=== PATIENT | female | born 1950 | race Caucasian/White ===

== ENCOUNTER → 2018-01-05 20:01 | Outpatient (REF) | payer MEDICARE, BC, SELFPAY | LOC: LBN 20:01 | PROVIDERS: PCP Nurse Practitioner Family; Visit Provider Nurse Practitioner Family | DX: R30.0 Dysuria (principal) | CPT/HCPCS: 87086 ==

== ENCOUNTER → 2018-02-24 13:45 | Outpatient (BNVA) | payer MEDICARE, BC, SELFPAY | PROVIDERS: PCP Nurse Practitioner Family; Visit Provider Orthopaedic Surgery | DX: M17.11 Unilateral primary osteoarthritis, right knee (principal); M17.12 Unilateral primary osteoarthritis, left knee; E11.9 Type 2 diabetes mellitus without complications; I10 Essential (primary) hypertension; Z79.84 Long term (current) use of oral hypoglycemic drugs | CPT/HCPCS: 20610; 99211; 99213; J1040 ==

== ENCOUNTER 2018-02-28 10:21 | Outpatient (CLI) | payer MEDICARE, BC, SELFPAY ==
[2018-02-28 11:27] LABS: Hemoglobin A1C 6.8 % (4.5-6.2)
== END 2018-02-28 10:41 ==
PROVIDERS: PCP Nurse Practitioner Family; Visit Provider Nurse Practitioner Family
DX: E11.9 Type 2 diabetes mellitus without complications (principal)
CPT/HCPCS: 36415; 83036

== ENCOUNTER → 2018-05-26 13:09 | Outpatient (BNVA) | payer MEDICARE, BC, SELFPAY | PROVIDERS: PCP Nurse Practitioner Family; Referring Provider Nurse Practitioner Family; Visit Provider Orthopaedic Surgery | DX: M17.0 Bilateral primary osteoarthritis of knee (principal); E11.9 Type 2 diabetes mellitus without complications; Z79.84 Long term (current) use of oral hypoglycemic drugs; I10 Essential (primary) hypertension | CPT/HCPCS: 20610; 99211; 99213; J1040 ==

== ENCOUNTER 2018-08-16 01:48 | Outpatient (CLI) | payer MEDICARE, BC, SELFPAY ==
[2018-08-16 10:44] LABS: Abs Immature Grans 0.06 k/cumm (0.0-0.09); Absolute Basophil Count 0.08 k/cumm (0.0-0.2); Absolute Lymphocyte Count 2.56 k/cumm (1.2-3.4); Absolute Monocyte Count 0.83 k/cumm (0.11-0.7); Absolute Neutrophil Count 6.27 k/cumm (1.2-6.7); Basophils % 0.8; Eosinophils % 6.7; HCT 38.5 % (36.0-46.0); HGB 12.4 g/dL (12.0-15.5); Immature Grans % 0.6; Lymphocytes % 24.4; Mean Corp. HGB Concentration 32.2 g/dL (32.0-36.0); Mean Corpuscular Hemoglobin 28.2 pg (27.0-33.0); Mean Corpuscular Volume 87.7 fL (80-95); Mean Platelet Volume 12.1 fL (8.0-11.0); Monocytes % 7.9; Neutrophils % 59.6; Platelet Count 298 x1000/uL (130-400); RBC 4.39 m/cumm (4.00-5.20); RBC Distribution Width 14.5 % (11.7-14.6)
[2018-08-16 11:10] LABS: ALT 18 U/L (12-78); AST 12 U/L (15-37); Albumin 3.5 g/dL (3.4-5.0); Alkaline Phosphatase 61 U/L (46-116); Anion Gap 10.9 mmol/L (3-11); BUN 24 mg/dL (7-18); Bilirubin, Total 0.5 mg/dL (0.2-1.0); CO2 25.1 mmol/L (21.0-32.0); CREATININE 1.48 mg/dL (0.55-1.02); Calcium 10.1 mg/dL (8.5-10.1); Chloride 107 mmol/L (98-107); Cholesterol 164 mg/dL (50-200); Estimated GFR 34.87 (mL/min/1.73m2); Glucose 94 mg/dL (70-100); HDL Cholesterol 49 mg/dL (40-60); LDL CHOLESTEROL 85 mg/dL (<100); Sodium 143 mmol/L (136-145); TSH 0.97 uIU/mL (0.358-3.74); Total Protein 6.3 g/dL (6.4-8.2); Triglyceride 155 mg/dL (30-150)
[2018-08-16 11:40] LABS: FREE T4 1.38 ng/dL (0.76-1.46)
[2018-08-16 12:50] LABS: Hemoglobin A1C 6.6 % (4.5-6.2)
== END 2018-08-16 02:08 ==
PROVIDERS: PCP Nurse Practitioner Family; Visit Provider Nurse Practitioner Family
DX: E11.9 Type 2 diabetes mellitus without complications (principal); E03.9 Hypothyroidism, unspecified; E78.5 Hyperlipidemia, unspecified
CPT/HCPCS: 36415; 80053; 80061; 83721; 83036; 84439; 84443; 85025

== ENCOUNTER 2018-08-17 00:27 | Outpatient (CLI) | payer MEDICARE, BC, SELFPAY ==
--- NOTE | 2018-08-17 15:00 | DI.MAMMO_ITS ---
SYMPTOM/DIAGNOSIS: SCREENING, Z12.31 MAMMOGRAMS: Mammograms were interpreted according to the usual protocol including computer analysis with CAD system, tomosynthesis and C view imaging. The breasts are of moderate density with fairly symmetrical distribution of fibroglandular tissue. No dominant mass or clumped microcalcification is identified in either breast. The current examination is compared with the previous examinations including 07/2016 and there has been no gross interval change in appearance in comparison with the previous studies. CONCLUSION: No specific evidence of malignancy at this time. Routine screening examinations are suggested at yearly intervals in this age group according to the ACS/ACR guidelines. Category 1. Breast density, Category B. MQSA ASSESSMENT OF FINDINGS: Negative. Category 1. Patient will receive a letter notifying them of these results. BI-RADS category B. There are scattered areas of fibroglandular density.
== END 2018-08-17 00:47 ==
PROVIDERS: PCP Nurse Practitioner Family; Visit Provider Nurse Practitioner Family
DX: Z12.31 Encounter for screening mammogram for malignant neoplasm of breast (principal)
CPT/HCPCS: 77063; 77067

== ENCOUNTER → 2018-09-01 12:43 | Outpatient (BNVA) | payer MEDICARE, BC, SELFPAY | PROVIDERS: PCP Nurse Practitioner Family; Referring Provider Nurse Practitioner Family; Visit Provider Orthopaedic Surgery | DX: M17.11 Unilateral primary osteoarthritis, right knee (principal); M17.12 Unilateral primary osteoarthritis, left knee; I12.9 Hypertensive chronic kidney disease with stage 1 through stage 4 chronic kidney disease, or unspecified chronic kidney disease; E11.22 Type 2 diabetes mellitus with diabetic chronic kidney disease; N18.9 Chronic kidney disease, unspecified | CPT/HCPCS: 20610; 99213; J1040 ==

== ENCOUNTER 2018-09-09 02:05 | Outpatient (CLI) | payer MEDICARE, BC, SELFPAY ==
[2018-09-09 12:09] LABS: Anion Gap 12.9 mmol/L (3-11); BUN 22 mg/dL (7-18); CO2 24.1 mmol/L (21.0-32.0); CREATININE 1.42 mg/dL (0.55-1.02); Calcium 9.9 mg/dL (8.5-10.1); Chloride 105 mmol/L (98-107); Estimated GFR 36.57 (mL/min/1.73m2); Glucose 209 mg/dL (70-100); Potassium 4.7 mmol/L (3.5-5.1); Sodium 142 mmol/L (136-145)
== END 2018-09-09 02:25 ==
PROVIDERS: PCP Nurse Practitioner Family; Visit Provider Nurse Practitioner Family
DX: N18.9 Chronic kidney disease, unspecified (principal)
CPT/HCPCS: 36415; 80048; 82043; 82570

== ENCOUNTER 2018-11-28 01:46 | Outpatient (CLI) | payer MEDICARE, BC, SELFPAY ==
[2018-11-28 10:02] LABS: Hemoglobin A1C 6.7 % (4.5-6.2)
[2018-11-28 10:22] LABS: Anion Gap 9.3 mmol/L (3-11); BUN 20 mg/dL (7-18); CO2 26.7 mmol/L (21.0-32.0); CREATININE 1.33 mg/dL (0.55-1.02); Calcium 9.6 mg/dL (8.5-10.1); Chloride 107 mmol/L (98-107); Estimated GFR 39.44 (mL/min/1.73m2); Glucose 130 mg/dL (70-100); Potassium 4.7 mmol/L (3.5-5.1); Sodium 143 mmol/L (136-145)
== END 2018-11-28 02:06 ==
PROVIDERS: PCP Nurse Practitioner Family; Visit Provider Nurse Practitioner Family
DX: E11.9 Type 2 diabetes mellitus without complications (principal); N18.9 Chronic kidney disease, unspecified
CPT/HCPCS: 36415; 80048; 83036

== ENCOUNTER → 2018-12-01 13:08 | Outpatient (BNVA) | payer MEDICARE, BC, SELFPAY | PROVIDERS: PCP Nurse Practitioner Family; Referring Provider Nurse Practitioner Family; Visit Provider Orthopaedic Surgery | DX: M17.11 Unilateral primary osteoarthritis, right knee (principal); M17.12 Unilateral primary osteoarthritis, left knee; I12.9 Hypertensive chronic kidney disease with stage 1 through stage 4 chronic kidney disease, or unspecified chronic kidney disease; E11.22 Type 2 diabetes mellitus with diabetic chronic kidney disease; N18.9 Chronic kidney disease, unspecified | CPT/HCPCS: 20610; 99211; 99213; J1040 ==

== ENCOUNTER 2019-02-28 02:09 | Outpatient (CLI) | payer MEDICARE, BC, SELFPAY ==
[2019-02-28 10:41] LABS: BUN 26 mg/dL (7-18); CREATININE 1.45 mg/dL (0.55-1.02); Calcium 10.2 mg/dL (8.5-10.1); Chloride 108 mmol/L (98-107); Glucose 126 mg/dL (70-100); Potassium 4.8 mmol/L (3.5-5.1); Sodium 144 mmol/L (136-145)
== END 2019-02-28 02:29 ==
PROVIDERS: PCP Nurse Practitioner Family; Visit Provider Nurse Practitioner Family
DX: E11.9 Type 2 diabetes mellitus without complications (principal); N18.9 Chronic kidney disease, unspecified
CPT/HCPCS: 36415; 80048; 83036

== ENCOUNTER 2019-03-06 13:12 | Outpatient (CLI) | payer MEDICARE, BC, SELFPAY ==
--- NOTE | 2019-03-06 13:05 | DI.RAD_ITS ---
EXAM: XR KNEE LT 2V AP,LAT INDICATION: f/u L knee OA. COMPARISON: XR KNEE RT 2V AP,LAT from 03/06/2019 XR STANDING ALIGNMENT from 03/06/2019 TECHNIQUE: 2D digital imaging was performed. FINDINGS: In the left knee, there is marked narrowing in the medial femoral tibial joint space. Periarticular spurring is seen involving all 3 joint compartments. The bones are intact. Vascular calcifications are present. In the right knee, there is marked narrowing seen in the medial femoral tibial joint space. Subchond ral sclerosis and cysts are also noted. There is periarticular spurring in all 3 joint compartments. Vascular calcifications are present. The right lower extremity measures 81 cm. The left lower extremity measures 80.8 cm. IMPRESSION: Severe osteoarthritis in the knees bilaterally.
== END 2019-03-06 13:32 ==
PROVIDERS: PCP Nurse Practitioner Family; Referring Provider Nurse Practitioner Family; Visit Provider Student in an Organized Health Care Education/Training Program
DX: M17.11 Unilateral primary osteoarthritis, right knee; M17.12 Unilateral primary osteoarthritis, left knee; E11.9 Type 2 diabetes mellitus without complications; Z79.4 Long term (current) use of insulin
CPT/HCPCS: 99214; 73560; 77073

== ENCOUNTER 2019-04-19 12:53 | Outpatient (CLI) | payer MEDICARE, BC, SELFPAY ==
[2019-04-19 14:21] LABS: HCT 38.2 % (36.0-46.0); HGB 12.3 g/dL (12.0-15.5); Mean Corp. HGB Concentration 32.2 g/dL (32.0-36.0); Mean Corpuscular Hemoglobin 28.1 pg (27.0-33.0); Mean Corpuscular Volume 87.2 fL (80-95); Mean Platelet Volume 11.4 fL (8.0-11.0); Platelet Count 345 x1000/uL (130-400); RBC 4.38 m/cumm (4.00-5.20); RBC Distribution Width 13.4 % (11.7-14.6); White Blood Cell Count 12.49 k/cumm (4.4-10.8)
[2019-04-19 14:51] LABS: Anion Gap 8.4 mmol/L (3-11); BUN 27 mg/dL (7-18); CO2 28.6 mmol/L (21.0-32.0); CREATININE 1.79 mg/dL (0.55-1.02); Calcium 9.8 mg/dL (8.5-10.1); Chloride 106 mmol/L (98-107); Glucose 103 mg/dL (74-106); Potassium 4.8 mmol/L (3.5-5.1); Sodium 143 mmol/L (136-145)
== END 2019-04-19 13:13 ==
PROVIDERS: PCP Nurse Practitioner Family; Visit Provider Student in an Organized Health Care Education/Training Program
DX: M25.561 Pain in right knee (principal); M17.11 Unilateral primary osteoarthritis, right knee; I10 Essential (primary) hypertension; E11.9 Type 2 diabetes mellitus without complications; K21.9 Gastro-esophageal reflux disease without esophagitis; J44.9 Chronic obstructive pulmonary disease, unspecified; Z01.818 Encounter for other preprocedural examination; Z01.812 Encounter for preprocedural laboratory examination
CPT/HCPCS: 36415; 80048; 85027

== ENCOUNTER 2019-04-25 08:16 | Inpatient (IN) | payer MEDICARE, BC, SELFPAY ==
[2019-04-19 13:03] VITALS: BP 131/74; PULSE 58; RESP 16; TEMP 37; O2SAT 97
[2019-04-25] VITALS (13 sets, daily range): BP systolic 106–149; BP diastolic 44–80; PULSE 51–61; RESP 11–19; TEMP 35.4–37; O2SAT 95–100
[2019-04-25] MEDS: Lactated Ringers 1,000 ML 80 ML IV ×2 (09:20→14:20)
[2019-04-25] MEDS: Celecoxib 200 MG CAP 400 MG PO (09:29)
[2019-04-25] MEDS: Gabapentin 300 MG CAP PO ×2 (09:30→21:26)
[2019-04-25] MEDS: Acetaminophen 500 MG TAB 1000 MG PO ×3 (09:30→19:51)
[2019-04-25] MEDS: Bupivacaine 0.25% Pres-Free 30 ML VIAL ×2 (09:46→11:21)
[2019-04-25] MEDS: ceFAZolin 2 GM/50 ML BAG IVPB (10:15)
[2019-04-25] MEDS: Normal Saline 20 ML VIAL (11:19)
[2019-04-25] MEDS: Ketorolac 30 MG/ML VIAL (11:20)
--- NOTE | 2019-04-25 15:28 | IN_ITS ---
Date of service: 04/25/19 Time of Service: 15:28 PT Notes Visit Reasons: RIGHT KNEE DJD Physical Therapy Inpatient Initial Evaluation Date: 04/25/2019 Referring Doctor: Andrew Perez MD PT Orders: PT CONSULT: Status post ankle surgery. Status post right TKA Precautions: Fall. Standard. WBAT on right LE. Patient Profile/Admitting Diagnosis: Patient is a 68-year-old female who is s/p right total knee arthroplasty on postoperative day 0 due to primary unilateral osteoarthritis of right knee. PMHX: Medical History Chronic kidney disease (Chronic) Depressive disorder (Chronic) Eosinophilic esophagitis (Chronic) EGD 10/21 Essential hypertension (Chronic) Hyperlipidemia (Chronic) Hypothyroidism (Chronic) Iron deficiency anemia (Resolved) Mild intermittent asthma (Inactive) Obesity (Inactive) Sigmoid diverticulosis (Inactive) Tubulovillous adenoma of colon (Inactive ~10/2013) Type 2 diabetes mellitus (Chronic) Surgical History History of bilateral tubal ligation (Acute) Hx of esophagogastroduodenoscopy (Chronic 10/27/13) S/P cataract surgery (Acute 08/01/13) Right - 08/01/13; Left - 08/16/17 S/P colonoscopy (Acute 10/27/13) S/P removal of ovarian cyst (Acute) Social History/Home Situation: Patient lives in a mobile home with 4 steps to enter with rails on both sides. She also can use the ramp to get into the house. 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 Son Clemente has made sure that the house is handicap accessible for his father. Patient uses a 4 wheeled walker for all indoor and outdoor ambulation prior to surgery. She still drives. Son Clemente states that his parents has a relative who lives 100 feet away from their home and are very willing to check in on his mom at least 5 times a day to make sure that she has what she needs. Equipment Owned/DME: Walker, standard walker, transport wheelchair, raised toilet seat, shower chair, grab bars, CPAP machine Subjective: Patient reports seeing spots and sparkles in her peripheral vision at time evaluation and states that she was treated for vertigo by a doctor in the past. She reports of a low back pain that is aggravated with movement and ambulation. She denies headache, chest pain, and nausea throughout PT session. She elaborates that she has not fallen in the past 5 months prior to surgery. Objective: General Observation: Patient seen resting in bed. Son Clemente present throughout PT consult and treatment. Cryo/Cuff on right knee. TEDS on left leg. Morris wraps on right knee. Becerra catheter in place. Anti-thromboembolic device on left leg. Mental Status: Alert and oriented x4 Pain: Reported mild low back pain Vital Signs: 108/77 mmHg in supine, 133/70 mmHg sitting, 109/67 standing ROM: Right Upper Extremity: Shoulder Flexion WFL. Shoulder abduction WFL. Elbow flexion WFL. Wrist flexion WFL. Opening and closing of hand WFL. Left Upper Extremity: Shoulder Flexion WFL. Shoulder abduction WFL. Elbow flexion WFL. Wrist flexion WFL. Opening and closing of hand WFL. Right Lower Extremity: Hip flexion WFL. Hip abduction WFL. Knee flexion -15 to 102 degrees. Knee extension -15 degrees. Ankle dorsiflexion WFL. Ankle plantarflexion WFL. Left Lower Extremity: Hip flexion WFL. Hip abduction WFL. Knee flexion WFL. Ankle dorsiflexion WFL. Ankle plantarflexion WFL. Strength: Right Upper Extremity: Shoulder flexors 5/5. Shoulder abductors 5/5. Elbow fl exors 5/5. Elbow extensors 5/5. [employer] strong. Left Upper Extremity: Shoulder flexors 5/5. Shoulder abductors 5/5. Elbow flexors 5/5. Elbow extensors 5/5. [employer] strong. Right Lower Extremity: Hip flexors 5/5. Hip abductors 5/5. Knee flexors 3-/5. Knee extensors 3-/5. Ankle dorsiflexors 5/5. Ankle plantarflexors 5/5. Left Lower Extremity:Hip flexors 5/5. Hip abductors 5/5. Knee flexors 5/5. Knee extensors 5/5. Ankle dorsiflexors 5/5. Ankle plantarflexors 5/5. Sensation: Intact as to pain and pressure on bilateral lower extremities. Reports decreasing numbness on right thigh. Bed Mobility/Transfers: Rolling SBA Supine to sit SBA Sit to supine SBA Sit to stand CGA Stand to sit CGA Bed to chair CGA Chair to bed CGA Gait: Despite continued report seeing spots and sparkles, patient was able to tolerate 60 feet level surface ambulation using a four-wheel walker requiring only CGA with step -o gait pattern however with asymmetric step length and height. Lidia decreased. Patient reported feeling a little funky advancing her right leg due to numbness. Balance: Static Sitting: Normal Dynamic Sitting: Normal Static Standing: Fair Dynamic Standing: Fair Special Tests: Mobility Limitations Standardized Measure [facility] AM-PAC 6 clicks Basic Mobility Inpatient Short Form: Raw Score: 18 CMS Score: 47% deficit Informed Consent/Education: Patient instructed in purpose of PT consult and plan of care. Patient was also instructed on doing hourly performance of gluteal and quadriceps setting x10 reps along with ankle pumping x 20 reps on top of skilled physical therapy service she is getting. Assessment: Patient is a 68-year-old female who is s/p right total knee arthroplasty on postoperative day 0 due to primary unilateral osteoarthritis of right knee now presenting with impairments and functional limitations as listed below. She has a good support from family however would need to be as independent as she can in order to continue providing care for with B BKA. Her prognosis for regaining prior level of function is fair to good. Her pre-existing vertigo may limit mobility ADL performance at this time. Patient presents with clinical signs and symptoms consistent with current/admitting diagnoses that have resulted to mobility limitations, gait instability, generalized weakness, and impairment of motor control as demo nstrated by the following impairment level findings: 1. Decreased strength to right knee major muscle groups 2. Impaired standing balance 3. Impaired activity tolerance 4. Limitation of joint range of motion in right knee Impairments are contributing to the following functional limitations: 1. Inability to safely ambulate without assistive device and physical assistance 2. Increase completion time for mobility ADL performance 3. Increased fall risk 4. Inability to negotiate steps alone safely Patient is assessed as a 906 to moderate complexity based on the following: History: Patient is a 70-year-old female status post right knee total arthroplasty with comorbidities as indicated under past medical history above Examination: Demonstrable impairment in strength, balance, and range of motion with underlying impairments and functional limitations as documented above Presentation:Evolving Decision Makin to moderate complexity Goals: Goals X1 week 1. Supine-Sit independent 2. Sit-Supine independent 3. Sit-Stand independent 4. Stand-Sit independent 5. Bed-Chair independent 6. Chair-Bed independent 7. Independent gait on level surface with use of least restrictive device for at least 300 feet without report of pain nor dyspnea 8. Independent stair negotiation while holding onto bilateral rails for at least 10 steps without report of pain nor dyspnea 9. Independent with home exercise program 10. Good static and dynamic standing balance/tolerance Plan of Care/Treatment Plan: 1-2x/day, 7 days/week x 1 week. Plan of care has been reviewed with the [employer] providing the service under Physical Therapy direction. Initiate Physical Therapy intervention for strengthening, bed mobility, transfers, gait, stairs, balance training, use of assistive device. DISCHARGE RECOMMENDATIONS: May benefit from skilled physical therapy services according to orthopedic surgeon's timeline recommendations. Patient will be educated and trained on home exercise program per TKA exercise protocol in preparation for outpatient physical therapy services. TREATMENT CODE/TIME: 87791 x30 minutes, 16668 x 12 minutes beginning at 15:28 PM. Thank you very much for this referral. Guera Laguna PT, DPT, CLT [facility] [place], [place]
[2019-04-25] MEDS: ceFAZolin 1 GM/50 ML BAG IVPB (16:20)
[2019-04-25] MEDS: Insulin Aspart 300 UNITS/3 ML PEN SC (17:10)
[2019-04-25] MEDS: Celecoxib 200 MG CAP PO (19:51)
[2019-04-25] MEDS: Glucosamine/Chondroitin CAP 1 CAP PO (19:51)
[2019-04-25] MEDS: Atorvastatin 10 MG TAB PO (19:52)
[2019-04-25] MEDS: Aspirin E.C. 81 MG TABEC PO (19:52)
--- NOTE | 2019-04-25 22:34 | ROE_ITS ---
Date of service: 04/25/19 Time of Service: 13:34 Operative Note Operative Note DATE OF PROCEDURE: 04/25/19 PRE-OP DIAGNOSIS: Right Knee Osteoarthritis with Tibial Varus Deformity POST-OP DIAGNOSIS: same PROCEDURE: Right Total Knee Arthroplasty with Intraoperative Navigation SURGEON: Andrew Perez WAREHOUSE LABORER: Sandra Erazo ANESTHESIA: regional and spinal ESTIMATED BLOOD LOSS: 250 PATHOLOGY: none sent TOURNIQUET TIME: 34 COMPLICATIONS: None Patient was transported to: PACU Patient's condition: stable Implants: 1. Depuy Attune Posterior Stabilized Femoral Component, Size 4 2. Depuy Attune Fixed Platform Revision Tibial Component with 14x30 Stem, Size 5 3. Depuy Attune 5x12mm Fixed, Stabilized Poly 4. Depuy Attune Patellar Component, Size 32mm Indications: I have seen Shari in clinic for symptoms of knee arthritis, confirmed with radiographic findings. Shari has exhausted nonoperative methods and was having significant limitations in daily function and desired better function and less pain. I discussed the technical details of a knee replacement. I explained the risks of the procedure to include, but not limited to, bleeding, infection, pain, stiffness, fracture, damage to nerves and vessels, damage to muscles and tendons, loosening, need for repeat procedure, blood clot and cardiopulmonary demise. Despite these risks, Shari elected to proceed. Findings: There was significant signs of arthritis throughout the knee with a notable varus slope to the proximal tibia. The bone was quite soft and thereofore I used a small stemmed tibia. Procedure Description: Shari was greeted in the preoperative holding area where the correct side was identified and marked. The consent was reviewed with the patient and signed. The history and physical was updated. All questions were answered. Preoperative mediacations were administered: Acetaminophen 1000mg, Celebrex 400mg, Gabapentin 300mg. An adductor canal block was then administered by the anesthesia team in the PACU. Shari was taken back to the operating room. A spinal anesthestic was then administered. The patient was placed into the supine position on the operating room table. A nonsterile tourniquet was placed high onto the leg but only used for cementing. Posts were placed for positioning during the procedure. All bony prominences were well padded. Prophylactic antibiotics in the form of Cefazolin were administered. 1g of Tranxemic Acid was given intravenously within 30 minutes of incision. The right leg was then prepped with Chloraprep and draped in a standard fashion with impervious stockinette and extremity drape with Iodine impregnated skin protection. A timeout to confirm correct identity, side and site, procedure, allergies, anesthesia, and medical concerns was performed. With the knee in some flexion, a midline incision was made overlying the knee. Full thickness skin flaps were raised once the extensor mechanism was encountered. These were raised medially and laterally. Any bleeding was controlled with electrocautery. Once the extensor mechanism was fully exposed, a medial parapatellar arthrotomy was performed in a flexed position. All bleeding from the arthrotomy and the geniculate arteries was coagulated. A medial subperiosteal peel was performed with electrocautery to the midcoronal plane. Due to the significant varus deformity the entire medial tibial plateau was exposed. The fat pad was removed while keeping the patellar tendon protected. The anterior distal femur synovium was removed for later visualization. The ACL and PCL were resected and the anterior horn of the lateral meniscus was transected. The knee was then flexed with the patella everted. Large osteophytes from the tibia were removed. Large osteophytes from the femur were removed. A single starting pin was then placed 1cm anterior to the PCL insertion and the notch in the direction of the femoral head. The OrthoAlign device was applied over the pin. It was oriented to be in line with the epicondylar axis and the trochlear groove. It was then pinned into place. The navigation computer was then turned on and calibrated. The distal femur cut was set at 0 degrees varus/valgus and 2.5 degrees flexion. The distal femur cutting guide then was positioned for a 9mm cut. The distal femur was cut with an oscillating saw while protecting the soft tissues. The tibia was then addressed. The OrthoAlign device was placed over the tibial tubercle and medial tibia and secured into position. Once again, OrthoAlign was calibrated and then set for a 0 degree varus/valgus cut and 3 degrees of posterior slope. With this locked into position, the cut thickness stylus was used to assess cut thickness. The medial side, most involved side, was set for a 2mm cut. This was then held in position and pinned into place with 2 additional pins and a cross pin for stability. The medial and lateral collateral ligaments were protected and the cut was performed. With this completed, it was assessed and noted to be of appropriate dimensions. The guide and OrthoAlign was removed. A spacer block was inserted and the knee was brought into extension. The 10mm spacer block provided full extension, without hyperextension and with stability of both the medial and lateral collateral ligaments was assessed. The pins from the femur and the tibia were then removed. The distal femur was then sized. The anterior stylus was placed onto the lateral ridge of the anterior femur. This indicated a size 4 femur. The external rotation of the guide was adjusted to 3 degrees to match the epicondylar axis, perpendicular to Maries?s line. The 4-in-1 cutting guide was the placed. The posterior medial femur cut was evaluated and appeared of good thickness. The spacer block was inserted underneath the cutting guide and stability was confirmed in 90 degrees of flexion. An leyla wing was used to confirm appropriate position of the anterior cut to avoid notching. This cutting guide was ensured to be flush on the cut surface and then pinned into place with headed pins. While protecting the soft tissues, quad tendon, and collateral ligaments, the anterior and posterior cuts were performed with a saw. The central two pins were removed and the posterior and anterior chamfers were cut next. The notch-cutting guide was placed. This was pinned to lateralize the femoral component as much as possible while keeping it flush on the cut surface. This was then pinned into position. A reciprocating saw was used to make the notch cut. A rasp smoothed the cut surfaces. A trial posterior stabilized femoral component was then inserted, impacted down to the cut surfaces, and the lug holes were drilled. A provisional trial tibial component was placed and the knee was brought through range of motion. The polyethylene was trialed until there was good flexion and extension with excellent stability to the medial and lateral collaterals. The patella was tracking without thumbs. The tibial cut surface was fully exposed. The medial and lateral menisci were removed. The tibia was then sized as a 5. The tibia had been previously marked during trialing to correspond to the center of the tibial component to help with rotation. The trial was aligned to this jamia, approximately rotated to the medial 1/3rd of the tibial tubercle. The trial was pinned into place. The tibia was prepared with a reamer and a keel punch. The knee was then brought into extension and the patella was measured as 21mm. Using the patellar clamp and cut guide, this was resected to a flat surface with at least 13mm of thickness remaining. The size 32 patella fit the best. This was oriented and then clamped into position. The lugs were drilled. The trial components were removed. The final components, except for the polyethylene were opened on the back table. The periosteal and capsular tissues, especially posteriorly, around the knee were then systematically injected with a periarticular cocktail consisting of 50cc 0.25% Marcaine, 30mg Ketorolac, 20cc of Exparal and 50cc of injectable saline. The tourniquet was then inflated to 275mmHg. The knee was thoroughly irrigated with a pulse lavage and dried. On the back table, with the implants opened, the cement was mixed. 2 batches of antibiotic laden cement were prepared with vacuum assistance. After the cement was ready a small amount was placed on to the back side of the tibial component at the keel. A small amount was placed onto the posterior flange of the femur. Cement was manual pressurized and impregnated into the cut surface of the tibia. The tibial component was then inserted into the cut surface and impacted into position. Excess cement was removed and the component was reimpacted. Again, excess cement was removed and our attention was then turned to the femur. The femoral cut surface was once again dried and cement was manually impacted into the cut surface. The femoral component was lined with the lug holes and impacted. Excess cement was removed. It was ensured to be down against the cut surface. The trial polyethylene was then inserted and the leg was brought out into full extension for the duration of the cement curing process, approximately 15min. Cement was lastly manually impacted into the cut surface of the patella and the patellar button was clamped into position and held. During this process attention was turned to the gutters of the knee and for all interfaces for any excess cement. The knee was then irrigated with Irrisept, chlorhexadine solution, and allowed to sit in the knee. After the cement had finally cured, approximately 15min, the clamp was removed from the patella and the knee was taken through range of motion. A size 12mm polyethylene component provided the best range of motion and stability with less than 2mm gapping with medial and lateral stress and full extension without significant hyperextension. The patella was tracking with a no-thumbs technique. The trial poly was removed and once again the knee was checked for any loose, excess, or errant cement. The poly component was then inserted and impacted into position after cleaning and drying the tibial tray. The capsule was then reapproximated with a No. 1 Vicryl at multiple locations. The capsule was finally closed with a No. 2 Stratafix, barbed suture. The tourniquet was then released and the arthrotomy appeared watertight without significant bleeding. The second dosing of 1g TXA was started. Deep tissues were then reapproximated with 0 Vicryl and 2-0 Vicryl. The skin was closed with a running 3-0 Monocryl in a subcuticular fashion. This was reinforced with skin glue. A Mepilex silver dressing was applied along with a [id number] GARTH wrap. A CryoCuff was applied. Shari was transferred to the hospital bed without difficulty an suffering no apparent complication. Shari has a good prognosis. Physical therapy will start today and without restrictions, weight-bearing as tolerated. Aspirin 81mg BID will be used for DVT prophylaxis.
[2019-04-26] MEDS: ceFAZolin 1 GM/50 ML BAG IVPB ×2 (00:27→08:13)
[2019-04-26] MEDS: Lactated Ringers 1,000 ML 80 ML IV (03:05)
[2019-04-26 03:44] VITALS: BP 113/79; PULSE 63; RESP 16; TEMP 36.6; O2SAT 94
[2019-04-26] MEDS: Normal Saline 1,000 ML 1000 ML IV (07:00)
[2019-04-26] MEDS: Levothyroxine 100 MCG TAB PO (07:06)
[2019-04-26 07:26] LABS: Anion Gap 6.8 mmol/L (3-11); BUN 28 mg/dL (7-18); CO2 25.2 mmol/L (21.0-32.0); CREATININE 1.76 mg/dL (0.55-1.02); Calcium 9.2 mg/dL (8.5-10.1); Chloride 108 mmol/L (98-107); Estimated GFR 28.55 (mL/min/1.73m2); Glucose 134 mg/dL (74-106); Potassium 4.6 mmol/L (3.5-5.1); Sodium 140 mmol/L (136-145)
[2019-04-26 08:00] VITALS: BP 149/76; PULSE 72; RESP 16; TEMP 36.1; O2SAT 96
[2019-04-26] MEDS: Celecoxib 100 MG CAP PO ×2 (08:14→19:59)
[2019-04-26] MEDS: Omeprazole 20 MG CAPCR PO (08:14)
[2019-04-26] MEDS: Loratidine 10 MG TAB PO (08:14)
[2019-04-26] MEDS: Aspirin E.C. 81 MG TABEC PO ×2 (08:14→19:59)
[2019-04-26] MEDS: Lisinopril 20 MG TAB 40 MG PO (08:14)
[2019-04-26] MEDS: Glucosamine/Chondroitin CAP 1 CAP PO ×2 (08:14→19:58)
[2019-04-26] MEDS: Atenolol 50 MG TAB PO (08:14)
[2019-04-26] MEDS: amLODIPine 10 MG TAB PO (08:14)
[2019-04-26] MEDS: oxyCODONE 5 MG TAB PO ×2 (08:14→11:14)
[2019-04-26] MEDS: Acetaminophen 500 MG TAB 1000 MG PO ×3 (08:15→19:58)
[2019-04-26] MEDS: FLUoxetine 20 MG CAP PO (08:15)
--- NOTE | 2019-04-26 09:27 | PDOC.CMIN ---
- If Service Date Differs Date of service: 04/26/19 Time of Service: 09:27 Care Management Initial Assess REASON FOR HOSPITALIZATION:: Right knee replacement. PAST MEDICAL HISTORY/PAST SURGICAL HISTORY:: Medical/Surgical History: Type 2 diabetes mellitus, chronic kidney disease, essential hypertension, hyperlipidemia, hypothyroidism, eosinophilic esophagitis, mild intermittent asthma, depressive disorder, obesity, and sigmoid diverticulosis. PREVIOUS FUNCTIONAL STATUS/SOCIAL/FAMILY SUPPORTS:: Shari lives in [place] with her , Luis Manuel, and her cat. Her is a double-amputee and Shari provides all of his care. Shari and her have two children: a daughter who lives in [facility] and a son who resides in [place]. Shari reports their son visits frequently and he is helpful around the house. She also names a former [id number] and her who live nearby as sources of support for her. Shari drives and is independent with her ADLs at baseline. CURRENT FUNCTIONAL STATUS:: Shari is sitting in a chair when CM comes to meet with her. She is pleasant and easily engages into conversation. She shares openly about her struggles caring for her who reportedly has a diagnosis of dementia. ADVANCE DIRECTIVES:: On file at [facility]; Luis Manuel Mckeon is agent. Has patient been provided with information about the portal?: No Did the patient sign up for the portal?: No CODE STATUS:: Full Code INSURANCE COVERAGE / FINANCIAL ISSUES:: BCBS and Medicare CURRENT HOME/COMMUNITY SERVICES/EQUIPMENT:: Shari reports she has a FWW and a wheelchair at home. She also has a private cleaning lady who comes to clean her home every other Wednesday. PRIMARY CARE PHYSICIAN:: Ana Rosa Calderon NP ([facility]) POTENTIAL DISCHARGE NEEDS:: Follow-up with PCP, Dr. Perez, and discharge plan of care. PATIENT/FAMILY EDUCATION NEEDS:: Discharge plan, limitations, plan of care, including Ask Me Three and self-management. ANTICIPATED BARRIERS TO DISCHARGE:: None. TRANSPORTATION:: Shari will be transported home via private vehicle when ready. PLAN:: Shari will be discharged home when medically cleared by provider. CM will coordinate a referral to Home Health for physical therapy and to the [facility] for [id number]. Shari's former [id number] will stay at Shari's home to assist with the care of her while Shari recovers from surgery. Family will transport Shari home via private vehicle when ready.
[2019-04-26 11:49] VITALS: BP 124/72; PULSE 64; RESP 20; TEMP 37.1; O2SAT 96
[2019-04-26] MEDS: Insulin Aspart 300 UNITS/3 ML PEN SC (12:30)
--- NOTE | 2019-04-26 14:50 | TELEFU_ITS ---
Date of service: 04/26/19 Time of Service: 14:50
--- NOTE | 2019-04-26 14:50 | W.NUTRFU ---
Date of service: 04/26/19 Time of Service: 14:50
--- NOTE | 2019-04-26 14:51 | W.NUTCONSULT ---
Date of service: 04/26/19 Time of Service: 14:51 Nutritional Consult ASSESSMENT: 68 year old female admitted for total right knee replacement. PMH: DM, CKD, HTN, depression and obesity. BMI indicates class 1 obesity. Following CHO diet with adequate intake. Diabetes Consult pending. Not currently considered at nutritional risk. Time Spent in Nutritional Counseling and Treatment: 0 time spent face to face
--- NOTE | 2019-04-26 15:00 | PT.INTREAT ---
Date of service: 04/26/19 Time of Service: 15:00 PT Notes Visit Reasons: RIGHT KNEE DJD Inpatient Physical Therapy Treatment Note [facility] Date: 04/26/2019 PRECAUTIONS: Fall, WBAT R SUBJECTIVE: Shari states that she is doing well, although is hesitant to return to home. She is agreeable to participating in PT OBJECTIVE: PAIN: Patient complains of posterior right knee pain with ther ex and gait training BED MOBILITY/TRANSFERS Supine-sit: I with HOB flat Sit-supine: I with HOB flat Sit-stand: S in a.m.; I in p.m. Stand-sit: S in a.m.; I in p.m. GAIT Assistive Device: FWW Weight bearing: WBAT R Assist: SBA in a.m.; S in p.m. Distance: 60' x2 in a.m.; 175' in p.m. Deviation: Step through gait pattern, slow pace, wide YAAKOV with gait STAIRS: Up/down 3?4 and 2?6 using B rails and a step to pattern with supervision TOILETING: Patient toileted independently ASSESSMENT: Patient tolerated session well with posterior right knee pain with there ex and gait training. She was able to demonstrate independence with bed mobility, transfers, and toileting at this time. Patient would benefit from continued gait training for improved gait mechanics. PLAN: Continue with PTs POC TREATMENT CODE/TIME: Session 1: 35 minutes; [id number], [id number] Session 2: 25 minutes; [id number], [id number]
[2019-04-26 16:11] VITALS: BP 112/69; PULSE 65; RESP 18; TEMP 36.6; O2SAT 97
[2019-04-26] MEDS: Atorvastatin 10 MG TAB PO (19:58)
[2019-04-26 20:39] VITALS: BP 120/70; PULSE 77; RESP 18; TEMP 36.7; O2SAT 96
[2019-04-26] MEDS: Gabapentin 300 MG CAP PO (21:40)
[2019-04-26 23:52] VITALS: BP 98/70; PULSE 76; RESP 19; TEMP 36.7; O2SAT 95
[2019-04-27] MEDS: oxyCODONE 5 MG TAB PO ×3 (03:02→13:54)
[2019-04-27 03:35] VITALS: BP 126/72; PULSE 71; RESP 18; TEMP 37.8; O2SAT 95
[2019-04-27] MEDS: Levothyroxine 100 MCG TAB PO (06:37)
[2019-04-27 07:27] VITALS: BP 143/71; PULSE 76; RESP 17; TEMP 37.2; O2SAT 96
[2019-04-27 07:33] LABS: Anion Gap 12.2 mmol/L (3-11); BUN 30 mg/dL (7-18); CO2 22.8 mmol/L (21.0-32.0); CREATININE 1.83 mg/dL (0.55-1.02); Calcium 9.3 mg/dL (8.5-10.1); Chloride 107 mmol/L (98-107); Estimated GFR 27.29 (mL/min/1.73m2); Glucose 182 mg/dL (74-106); Potassium 4.4 mmol/L (3.5-5.1); Sodium 142 mmol/L (136-145)
[2019-04-27] MEDS: Insulin Aspart 300 UNITS/3 ML PEN SC ×2 (08:08→12:23)
[2019-04-27] MEDS: FLUoxetine 20 MG CAP PO (08:09)
[2019-04-27] MEDS: Aspirin E.C. 81 MG TABEC PO (08:09)
[2019-04-27] MEDS: Omeprazole 20 MG CAPCR PO (08:09)
[2019-04-27] MEDS: Loratidine 10 MG TAB PO (08:09)
[2019-04-27] MEDS: Acetaminophen 500 MG TAB 1000 MG PO ×2 (08:09→13:54)
[2019-04-27] MEDS: amLODIPine 10 MG TAB PO (08:09)
[2019-04-27] MEDS: Glucosamine/Chondroitin CAP 1 CAP PO (08:09)
[2019-04-27] MEDS: Atenolol 50 MG TAB PO (08:10)
[2019-04-27] MEDS: Normal Saline 1,000 ML 1000 ML IV (09:03)
[2019-04-27] MEDS: Normal Saline Flush 10 ML SYR IV (09:03)
--- NOTE | 2019-04-27 10:52 | PT.INTREAT ---
Date of service: 04/27/19 Time of Service: 10:52 PT Notes Visit Reasons: RIGHT KNEE DJD Inpatient Physical Therapy Treatment Note [facility] Date: 04/27/2019 PRECAUTIONS: Fall, WBAT R SUBJECTIVE: Shari states that she is feeling better than she was during the night, although indicates that her knee is more sore than yesterday. She is agreeable to participating in PT OBJECTIVE: PAIN: Patient complains of right knee pain with ther ex and gait training BED MOBILITY/TRANSFERS Sit-stand: I Stand-sit: I GAIT Assistive Device: FWW Weight bearing: WBAT R Assist: S Distance: 175' Deviation: Step-to/step- through gait pattern, slow pace, wide YAAKOV with gait STAIRS: Up/down 3?4 and 2?6 using B rails and a step to pattern, independently ASSESSMENT: Patient tolerated session well, with right knee pain with there ex and gait training. She was able to demonstrate transfers and stair negotiation at this time. PLAN: As per primary PT TREATMENT CODE/TIME: 25 minutes; [id number], [id number]
[2019-04-27 11:08] VITALS: BP 137/65; PULSE 64; RESP 17; TEMP 37; O2SAT 97
--- NOTE | 2019-04-27 11:51 | PT.INDS ---
Date of service: 04/27/19 Time of Service: 11:51 PT Notes Visit Reasons: RIGHT KNEE DJD Inpatient Physical Therapy Discharge Summary Dates: 04/27/2019 Dates of Service: 04/25/2019 through 04/27/2019 This is a clinical summary of care provided on the duration of dates listed above. No charge was made in the completion of this documentation. Referring Doctor: Andrew Perez MD PT Orders: PT CONSULT: Status post ankle surgery. Status post right TKA Precautions: Fall. Standard. WBAT on right LE. Patient Profile/Admitting Diagnosis: Patient is a 68-year-old female who is s/p right total knee arthroplasty on postoperative day 2 due to primary unilateral osteoarthritis of right knee. PMHX: Medical History Chronic kidney disease (Chronic) Depressive disorder (Chronic) Eosinophilic esophagitis (Chronic) EGD 10/21 Essential hypertension (Chronic) Hyperlipidemia (Chronic) Hypothyroidism (Chronic) Iron deficiency anemia (Resolved) Mild intermittent asthma (Inactive) Obesity (Inactive) Sigmoid diverticulosis (Inactive) Tubulovillous adenoma of colon (Inactive ~10/2013) Type 2 diabetes mellitus (Chronic) Surgical History History of bilateral tubal ligation (Acute) Hx of esophagogastroduodenoscopy (Chronic 10/27/13) S/P cataract surgery (Acute 08/01/13) Right - 08/01/13; Left - 08/16/17 S/P colonoscopy (Acute 10/27/13) S/P removal of ovarian cyst (Acute) Social History/Home Situation: Patient lives in a mobile home with 4 steps to enter with rails on both sides. She also can use the ramp to get into the house. 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 Son Clemente has made sure that the house is handicap accessible for his father. Patient uses a 4 wheeled walker for all indoor and outdoor ambulation prior to surgery. She still drives. Son Clemente states that his parents has a relative who lives 100 feet away from their home and are very willing to check in on his mom at least 5 times a day to make sure that she has what she needs. Equipment Owned/DME: Walker, standard walker, transport wheelchair, raised toilet seat, shower chair, grab bars, CPAP machine Subjective: NT Objective: General Observation: NT Mental Status: NT Pain: NT ROM: Right Upper Extremity: Shoulder Flexion WFL. Shoulder abduction WFL. Elbow flexion WFL. Wrist flexion WFL. Opening and closing of hand WFL. Left Upper Extremity: Shoulder Flexion WFL. Shoulder abduction WFL. Elbow flexion WFL. Wrist flexion WFL. Opening and closing of hand WFL. Right Lower Extremity: Hip flexion WFL. Hip abduction WFL. Knee flexion -15 to 102 degrees. Knee extension -15 degrees. Ankle dorsiflexion WFL. Ankle plantarflexion WFL. Left Lower Extremity: Hip flexion WFL. Hip abduction WFL. Knee flexion WFL. Ankle dorsiflexion WFL. Ankle plantarflexion WFL. Strength: Right Upper Extremity: Shoulder flexors 5/5. Shoulder abductors 5/5. Elbow flexors 5/5. Elbow extensors 5/5. Lunch Truck Operator strong. Left Upper Extremity: Shoulder flexors 5/5. Shoulder abductors 5/5. Elbow flexors 5/5. Elbow extensors 5/5. Lunch Truck Operator strong. Right Lower Extremity: Hip flexors 5/5. Hip abductors 5/5. Knee flexors 3-/5. Knee extensors 3-/5. Ankle dorsiflexors 5/5. Ankle plantarflexors 5/5. Left Lower Extremity:Hip flexors 5/5. Hip abductors 5/5. Knee flexors 5/5. Knee extensors 5/5. Ankle dorsiflexors 5/5. Ankle plantarflexors 5/5. Sensation: Intact as to pain and pressure on bilateral lower extremities. Reports decreasing numbness on right thigh. Bed Mobility/Transfers: Rolling independent Supine to sit independent Sit to supine independent Sit to stand independent Stand to sit independent Bed to chair independent Chair to bed independent Gait: 175' with step-through gait pattern using the FWW with WBAT on R LE. Up and down three 4-inch steps and two 6-inch steps while hlding onot bilateral rials independently. Balance: Static Sitting: Normal Dynamic Sitting: Normal Static Standing: Fair Dynamic Standing: Fair Assessment: Patient is a 68-year-old female who is s/p right total knee arthroplasty on postoperative day 2 due to primary unilateral osteoarthritis of right knee now presenting with impairments and functional limitations as listed below. She has a good support from family however would need to be as independent as she can in order to continue providing care for with B BKA. Her prognosis for regaining prior level of function is fair to good. Her pre-existing vertigo may limit mobility ADL performance at this time. Patient presents with clinical signs and symptoms consistent with current/admitting diagnoses that have resulted to mobility limitations, gait instability, generalized weakness, and impairment of motor control as demonstrated by the following impairment level findings: 1. Decreased strength to right knee major muscle groups 2. Impaired standing balance 3. Impaired activity tolerance 4. Limitation of joint range of motion in right knee Impairments are contributing to the following functional limitations: 1. Inability to safely ambulate without assistive device and physical assistance 2. Increase completion time for mobility ADL performance 3. Increased fall risk 4. Inability to negotiate steps alone safely Goals: Goals X1 week 1. Supine-Sit independent MET 2. Sit-Supine independent MET 3. Sit-Stand independent MET 4. Stand-Sit independent MET 5. Bed-Chair independent MET 6. Chair-Bed independent MET 7. Independent gait on level surface with use of least restrictive device for at least 300 feet without report of pain nor dyspnea NOT MET 8. Independent stair negotiation while holding onto bilateral rails for at least 10 steps without report of pain nor dyspnea NOT MET 9. Independent with home exercise program MET 10. Good static and dynamic standing balance/tolerance NOT MET DISCHARGE RECOMMENDATIONS: May benefit from skilled physical therapy services according to orthopedic surgeon's timeline recommendations. Patient will be educated and trained on home exercise program per TKA exercise protocol in preparation for outpatient physical therapy services. TREATMENT CODE/TIME: NC.. Thank you very much for this referral. Guera Laguna PT, DPT, CLT [facility] [place], [place]
--- NOTE | 2019-04-27 12:21 | DSE_ITS ---
Date of service: 04/27/19 Time of Service: 07:41 DS: Diagnosis Discharge Diagnosis (1) Primary osteoarthritis of right knee: Status: Acute Discharge Plan Disposition Patient Disposition: HOME W/HOME HEALTH SERVICE Condition: Good Discharge Details Reason For Visit: RIGHT KNEE DJD Admit Date/Time: 04/25/19 08:16 Admit Provider: Andrew Perez Attending Provider: Andrew Perez [facility] Course: Patient was admitted to the medical/surgical floor following the procedure. It was tolerated well without any notable medical, surgical, or anesthetic complications. Mobilization began postoperatively. The peng catheter was removed and voiding spontaneously. Vitals were stable. Physical therapy worked with the patient and was cleared for discharge home. No acute medical issues. Home Meds and New Rx's Prescriptions: New aspirin 81 mg tablet,delayed release (DR/EC) 81 mg PO BID Qty: 60 RF: 0 gabapentin 300 mg capsule 300 mg PO QHS Qty: 7 RF: 0 oxycodone 5 mg tablet 5 mg PO Q4H Qty: 18 RF: 0 acetaminophen [Arthritis Pain Reliever] 650 mg tablet extended release 650 mg PO Q12H PRN (Reason: pain) Qty: 60 RF: 0 naproxen [EC-Naproxen] 500 mg tablet,delayed release (DR/EC) 500 mg PO BID PRN (Reason: pain) Qty: 60 RF: 3 Continued amlodipine 10 mg tablet 10 mg PO DAILY Qty: 90 RF: 4 atenolol 50 mg tablet 50 mg PO DAILY Qty: 90 RF: 4 Glucosamine-Chondroitin Complx 1 EACH capsule 1 ea PO BID RF: 0 loratadine [Claritin] 10 MG tablet 1 tab PO DAILY RF: 0 calcium carbonate-vitamin D3 [Os-Dennis 500 + D3] 1 EACH tablet 1 ea PO BID RF: 0 albuterol sulfate [ProAir HFA] 8.5 GM HFA aerosol inhaler 2 puff Inhalation Q6H PRN Qty: 3 RF: 4 clotrimazole 1 % cream 1 applic Topical BID Qty: 45 RF: 4 omeprazole 20 mg capsule,delayed release(DR/EC) 20 mg PO DAILY Qty: 90 RF: 4 atorvastatin [Lipitor] 10 mg tablet 10 mg PO DAILY Qty: 90 RF: 4 fluoxetine [Prozac] 20 mg capsule 20 mg PO DAILY Qty: 90 RF: 4 levothyroxine [Synthroid] 100 mcg tablet 100 mcg PO .M-Sa Qty: 90 RF: 4 insulin degludec 100 unit/mL (3 mL) insulin pen 10 unit SC QHS Qty: 15 RF: 4 lisinopril 40 mg tablet 40 mg PO DAILY Qty: 90 RF: 4 Discontinued turmeric root extract 500 mg capsule 500 mg PO BID RF: 0 aspirin [Aspirin Low-Strength] 81 MG tablet,chewable 1 tab PO DAILY RF: 0 No Action (DME) FreeStyle Lite Strips strip 1 ea Miscellaneous DAILY Qty: 100 RF: 8 (DME) lancets [FreeStyle Lancets] 28 gauge misc 1 ea Miscellaneous DAILY Qty: 200 RF: 4 (DME) pen needle, diabetic [Advocate Pen Needle] 31 gauge x 5/16 needle See Rx Instructions .ROUTE .MEDSUPPLY Qty: 100 RF: 4 (DME) blood-glucose meter [FreeStyle Lite Meter] Kit See Rx Instructions .ROUTE .MEDSUPPLY Qty: 1 RF: 4 Discharge Instructions Additional Instructions: Dr. Perez?s Total Knee Discharge Instructions Activity: The most important activity is to walk. You should try to take short walks a few times a day. It is important that when resting you work on keeping the knee straight. Avoid putting a pillow behind the knee as this will encourage flexion. Work on range of motion exercises as provided by Physical Therapy. - Start outpatient physical therapy within 2 weeks. - You should wear the JAYSHREE hose on both legs for 2 weeks. Dressing: Keep the surgical dressing in place for at least one week. After the first week it may be removed and replace with light gauze and tape or nothing. It may get wet after 3 days but avoid soaking the dressing. If it gets wet, just lightly pat dry. Medications: - You should take Tylenol and anti-inflammatory Naproxen as your primary pain control medications - You have been prescribed a stronger pain medication Oxycodone for breakthrough pain, take as needed as prescribed. - You should continue your stomach acid reduction agent Omepprazole to help reduce stomach acid and reflux. - You will be taking Aspirin 81mg twice a day for DVT prevention unless instructed otherwise. - If you have constipation you should take Colace or Miralax (both [id number]). It takes most people 3-4 days to have a bowel movement. Follow-up: 2 weeks 1. Encounter Date and Reason I certify that ZACHERY FENTON was seen by Andrew Perez MD on 04/27/19 and that I had a [id number] encounter with this patient that meets the physician face to face encounter requirements. 2. Clinical Findings Supporting Skilled Need and Homebound Status I certify that home health services are medically necessary, include either intermittent mcc and/or physical/speech therapy, and that this patient is homebound in that absences from the home require considerable and taxing effort and are infrequent or of short duration, or are attributable to the need to receive medical care. [X] (a) Attached documentation from encounter provides clinical findings supporting skilled need and homebound status (including what assistance patient requires to leave the home). The encounter with the patient was in whole, or in part, for the following medical condition, which is the primary reason for home health care: RIGHT KNEE DJD Senior Living: Physical Therapy: Zachery is s/p right knee TKA. She would benefit from physical therapy to address weakness and gait limitations and lack of motion. She is to focus on ambulation and knee extension initially. Speech Therapy: Homebound: Zachery is homebound. She is unable to leave her home unassisted due to weakness and gait abnormality. 3. Certification and Authentication I certify that I composed the above information based on my clinical judgement relating to this patient's medical condition and, if applicable, clinical findings communicated to me by the NPP or inpatient physician who performed the Home Health Referral. All further orders will be obtained through Dr. Perez. Stand Alone Forms: Nursing Discharge Form Referrals: Andrew Perez MD [ [facility] STAFF PHYSICIAN] - 05/15/19 3:15 pm Activity:: Activity as Tolerated Equipment/Supplies:: Walker Diet:: As Tolerated Discharge Orders Discharge Orders: Discharge Order (Routine); Ordered 04/27/19 Ordered By: Andrew Perez DS: Summary Status at Discharge Functional status at discharge: uses cane/walker Overall status at discharge: patient is progressing back to baseline Mental Status: mental status grossly normal Speech and Movement: speech and movement normal Mood: congruent mood Affect: normal affect Exam Psych Mental Status: mental status grossly normal Speech and Movement: speech and movement normal Mood: congruent mood Affect: normal affect DS: Data Vitals/I&O Vitals and I&O: Vital Signs Temperature 37.0 C 04/27/19 11:08 Temperature Source Tympanic 04/27/19 11:08 Pulse 64 04/27/19 11:08 Pulse Rhythm Regular 04/26/19 23:50 Respiratory Rate 17 04/27/19 11:08 Respiratory Effort Non-Labored 04/26/19 23:50 Respiratory Depth Normal 04/26/19 23:50 Respiratory Pattern Normal 04/26/19 23:50 Blood Pressure 137/65 04/27/19 11:08 Pulse Oximetry 97 04/27/19 11:08 Respiratory End-tidal CO2 30 04/25/19 13:40 Oxygen Delivery Method Room Air 04/27/19 11:08 Oxygen Flow Rate 0 04/27/19 11:08 Pain Level 5 04/27/19 11:08 Comment 04/25/19 14:28 Intake & Output 04/26/19 04/27/19 04/27/19 23:59 11:59 23:59 Intake Total 960 / 3719.333 1800 / 1800 Balance 960 / 3719.333 1800 / 1800 Intake: IV 1000 / 1000 Oral 960 / 1200 800 / 800 Other: Urine Color Yellow Yellow Straw Urine Appearance Clear Clear Urine Odor Normal Normal Comment no hat in toilet unable to measure Stool Size Small Stool Characteristics Soft Brown Voiding Methods Toilet Toilet Data Completed and Pending Labs on day of discharge: Labs from last 24 hours 04/27/19 06:44 Sodium 142 Potassium 4.4 Chloride 107 Carbon Dioxide 22.8 Anion Gap 12.2 H BUN 30 H Creatinine 1.83 H Estimated GFR/1.73 m2 27.29 Glucose 182 H Calcium 9.3 PFSH Medical History Chronic kidney disease (Chronic) Depressive disorder (Chronic) Eosinophilic esophagitis (Chronic) EGD 10/21 Essential hypertension (Chronic) Hyperlipidemia (Chronic) Hypothyroidism (Chronic) Iron deficiency anemia (Resolved) Mild intermittent asthma (Inactive) Obesity (Inactive) Sigmoid diverticulosis (Inactive) Tubulovillous adenoma of colon (Inactive ~10/2013) Type 2 diabetes mellitus (Chronic) Surgical History History of arthroplasty of right knee (Acute 04/25/19) History of bilateral tubal ligation (Acute) Hx of esophagogastroduodenoscopy (Chronic 10/27/13) S/P cataract surgery (Acute 08/01/13) Right - 08/01/13; Left - 08/16/17 S/P colonoscopy (Acute 10/27/13) S/P removal of ovarian cyst (Acute) Family History Mother , at 90 Essential hypertension Asthma COPD (chronic obstructive pulmonary disease) Father , at 91 Stroke Parkinsons disease Prostate cancer Brother , at 65 Essential hypertension Asthma Alcohol abuse Brother , at 72 Alcohol abuse Essential hypertension Heart disease Stroke Bladder cancer Son Essential hypertension Daughter Asthma Type 2 diabetes mellitus Maternal Grandfather Alcohol abuse Asthma Heart disease Maternal Grandmother Asthma Liver cancer Depression Heart disease Essential hypertension Paternal Grandfather TB (tuberculosis) Alcohol abuse Essential hypertension Paternal Grandmother , at 72 Cancer of female organs Social History Smoking/Tobacco Use Status: Former Tobacco Use Quit Date: 01/29/97 Alcohol Intake: never Drug use: Never Substance use type: does not use Caregiver/Support person: No Household members: spouse Housing: house Communication Needs: None Pets and animals: No Sexually active: No Do you think of yourself as: straight/heterosexual Current gender identity: female What is your relationship status?: How often do you talk on the phone with friends or family?: twice per week How often do you get together with friends or relatives?: once per week How often do you attend gnosticism or confucianist services?: 1-3 times per year Do you belong to any clubs or organized social groups?: no Panel score (0-1 are the most socially isolated patients): 2 What type of physical activity do you participate in: none Jenna/Gnosticist: Samaritan Special jenna needs: No Seatbelt use: always Helmet use: No Drive intox or ride w/intox cement mixer driver: No Do you feel safe in your relationship?: Yes Female Reproductive History Menstrual Menopause type: natural History History 2 Para 2 Hx # Term Pregnancies Multiple births Hx # Pregnancies Ectopic pregnancies AB induced Hx Number of Living Children 2 AB spontaneous
--- NOTE | 2019-04-27 12:21 | W.PM.PROGNOT ---
Date of Service Date of service: 04/26/19 Time of Service: 12:21 Assessment and Plan Assessment and plan (1) Primary osteoarthritis of right knee: Status: Acute Assessment and plan: Nadya is a 68-year-old status post right knee replacement. She is doing well. She does have a at home who is dependent on her for healthcare. She is making good progress I do think she would be a candidate for home health services with home with discharge. She is doing well. I encouraged her to work physical therapy additionally to make sure she is confident with her activities of daily living and maneuvering around her home. She did have an increase in her creatinine which is already somewhat high at 1.78. We will check that again tomorrow. If it does not come down then we will discontinue the anti-inflammatories. Subjective Subjective Patient reports: feels better Interval history since last seen: Nadya has been able to ambulate with physical therapy. She still reports some attention and anxiety about doing this on her own at home. However, she does feel like the knee is better. She denies any numbness or tingling. No shortness of breath or chest pain. Exam Narrative Exam Narrative: Evaluation of the right knee shows a clean, dry and intact dressing. She is able to straight leg raise. She demonstrates 5 to 90 degrees range of motion. Sensation intact to light touch over the deep and superficial peroneal nerves and tibial nerve. Objective Objective Clinical Data: Abnormal lab results 04/27/19 Range/Units 06:44 Anion Gap 12.2 H (3-11) mmol/L BUN 30 H (7-18) mg/dL Creatinine 1.83 H (0.55-1.02) mg/dL Glucose 182 H (74-106) mg/dL Vital Signs Temperature 37.0 C 04/27/19 11:08 Temperature Source Tympanic 04/27/19 11:08 Pulse 64 04/27/19 11:08 Pulse Rhythm Regular 04/26/19 23:50 Respiratory Rate 17 04/27/19 11:08 Respiratory Effort Non-Labored 04/26/19 23:50 Respiratory Depth Normal 04/26/19 23:50 Respiratory Pattern Normal 04/26/19 23:50 Blood Pressure 137/65 04/27/19 11:08 Pulse Oximetry 97 04/27/19 11:08 Respiratory End-tidal CO2 30 04/25/19 13:40 Oxygen Delivery Method Room Air 04/27/19 11:08 Oxygen Flow Rate 0 04/27/19 11:08 Pain Level 5 04/27/19 11:08 Comment 04/25/19 14:28 Intake & Output 04/26/19 04/27/19 04/27/19 23:59 11:59 23:59 Intake Total 960 / 3719.333 1800 / 1800 Balance 960 / 3719.333 1800 / 1800 Intake: IV 1000 / 1000 Oral 960 / 1200 800 / 800 Other: Urine Color Yellow Yellow Straw Urine Appearance Clear Clear Urine Odor Normal Normal Comment no hat in toilet unable to measure Stool Size Small Stool Characteristics Soft Brown Voiding Methods Toilet Toilet Laboratory Results Sodium 142 mmol/L (136-145) 04/27/19 06:44 Potassium 4.4 mmol/L (3.5-5.1) 04/27/19 06:44 Chloride 107 mmol/L (98-107) 04/27/19 06:44 Carbon Dioxide 22.8 mmol/L (21.0-32.0) 04/27/19 06:44 Anion Gap 12.2 mmol/L (3-11) H 04/27/19 06:44 BUN 30 mg/dL (7-18) H 04/27/19 06:44 Creatinine 1.83 mg/dL (0.55-1.02) H 04/27/19 06:44 Estimated GFR/1.73 m2 27.29 (mL/min/1.73m2) 04/27/19 06:44 Glucose 182 mg/dL (74-106) H 04/27/19 06:44 Calcium 9.3 mg/dL (8.5-10.1) 04/27/19 06:44
--- NOTE | 2019-04-27 12:51 | W.PM.DS.N ---
Date of service: 04/27/19 Time of Service: 07:51 DS: Diagnosis Discharge Diagnosis (1) Primary osteoarthritis of right knee: Status: Acute Discharge Plan Disposition Patient Disposition: HOME W/HOME HEALTH SERVICE Condition: Good Discharge Details Reason For Visit: RIGHT KNEE DJD Admit Date/Time: 04/25/19 08:16 Admit Provider: Andrew Perez Attending Provider: Andrew Perez [facility] Course: Patient was admitted to the medical/surgical floor following the procedure. It was tolerated well without any notable medical, surgical, or anesthetic complications. Mobilization began postoperatively. The peng catheter was removed and voiding spontaneously. Vitals were stable. Physical therapy worked with the patient and was cleared for discharge home. No acute medical issues. Home Meds and New Rx's Prescriptions: New aspirin 81 mg tablet,delayed release (DR/EC) 81 mg PO BID Qty: 60 RF: 0 gabapentin 300 mg capsule 300 mg PO QHS Qty: 7 RF: 0 oxycodone 5 mg tablet 5 mg PO Q4H Qty: 18 RF: 0 acetaminophen [Arthritis Pain Reliever] 650 mg tablet extended release 650 mg PO Q12H PRN (Reason: pain) Qty: 60 RF: 0 Continued amlodipine 10 mg tablet 10 mg PO DAILY Qty: 90 RF: 4 atenolol 50 mg tablet 50 mg PO DAILY Qty: 90 RF: 4 Glucosamine-Chondroitin Complx 1 EACH capsule 1 ea PO BID RF: 0 loratadine [Claritin] 10 MG tablet 1 tab PO DAILY RF: 0 calcium carbonate-vitamin D3 [Os-Dennis 500 + D3] 1 EACH tablet 1 ea PO BID RF: 0 albuterol sulfate [ProAir HFA] 8.5 GM HFA aerosol inhaler 2 puff Inhalation Q6H PRN Qty: 3 RF: 4 clotrimazole 1 % cream 1 applic Topical BID Qty: 45 RF: 4 omeprazole 20 mg capsule,delayed release(DR/EC) 20 mg PO DAILY Qty: 90 RF: 4 atorvastatin [Lipitor] 10 mg tablet 10 mg PO DAILY Qty: 90 RF: 4 fluoxetine [Prozac] 20 mg capsule 20 mg PO DAILY Qty: 90 RF: 4 levothyroxine [Synthroid] 100 mcg tablet 100 mcg PO .M-Sa Qty: 90 RF: 4 insulin degludec 100 unit/mL (3 mL) insulin pen 10 unit SC QHS Qty: 15 RF: 4 lisinopril 40 mg tablet 40 mg PO DAILY Qty: 90 RF: 4 Discontinued turmeric root extract 500 mg capsule 500 mg PO BID RF: 0 aspirin [Aspirin Low-Strength] 81 MG tablet,chewable 1 tab PO DAILY RF: 0 naproxen sodium [Aleve] 220 mg Capsule 440 mg PO BID PRNRF: 0 No Action (DME) FreeStyle Lite Strips strip 1 ea Miscellaneous DAILY Qty: 100 RF: 8 (DME) lancets [FreeStyle Lancets] 28 gauge misc 1 ea Miscellaneous DAILY Qty: 200 RF: 4 (DME) pen needle, diabetic [Advocate Pen Needle] 31 gauge x 5/16 needle See Rx Instructions .ROUTE .MEDSUPPLY Qty: 100 RF: 4 (DME) blood-glucose meter [FreeStyle Lite Meter] Kit See Rx Instructions .ROUTE .MEDSUPPLY Qty: 1 RF: 4 Discharge Instructions Additional Instructions: Dr. Perez?s Total Knee Discharge Instructions Activity: The most important activity is to walk. You should try to take short walks a few times a day. It is important that when resting you work on keeping the knee straight. Avoid putting a pillow behind the knee as this will encourage flexion. Work on range of motion exercises as provided by Physical Therapy. - Start outpatient physical therapy within 2 weeks. - You should wear the JAYSHREE hose on both legs for 2 weeks. Dressing: Keep the surgical dressing in place for at least one week. After the first week it may be removed and replace with light gauze and tape or nothing. It may get wet after 3 days but avoid soaking the dressing. If it gets wet, just lightly pat dry. Medications: Please avoid Naproxen for right now. Your kidney function is sensitive to this medication and should be avoided at this time. - You should take Tylenol as your primary pain control medications - You have been prescribed a stronger pain medication Oxycodone for breakthrough pain, take as needed as prescribed. - You should continue your stomach acid reduction agent Omeprazole to help reduce stomach acid and reflux. - You will be taking Aspirin 81mg twice a day for DVT prevention unless instructed otherwise. - If you have constipation you should take Colace or Miralax (both [id number]). It takes most people 3-4 days to have a bowel movement. Follow-up: 2 weeks 1. Encounter Date and Reason I certify that ZACHERY FENTON was seen by Andrew Perez MD on 04/27/19 and that I had a [id number] encounter with this patient that meets the physician face to face encounter requirements. 2. Clinical Findings Supporting Skilled Need and Homebound Status I certify that home health services are medically necessary, include either intermittent alf and/or physical/speech therapy, and that this patient is homebound in that absences from the home require considerable and taxing effort and are infrequent or of short duration, or are attributable to the need to receive medical care. [X] (a) Attached documentation from encounter provides clinical findings supporting skilled need and homebound status (including what assistance patient requires to leave the home). The encounter with the patient was in whole, or in part, for the following medical condition, which is the primary reason for home health care: RIGHT KNEE DJD Jail: Physical Therapy: Zachery is s/p right knee TKA. She would benefit from physical therapy to address weakness and gait limitations and lack of motion. She is to focus on ambulation and knee extension initially. Speech Therapy: Homebound: Zachery is homebound. She is unable to leave her home unassisted due to weakness and gait abnormality. 3. Certification and Authentication I certify that I composed the above information based on my clinical judgement relating to this patient's medical condition and, if applicable, clinical findings communicated to me by the NPP or inpatient physician who performed the Home Health Referral. All further orders will be obtained through Dr. Perez. Stand Alone Forms: Nursing Discharge Form Referrals: Andrew Perez MD [ [facility] STAFF PHYSICIAN] - 05/15/19 3:15 pm Activity:: Activity as Tolerated Equipment/Supplies:: Walker Diet:: As Tolerated Discharge Orders Discharge Orders: Discharge Order (Routine); Ordered 04/27/19 Ordered By: Andrew Perez DS: Summary Status at Discharge Functional status at discharge: independent ambulation Overall status at discharge: patient is back to baseline Mental Status: mental status grossly normal Speech and Movement: speech and movement normal Mood: congruent mood Affect: normal affect Exam Psych Mental Status: mental status grossly normal Speech and Movement: speech and movement normal Mood: congruent mood Affect: normal affect DS: Data Vitals/I&O Vitals and I&O: Vital Signs Temperature 37.0 C 04/27/19 11:08 Temperature Source Tympanic 04/27/19 11:08 Pulse 64 04/27/19 11:08 Pulse Rhythm Regular 04/26/19 23:50 Respiratory Rate 17 04/27/19 11:08 Respiratory Effort Non-Labored 04/26/19 23:50 Respiratory Depth Normal 04/26/19 23:50 Respiratory Pattern Normal 04/26/19 23:50 Blood Pressure 137/65 04/27/19 11:08 Pulse Oximetry 97 04/27/19 11:08 Respiratory End-tidal CO2 30 04/25/19 13:40 Oxygen Delivery Method Room Air 04/27/19 11:08 Oxygen Flow Rate 0 04/27/19 11:08 Pain Level 5 04/27/19 11:08 Comment 04/25/19 14:28 Intake & Output 04/26/19 04/27/19 04/27/19 23:59 11:59 23:59 Intake Total 960 / 3719.333 1800 / 1800 Balance 960 / 3719.333 1800 / 1800 Intake: IV 1000 / 1000 Oral 960 / 1200 800 / 800 Other: Urine Color Yellow Yellow Straw Urine Appearance Clear Clear Urine Odor Normal Normal Comment no hat in toilet unable to measure Stool Size Small Stool Characteristics Soft Brown Voiding Methods Toilet Toilet Data Completed and Pending Labs on day of discharge: Labs from last 24 hours 04/27/19 06:44 Sodium 142 Potassium 4.4 Chloride 107 Carbon Dioxide 22.8 Anion Gap 12.2 H BUN 30 H Creatinine 1.83 H Estimated GFR/1.73 m2 27.29 Glucose 182 H Calcium 9.3 PFSH Medical History Chronic kidney disease (Chronic) Depressive disorder (Chronic) Eosinophilic esophagitis (Chronic) EGD 10/21 Essential hypertension (Chronic) Hyperlipidemia (Chronic) Hypothyroidism (Chronic) Iron deficiency anemia (Resolved) Mild intermittent asthma (Inactive) Obesity (Inactive) Sigmoid diverticulosis (Inactive) Tubulovillous adenoma of colon (Inactive ~10/2013) Type 2 diabetes mellitus (Chronic) Surgical History History of arthroplasty of right knee (Acute 04/25/19) History of bilateral tubal ligation (Acute) Hx of esophagogastroduodenoscopy (Chronic 10/27/13) S/P cataract surgery (Acute 08/01/13) Right - 08/01/13; Left - 08/16/17 S/P colonoscopy (Acute 10/27/13) S/P removal of ovarian cyst (Acute) Family History Mother , at 90 Essential hypertension Asthma COPD (chronic obstructive pulmonary disease) Father , at 91 Stroke Parkinsons disease Prostate cancer Brother , at 65 Essential hypertension Asthma Alcohol abuse Brother , at 72 Alcohol abuse Essential hypertension Heart disease Stroke Bladder cancer Son Essential hypertension Daughter Asthma Type 2 diabetes mellitus Maternal Grandfather Alcohol abuse Asthma Heart disease Maternal Grandmother Asthma Liver cancer Depression Heart disease Essential hypertension Paternal Grandfather TB (tuberculosis) Alcohol abuse Essential hypertension Paternal Grandmother , at 72 Cancer of female organs Social History Smoking/Tobacco Use Status: Former Tobacco Use Quit Date: 01/29/97 Alcohol Intake: never Drug use: Never Substance use type: does not use Caregiver/Support person: No Household members: spouse Housing: house Communication Needs: None Pets and animals: No Sexually active: No Do you think of yourself as: straight/heterosexual Current gender identity: female What is your relationship status?: How often do you talk on the phone with friends or family?: twice per week How often do you get together with friends or relatives?: once per week How often do you attend roman catholic or anabaptist services?: 1-3 times per year Do you belong to any clubs or organized social groups?: no Panel score (0-1 are the most socially isolated patients): 2 What type of physical activity do you participate in: none Jenna/Quaker: Mosque Special jenna needs: No Seatbelt use: always Helmet use: No Drive intox or ride w/intox sweeper driver: No Do you feel safe in your relationship?: Yes Female Reproductive History Menstrual Menopause type: natural History History 2 Para 2 Hx # Term Pregnancies Multiple births Hx # Pregnancies Ectopic pregnancies AB induced Hx Number of Living Children 2 AB spontaneous
--- NOTE | 2019-04-27 14:13 | CMDISCH_ITS ---
- If Service Date Differs Date of service: 04/27/19 Time of Service: 14:13 LACE Index Scoring Tool - Questions: Length of Stay (in days): 2 Acuity (Admit via E.D.?): No Comorbidities: Liver or Renal Disease E.D. Visits: 0 - Answers: Total Score: 7 Risk of Readmission: Low Risk Care Management Discharge Reason for Hospitalization: Right knee replacement. Discharge Plan: Shari is being discharged home with new Home Health PT services and Meals on Wheels through [place] [facility]. Her [id number] will stay with Shari at her home to help care for her while Shari recovers from surgery. Shari is being transported home via private vehicle by family. Patient/Family Education Needs: Nursing will review discharge instructions with Shari re medications and activity level. Shari is able to verbalize reason for hospitalization and how to manage care at home. Services Needed at Discharge: Home Delivered Meals (CM coordinated referral to Meals on Wheels), Physical Therapy (CM coordinated referral to PT)
== END 2019-04-27 14:19 | disposition home health service (06) | DRG 470 ==
LOC: PDS 08:16 → MS 13:51
PROVIDERS: Admitting Provider Student in an Organized Health Care Education/Training Program; PCP Nurse Practitioner Family; Visit Provider Student in an Organized Health Care Education/Training Program
PROC: 0SRC0J9 Replacement of Right Knee Joint with Synthetic Substitute, Cemented, Open Approach (ICD-10-PCS; CPT 27447; principal; 2019-04-25 10:30)
DX: M17.11 Unilateral primary osteoarthritis, right knee (principal); M25.561 Pain in right knee; Z96.651 Presence of right artificial knee joint; G89.18 Other acute postprocedural pain; E03.9 Hypothyroidism, unspecified; I44.0 Atrioventricular block, first degree; Z79.84 Long term (current) use of oral hypoglycemic drugs; E11.22 Type 2 diabetes mellitus with diabetic chronic kidney disease; I12.9 Hypertensive chronic kidney disease with stage 1 through stage 4 chronic kidney disease, or unspecified chronic kidney disease; F32.9 Major depressive disorder, single episode, unspecified; K21.9 Gastro-esophageal reflux disease without esophagitis; M21.161 Varus deformity, not elsewhere classified, right knee; Z63.6 Dependent relative needing care at home
CPT/HCPCS: 27447; 20985; 36415; 80048; 97110; 97162; 97530; NC; J0690; J1885; J2250; J2405

== ENCOUNTER 2019-05-15 15:15 | Outpatient (CLI) | payer MEDICARE, BC, SELFPAY ==
--- NOTE | 2019-05-15 15:15 | DI.RAD_ITS ---
EXAM: XR KNEE RT 1V INDICATION: 1ST POST OP. COMPARISON: XR KNEE RT 2V AP,LAT from 03/06/2019 TECHNIQUE: 2D digital imaging was performed. FINDINGS: The right total knee prosthesis is noted. There is normal alignment. No abnormal bony lucencies are seen.
--- NOTE | 2019-05-15 15:18 | DI.RAD_ITS ---
EXAM: XR STANDING ALIGNMENT INDICATION: 1ST POST OP. COMPARISON: XR STANDING ALIGNMENT from 03/06/2019 TECHNIQUE: 2D digital imaging was performed. FINDINGS: The hip joint spaces are well maintained. There is no significant leg length discrepancy at the leve l of the femoral heads. There is a right knee prosthesis. There are severe degenerative changes of the medial femoral tibial joint of the left knee causing varus angulation. Ankle joint spaces are we ll maintained.
== END 2019-05-15 15:35 ==
PROVIDERS: PCP Nurse Practitioner Family; Referring Provider Nurse Practitioner Family; Visit Provider Student in an Organized Health Care Education/Training Program
DX: Z96.651 Presence of right artificial knee joint (principal); Z47.1 Aftercare following joint replacement surgery; M17.12 Unilateral primary osteoarthritis, left knee; I10 Essential (primary) hypertension; E11.9 Type 2 diabetes mellitus without complications
CPT/HCPCS: 73560; 77073

== ENCOUNTER 2019-06-01 02:15 | Outpatient (CLI) | payer MEDICARE, BC, SELFPAY ==
[2019-06-01 09:19] LABS: Abs Immature Grans 0.05 k/cumm (0.0-0.09); Absolute Basophil Count 0.07 k/cumm (0.0-0.2); Absolute Eosinophil Count 0.36 k/cumm (0.0-0.7); Absolute Lymphocyte Count 1.92 k/cumm (1.2-3.4); Absolute Monocyte Count 0.79 k/cumm (0.11-0.7); Basophils % 0.6; Eosinophils % 3.1; HCT 34.3 % (36.0-46.0); HGB 10.9 g/dL (12.0-15.5); Immature Grans % 0.4 %; Lymphocytes % 16.6; Mean Corp. HGB Concentration 31.8 g/dL (32.0-36.0); Mean Corpuscular Hemoglobin 27.6 pg (27.0-33.0); Mean Corpuscular Volume 86.8 fL (80-95); Monocytes % 6.8; Neutrophils % 72.5; Platelet Count 395 x1000/uL (130-400); RBC 3.95 m/cumm (4.00-5.20); RBC Distribution Width 14.3 % (11.7-14.6); White Blood Cell Count 11.58 k/cumm (4.4-10.8)
[2019-06-01 10:05] LABS: ALT 13 U/L (14-59); AST 13 U/L (15-37); Albumin 3.3 g/dL (3.4-5.0); Alkaline Phosphatase 80 U/L (46-116); Anion Gap 8.5 mmol/L (3-11); BUN 21 mg/dL (7-18); Bilirubin, Total 0.4 mg/dL (0.2-1.0); CO2 29.5 mmol/L (21.0-32.0); CREATININE 1.33 mg/dL (0.55-1.02); Calcium 9.8 mg/dL (8.5-10.1); Chloride 104 mmol/L (98-107); Estimated GFR 39.44 (mL/min/1.73m2); Glucose 139 mg/dL (74-106); Potassium 4.7 mmol/L (3.5-5.1); Sodium 142 mmol/L (136-145); Total Protein 6.2 g/dL (6.4-8.2)
[2019-06-01 12:04] LABS: Hemoglobin A1C 7.6 % (3.8-5.6)
== END 2019-06-01 02:35 ==
PROVIDERS: PCP Nurse Practitioner Family; Visit Provider Nurse Practitioner Family
DX: R50.9 Fever, unspecified (principal); E11.9 Type 2 diabetes mellitus without complications
CPT/HCPCS: 36415; 80053; 83036; 85025

== ENCOUNTER → 2019-06-05 13:33 | Outpatient (BNVA) | payer MEDICARE, BC, SELFPAY | PROVIDERS: PCP Nurse Practitioner Family; Referring Provider Nurse Practitioner Family; Visit Provider Student in an Organized Health Care Education/Training Program | DX: Z96.651 Presence of right artificial knee joint (principal); Z47.1 Aftercare following joint replacement surgery; I10 Essential (primary) hypertension ==

== ENCOUNTER → 2019-07-17 13:54 | Outpatient (BNVA) | payer MEDICARE, BC, SELFPAY | PROVIDERS: PCP Nurse Practitioner Family; Referring Provider Nurse Practitioner Family; Visit Provider Student in an Organized Health Care Education/Training Program | DX: Z47.1 Aftercare following joint replacement surgery; Z96.651 Presence of right artificial knee joint; M65.332 Trigger finger, left middle finger ==

== ENCOUNTER 2019-09-14 08:37 | Outpatient (CLI) | payer MEDICARE, BC, SELFPAY ==
[2019-09-14 11:50] LABS: Hemoglobin A1C 8.5 % (3.8-5.6)
[2019-09-14 12:19] LABS: ALT 18 U/L (14-59); AST 11 U/L (15-37); Albumin 3.7 g/dL (3.4-5.0); Alkaline Phosphatase 81 U/L (46-116); Anion Gap 8.1 mmol/L (3-11); BUN 27 mg/dL (7-18); Bilirubin, Total 0.5 mg/dL (0.2-1.0); CO2 26.9 mmol/L (21.0-32.0); CREATININE 1.48 mg/dL (0.55-1.02); Calcium 10.2 mg/dL (8.5-10.1); Chloride 104 mmol/L (98-107); Estimated GFR 34.77 (mL/min/1.73m2); FREE T4 1.19 ng/dL (0.76-1.46); Glucose 106 mg/dL (74-106); Potassium 5.1 mmol/L (3.5-5.1); Sodium 139 mmol/L (136-145); TSH 1.09 uIU/mL (0.36-3.74); Total Protein 6.7 g/dL (6.4-8.2)
[2019-09-14 12:35] LABS: Calculated LDL 96 mg/dL (<100); Cholesterol 183 mg/dL (<200); HDL Cholesterol 60 mg/dL (40-60); Triglyceride 135 mg/dL (<150)
== END 2019-09-14 08:57 ==
PROVIDERS: PCP Nurse Practitioner Family; Visit Provider Nurse Practitioner Family
DX: E11.9 Type 2 diabetes mellitus without complications (principal); E03.9 Hypothyroidism, unspecified
CPT/HCPCS: 36415; 80053; 80061; 83036; 84439; 84443

== ENCOUNTER 2019-09-29 09:27 | Outpatient (CLI) | payer MEDICARE, BC, SELFPAY ==
[2019-09-30 14:12] LABS: COVID-19 RT-PCR UVMMC Result Negative (Negative)
== END 2019-09-29 09:47 ==
PROVIDERS: PCP Nurse Practitioner Family; Visit Provider Student in an Organized Health Care Education/Training Program
DX: Z03.818 Encounter for observation for suspected exposure to other biological agents ruled out (principal)
CPT/HCPCS: U0003

== ENCOUNTER 2019-10-03 08:20 | Day surgery (SDC) | payer MEDICARE, BC, SELFPAY ==
--- NOTE | 2019-10-03 07:15 | W.PM.DSUDISC ---
Discharge Plan Disposition Patient Disposition: HOME Condition: Good Discharge Details Reason For Visit: LMF TRIGGER Attending Provider: Andrew Perez Primary Care Provider: Ana Rosa Calderon Meds and New Rx's Prescriptions: New acetaminophen 500 mg tablet 1,000 mg PO Q8H PRN (Reason: pain) Qty: 60 RF: 3 ibuprofen 600 mg tablet 600 mg PO TID PRNQty: 60 RF: 3 Continued glucosamine-chondroitin [Cosamin DS] 500-400 mg tablet 1 tab PO BID RF: 0 diclofenac sodium 1 % gel 2 gm TP DAILY PRN (Reason: arthritis) RF: 0 loratadine [Claritin] 10 MG tablet 1 tab PO DAILY RF: 0 calcium carbonate-vitamin D3 [Os-Dennis 500 + D3] 1 EACH tablet 1 ea PO BID RF: 0 levothyroxine [Synthroid] 100 mcg tablet 100 mcg PO .M-Sa Qty: 90 RF: 4 (DME) blood-glucose meter [FreeStyle Lite Meter] Kit See Rx Instructions .ROUTE .MEDSUPPLY Qty: 1 RF: 4 atorvastatin [Lipitor] 10 mg tablet 10 mg PO DAILY Qty: 90 RF: 4 fluoxetine [Prozac] 20 mg capsule 20 mg PO DAILY Qty: 90 RF: 4 albuterol sulfate [ProAir HFA] 90 mcg/actuation HFA aerosol inhaler 2 puff Inhalation Q6H PRN Qty: 3 RF: 4 (DME) pen needle, diabetic [Advocate Pen Needle] 31 gauge x 5/16 needle See Rx Instructions .ROUTE .MEDSUPPLY Qty: 100 RF: 4 (DME) lancets [FreeStyle Lancets] 28 gauge misc 1 ea Miscellaneous DAILY Qty: 200 RF: 4 (DME) blood sugar diagnostic [FreeStyle Lite Strips] Strip 1 ea Miscellaneous DAILY Qty: 100 RF: 8 lisinopril 40 mg tablet 40 mg PO DAILY Qty: 90 RF: 4 atenolol 50 mg tablet 50 mg PO DAILY Qty: 90 RF: 4 omeprazole 20 mg capsule,delayed release(DR/EC) 20 mg PO DAILY Qty: 90 RF: 4 amlodipine 10 mg tablet 10 mg PO DAILY Qty: 90 RF: 4 insulin degludec 100 unit/mL (3 mL) insulin pen 20 unit SC DAILY Qty: 15 RF: 4 Discharge Instructions Stand Alone Forms: Chris Costa Finger Release, Elia Garcia (DSU) Activity:: Activity as Tolerated Remove Dressings/Wound Care:: 72 hours Shower/Bathe:: 72 hours Diet:: As Tolerated Discharge Orders Discharge Orders: Discharge Order (Routine); Ordered 10/03/19 Ordered By: Andrew Perez
--- NOTE | 2019-10-03 07:19 | HPE_ITS ---
Date of service: 10/03/19 Assessment and Plan Assessment and plan (1) Trigger finger, left middle finger: Status: Acute Assessment and plan: Shari is a 69-year-old who has a left middle finger trigger finger. She has been doing this for some months now. It likely was exacerbated given walker use after knee replacement. Nevertheless, she is continued to be limited by this trigger finger. It causes pain. I had jaja smith discussed treatment options with Shari and she desired to proceed with a release. Once again, those risks were reviewed with her today. These risks include pain, stiffness, incomplete release, recurrence, damage to nerves and vessels, damage to tendon, infection peer despite these risk, she agrees to proceed. History of Present Illness History of Present Illness Chief Complaint: Left Middle Finger Trigger Finger Narrative: Shari is a 69-year-old who I have seen previously for right knee arthritis status post knee replacement. In the postoperative coverage she started complaining of some triggering of her left middle finger. She treated this conservatively for some time but was not pleased with the constant locking, triggering, catching. I did offer an injection which she declined and preferred to proceed with a release. Unfortunately, due to her 's health, she had to postpone the initial planned surgery. She reports continued discomfort and catching and locking of the little finger. She has had no other changes to her symptoms. She denies numbness or tingling. She denies injury or trauma. She has had no changes to her health. No chest pain, shortness of breath, cough, recent illness. Review of Systems All systems reviewed & are unremarkable except as noted in HPI and below [facility] Medical History Chronic kidney disease (Chronic) Depressive disorder (Chronic) Eosinophilic esophagitis (Chronic) EGD 10/21 Essential hypertension (Chronic) Hyperlipidemia (Chronic) Hypothyroidism (Chronic) Iron deficiency anemia (Resolved) Mild intermittent asthma (Inactive) Obesity (Inactive) Sigmoid diverticulosis (Inactive) Tubulovillous adenoma of colon (Inactive ~10/2013) Type 2 diabetes mellitus (Chronic) Surgical History History of arthroplasty of right knee (Acute 04/25/19) History of bilateral tubal ligation (Acute) Hx of esophagogastroduodenoscopy (Chronic 10/27/13) S/P cataract surgery (Acute 08/01/13) Right - 08/01/13; Left - 08/16/17 S/P colonoscopy (Acute 10/27/13) S/P removal of ovarian cyst (Acute) Family History Mother , at 90 Essential hypertension Asthma COPD (chronic obstructive pulmonary disease) Father , at 91 Stroke Parkinsons disease Prostate cancer Brother , at 65 Essential hypertension Asthma Alcohol abuse Brother , at 72 Alcohol abuse Essential hypertension Heart disease Stroke Bladder cancer Son Essential hypertension Daughter Asthma Type 2 diabetes mellitus Maternal Grandfather Alcohol abuse Asthma Heart disease Maternal Grandmother Asthma Liver cancer Depression Heart disease Essential hypertension Paternal Grandfather TB (tuberculosis) Alcohol abuse Essential hypertension Paternal Grandmother , at 72 Cancer of female organs Social History Smoking/Tobacco Use Status: Former Tobacco Use Quit Date: 01/29/97 Second Hand Exposure: Yes Alcohol Intake: never Drug use: Never Substance use type: does not use Caregiver/Support person: No Household members: spouse Housing: house Communication Needs: Corrective Lenses Do you need help understanding health information?: Rarely Pets and animals: Yes Pets and animals: cat(s) Sexually active: No Do you think of yourself as: straight/heterosexual Current gender identity: female What is your relationship status?: How often do you talk on the phone with friends or family?: twice per week How often do you get together with friends or relatives?: three or more times per week How often do you attend catholic or quaker services?: 1-3 times per year Do you belong to any clubs or organized social groups?: no Panel score (0-1 are the most socially isolated patients): 2 What type of physical activity do you participate in: decline to answer Duration: < 15 minutes/day Frequency: daily Jenna/Church: Adventism Special jenna needs: No Seatbelt use: always Helmet use: No Drive intox or ride w/intox courtesy driver: No Do you feel safe at home: Yes Female Reproductive History Menstrual Menopause type: natural History History 2 Para 2 Hx # Term Pregnancies Multiple births Hx # Pregnancies Ectopic pregnancies AB induced Hx Number of Living Children 2 AB spontaneous Meds Home Medications and Allergies Home Medications Medication Instructions Recorded Confirmed Type calcium carbonate-vitamin D3 1 ea PO BID 08/22/12 10/03/19 History [Os-Dennis 500 + D3] loratadine [Claritin] 1 tab PO DAILY tab-cap 08/22/12 10/03/19 History levothyroxine 100 mcg tablet 100 mcg PO .M-Sa #90 tab-cap 02/13/19 10/03/19 Rx blood-glucose meter #1 each 03/19/19 09/06/19 Rx atorvastatin 10 mg tablet 10 mg PO DAILY #90 tab 06/05/19 10/03/19 Rx fluoxetine 20 mg capsule 20 mg PO DAILY #90 tab-cap 06/05/19 10/03/19 Rx albuterol sulfate 90 mcg/actuation 2 puff INHALATION Q6H PRN #3 06/15/19 10/03/19 Rx aerosol inhaler inhaler blood sugar diagnostic #100 each 06/15/19 09/06/19 Rx lancets 28 gauge #200 each 06/15/19 09/06/19 Rx pen needle, diabetic 31 gauge x #100 each 06/15/19 09/06/19 Rx 5/16 lisinopril 40 mg tablet 40 mg PO DAILY #90 tab-cap 07/03/19 10/03/19 Rx atenolol 50 mg tablet 50 mg PO DAILY #90 tab 07/24/19 10/03/19 Rx omeprazole 20 mg capsule,delayed 20 mg PO DAILY #90 tab-cap 07/24/19 10/03/19 Rx release amlodipine 10 mg tablet 10 mg PO DAILY #90 tab 08/01/19 10/03/19 Rx diclofenac sodium 1 % topical gel 2 gm TP DAILY PRN gm 09/06/19 10/03/19 History glucosamine-chondroitin 500 mg-400 1 tab PO BID 09/06/19 10/03/19 History mg tablet insulin degludec 100 unit/mL (3 20 unit SC DAILY #15 ml 09/20/19 10/03/19 Rx mL) subcutaneous pen acetaminophen 1,000 mg PO Q8H PRN #60 tab 10/03/19 Rx ibuprofen 600 mg PO TID PRN #60 tab 10/03/19 Rx Allergies Allergy/AdvReac Type Severity Reaction Status Date / Time No Known Allergies Allergy Unverified 07/17/19 14:11 Exam Narrative Exam Narrative: No acute distress. Alert noted x3. Evaluation of the left hand shows no overlying skin changes. No masses except for some prominence of the A1 sheldon of the middle finger. There is obvious restricted motion through the sheldon with palpable triggering. No pain or crepitus with passive range of motion. Sensation intact light touch over the median, radial, ulnar nerve. Capillary fill less than 2 seconds.
[2019-10-03 08:18] VITALS: BP 138/64; PULSE 66; RESP 16; TEMP 36.3; O2SAT 98
[2019-10-03] MEDS: Sodium Bicarbonate 50 MEQ/50 ML VIAL (09:43)
--- NOTE | 2019-10-03 09:44 | ROE_ITS ---
Date of service: 10/03/19 Time of Service: 09:44 Operative Note Operative Note DATE OF PROCEDURE: 10/03/19 PRE-OP DIAGNOSIS: Left middle finger trigger finger POST-OP DIAGNOSIS: same PROCEDURE: Trigger Finger Release -left middle finger SURGEON: Andrew Perez ANESTHESIA: local ESTIMATED BLOOD LOSS: 0 PATHOLOGY: none sent COMPLICATIONS: Other (Initial incision and injection was placed of the ring finger instead of the middle finger. I recognized this and discussed it with the patient, closed this incision, and proceeded with the middle finger.) Patient was transported to: same day Patient's condition: stable Indications: I have seen Shari in clinic for symptoms of a trigger finger. The catching, clicking, locking, and pain limited function. The diagnosis of trigger finger was evident. The symptoms had not responded to conservative measures. I discussed trigger finger release with the patient. I reviewed the risks of the procedure to include, but not limited to, bleeding, infection, pain, stiffness, incomplete release, damage to nerves or vessels, continued catching, recurrence. Despite these risks, the patient elected to proceed. Findings: There was a tightened A1 sheldon which was released. The flexor tendons were inspected and the patient was able to move the finger without any catching, clicking, or locking. Procedure Description: Shari was greeted in the preoperative holding area where the correct side was identified and marked. The consent was reviewed with the patient and signed. All questions were answered. Shari was taken back to the operating room. The patient was placed into the supine position on the operating room table with the left arm on an arm board. All bony prominences were well padded. No prophylactic antibiotics were administered since this was a clean, elective hand surgical case. The left arm was then prepped with Chloraprep and draped in a standard fashion with stockinette and extremity drape. A timeout to confirm correct identity, side and site, procedure, allergies, anesthesia, and medical concerns was performed. The surgical site was marked as a longitudinal incision directly over the A1 sheldon of the involved digit. This area, overlying the metacarpal head, was then anesthetized with 1% Lidocaine. The patient tolerated this well and once the anesthetic had setup, the procedure began. A longitudinal incision was made through skin only, approximately 1cm. Immediately, recognizes the ring finger and not the middle finger. The patient did not voice any concerns during the initial prep process and there was some bleed over of my initials from the middle finger to the ring finger side in addition to fogging of my right loop lens. I then removed my loops and confirmed with nursing in the room and with the patient that the ring finger was not the correct side. I discussed this with Shari in detail since this was a local case. She understood the issue and had no concerns. I did offer either to proceed with a release of the ring finger and then move onto the middle finger but she had no symptoms so I recommended that we just close this up. The wound was irrigated and was closed and she agreed to proceed with the middle finger without any major concerns about the ring finger side. The middle finger was once again confirmed to be the correct side. The skin and soft tissues were injected with 1% lidocaine through the previous field of anesthetic. A 1 cm longitudinal incision was then made in line with the flexor tendons. The deep tissues were dissected bluntly. Once the A1 sheldon and flexor tendons were identified the soft tissue including neurovascular structures were retracted medially and laterally. There were no crossing structures over the A1 sheldon. The proximal edge of the sheldon was identified and the sheldon was incised with tenotomy scissors. There was a release of the tendons once this was fully released. The tendons were then removed from the wound and inspected. Excess synovium was resected. The tendons were then returned and the patient was asked to move the finger into deep flexion and back to extension. There was no recreation of the pre- operative symptoms. The hand was then once more inspected for any A0 sheldon or area of possible constriction. The wound was then irrigated and the skin was closed with a 4-0 Nylon. This was dressed with gauze and a Conform dressing. The patient tolerated the procedure well and was returned to the Same Day Surgery area in a stable condition.
== END 2019-10-03 10:05 | disposition home or self-care (01) ==
LOC: SUR 08:21
PROVIDERS: PCP Nurse Practitioner Family; Visit Provider Student in an Organized Health Care Education/Training Program
PROC: (CPT 26055; principal; 2019-10-03 10:00)
DX: M65.332 Trigger finger, left middle finger (principal); S61.215A Laceration without foreign body of left ring finger without damage to nail, initial encounter; Y65.8 Other specified misadventures during surgical and medical care; Y92.234 Operating room of hospital as the place of occurrence of the external cause
CPT/HCPCS: 26055; NC

== ENCOUNTER → 2019-10-13 11:39 | Outpatient (BNVA) | payer MEDICARE, BC, SELFPAY | PROVIDERS: PCP Nurse Practitioner Family; Referring Provider Nurse Practitioner Family; Visit Provider Student in an Organized Health Care Education/Training Program | DX: Z47.89 Encounter for other orthopedic aftercare (principal); M65.332 Trigger finger, left middle finger; E11.9 Type 2 diabetes mellitus without complications ==

== ENCOUNTER 2019-11-16 00:17 | Outpatient (CLI) | payer MEDICARE, BC, SELFPAY ==
--- NOTE | 2019-11-16 07:41 | DI.MAMMO_ITS ---
EXAM: MAMMO SCREENING CLINICAL HISTORY: screening, Z12.39 TECHNIQUE: Mammograms were interpreted according to the usual protocol including computer analysis w [employer] CAD system, tomosynthesis and C-view imaging. COMPARISON: 2009 through 2018 FINDINGS: The breasts are composed of mainly fatty density , Breast Density category A. No suspicious masses or suspicious microcalcifications are seen. No skin thickening or abnormal axillary lymph nodes are seen. There has been no significant change from prior exams. IMPRESSION: BI-RADS Category 1, negative. Yearly screening mammography is recommended. Breast Density Category A, fatty density.
--- NOTE | 2019-11-16 07:41 | DI.DEXA_ITS ---
EXAM: XR DEXA BONE DENSITY W/WO VIVIANA CLINICAL HISTORY: OSTEOPOROSIS SCREENING, MENOPAUSAL, Z78.0 TECHNIQUE: [employer] C densitometer COMPARISON: No exams were available for comparison FINDINGS: The lateral view of the thoracic and lumbar spine shows no evidence of compression fractures. Deg enerative disc changes are noted. The bone mineral density measurements of the lumbar spine correspond to a total T-score of -0.1, in t he normal range. The bone mineral density measurements of the left hip correspond to a total T-score of -2.1, consiste nt with osteopenia.. The femoral neck T-score is -3.5, in the osteoporotic range. Bone mineral density measurements of the left forearm correspond to a T-score of the distal 3rd of -2 .5, consistent with osteoporosis. IMPRESSION: Normal bone mineral density of the lumbar spine. Osteoporosis of the left hip and left forearm.
== END 2019-11-16 00:37 ==
PROVIDERS: PCP Nurse Practitioner Family; Visit Provider Nurse Practitioner Family
DX: Z12.31 Encounter for screening mammogram for malignant neoplasm of breast (principal); M81.0 Age-related osteoporosis without current pathological fracture; Z78.0 Asymptomatic menopausal state
CPT/HCPCS: 77063; 77067; 77080

== ENCOUNTER → 2019-12-13 12:43 | Outpatient (BNVA) | payer MEDICARE, BC, SELFPAY | PROVIDERS: PCP Nurse Practitioner Family; Referring Provider Nurse Practitioner Family; Visit Provider Surgery | DX: Z12.11 Encounter for screening for malignant neoplasm of colon (principal); Z86.010 Personal history of colon polyps | CPT/HCPCS: 99202 ==

== ENCOUNTER 2019-12-25 07:32 | Outpatient (CLI) | payer MEDICARE, BC, SELFPAY ==
[2019-12-26 13:03] LABS: COVID-19 RT-PCR Result NEGATIVE (Negative)
== END 2019-12-25 07:52 ==
PROVIDERS: PCP Nurse Practitioner Family; Visit Provider Surgery
DX: Z11.59 Encounter for screening for other viral diseases (principal); Z01.818 Encounter for other preprocedural examination
CPT/HCPCS: U0003

== ENCOUNTER 2019-12-28 07:59 | Day surgery (SDC) | payer MEDICARE, BC, SELFPAY ==
[2019-12-28 08:16] VITALS: BP 151/68; PULSE 61; RESP 18; TEMP 36.7; O2SAT 98
[2019-12-28] MEDS: Lactated Ringers 1,000 ML 80 ML IV (09:04)
--- NOTE | 2019-12-28 10:28 | W.COLOREPORT ---
Date of service: 12/28/19 Time of Service: 10:28 Colonoscopy Report Date of procedure: 12/28/19 Pre-op diagnosis general: A. polyps Post-op diagnosis procedure note: other (diverticula ) Procedure: CE Surgeon: Sandra Fong Anesthesia proc note operative: MAC Estimated blood loss (mL): 0 Pathology: none sent Complications: None Disposition: same day Prep: Miralax/Dulcolax Retraction Time: 10 mins Procedure Description: After informed consent was obtained the patient was taken to the procedure room and placed in a left decubitous position. Monitors were applied and a time out was done. The patients name, date of , procedure, allergies to medications and metal in their body was reviewed. The patient was then sedated. Once sedated and comfortable a rectal exam was done. External exam was normal. Internal exam revealed a normal sphincter tone and no palpable masses. The scope was then introduced and retrofelexed. no internal hemorrhoids were identified. The scope was then advanced to the cecum w/out difficulty. The TI and appendiceal orifice were identified. The prep was good. The scope was then slowly retracted over 10 minutes back into the rectum. Polyps - none. no avm's. She does have severe diverticula confined to the sigmoid colon. There is no signs of active bleeding or infection. Mucosa is pink and healthy. The scope was removed and the patient was woken up and taken back to Same day surgery in stable condition. The patient tolerated the procedure well and there were no immediate complications. Follow up: The patient does not require any further colonoscopies. Unless they develop changes in bowel habits or other new gastrointestinal complaints.
--- NOTE | 2019-12-28 10:30 | PDOC.DSDIS_ITS ---
Discharge Plan Disposition Patient Disposition: HOME Condition: Good Discharge Details Reason For Visit: colon scope Attending Provider: Sandra Fong Primary Care Provider: Ana Rosa Calderon Meds and New Rx's Prescriptions: Continued glucosamine-chondroitin [Cosamin DS] 500-400 mg tablet 1 tab PO BID RF: 0 atorvastatin [Lipitor] 10 mg tablet 10 mg PO DAILY Qty: 90 RF: 4 fluoxetine [Prozac] 20 mg capsule 20 mg PO DAILY Qty: 90 RF: 4 levothyroxine [Synthroid] 100 mcg tablet 100 mcg PO .M-Sa Qty: 90 RF: 4 Lantus Solostar U-100 Insulin 100 unit/mL (3 mL) insulin pen 26 unit SC DAILY Qty: 24 RF: 4 loratadine [Claritin] 10 MG tablet 1 tab PO DAILY RF: 0 calcium carbonate-vitamin D3 [Os-Dennis 500 + D3] 1 EACH tablet 1 ea PO BID RF: 0 (DME) blood-glucose meter [FreeStyle Lite Meter] Kit See Rx Instructions .ROUTE .MEDSUPPLY Qty: 1 RF: 4 albuterol sulfate [ProAir HFA] 90 mcg/actuation HFA aerosol inhaler 2 puff Inhalation Q6H PRN Qty: 3 RF: 4 (DME) pen needle, diabetic [Advocate Pen Needle] 31 gauge x 5/16 needle See Rx Instructions .ROUTE .MEDSUPPLY Qty: 100 RF: 4 (DME) lancets [FreeStyle Lancets] 28 gauge misc 1 ea Miscellaneous DAILY Qty: 200 RF: 4 (DME) FreeStyle Lite Strips Strip 1 ea Miscellaneous DAILY Qty: 100 RF: 8 lisinopril 40 mg tablet 40 mg PO DAILY Qty: 90 RF: 4 atenolol 50 mg tablet 50 mg PO DAILY Qty: 90 RF: 4 omeprazole 20 mg capsule,delayed release(DR/EC) 20 mg PO DAILY Qty: 90 RF: 4 amlodipine 10 mg tablet 10 mg PO DAILY Qty: 90 RF: 4 alendronate 70 mg tablet 70 mg PO QWEEK Qty: 13 RF: 4 acetaminophen 500 mg tablet 1,000 mg PO Q8H PRN (Reason: pain) Qty: 60 RF: 3 ibuprofen 600 mg tablet 600 mg PO TID PRNQty: 60 RF: 3 Tresiba FlexTouch U-100 100 unit/mL (3 mL) insulin pen 12 unit SUBCUT QAM RF: 0 Discontinued polyethylene glycol 3350 17 gram/dose powder 238 g PO ONCE Qty: 238 RF: 0 bisacodyl [Dulcolax (bisacodyl)] 5 mg tablet,delayed release (DR/EC) 5 mg PO ONCE Qty: 4 RF: 0 Discharge Instructions Additional Instructions: Findings:moderate diverticular Dx . no polyps Follow a high-fiber diet and avoid straining to move the bowels Follow up: No further colonoscopies required, unless there is any pain or difficulty having a bowel red blood that is persistent for 2 weeks unexplained weight loss or other changes to the bowels. Please call if you develop: fevers >101.5 Nausea or Vomiting Abdominal pain that is not transient DAY SURGERY UNIT POST COLONOSCOPY INSTRUCTIONS 1. Because there will be medication in your system for the next 24 hours, you may feel a little sleepy. Your coordination will be affected. Therefore: a. Do not drive or operate dangerous equipment for 24 hours. b. Do not drink alcohol beverages for 24 hours (not even beer). c. Plan to go home and rest for the day. 2. Generally there are no restrictions on your activity after a day or so has gone by, but you may feel a bit fatigued for a few days. 3 After you arrive home you may have a light meal and return to a normal diet as you can tolerate it without feeling sick to your stomach. 4. After surgery, you may feel pain or discomfort. This should be only transient, but if it persists please contact your doctor. 5. If there are any questions regarding the findings of your procedure, please feel free to contact your doctor. 6. If you are unable to contact your doctor with a problem, contact the hospital at [phone]. 7. Continue all your regular medications unless directed otherwise. I understand the above instructions and have no questions. Signature of Patient or Responsible Adult Escort Date/Time Name of Responsible Adult Escort Signature of Nurse Date/Time DIVERTICULAR DISEASE OVERVIEW ? A diverticulum is a pouch-like structure that can form through points of weakness in the muscular wall of the colon (ie, at points where blood vessels pass through the wall). Diverticulosis affects men and women equally. The risk of diverticular disease increases with age. It occurs throughout the world but is seen more commonly in developed countries. WHAT IS DIVERTICULAR DISEASE? Diverticulosis ? Diverticulosis merely describes the presence of diverticula. Diverticulosis is often found during a test done for other reasons, such as flexible sigmoidoscopy, colonoscopy, or barium enema. Most people with diverticulosis have no symptoms and will remain symptom free for the rest of their lives. A person with diverticulosis may have diverticulitis, or diverticular bleeding. Diverticulitis ? Inflammation of a diverticulum (diverticulitis) occurs when there is thinning and breakdown of the diverticular wall. This may be caused by increased pressure within the colon or by hardened particles of stool, which can become lodged within the diverticulum. The symptoms of diverticulitis depend upon the degree of inflammation present. The most common symptom is pain in the left lower abdomen. Other symptoms can include nausea and vomiting, constipation, diarrhea, and urinary symptoms such as pain or burning when urinating or the frequent need to urinate. Diverticulitis is divided into simple and complicated forms. ?Simple diverticulitis, which accounts for 75 percent of cases, is not associated with complications and typically responds to medical treatment without surgery. ?Complicated diverticulitis occurs in 25 percent of cases and usually requires surgery. Complications associated with diverticulitis can include the following: ?Abscess ? a localized collection of pus ?Fistula ? an abnormal tract between two areas that are not normally connected (eg, bowel and bladder) ?Obstruction ? a blockage of the colon ?Peritonitis ? infection involving the space around the abdominal organ ?Sepsis ? overwhelming body-wide infection that can lead to failure of multiple organs Diverticular bleeding ? Diverticular bleeding occurs when a small artery located within a diverticulum is eroded and bleeds into the colon. Diverticular bleeding usually causes painless bleeding from the rectum. In approximately 50 percent of cases, the person will see maroon or bright red blood with bowel movements. Is bleeding with a bowel movement normal? ? It is not normal to see blood in a bowel movement; this can be a sign of several conditions, most of which are not serious (eg, hemorrhoids) but some of which are serious and require immediate treatment. Anyone who sees blood after a bowel movement should consult with their healthcare provider to determine if further testing or evaluation is needed. DIVERTICULOSIS AND DIVERTICULITIS DIAGNOSIS ? Diverticulosis is often found during tests performed for other reasons. ?Barium enema ? This is an x-ray study that uses barium in an enema to view the outline of the lower intestinal tract. This is an older test and has been largely replaced by computed tomography (CT) scan. ?Flexible sigmoidoscopy ? This is an examination of the inside of the sigmoid colon with a thin, flexible tube that contains a camera. ?Colonoscopy ? This is an examination of the inside of the entire colon. ?CT scan ? A CT scan is often used to diagnose diverticulitis and its complications. If diverticulitis (not just diverticulosis) is suspected, the above three tests should not be used because of the risk of perforation. TREATMENT Diverticulosis ? People with diverticulosis who do not have symptoms do not require treatment. However, most clinicians recommend increasing fiber in the diet, which can help to bulk the stools and possibly prevent the development of new diverticula, diverticulitis, or diverticular bleeding. Fiber is not proven to prevent these conditions in all patients but may help to control recurrent episodes in some. Increase fiber ? Fruits and vegetables are a good source of fiber. Fiber content of packaged foods can be calculated by reading the nutrition label. Seeds and nuts ? Patients with diverticular disease have historically been advised to avoid whole pieces of fiber (such as seeds, corn, and nuts) because of concern that these foods could cause an episode of diverticulitis. However, this belief is completely unproven. We do not suggest that patients with diverticulosis avoid seeds, corn, or nuts. Diverticulitis ? Treatment of diverticulitis depends upon how severe your sympto ms are. Home treatment ? If you have mild symptoms of diverticulitis (mild abdominal pain, usually left lower abdomen), you can be treated at home with a clear liquid diet and oral antibiotics. However, if you develop one or more of the following signs or symptoms, you should seek immediate medical attention: ?Temperature >100.1?F (38?C) ?Worsening or severe abdominal pain ?An inability to tolerate fluids Hospital treatment ? If you have moderate to severe symptoms, you may be hospitalized for treatment. During this time, you are not allowed to eat or drink; antibiotics and fluids are given into a vein. If you develop an abscess of the colon, you may require drainage of the abscess (usually performed by placing a drainage tube across the abdominal wall) or by surgically opening the affected area. Surgery ? If you develop a generalized infection in the abdomen (peritonitis), you will usually require an emergency operation. A two-part operation may be necessary in some cases. ?The first operation involves removal of the diseased colon and creation of a colostomy. A colostomy is an opening between the colon and the skin, where a bag is attached to collect waste from the intestine. The lower end of the colon is temporarily sewed closed to allow it to heal. ?Approximately three to six months later, a second operation is performed to reconnect the two parts of the colon and close the opening in the skin. You are then able to empty your bowels through the rectum. Sometimes patients require up to a year to recover from the first operation, depending on how sick they were. In non-emergency situations, the diseased area of the colon can be removed and the two ends of the colon can be reconnected in one operation, without the need for a colostomy. Surgery versus medical therapy ? An operation to remove the diseased area of the colon may be necessary if you do not improve with medical therapy. After an episode of uncomplicated diverticulitis, elective surgery is generally not r equired as the risk of another attack or requiring emergency surgery is low. However, patients with persistent symptoms attributable to diverticulitis, a history of complicated diverticulitis, or a compromised immune system should be evaluated for possible surgery to prevent another attack. In such patients, another attack has been associated with a higher risk of complications or . Of course, the decision will also depend in part upon your other medical conditions and ability to undergo surgery. In many cases, an elective operation can be performed laparoscopically, using small incisions, rather than the typical vertical (up and down) abdominal incision. Laparoscopic surgery usually allows you to recover more quickly and shortens the hospital stay. After diverticulitis resolves ? After an episode of diverticulitis resolves, if you have not had a recent colonoscopy, the entire length of the colon should be evaluated to determine the extent of disease and to rule out the presence of abnormal lesions such as polyps or cancer. Recommended tests include colonoscopy, barium enema and sigmoidoscopy, or CT colonography. Diverticular bleeding ? Most cases of diverticular bleeding resolve on their own. However, some people will need further testing or treatment to stop bleeding, which may include a colonoscopy, angiography (a treatment that blocks off the bleeding artery), bleeding scan, or surgery. DIVERTICULAR DISEASE PROGNOSIS Diverticulosis ? Over time, diverticulosis may cause no problems or it may cause episodes of bleeding and/or diverticulitis. Approximately 15 to 25 percent of people with diverticulosis will develop diverticulitis, while 5 to 15 percent will develop diverticular bleeding. Diverticulitis ? Approximately 85 percent of people with uncomplicated divert iculitis will respond to medical treatment, while approximately 15 percent of patients will need an operation. After successful treatment for a first attack of diverticulitis, one-third of patients will remain asymptomatic, one-third will have episodic cramps without diverticulitis, and one-third will go on to have a second attack of diverticulitis. The prognosis tends to remain similar following a second attack of diverticulitis. Only 10 percent of people remain symptom-free after a second attack. Subsequent attacks tend to be of similar severity, not increasing in severity as previously believed. Activity:: No lifting over 20 pounds or strenuous activity x24 hours Diet:: small light meals x24 hours Discharge Orders Discharge Orders: Discharge Order (Routine); Ordered 12/28/19 Ordered By: Sandra Fong DS: Diagnosis Discharge Diagnosis (1) Diverticula of colon: Status: Acute
[2019-12-28 10:59] VITALS: BP 147/53; PULSE 65; RESP 16; TEMP 36.5; O2SAT 98
== END 2019-12-28 11:25 | disposition home or self-care (01) ==
PROVIDERS: PCP Nurse Practitioner Family; Visit Provider Surgery
PROC: 0DJD8ZZ Inspection of Lower Intestinal Tract, Via Natural or Artificial Opening Endoscopic (ICD-10-PCS; CPT 45378; principal; 2019-12-28 10:45)
DX: Z12.11 Encounter for screening for malignant neoplasm of colon (principal); Z86.010 Personal history of colon polyps; K57.30 Diverticulosis of large intestine without perforation or abscess without bleeding
CPT/HCPCS: G0105; J2001

== ENCOUNTER 2020-01-03 03:01 | Outpatient (CLI) | payer MEDICARE, BC, SELFPAY ==
[2020-01-03 10:36] LABS: Hemoglobin A1C 7.1 % (3.8-5.6)
[2020-01-03 10:59] LABS: Anion Gap 6.5 mmol/L (3-11); BUN 30 mg/dL (7-18); CO2 24.5 mmol/L (21.0-32.0); CREATININE 1.47 mg/dL (0.55-1.02); Calcium 9.6 mg/dL (8.5-10.1); Chloride 111 mmol/L (98-107); Estimated GFR 35.04 (mL/min/1.73m2); Glucose 78 mg/dL (74-106); Potassium 5.9 mmol/L (3.5-5.1); Sodium 142 mmol/L (136-145)
== END 2020-01-03 03:21 ==
PROVIDERS: PCP Nurse Practitioner Family; Visit Provider Nurse Practitioner Family
DX: E11.22 Type 2 diabetes mellitus with diabetic chronic kidney disease (principal); N18.9 Chronic kidney disease, unspecified
CPT/HCPCS: 36415; 80048; 83036

== ENCOUNTER 2020-01-18 03:02 | Outpatient (CLI) | payer MEDICARE, BC, SELFPAY ==
[2020-01-18 10:59] LABS: Anion Gap 5.7 mmol/L (3-11); BUN 30 mg/dL (7-18); CO2 26.3 mmol/L (21.0-32.0); CREATININE 1.51 mg/dL (0.55-1.02); Calcium 9.8 mg/dL (8.5-10.1); Chloride 109 mmol/L (98-107); Estimated GFR 33.97 (mL/min/1.73m2); Glucose 108 mg/dL (74-106); Potassium 5.1 mmol/L (3.5-5.1); Sodium 141 mmol/L (136-145)
== END 2020-01-18 03:22 ==
PROVIDERS: PCP Nurse Practitioner Family; Visit Provider Nurse Practitioner Family
DX: Z79.899 Other long term (current) drug therapy (principal)
CPT/HCPCS: 36415; 80048; 85027; 82465; 84450; 84460; 84478

== ENCOUNTER → 2020-03-04 13:31 | Outpatient (BNVA) | payer MEDICARE, BC, SELFPAY | PROVIDERS: PCP Nurse Practitioner Family; Referring Provider Nurse Practitioner Family; Visit Provider Student in an Organized Health Care Education/Training Program | DX: M17.12 Unilateral primary osteoarthritis, left knee (principal); E11.22 Type 2 diabetes mellitus with diabetic chronic kidney disease; I12.9 Hypertensive chronic kidney disease with stage 1 through stage 4 chronic kidney disease, or unspecified chronic kidney disease; N18.9 Chronic kidney disease, unspecified; Z96.651 Presence of right artificial knee joint | CPT/HCPCS: 99213 ==

== ENCOUNTER 2020-04-12 01:47 | Outpatient (CLI) | payer MEDICARE, BC, SELFPAY ==
[2020-04-12 13:57] LABS: HCT 36.5 % (36.0-46.0); HGB 11.9 g/dL (11.2-15.7); MCH 28.1 pg (27.0-33.0); MCHC 32.6 % (32.0-36.0); MCV 86.1 fL (80-95); MPV 11.8 fL (8.0-11.0); Platelet Count 302 10^3/uL (130-400); RBC 4.24 10^6/uL (3.93-5.22); RDW 13.6 % (11.7-14.6); RDW-SD 42.3 fL; WBC 12.54 10^3/uL (4.4-10.8)
[2020-04-12 14:02] LABS: Hemoglobin A1C 6.8 % (<5.7)
[2020-04-12 14:40] LABS: Anion Gap 7.7 mmol/L (3-11); BUN 27 mg/dL (7-18); CO2 26.3 mmol/L (21.0-32.0); CREATININE 1.58 mg/dL (0.55-1.02); Calcium 9.8 mg/dL (8.5-10.1); Chloride 106 mmol/L (98-107); Estimated GFR 32.24 (mL/min/1.73m2); Glucose 84 mg/dL (74-106); Potassium 5.1 mmol/L (3.5-5.1); Sodium 140 mmol/L (136-145)
[2020-04-15 14:44] LABS: COVID-19 RT-PCR Result NEGATIVE (Negative)
== END 2020-04-12 02:07 ==
PROVIDERS: PCP Nurse Practitioner Family; Visit Provider Student in an Organized Health Care Education/Training Program
DX: M25.562 Pain in left knee (principal); M17.12 Unilateral primary osteoarthritis, left knee; Z11.59 Encounter for screening for other viral diseases; Z01.812 Encounter for preprocedural laboratory examination; Z01.818 Encounter for other preprocedural examination
CPT/HCPCS: 36415; 80048; 85027; U0003; 83036

== ENCOUNTER 2020-04-17 07:49 | Inpatient (IN) | payer MEDICARE, BC, SELFPAY ==
--- NOTE | 2020-04-15 13:32 | PDOC.CMPRO ---
- If Service Date Differs Date of service: 04/15/20 Time of Service: 13:33 Care Management Progress Note S/O: Shari is prepared to have surgery on the 17 of April. Her son is going to be staying with her spouse who is disabled. He will also be spending an extra few days with her when she returns home. She anticipates she will be spending at least two nights at the hospital. Shari has a 4WW at home and her sister in law has a FWW. She may need a FWW at time of discharge. She anticipates she will start with home health PT and transition to outpatient in [place] when she is ready. She states her family has been helping at home with she and her spouse including the outdoor chores. They do get meals on wheels and she feels that she will have enough support when she does return home. P: Shari will have home health PT at time of discharge and will need a new face to face. Anticipate she will need a FWW. She reports she has advance directives. She will be transported home via private car and family at time of discharge.
[2020-04-17] VITALS (9 sets, daily range): BP systolic 125–150; BP diastolic 49–76; PULSE 53–87; RESP 12–18; TEMP 35.6–36.7; O2SAT 95–100
[2020-04-17] MEDS: Celecoxib 200 MG CAP 400 MG PO (08:41)
[2020-04-17] MEDS: Acetaminophen 500 MG TAB 1000 MG PO ×3 (08:42→20:36)
[2020-04-17] MEDS: Gabapentin 300 MG CAP PO ×2 (08:42→22:55)
[2020-04-17] MEDS: Lactated Ringers 1,000 ML 80 ML IV (08:45)
[2020-04-17] MEDS: Bupivacaine 0.25% Pres-Free 30 ML VIAL ×2 (09:07→10:14)
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
[2020-04-17] MEDS: ceFAZolin 2 GM/50 ML BAG IVPB (09:33)
[2020-04-17] MEDS: Ketorolac 30 MG/ML VIAL (10:13)
[2020-04-17] MEDS: Normal Saline 20 ML VIAL (10:15)
[2020-04-17] MEDS: ceFAZolin 1 GM/50 ML BAG IVPB ×2 (15:47→22:56)
--- NOTE | 2020-04-17 15:54 | PT.INIE ---
Date of service: 04/17/20 Time of Service: 15:54 PT Notes Visit Reasons: L KNEE DJD Physical Therapy Inpatient Initial Evaluation Date: 04/17/2020 Referring Doctor: DONNA Kiser PT Orders: PT CONSULT: Status post Ortho surgery Precautions: Fall. Standard. WBAT on left LE. Patient Profile/Admitting Diagnosis: Shari is a 69-year-old female with primary unilateral osteoarthritis of the left knee and status post total knee arthroplasty on postoperative day 0. PMHX: Medical History Chronic kidney disease Depressive disorder Diverticula of colon Eosinophilic esophagitis EGD 10/21 Essential hypertension Hyperlipidemia Hypothyroidism Iron deficiency anemia Mild intermittent asthma Obesity Osteoporosis Dexa 2019. 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 Independent with all aspects of ADLs prior to surgery. Receives Meals on Wheels. Equipment Owned/DME: [employer] Subjective: Reports minimal ache on the L knee that dissipated with ambulation. Denies headache, chest pain, lightheadedness throughout session. She states that for the past 6 months, she has walked with her left knee straight as bending it would cause her considerable pain. She is concerned about continuing to care for her disabled while she is herself recovering. Objective: General Observation: Supine in bed. Morris wraps on left LE. Cryo/Cuff on left LE. Becerra catheter in place. Mental Status: Alert and oriented x 4 Pain: 1?2/10 in the left knee ROM: Right Upper Extremity: Shoulder Flexion WFL. Shoulder abduction WFL. Elbow flexion WFL. Wrist flexion WFL. Opening and closing of hand WFL. Left Upper Extremity: Shoulder Flexion WFL. Shoulder abduction WFL. Elbow flexion WFL. Wrist flexion WFL. Opening and closing of hand WFL. Right Lower Extremity: Hip flexion WFL. Hip abduction WFL. Knee flexion WFL. Ankle dorsiflexion WFL. Ankle plantarflexion WFL. Left Lower Extremity: Hip flexion WFL. Hip abduction WFL. Knee flexion 10 degrees to 100 degrees. Extension -10 degrees ankle dorsiflexion WFL. Ankle plantarflexion WFL. Strength: Right Upper Extremity: Shoulder flexors 5/5. Shoulder abductors 5/5. Elbow flexors 5/5. Elbow extensors 5/5. Chief Nuclear Medicine Technologist strong. Left Upper Extremity: Shoulder flexors 5/5. Shoulder abductors 5/5. Elbow flexors 5/5. Elbow extensors 5/5. Chief Nuclear Medicine Technologist strong. Right Lower Extremity: Hip flexors 5/5. Hip abductors 5/5. Knee flexors 5/5. Knee extensors 5/5. Ankle dorsiflexors 5/5. Ankle plantarflexors 5/5. Left Lower Extremity:Hip flexors 5/5. Hip abductors 5/5. Knee flexors 3-/5. Knee extensors 3-/5. Ankle dorsiflexors 5/5. Ankle plantarflexors 5/5. Sensation: Intact as to pain and pressure on bilateral lower extremities. Bed Mobility/Transfers: Supine to sit standby assist with HOB 30 degrees Sit to supine standby assist Sit to stand standby assist Stand to sit standby assist Bed to chair standby assist Chair to bed standby assist Gait: Guided patient through level surface ambulation of 80 feet using front wheeled walker with WBAT on left LE requiring standby assist with minimal verbal cues provided to increase flexion on the left knee during swing phase. Step to gait pattern complained of 1?2/10 pain in the left knee. THERA EX: Instructed patient on correct performance of gluteal and quadriceps isometric exercises and range of motion exercises for the ankles to minimize complications of postoperative status. Balance: Static Sitting: Normal Dynamic Sitting: Normal Static Standing: Fair Dynamic Standing: Fair Special Tests: Mobility Limitations Standardized Measure [facility] 6 clicks Basic Mobility Inpatient Short Form: Raw Score: 21 CMS Score: 29% deficit Informed Consent/Education: Patient instructed in purpose of PT consult and plan of care. Assessment: Shari demonstrates the need for a front wheeled walker and standby assist for all mobility ADL performance, impairment in balance, difficulty with walking, and increased risk for falls due to postoperative status and co-morbidities. She may require additional help with taking care of her as she herself recovers. Patient presents with clinical signs and symptoms consistent with current/admitting diagnoses that have resulted to mobility limitations, gait instability, generalized weakness, and impairment of motor control as demonstrated by the following impairment level findings: 1. Decreased strength to left knee major muscle groups 2. Impaired standing balance 3. Impaired activity tolerance 4. Limitation of joint range of motion in left knee Impairments are contributing to the following functional limitations: 1. Inability to safely ambulate without assistive device 2. Increase completion time for mobility ADL performance 3. Increased fall risk 4. Inability to negotiate steps alone safely Patient is assessed as a 86953 moderate complexity based on the following: History: 69 [id number] with impairment level findings, functional limitations, and past medical history as indicated above Examination: Demonstrable impairment in strength, balance, and mobility level with underlying impairments and functional limitations as documented above Presentation:Evolving Decision Makin moderate complexity Goals: Goals X 3 days 1. Supine-Sit independent 2. Sit-Supine independent 3. Sit-Stand independent 4. Stand-Sit independent 5. Bed-Chair independent 6. Chair-Bed independent 7. Independent gait on level surface with use of least restrictive device for at least 300 feet without report of pain nor dyspnea 8. Independent stair negotiation while holding onto bilateral rails for at least 10 steps without report of pain nor dyspnea 9. Independent with home exercise program 10. Good static and dynamic standing balance/tolerance Plan of Care/Treatment Plan: 1-2x/day, 7 days/week x 1 week. Plan of care has been reviewed with the METAL MOULDER providing the service under Physical Therapy direction. Initiate Physical Therapy intervention for strengthening, bed mobility, transfers, gait, stairs, balance training, use of assistive device. DISCHARGE RECOMMENDATIONS: Home when medically cleared by orthopedic surgeon. Disabled may require additional support services to allow patient to regain mobility ADL independence at home. TREATMENT CODE/TIME: 71688 x 25 minutes, 27893 x 21 minutes beginning at 15:54 PM. Thank you for the opportunity to participate in the care of this patient. Guera Laguna PT, DPT, CLT [facility] [place], [place]
[2020-04-17] MEDS: Aspirin E.C. 81 MG TABEC PO (20:35)
[2020-04-17] MEDS: Celecoxib 200 MG CAP PO (20:35)
--- NOTE | 2020-04-17 20:47 | W.PM.OP ---
Date of service: 04/17/20 Time of Service: 11:47 Operative Note Operative Note DATE OF PROCEDURE: 04/17/20 PRE-OP DIAGNOSIS: Left Knee Osteoarthritis POST-OP DIAGNOSIS: same PROCEDURE: Left Total Knee Replacement SURGEON: Andrew Perez CONSTRUCTION RIGGER: Sandra Erazo ANESTHESIA: regional and spinal ESTIMATED BLOOD LOSS: 150 PATHOLOGY: none sent TOURNIQUET TIME: 28 COMPLICATIONS: None Patient was transported to: PACU Patient's condition: stable Implants: 1. Depuy Attune Posterior Stabilized Femoral Component, Size 4 2. Depuy Attune Fixed Platform Tibial Component, Size 4 3. Depuy Attune 4x8mm Fixed, Stabilized Poly 4. Depuy Attune Patellar Component, Size 32mm Indications: I have seen Shari in clinic for symptoms of RIGHT knee arthritis, confirmed with radiographic findings. [NAME] has exhausted nonoperative methods and was having significant limitations in daily function and desired better function and less pain. I discussed the technical details of a knee replacement. I explained the risks of the procedure to include, but not limited to, bleeding, infection, pain, stiffness, fracture, damage to nerves and vessels, damage to muscles and tendons, loosening, need for repeat procedure, blood clot and cardiopulmonary demise. Despite these risks, [NAME] elected to proceed. Findings: There was significant signs of arthritis throughout the knee. Procedure Description: Shari was greeted in the preoperative holding area where the correct side was identified and marked. The consent was reviewed with the patient and signed. The history and physical was updated. All questions were answered. Preoperative mediacations were administered: Acetaminophen 1000mg, Celebrex 400mg, and Gabapentin 300mg. An adductor canal block was then administered by the anesthesia team in the PACU. Shari was taken back to the operating room. A spinal anesthestic was then administered. The patient was placed into the supine position on the operating room table. A nonsterile tourniquet was placed high onto the leg but only used for cementing. Posts were placed for positioning during the procedure. All bony prominences were well padded. Prophylactic antibiotics in the form of Cefazolin were administered. 1g of Tranxemic Acid was given intravenously within 30 minutes of incision. The right leg was then prepped with Chloraprep and draped in a standard fashion with impervious stockinette. A second prep with Chloraprep was performed prior to application of Iodine impregnated skin protection. A timeout to confirm correct identity, side and site, procedure, allergies, anesthesia, and medical concerns was performed. With the knee in some flexion, a midline incision was made overlying the knee. Full thickness skin flaps were raised once the extensor mechanism was encountered. These were raised medially and laterally. Any bleeding was controlled with electrocautery. Once the extensor mechanism was fully exposed, a medial parapatellar arthrotomy was performed in a flexed position. All bleeding from the arthrotomy and the geniculate arteries was coagulated. A medial subperiosteal peel was performed with electrocautery to the midcoronal plane. Due to the significant varus deformity the entire medial tibial plateau was exposed. The fat pad was removed while keeping the patellar tendon protected. The anterior distal femur synovium was removed for later visualization. The ACL and PCL were resected and the anterior horn of the lateral meniscus was transected. The knee was then flexed with the patella everted. Large osteophytes from the tibia were removed. Large osteophytes from the femur were removed. Using a step drill, and based on preoperative templating, the femoral canal was entered. This was done with a step drill without any difficulty. The intramedullary distal femoral cut guide was inserted, set to a 5 degree valgus cut and 9mm cut thickness. The distal femoral cut guide was then held in position and pinned. With the soft tissues protected, the distal cut was performed. This was passed over a few times to ensure a planar cut. I then turned attention to the tibia. The extramedullary guide was placed onto the leg. The distal aspect was slid medial to adjust for position of center of ankle and stay in line with shaft of the tibia. Approximately 3-5 degrees of posterior slope was kept in the proximal cutting guide. The center of the guide was aligned with the PCL. The stylus was used to assess cut thickness. The medial side, most involved side, was set for a 2mm cut, which corresponded to 9mm laterally. This was then held in position and pinned into place with 2 additional pins and a cross pin for stability. The medial and lateral collateral ligaments were protected and the cut was performed. With this completed, it was assessed and noted to be of appropriate dimensions. The guide was removed. A spacer block was inserted and the knee was brought into extension. The 8mm spacer block provided full extension, without hyperextension and with stability of both the medial and lateral collateral ligaments was assessed. The pins from the femur and the tibia were then removed. The distal femur was then sized. The anterior stylus was placed onto the lateral ridge of the anterior femur. This indicated a size 4 femur. The external rotation of the guide was adjusted to 3 degrees to match the epicondylar axis, perpendicular to Livia?s line. The 4-in-1 cutting guide was the placed. The posterior medial femur cut was evaluated and appeared of good thickness. The spacer block was inserted underneath the cutting guide and stability was confirmed in 90 degrees of flexion. An leyla wing was used to confirm appropriate position of the anterior cut to avoid notching. This cutting guide was ensured to be flush on the cut surface and then pinned into place with headed pins. While protecting the soft tissues, quad tendon, and collateral ligaments, the anterior and posterior cuts were performed with a saw. The central two pins were removed and the posterior and anterior chamfers were cut next. The notch-cutting guide was placed. This was pinned to lateralize the femoral component as much as possible while keeping it flush on the cut surface. This was then pinned into position. A reciprocating saw was used to make the notch cut. A rasp smoothed the cut surfaces. A trial posterior stabilized femoral component was then inserted, impacted down to the cut surfaces, and the lug holes were drilled. A provisional trial tibial component was placed and the knee was brought through range of motion. There was noted to be excellent extension and flexion. There was no significant instability. The patella was tracking without thumbs. The tibial cut surface was fully exposed. The medial and lateral menisci were removed. The tibia was then sized as a 4. The tibia had been previously marked during trialing to correspond to the center of the tibial component to help with rotation. The trial was aligned to this jamia, approximately rotated to the medial 1/3rd of the tibial tubercle. The trial was pinned into place. The tibia was prepared with a reamer and a keel punch. The knee was then brought into extension and the patella was measured as 23mm. Using the patellar clamp and cut guide, this was resected to a flat surface with at least 13mm of thickness remaining. The size 32 patella fit the best. This was oriented and then clamped into position. The lugs were drilled. The trial components were removed. The final components, except for the polyethylene were opened on the back table. The periosteal and capsular tissues, especially posteriorly, around the knee were then systematically injected with a periarticular cocktail consisting of 50cc 0.25% Marcaine, 30mg Ketorolac, 20cc of Exparal and 50cc of injectable saline. The tourniquet was then inflated to 275mmHg. The knee was thoroughly irrigated with a pulse lavage and dried. On the back table, with the implants opened, the cement was mixed. 2 batches of antibiotic laden cement were prepared with vacuum assistance. After the cement was ready a small amount was placed on to the back side of the tibial component at the keel. A small amount was placed onto the posterior flange of the femur. Cement was manual pressurized and impregnated into the cut surface of the tibia. The tibial component was then inserted into the cut surface and impacted into position. Excess cement was removed and the component was reimpacted. Again, excess cement was removed and our attention was then turned to the femur. The femoral cut surface was once again dried and cement was manually impacted into the cut surface. The femoral component was lined with the lug holes and impacted. Excess cement was removed. It was ensured to be down against the cut surface. The trial polyethylene was then inserted and the leg was brought out into full extension for the duration of the cement curing process, approximately 15min. Cement was lastly manually impacted into the cut surface of the patella and the patellar button was clamped into position and held. During this process attention was turned to the gutters of the knee and for all interfaces for any excess cement. While the cement was hardening, the knee was irrigated with Irrisept chlorhexadine solution. This was allowed to sit in the knee for 3 minutes. After the cement had finally cured, approximately 15min, the clamp was removed from the patella and the knee was taken through range of motion. A size 8mm polyethylene component provided the best range of motion and stability with less than 2mm gapping with medial and lateral stress and full extension without significant hyperextension. The patella was tracking with a no-thumbs technique. The trial poly was removed and once again the knee was checked for any loose, excess, or errant cement. The poly component was then inserted and impacted into position after cleaning and drying the tibial tray. The capsule was then reapproximated with a No. 1 Vicryl at multiple locations. The capsule was finally closed with a No. 2 Stratafix, barbed suture. The tourniquet was then released and the arthrotomy appeared watertight without significant bleeding. The second dosing of 1g TXA was started. Deep tissues were then reapproximated with 0 Vicryl and 2-0 Vicryl. The skin was closed with a running 3-0 Monocryl in a subcuticular fashion. This was reinforced with skin glue. A Mepilex silver dressing was applied along with a [id number]-nj-wehps GARTH wrap. A CryoCuff was applied. Shari was transferred to the hospital bed without difficulty an suffering no apparent complication. Shari has a good prognosis. Physical therapy will start today and without restrictions, weight-bearing as tolerated. Aspirin 81mg BID will be used for DVT prophylaxis.
[2020-04-18 00:16] VITALS: BP 125/65; PULSE 61; RESP 18; TEMP 36.5; O2SAT 94
[2020-04-18] MEDS: oxyCODONE 5 MG TAB PO ×2 (00:18→16:15)
[2020-04-18 03:12] VITALS: BP 119/72; PULSE 70; RESP 18; TEMP 36.9; O2SAT 96
[2020-04-18 07:21] LABS: Anion Gap 6.7 mmol/L (3-11); BUN 32 mg/dL (7-18); CO2 24.3 mmol/L (21.0-32.0); CREATININE 1.85 mg/dL (0.55-1.02); Calcium 8.5 mg/dL (8.5-10.1); Chloride 107 mmol/L (98-107); Estimated GFR 26.87 (mL/min/1.73m2); Glucose 163 mg/dL (74-106); Potassium 5.1 mmol/L (3.5-5.1); Sodium 138 mmol/L (136-145)
[2020-04-18 07:25] VITALS: BP 142/75; PULSE 65; RESP 14; TEMP 37.3; O2SAT 98
--- NOTE | 2020-04-18 07:54 | W.PM.PROGNOT ---
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 mellitus electronic component processor insulin use: with shelter use Diabetes mellitus complication status: with kidney complications Diabetes mellitus complication detail: with chronic kidney disease Chronic kidney disease stage: stage 3 (moderate) Chronic kidney disease stage 3 subtype: unspecified whether 3a or 3b Qualified Code(s): E11.22 - Type 2 diabetes mellitus with diabetic chronic kidney disease; N18.30 - Chronic kidney disease, stage 3 unspecified; 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 She is doing well with pain control. She was able to ambulate yesterday with controlled pain. She does have worsenign Creatinine today so I will order a fluid bolus and stop the Celebrex. We will rehydrate today and check kidney function again tomorrow. Hopefully d/c to home with [facility] tomorrow or Wednesday. Qualifiers: Acute renal failure type: unspecified Chronic kidney disease stage: stage 3 (moderate) Subjective Subjective Interval history since last seen: Shari is doing well. She had some mild increase in pain last night but this responded well to one dose of Oxycodone. Good UOP but history of tenuous kidney function. Exam Narrative Exam Narrative: LLE dressing c/d/i. +ADF/APF/EHL/FHL. SILT DP/SP/Tib. +DP/PT Objective Last Vital Signs Temp 36.9 C 04/18/20 03:12 Pulse 70 04/18/20 03:12 Resp 18 04/18/20 03:12 BP 119/72 04/18/20 03:12 Pulse Ox 96 04/18/20 03:12 Laboratory Results - last 24 hr 04/18/20 06:05 Sodium 138 Potassium 5.1 Chloride 107 Carbon Dioxide 24.3 Anion Gap 6.7 BUN 32 H Creatinine 1.85 H Estimated GFR/1.73 m2 26.87 Glucose 163 H Calcium 8.5
[2020-04-18 08:01] VITALS: BP 158/82; PULSE 66; RESP 17; TEMP 37.3; O2SAT 94
[2020-04-18] MEDS: ceFAZolin 1 GM/50 ML BAG IVPB (08:09)
[2020-04-18] MEDS: Aspirin E.C. 81 MG TABEC PO ×2 (08:10→20:32)
[2020-04-18] MEDS: Pantoprazole 40 MG TABCR PO (08:10)
[2020-04-18] MEDS: Normal Saline Flush 10 ML SYR IV (08:10)
[2020-04-18] MEDS: Acetaminophen 500 MG TAB 1000 MG PO ×3 (08:10→20:31)
[2020-04-18] MEDS: Insulin Aspart 300 UNITS/3 ML PEN SC ×3 (08:18→16:55)
[2020-04-18] MEDS: Lactated Ringers 1,000 ML 1000 ML IV (08:56)
[2020-04-18 11:32] VITALS: BP 135/76; PULSE 64; RESP 16; TEMP 36.8; O2SAT 96
--- NOTE | 2020-04-18 14:03 | PT.INTREAT ---
Date of service: 04/18/20 Time of Service: 07:50 PT Notes Visit Reasons: L KNEE DJD Inpatient Physical Therapy Treatment Note [facility] Date: 04/18/2020 PRECAUTIONS: WBAT L SUBJECTIVE: Nadya reports that she is feeling good this morning. She states that she plans to go home tomorrow. OBJECTIVE: PAIN: Patient rates her L knee pain as 3-4/10 at rest, increasing slightly with gait training BED MOBILITY/TRANSFERS Supine-sit: I with HOB flat Sit-stand: S Stand-sit: S Bed-Chair: S Chair-bed: S GAIT Assistive Device: FWW Weight bearing: WBAT L Assist: S Distance: 300' in both a.m. and p.m. Deviation: Step-through gait pattern, decreased knee flexion on L THEREX: Patient was instructed in a LE strengthening and stabilization program, in a long-sitting position, as per flow sheet. Ends with cryocuff to L knee. STAIRS: Up/down 3x4 and 2x6 using B rails and a step to pattern with supervision ASSESSMENT: Patient tolerated a progression in gait distance with FWW support and supervision, utilizing a step-through gait pattern. Patient would benefit from continued gait training and LE strengthening for improved mobility. PLAN: Continue with LE strengthening and gait and transfer training for improved mobility. TREATMENT CODE/TIME: Session 1: 25 minutes; [id number], [id number] Section 2: 25 minutes; [id number], [id number]
--- NOTE | 2020-04-18 16:31 | CHAPLAIN ---
Shari was sitting up in her chair when I visited. She had knee surgery yesterday. Shari's main concerns are about caring for her who is a double amputee, and is demanding, according to her. She said she is exhausted caring for him. She has two sons, one of whom lives in [place], [place]. Shari said she has contacted [facility] seeking assistance for her 's care, but said she has not been called back. I suggested she talk with her long term acute care registered nurse. She said [facility] is [facility] where [facility] not responsible for caregiving. Shari was once part of the [employer] but said she has not attended for many years, and [facility].
--- NOTE | 2020-04-18 19:13 | PDOC.CMIN ---
- If Service Date Differs Date of service: 04/18/20 Time of Service: 19:17 Care Management Initial Assess REASON FOR HOSPITALIZATION:: L Knee DJD PAST MEDICAL HISTORY/PAST SURGICAL HISTORY:: Medical/Surgical History: Type 2 diabetes mellitus, chronic kidney disease, essential hypertension, hyperlipidemia, hypothyroidism, eosinophilic esophagitis, mild intermittent asthma, depressive disorder, obesity, and sigmoid diverticulosis. PREVIOUS FUNCTIONAL STATUS/SOCIAL/FAMILY SUPPORTS:: Shari lives in [place] with her , Luis Manuel, and her cat. Her is a double-amputee and Shari provides all of his care. Shari and her have two children: a daughter who lives in [facility] and a son who resides in [place]. Shari reports their son visits frequently and he is helpful around the house. She also names a former kahkme-iy-xnu and her who live nearby as sources of support for her. Shari drives and is independent with her ADLs at baseline. CURRENT FUNCTIONAL STATUS:: Shari is pleasant and easily engages into conversation. She shares openly about her struggles caring for her who reportedly has a diagnosis of dementia. Anticipate need for increased services to support Shari as she attempts to care for her during her own recovery. ADVANCE DIRECTIVES:: On file at [facility]; Luis Manuel Mckeon is agent. Has patient been provided with info about the portal/API?: No Did the patient sign up for the portal?: No CODE STATUS:: Full Code INSURANCE COVERAGE / FINANCIAL ISSUES:: BCBS and Medicare CURRENT HOME/COMMUNITY SERVICES/EQUIPMENT:: Shari reports she has a FWW and a wheelchair at home. She also has a private cleaning lady who comes to clean her home every other Wednesday. PRIMARY CARE PHYSICIAN:: Ana Rosa Calderon NP ([facility]) POTENTIAL DISCHARGE NEEDS:: Follow-up with PCP, Dr. Perez, and discharge plan of care. PATIENT/FAMILY EDUCATION NEEDS:: Discharge plan, limitations, plan of care, including Ask Me Three and self-management. ANTICIPATED BARRIERS TO DISCHARGE:: None identified. TRANSPORTATION:: Shari will be transported home via private vehicle when ready. PLAN:: Shari will be discharged home when medically cleared by provider. CM will coordinate a referral to Home Health for physical therapy and to the [facility] for Eudyj-fk-Qokeqh. Shari's former rrcthe-lu-uyk will stay at Shari's home to assist with the care of her while Shari recovers from surgery. Family will transport Shari home via private vehicle when ready.
[2020-04-18 19:30] VITALS: BP 133/74; PULSE 71; RESP 20; TEMP 36.1; O2SAT 99
[2020-04-18] MEDS: Gabapentin 300 MG CAP PO (21:37)
[2020-04-19 00:27] VITALS: BP 143/69; PULSE 77; RESP 18; TEMP 36.4; O2SAT 98
[2020-04-19 03:55] VITALS: BP 140/64; PULSE 77; RESP 18; TEMP 36.8; O2SAT 98
[2020-04-19 06:59] LABS: Anion Gap 8.1 mmol/L (3-11); BUN 27 mg/dL (7-18); CO2 25.9 mmol/L (21.0-32.0); CREATININE 1.63 mg/dL (0.55-1.02); Calcium 9.1 mg/dL (8.5-10.1); Chloride 105 mmol/L (98-107); Glucose 154 mg/dL (74-106); Potassium 5.1 mmol/L (3.5-5.1); Sodium 139 mmol/L (136-145)
[2020-04-19 07:19] VITALS: BP 154/64; PULSE 77; RESP 18; TEMP 37.1; O2SAT 99
[2020-04-19] MEDS: Acetaminophen 500 MG TAB 1000 MG PO (07:43)
[2020-04-19] MEDS: Aspirin E.C. 81 MG TABEC PO (07:43)
[2020-04-19] MEDS: Pantoprazole 40 MG TABCR PO (07:43)
[2020-04-19] MEDS: oxyCODONE 5 MG TAB PO ×2 (07:44→12:30)
[2020-04-19] MEDS: Insulin Aspart 300 UNITS/3 ML PEN SC ×2 (07:47→11:55)
--- NOTE | 2020-04-19 10:20 | PT.INTREAT ---
Date of service: 04/19/20 Time of Service: 09:45 PT Notes Visit Reasons: L KNEE DJD Inpatient Physical Therapy Treatment Note [facility] Date: 04/19/2020 PRECAUTIONS: WBAT L SUBJECTIVE: Nadya reports that she is feeling good this morning, although experiencing increased pain around the knee cap on L LE. OBJECTIVE: PAIN: No c/o pain BED MOBILITY/TRANSFERS Sit-stand: I Stand-sit: I Bed-Chair: I Chair-bed: I GAIT Assistive Device: FWW Weight bearing: WBAT L Assist: S Distance: 450' Deviation: Step-through gait pattern THEREX: Patient was instructed in a LE strengthening and stabilization program, in a long-sitting position, as per flow sheet. Ends with cryocuff to L knee. ASSESSMENT: Patient tolerated a progression in gait distance with FWW support and supervision, utilizing a step-through gait pattern. Patient would benefit from continued gait training and LE strengthening for improved mobility. PLAN: Continue with LE strengthening and gait and transfer training for improved mobility. TREATMENT CODE/TIME: 20 minutes; [id number], [id number]
[2020-04-19 11:42] VITALS: BP 158/84; PULSE 78; RESP 20; TEMP 37.3; O2SAT 98
--- NOTE | 2020-04-19 13:49 | PDOC.CMDIS ---
LACE Index Scoring Tool - Questions: Length of Stay (in days): 2 Acuity (Admit via E.D.?): No Comorbidities: Diabetes w/o Complication, Liver or Renal Disease E.D. Visits: 0 - Answers: Total Score: 7 Risk of Readmission: Low Risk Care Management Discharge Reason for Hospitalization: L Knee DJD Discharge Plan: Shari will be discharged home with new Home Health orders for physical therapy and BEHAVIORAL HEALTH DIRECTOR to support her in attaining increased home supports in caring for her ; LTM application reviewed and provided. She will transport home via private vehicle with her son, Clemente. Patient/Family Education Needs: Review discharge instructions, discuss Ask Me Three. Services Needed at Discharge: Home Health Care Services
--- NOTE | 2020-04-19 17:30 | PT.INDS ---
Date of service: 04/25/20 Time of Service: 12:23 PT Notes Visit Reasons: L KNEE DJD Physical Therapy Inpatient Discharge Summary Date: 04/22/2020 Date of service: 04/17/2020 through 04/19/2020 This is a clinical summary of care provided on the duration of dates listed above. No charge was made in the completion of this documentation. Referring Doctor: DONNA Kiser PT Orders: PT CONSULT: Status post Ortho surgery Precautions: Fall. Standard. WBAT on left LE. Patient Profile/Admitting Diagnosis: Shari is a 69-year-old female with primary unilateral osteoarthritis of the left knee and status post total knee arthroplasty on postoperative day 0. PMHX: Medical History Chronic kidney disease Depressive disorder Diverticula of colon Eosinophilic esophagitis EGD 10/21 Essential hypertension Hyperlipidemia Hypothyroidism Iron deficiency anemia Mild intermittent asthma Obesity Osteoporosis Dexa 2019. 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 Independent with all aspects of ADLs prior to surgery. Receives Meals on Wheels. Equipment Owned/DME: 4WW Subjective: NT. See most recent INTEGRATED MARKETING INTERN notes. Objective: General Observation: NT. See most recent INTE[employer] MARKET[employer] INTERN notes. Mental Status: NT. See most recent INTEGRATED MARKETING INTERN notes. Pain: NT. See most recent INTEGRATED MARKETING INTERN notes. ROM: Right Upper Extremity: Shoulder Flexion WFL. Shoulder abduction WFL. Elbow flexion WFL. Wrist flexion WFL. Opening and closing of hand WFL. Left Upper Extremity: Shoulder Flexion WFL. Shoulder abduction WFL. Elbow flexion WFL. Wrist flexion WFL. Opening and closing of hand WFL. Right Lower Extremity: Hip flexion WFL. Hip abduction WFL. Knee flexion WFL. Ankle dorsiflexion WFL. Ankle plantarflexion WFL. Left Lower Extremity: Hip flexion WFL. Hip abduction WFL. Knee flexion 10 degrees to 100 degrees. Extension -10 degrees ankle dorsiflexion WFL. Ankle plantarflexion WFL. Strength: Right Upper Extremity: Shoulder flexors 5/5. Shoulder abductors 5/5. Elbow flexors 5/5. Elbow extensors 5/5. Ice Platform Supervisor strong. Left Upper Extremity: Shoulder flexors 5/5. Shoulder abductors 5/5. Elbow flexors 5/5. Elbow extensors 5/5. Ice Platform Supervisor strong. Right Lower Extremity: Hip flexors 5/5. Hip abductors 5/5. Knee flexors 5/5. Knee extensors 5/5. Ankle dorsiflexors 5/5. Ankle plantarflexors 5/5. Left Lower Extremity:Hip flexors 5/5. Hip abductors 5/5. Knee flexors 3-/5. Knee extensors 3-/5. Ankle dorsiflexors 5/5. Ankle plantarflexors 5/5. Sensation: Intact as to pain and pressure on bilateral lower extremities. Bed Mobility/Transfers: Supine to sit independent Sit to supine independent Sit to stand independent Stand to sit independent Bed to chair independent Chair to bed independent Gait: Up to 450 feet using front wheeled walker with WBAT on the left LE requiring only supervision assist. Balance: Static Sitting: Normal Dynamic Sitting: Normal Static Standing: Fair Dynamic Standing: Fair Assessment: Shari continues to demonstrate the need for a front wheeled walker and standby assist for all mobility ADL performance, impairment in balance, difficulty with walking, and increased risk for falls due to postoperative status and co-morbidities. She may require additional help with taking care of her as she herself recovers. Patient continuing to present with clinical signs and symptoms consistent with current/admitting diagnoses that have resulted to mobility limitations, gait instability, generalized weakness, and impairment of motor control as demonstrated by the following impairment level findings: 1. Decreased strength to left knee major muscle groups 2. Impaired standing balance 3. Impaired activity tolerance 4. Limitation of joint range of motion in left knee Impairments are continuing to contributing to the following functional limitations: 1. Inability to safely ambulate without assistive device 2. Increase completion time for mobility ADL performance 3. Increased fall risk 4. Inability to negotiate steps alone safely Goals: Goals X 3 days 1. Supine-Sit independent MET 2. Sit-Supine independent MET 3. Sit-Stand independent MET 4. Stand-Sit independent MET 5. Bed-Chair independent MET 6. Chair-Bed independent MET 7. Independent gait on level surface with use of least restrictive device for at least 300 feet without report of pain nor dyspnea NOT MET 8. Independent stair negotiation while holding onto bilateral rails for at least 10 steps without report of pain nor dyspnea NOT MET 9. Independent with home exercise program NOT MET 10. Good static and dynamic standing balance/tolerance NOT MET DISCHARGE RECOMMENDATIONS: Home when medically cleared by orthopedic surgeon. Disabled may require additional support services to allow patient to regain mobility ADL independence at home. TREATMENT CODE/TIME: [place] Thank you for the opportunity to participate in the care of this patient. Guera Laguna PT, DPT, CLT [facility] [place], [place]
== END 2020-04-19 13:54 | disposition home or self-care (01) | DRG 470 ==
LOC: PDS 09:32 → MS 13:15
PROVIDERS: Admitting Provider Student in an Organized Health Care Education/Training Program; PCP Nurse Practitioner Family; Visit Provider Student in an Organized Health Care Education/Training Program
PROC: 0SRD0J9 Replacement of Left Knee Joint with Synthetic Substitute, Cemented, Open Approach (ICD-10-PCS; CPT 27447; principal; 2020-04-17 10:45)
DX: M17.12 Unilateral primary osteoarthritis, left knee (principal); N17.9 Acute kidney failure, unspecified; E11.22 Type 2 diabetes mellitus with diabetic chronic kidney disease; I12.9 Hypertensive chronic kidney disease with stage 1 through stage 4 chronic kidney disease, or unspecified chronic kidney disease; E78.5 Hyperlipidemia, unspecified; E03.9 Hypothyroidism, unspecified; F32.9 Major depressive disorder, single episode, unspecified; E66.9 Obesity, unspecified; N18.30 Chronic kidney disease, stage 3 unspecified
CPT/HCPCS: 27447; 36415; 76942; 80048; 97110; 97162; 97530; NC; J0690; J1885; J2001; J2250; J2405

== ENCOUNTER 2020-04-29 15:48 | Outpatient (CLI) | payer MEDICARE, BC, SELFPAY ==
--- NOTE | 2020-04-29 12:45 | DI.RAD_ITS ---
EXAM: XR STANDING ALIGNMENT and XR knee RT 1 V and XR knee LT 1 V CLINICAL HISTORY: 1ST POST OP L TKA. TECHNIQUE: 2D digital imaging was performed. COMPARISON: CR XR STANDING ALIGNMENT from 05/15/2019 CR XR KNEE RT 1V from 04/29/2020 CR XR KNEE LT 1V from 04/29/2020 FINDINGS: The hips are well maintained. Since the prior examination the patient has undergone a left total knee replacement. The orthopedic hardware appears in good position. No evidence of hardware failure. Vascular calcifications are pre sent. There is an old right total knee replacement which appears in good position. The orthopedic hardware appears in good position. No evidence of hardware failure is seen. There are vascular calcificatio ns present. The ankle joints are well maintained. The right lower extremity measures 79.2 cm. The left lower extremity measures 80 cm. IMPRESSION: Bilateral total knee replacements. DATA REPOSITORY: RADIATION DOSE DELIVERED:
== END 2020-04-29 16:08 ==
PROVIDERS: PCP Nurse Practitioner Family; Referring Provider Nurse Practitioner Family; Visit Provider Student in an Organized Health Care Education/Training Program
DX: Z47.1 Aftercare following joint replacement surgery; Z96.653 Presence of artificial knee joint, bilateral
CPT/HCPCS: 73560; 77073

== ENCOUNTER → 2020-05-27 14:18 | Outpatient (BNVA) | payer MEDICARE, BC, SELFPAY | PROVIDERS: PCP Nurse Practitioner Family; Referring Provider Nurse Practitioner Family; Visit Provider Student in an Organized Health Care Education/Training Program | DX: Z96.652 Presence of left artificial knee joint (principal); Z96.651 Presence of right artificial knee joint; Z47.1 Aftercare following joint replacement surgery ==

== ENCOUNTER → 2020-07-08 13:26 | Outpatient (BNVA) | payer MEDICARE, BC, SELFPAY | PROVIDERS: PCP Nurse Practitioner Family; Referring Provider Nurse Practitioner Family; Visit Provider Student in an Organized Health Care Education/Training Program | DX: Z47.1 Aftercare following joint replacement surgery (principal); Z96.653 Presence of artificial knee joint, bilateral; M65.341 Trigger finger, right ring finger ==

== ENCOUNTER 2020-09-05 21:51 | Outpatient (REF) | payer MEDICARE, BC, SELFPAY ==
[2020-09-05 22:03] LABS: Abs Immature Grans 0.07 10^3/uL (0.0-0.06); Absolute Basophil Count 0.09 10^3/uL (0.0-0.2); Absolute Lymphocyte Count 2.74 10^3/uL (1.2-3.4); Absolute Monocyte Count 0.86 10^3/uL (0.1-0.8); Absolute Neutrophil Count 8.75 10^3/uL (1.2-6.7); Basophils % 0.7; Eosinophils % 3.1; HCT 37.3 % (36.0-46.0); HGB 11.8 g/dL (11.2-15.7); Immature Grans % 0.5; Lymphocytes % 21.2; MCH 26.4 pg (27.0-33.0); MCHC 31.6 % (32.0-36.0); MCV 83.4 fL (80-95); MPV 12.4 fL (8.0-11.0); Monocytes % 6.7; Neutrophils % 67.8; Nucleated RBC 0 %; Platelet Count 307 10^3/uL (130-400); RBC 4.47 10^6/uL (3.93-5.22); RDW-SD 45.7 fL; WBC 12.91 10^3/uL (4.4-10.8)
[2020-09-05 22:48] LABS: Hemoglobin A1C 7.2 % (<5.7)
[2020-09-05 22:56] LABS: Anion Gap 9.6 mmol/L (3-11); BUN 26 mg/dL (7-18); CO2 25.4 mmol/L (21.0-32.0); CREATININE 1.6 mg/dL (0.55-1.02); Calcium 9.1 mg/dL (8.5-10.1); Calculated LDL 66 mg/dL (<100); Chloride 110 mmol/L (98-107); Cholesterol 151 mg/dL (<200); Estimated GFR 31.68 (mL/min/1.73m2); Glucose 155 mg/dL (74-106); HDL Cholesterol 54 mg/dL (40-60); Potassium 5.7 mmol/L (3.5-5.1); Sodium 145 mmol/L (136-145); TSH 0.34 uIU/mL (0.36-3.74); Triglyceride 156 mg/dL (<150)
[2020-09-05 23:13] LABS: FREE T4 1.36 ng/dL (0.76-1.46)
== END 2020-09-05 21:52 | disposition home or self-care (01) ==
LOC: LBN 21:51
PROVIDERS: PCP Nurse Practitioner Family; Visit Provider Nurse Practitioner Family
DX: E11.22 Type 2 diabetes mellitus with diabetic chronic kidney disease (principal); N18.30 Chronic kidney disease, stage 3 unspecified; Z79.4 Long term (current) use of insulin; E03.9 Hypothyroidism, unspecified; R19.7 Diarrhea, unspecified
CPT/HCPCS: 80048; 80061; 83036; 84439; 84443; 85025

== ENCOUNTER 2020-09-13 02:42 | Outpatient (CLI) | payer MEDICARE, BC, SELFPAY ==
[2020-09-13 10:02] LABS: C Diff PCR Negative (Negative)
[2020-09-13 12:51] LABS: Hemoglobin A1C 7.2 % (<5.7)
[2020-09-13 15:26] LABS: Anion Gap 10.4 mmol/L (3-11); BUN 31 mg/dL (7-18); CO2 24.6 mmol/L (21.0-32.0); CREATININE 1.4 mg/dL (0.55-1.02); Calcium 9.6 mg/dL (8.5-10.1); Chloride 108 mmol/L (98-107); Estimated GFR 36.96 (mL/min/1.73m2); FREE T4 1.37 ng/dL (0.76-1.46); Glucose 83 mg/dL (74-106); Potassium 4.7 mmol/L (3.5-5.1); Sodium 143 mmol/L (136-145); TSH 0.34 uIU/mL (0.36-3.74)
[2020-09-14 11:02] LABS: Campylobacter PCR Negative (Negative); Salmonella PCR Negative (Negative); Shiga Toxin PCR Negative (Negative); Shigella/Enteroinvasive Ecoli Negative (Negative)
== END 2020-09-13 02:43 | disposition home or self-care (01) ==
LOC: LBO 02:43
PROVIDERS: PCP Nurse Practitioner Family; Visit Provider Nurse Practitioner Family
DX: E11.22 Type 2 diabetes mellitus with diabetic chronic kidney disease (principal); Z79.4 Long term (current) use of insulin; N18.30 Chronic kidney disease, stage 3 unspecified; R19.7 Diarrhea, unspecified; E87.5 Hyperkalemia; E03.9 Hypothyroidism, unspecified
CPT/HCPCS: 36415; 80048; 87329; 87493; 87505; 83036; 83630; 84439; 84443

== ENCOUNTER 2020-11-18 01:21 | Outpatient (CLI) | payer MEDICARE, BC, SELFPAY ==
--- NOTE | 2020-11-18 07:58 | DI.MAMMO_ITS ---
Exam(s) MAMMO SCREENING EXAM: MAMMO SCREENING CLINICAL HISTORY: screening,z12.39. TECHNIQUE: Bilateral full field digital CC and MLO mammographic images were obtained with 3D tomosyn thesis and utilizing computer aided detection (CAD). COMPARISON: Prior mammograms dating back to 2011, the most recent being November 2019. FINDINGS: There are no new spiculated masses nor malignant appearing microcalcification groups. There is no significant architectural distortion nor skin thickening-retraction. IMPRESSION: No radiographic evidence of malignancy. BI-RADS Category 1 - Negative Breast Density - Category B - Scattered areas of fibroglandular density Breast density Category C or D implies that the patient has dense breast tissue. Dense breast tissue can make it harder to find cancer on a mammogram. Dense breast tissue is also associated with an incr eased risk of breast cancer. This information about the result of the mammogram report was provided to the patient to raise their awareness. Use this report when you speak with the patient about their risks for breast cancer, which includes their family history. At that time, you may recommend additional screening tests (Ultrasoun d or MRI) as these tests may add significant information. A negative radiographic report should not delay biopsy if a dominant or clinically suspicious mass is present. Up to ten percent of cancers are not identified on mammography. A negative report may reinforce clinical impression. Adenosis and dense breasts may obscure an underlying neoplasm. False positive reports average 6 to 10%. Patient will receive a letter notifying them of these results.
== END 2020-11-18 01:41 ==
PROVIDERS: PCP Nurse Practitioner Family; Visit Provider Nurse Practitioner Family
DX: Z12.31 Encounter for screening mammogram for malignant neoplasm of breast (principal); R92.8 Other abnormal and inconclusive findings on diagnostic imaging of breast
CPT/HCPCS: 77063; 77067

== ENCOUNTER 2021-04-21 13:16 | Outpatient (CLI) | payer MEDICARE, BC, SELFPAY ==
--- NOTE | 2021-04-21 12:30 | DI.RAD_ITS ---
Exam(s) XR KNEE LT 2V AP,LAT EXAM: XR KNEE LT 2V AP,LAT CLINICAL HISTORY: annual f/u L ORION. TECHNIQUE: 2D digital imaging was performed. COMPARISON: CR XR KNEE LT 1V from 04/29/2020 CR XR KNEE RT 1V from 04/29/2020 CR XR KNEE LT 1V from 04/29/2020 FINDINGS: Tibial component appears unremarkable. On the lateral view there is subarticular lucency in the santi on of the anterior aspect of the femoral component, possibly significant as appears so than previous. Correlation any clinical signs of loosening is recommended. No radiographic evidence of osteomyeli tis. No obvious joint effusion. IMPRESSION: DATA REPOSITORY: RADIATION DOSE DELIVERED:
== END 2021-04-21 13:17 | disposition home or self-care (01) ==
LOC: DIORS 13:17
PROVIDERS: PCP Nurse Practitioner Family; Referring Provider Nurse Practitioner Family; Visit Provider Student in an Organized Health Care Education/Training Program
DX: Z96.652 Presence of left artificial knee joint (principal); Z47.1 Aftercare following joint replacement surgery
CPT/HCPCS: 99212; 73560

== ENCOUNTER 2021-07-03 02:33 | Outpatient (CLI) | payer MEDICARE, BC, SELFPAY ==
[2021-07-03 12:30] LABS: Hemoglobin A1C 7.5 % (<5.7)
[2021-07-03 12:31] LABS: COMMENT (LAB VIEW ONLY) 196.23 mg/dL
[2021-07-03 12:36] LABS: BUN 31 mg/dL (7-18); CREATININE 1.9 mg/dL (0.55-1.02); Calcium 9.7 mg/dL (8.5-10.1); Chloride 105 mmol/L (98-107); Estimated GFR 25.98 (mL/min/1.73m2); FREE T4 1.33 ng/dL (0.76-1.46); Glucose 120 mg/dL (74-106); Potassium 4.9 mmol/L (3.5-5.1); Sodium 140 mmol/L (136-145); TSH 0.55 uIU/mL (0.36-3.74)
== END 2021-07-03 02:34 | disposition home or self-care (01) ==
LOC: LBO 02:34
PROVIDERS: PCP Nurse Practitioner Family; Visit Provider Nurse Practitioner Family
DX: E03.9 Hypothyroidism, unspecified (principal); E11.22 Type 2 diabetes mellitus with diabetic chronic kidney disease; N18.30 Chronic kidney disease, stage 3 unspecified
CPT/HCPCS: 36415; 80048; 82043; 82570; 83036; 84439; 84443

== ENCOUNTER 2021-08-11 04:14 | Outpatient (CLI) | payer MEDICARE, BC, SELFPAY ==
[2021-08-11 13:54] LABS: Anion Gap 10.1 mmol/L (3-11); BUN 29 mg/dL (7-18); CO2 25.9 mmol/L (21.0-32.0); CREATININE 1.8 mg/dL (0.55-1.02); Calcium 9.6 mg/dL (8.5-10.1); Chloride 107 mmol/L (98-107); Estimated GFR 27.58 (mL/min/1.73m2); Glucose 101 mg/dL (74-106); Potassium 5.1 mmol/L (3.5-5.1); Sodium 143 mmol/L (136-145)
== END 2021-08-11 04:15 | disposition home or self-care (01) ==
LOC: LBO 04:14
PROVIDERS: PCP Nurse Practitioner Family; Visit Provider Nurse Practitioner Family
DX: I10 Essential (primary) hypertension (principal)
CPT/HCPCS: 36415; 80048

== ENCOUNTER → 2022-02-16 01:09 | Outpatient (CLI) | payer MEDICARE, BC, SELFPAY ==
--- NOTE | 2022-02-16 07:30 | DI.MAMMO_ITS ---
Exam(s) MAMMO SCREENING EXAM: MAMMO SCREENING CLINICAL HISTORY: screening,z12.39 TECHNIQUE: Mammograms were interpreted according to the usual protocol including computer analysis w [employer] CAD system, tomosynthesis and C-view imaging. COMPARISON: 2012 through 2020 FINDINGS: The breasts are composed of scattered fibroglandular densities, Breast Density category B. No suspicious masses or suspicious microcalcifications are seen. No skin thickening or abnormal axillary lymph nodes are seen. There has been no significant change from prior exams. IMPRESSION: BI-RADS Category 1, Negative mammogram Yearly screening mammography is recommended. Breast Density - Category B, scattered fibroglandular densities. A negative radiographic report should not delay biopsy if a dominant or clinically suspicious mass is present. Up to ten percent of cancers are not identified on mammography. A negative report may reinforce clinical impression. Adenosis and dense breasts may obscure an underlying neoplasm. False positive reports average 6 to 10%. Patient will receive a letter notifying them of these results.
== END ==
PROVIDERS: PCP Nurse Practitioner Family; Visit Provider Nurse Practitioner Family
DX: Z12.31 Encounter for screening mammogram for malignant neoplasm of breast (principal)
CPT/HCPCS: 77063; 77067

== ENCOUNTER → 2022-04-07 01:56 | Outpatient (CLI) | payer MEDICARE, BC, SELFPAY ==
--- NOTE | 2022-04-07 07:30 | DI.DEXA_ITS ---
Exam(s) XR DEXA BONE DENSITY W/WO VIVIANA EXAM: XR DEXA BONE DENSITY W/WO VIVIANA CLINICAL HISTORY: reassess osteoporosis, on fosamax x 2 yrs,screening in postmenopausal woman TECHNIQUE: COMPARISON: CR XR DEXA BONE DENSITY W/WO VIVIANA from 11/16/2019 FINDINGS: Lateral Spine Image: Unremarkable. No compression deformities identified. Left hip: Total T-Score: -2.3. This compares to -2.1 on the prior examination. There is osteoporosis in the fe moral neck with a T-score of -3.1. Total Z-Score: -0.6 T- and Z-scores: Findings of osteoporosis in the femoral neck. Lumbar Spine: Total T-Score: 0.4. This compares to -0.1 on the prior examination. Total Z-Score: 2.7 T- and Z-scores: Within normal limits. IMPRESSION: Osteoporosis in the left femoral neck.
== END ==
PROVIDERS: PCP Nurse Practitioner Family; Visit Provider Nurse Practitioner Family
DX: M81.0 Age-related osteoporosis without current pathological fracture (principal); Z78.0 Asymptomatic menopausal state; Z13.820 Encounter for screening for osteoporosis
CPT/HCPCS: 77080

== ENCOUNTER 2022-07-31 02:01 | Outpatient (CLI) | payer MEDICARE, BC, SELFPAY ==
[2022-07-31 12:07] LABS: Abs Immature Grans 0.05 10^3/uL (0.0-0.06); Absolute Eosinophil Count 0.49 10^3/uL (0.0-0.7); Absolute Lymphocyte Count 2.94 10^3/uL (1.2-3.4); Absolute Monocyte Count 1.01 10^3/uL (0.1-0.8); Basophils % 0.8; Eosinophils % 4.1; HCT 37.6 % (36.0-46.0); Immature Grans % 0.4; Lymphocytes % 24.4; MCH 27.4 pg (27.0-33.0); MCHC 31.9 % (32.0-36.0); MCV 86 fL (80-95); MPV 11.7 fL (8.0-11.0); Monocytes % 8.4; Neutrophils % 61.9; Platelet Count 275 10^3/uL (130-400); RBC 4.38 10^6/uL (3.93-5.22); RDW 14.2 % (11.7-14.6); RDW-SD 44.8 fL; WBC 12.03 10^3/uL (4.4-10.8)
[2022-07-31 12:16] LABS: Absolute Neutrophil Count 7.45 10^3/uL (1.2-6.7)
[2022-07-31 13:03] LABS: ALT 17 U/L (14-59); AST 14 U/L (15-37); Albumin 3.3 g/dL (3.4-5.0); Alkaline Phosphatase 55 U/L (46-116); Anion Gap 9.4 mmol/L (3-11); BUN 22 mg/dL (7-18); Bilirubin, Total 0.5 mg/dL (0.2-1.0); CO2 26.6 mmol/L (21.0-32.0); CREATININE 1.6 mg/dL (0.55-1.02); Calcium 9.9 mg/dL (8.5-10.1); Chloride 110 mmol/L (98-107); Estimated GFR 33.84 (mL/min/1.73m2); FREE T4 1.31 ng/dL (0.76-1.46); Glucose 75 mg/dL (74-106); Potassium 4.3 mmol/L (3.5-5.1); Sodium 146 mmol/L (136-145); TSH 0.64 uIU/mL (0.36-3.74); Total Protein 6.6 g/dL (6.4-8.2)
[2022-07-31 13:51] LABS: Hemoglobin A1C 6.8 % (<5.7)
== END 2022-07-31 02:02 | disposition home or self-care (01) ==
LOC: LOS 02:01
PROVIDERS: PCP Nurse Practitioner Family; Visit Provider Nurse Practitioner Family
DX: E03.9 Hypothyroidism, unspecified (principal); E11.22 Type 2 diabetes mellitus with diabetic chronic kidney disease; N18.4 Chronic kidney disease, stage 4 (severe); Z79.4 Long term (current) use of insulin
CPT/HCPCS: 36415; 80053; 83036; 84439; 84443; 85025

== ENCOUNTER 2023-02-20 11:34 | Observation (INO) | payer MEDICARE, BC, SELFPAY ==
[2023-02-20] VITALS (32 sets, daily range): BP systolic 144–167; BP diastolic 59–134; PULSE 56–76; RESP 14–20; TEMP 36.6–37.3; O2SAT 96–100
--- NOTE | 2023-02-20 11:45 | DI.CT_ITS ---
Exam(s) CT HEAD CERVICAL SPINE WO EXAM: CT HEAD CERVICAL SPINE WO CLINICAL HISTORY: fall down 10 steps. TECHNIQUE: Imaging Protocol: Axial computed tomography images with coronal and sagittal reformatted images were created and reviewed COMPARISON: No exams were available for comparison FINDINGS: Head CT Ventricles and Extra axial spaces: Normal in size and morphology for the patient's age. Hemorrhage: None. Cerebral parenchyma: No mass or infarct. Mild white matter changes consistent with microvascular dis ease. Midline shift: None. Brainstem/Cerebellum: Normal. Calvarium: Normal. Visualized Paranasal sinuses/Mastoids: Clear. Soft tissues: Unremarkable. Cervical Spine CT BONES: Vertebral body heights are maintained. Alignment is normal. There is no evidence of acute frac ture. Severe degenerative disc changes and facet degenerative changes are seen . SOFT TISSUES: No paraspinal hematoma. The airway appears intact. No pneumothorax is seen at the lung apices. Enlargement of the left lobe of the thyroid. There is a rtifact at this level. There are probable calcifications within the lower pole of the left lobe.. IMPRESSION: Head CT: No acute abnormality. C-spine CT: Degenerative changes, no acute abnormality. Enlarged left thyroid lobe. Ultrasound cou ld be performed for further evaluation. RADIATION DOSE DELIVERED: Total DLP DATA REPOSITORY: All CT scans at this facility are submitted to the National Radiology Data Registry (NRDR) Dose Index Registry (DIR) with the [employer] (ACR). RADIATION OPTIMIZATION: All CT scans at this facility use at least one of these dose optimization te chniques: automated exposure control; mA and/or kV adjustment per patient size (includes targeted exa ms where dose is matched to clinical indication); or iterative reconstruction.
--- NOTE | 2023-02-20 11:45 | DI.RAD_ITS ---
Exam(s) XR KNEE LT 3V AP,LAT,SHERRY EXAM: XR KNEE LT 3V AP,LAT,SHERRY CLINICAL HISTORY: left knee. TECHNIQUE: 2D digital imaging was performed. Three views. COMPARISON: CR XR KNEE LT 2V AP,LAT from 04/21/2021 FINDINGS: BONES: No acute fracture is present. No bony destructive lesion is seen. JOINTS: There has been no change in the total knee prosthesis. The knee is normally aligned. No join t effusion is seen. SOFT TISSUE: Vascular calcifications. IMPRESSION: No acute abnormality. DATA REPOSITORY: RADIATION DOSE DELIVERED:
--- NOTE | 2023-02-20 11:45 | DI.RAD_ITS ---
Exam(s) XR SHOULDER RT COMPLETE 2+V EXAM: XR SHOULDER RT COMPLETE 2+V CLINICAL HISTORY: right shoulder pain. TECHNIQUE: 2D digital imaging was performed. Five views. COMPARISON: No exams were available for comparison FINDINGS: Exam is limited by patient body habitus. BONES: No acute fracture is present. No bony destructive lesion is seen. JOINTS: No dislocation present. Degenerative changes AC joint. Spurring at the undersurface of the acromion. SOFT TISSUE: Normal. IMPRESSION: Degenerative changes. No acute abnormality. DATA REPOSITORY: RADIATION DOSE DELIVERED:
--- NOTE | 2023-02-20 12:15 | DI.RAD_ITS ---
Exam(s) XR ANKLE LT COMPLETE EXAM: XR ANKLE LT COMPLETE CLINICAL HISTORY: left ankle pain TECHNIQUE: 2D digital imaging was performed. Three views. COMPARISON: No exams were available for comparison FINDINGS: BONES: Transverse fracture through the medial malleolus with mild displacement. Oblique fracture thr ough lateral malleolus with minimal displacement extending to the level of the ankle mortise. Questi on of additional fracture involving the posterior malleolus. No talar dome defect visible. No bony destructive lesion is seen. JOINTS:Mild widening of the ankle mortise medially. SOFT TISSUE: Swelling around malleoli. IMPRESSION: Fractures of the medial and lateral malleoli and probable posterior malleolar fracture. DATA REPOSITORY: RADIATION DOSE DELIVERED:
--- NOTE | 2023-02-20 12:54 | DI.VRAD_ITS ---
PROCEDURE INFORMATION: Exam: CT Head Without Contrast Exam date and time: 02/20/2023 12:21 PM Age: 72 years old Clinical indication: Injury or trauma; Other: Fall down 10 steps; Blunt trauma (contusions or hematomas) TECHNIQUE: Imaging protocol: Computed tomography of the head without contrast. COMPARISON: No relevant prior studies available. FINDINGS: Brain: Mild hypodensities bilaterally, nonspecific, but compatible with changes of small vessel disease. Otherwise, no intracranial mass, midline shift, acute intracranial hemorrhage, nor abnormal extra-axial fluid collection seen. Ventricles, sulci do not appear enlarged. Gill-white matter differentiation appears maintained. Cerebral ventricles: See Brain finding. Paranasal sinuses: Visualized portions paranasal sinuses included appear clear. Mastoid air cells: Visualized portions mastoid air cells included appear clear. Bones/joints: Mild hyperostosis frontalis. No displaced, depressed skull fracture seen. Soft tissues: Unremarkable. Vasculature: Arterial calcification. IMPRESSION: No acute intracranial abnormality seen. PROCEDURE INFORMATION: Exam: CT Cervical Spine Without Contrast Exam date and time: 02/20/2023 12:21 PM Age: 72 years old Clinical indication: Injury or trauma; Other: Fall down 10 steps; Blunt trauma (contusions or hematomas) TECHNIQUE: Imaging protocol: Computed tomography of the cervical spine without contrast. COMPARISON: MRI L UPPER EXTREMITY WO/W 06/11/2017 4:26 PM FINDINGS: Bones/joints: No obvious paraspinous hematoma seen. Generalized disc space narrowing, most prominently C6-C7. Hypertrophic endplate changes. Degenerative changes facets, uncovertebral joints bilaterally. Areas of central spinal, neural foraminal stenosis. Hwvl-we-irdloldw anterolisthesis C4 over C5. Mild anterolisthesis C3 over C4. Mild reversal of the usual cervical lordosis. Lungs: Visualized portions upper lungs included appear clear bilaterally. Thyroid: Heterogeneous appearance of thyroid. Left thyroid lobe appears enlarged, heterogeneous, appears to contain faint calcifications. Additional evaluation of thyroid recommended. Lymph nodes: Scattered small lymph nodes, nonspecific. Vasculature: Arterial calcification. Right carotid artery appears to meanders medially to midline or cross midline, slightly left of midline posterior to pharynx/larynx. Soft tissues: Unremarkable. Other findings: Images degraded by motion, artifact. IMPRESSION: 1. No displaced fracture seen of visualized portions cervical spine. Multilevel degenerative changes. Please see body of report. 2. Heterogeneous appearance of thyroid. Left thyroid lobe appears enlarged, heterogeneous, appears to contain faint calcifications. Additional evaluation of thyroid recommended. 3. Please see body of report. Dictated and Authenticated by: Clemente Ascencio MD. Ordering:HILLARY Perez MD
--- NOTE | 2023-02-20 13:42 | DI.VRAD_ITS ---
PROCEDURE INFORMATION: Exam: XR Left Knee Exam date and time: 02/20/2023 12:46 PM Age: 72 years old Clinical indication: Pain; Left; Prior surgery; Surgery date: 6+ months; Surgery type: Knee replacement TECHNIQUE: Imaging protocol: Radiologic exam of the left knee. Views: 3 views. COMPARISON: CR XR KNEE LT 2V AP,LAT 04/21/2021 1:09 PM FINDINGS: Bones/joints: Prior left knee arthroplasty similar to 04/21/2021, allowing for differences in positioning, rotation of patient during imaging. No additional new appearing displaced fracture nor dislocation seen. No gross bone destruction seen. Soft tissues: Normal. Vasculature: Arterial calcification. IMPRESSION: Prior left knee arthroplasty, similar to 04/21/2021. Dictated and Authenticated by: Clemente Ascencio MD. Ordering:HILLARY Perez MD
--- NOTE | 2023-02-20 13:46 | DI.VRAD_ITS ---
PROCEDURE INFORMATION: Exam: XR Left Ankle Exam date and time: 02/20/2023 12:52 PM Age: 72 years old Clinical indication: Pain; Ankle; Left TECHNIQUE: Imaging protocol: Radiologic exam of the left ankle. Views: 3 or more views. COMPARISON: CR XR KNEE LT 3V AP,LAT,SHERRY 02/20/2023 12:46 PM FINDINGS: Bones/joints: Comminuted intra-articular fracture lateral malleolus extending level of syndesmosis. Comminuted intra-articular fracture medial malleolus. Irregularity, undulation posterior malleolus suspicious for fracture. Mild tilting of talus relative to tibial plafond and ankle mortise. No additional displaced fracture nor dislocation seen. Minimal calcaneal spurring. Soft tissues: Soft tissue swelling, possible effusion. IMPRESSION: Fractures of ankle suspicious for intra-articular trimalleolar fracture. Soft tissue swelling, possible effusion. Dictated and Authenticated by: Clemente Ascencio MD. Ordering:HILLARY Perez MD
--- NOTE | 2023-02-20 13:49 | DI.VRAD_ITS ---
PROCEDURE INFORMATION: Exam: XR Right Shoulder Exam date and time: 02/20/2023 12:35 PM Age: 72 years old Clinical indication: Pain; Shoulder; Right TECHNIQUE: Imaging protocol: Radiologic exam of the right shoulder. Views: 2 or more views. COMPARISON: CT HEAD CERVICAL SPINE WO 02/20/2023 12:21 PM FINDINGS: Bones/joints: Limited visualization on the Y-view. Grossly, no displaced fracture nor dislocation seen. Degenerative changes AC joint. Narrowing subacromial space. Correlate for impingement or other process. Degenerative changes spine. Soft tissues: No metallic foreign body seen. IMPRESSION: Limited visualization. Degenerative changes. Correlate for impingement or other process. Dictated and Authenticated by: Clemente Ascencio MD. Ordering:HILLARY Perez MD
[2023-02-20] MEDS: oxyCODONE 5 MG TAB PO ×2 (13:55→20:28)
[2023-02-20] MEDS: fentaNYL 100 MCG/2 ML VIAL 25 MCG IVP (13:56)
[2023-02-20 14:53] LABS: Source Nasal/Nares
[2023-02-20 14:55] LABS: Abs Immature Grans 0.15 10^3/uL (0.0-0.06); Absolute Basophil Count 0.15 10^3/uL (0.0-0.2); Basophils % 0.7; Eosinophils % 1.5; HCT 36.6 % (36.0-46.0); HGB 11.9 g/dL (11.2-15.7); Immature Grans % 0.7; Lymphocytes % 14.1; MCH 28.1 pg (27.0-33.0); MCHC 32.5 % (32.0-36.0); MCV 86 fL (80-95); MPV 11.8 fL (8.0-11.0); Monocytes % 5.8; Neutrophils % 77.2; Platelet Count 286 10^3/uL (130-400); RBC 4.24 10^6/uL (3.93-5.22); RDW 14.1 % (11.7-14.6); RDW-SD 44.5 fL; WBC 21.54 10^3/uL (4.4-10.8)
[2023-02-20 14:56] LABS: Absolute Eosinophil Count 0.32 10^3/uL (0.0-0.7); Absolute Lymphocyte Count 3.04 10^3/uL (1.2-3.4); Absolute Monocyte Count 1.25 10^3/uL (0.1-0.8); Absolute Neutrophil Count 16.63 10^3/uL (1.2-6.7)
[2023-02-20 15:10] LABS: ALT 18 U/L (14-59); AST 16 U/L (15-37); Albumin 3.6 g/dL (3.4-5.0); Alkaline Phosphatase 62 U/L (46-116); BUN 32 mg/dL (7-18); Bilirubin, Total 0.4 mg/dL (0.2-1.0); CREATININE 1.7 mg/dL (0.55-1.02); Calcium 10.2 mg/dL (8.5-10.1); Chloride 107 mmol/L (98-107); Estimated GFR 31.27 (mL/min/1.73m2); Glucose 107 mg/dL (74-106); Potassium 4.9 mmol/L (3.5-5.1); Sodium 139 mmol/L (136-145); Total Protein 7.1 g/dL (6.4-8.2)
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
[2023-02-20 15:26] LABS: COVID-19 PCR Negative (Negative)
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
[2023-02-20 17:45] LABS: Bilirubin Negative (Negative); Blood Negative (Negative); Clarity Clear (Clear); Glucose Negative (Negative); Ketones Negative (Negative); Leukocyte Esterase Trace (Negative); Nitrite Negative (Negative); Specific Gravity 1.015 (1.005-1.025); Urobilinogen 0.2 mg/dL (Up to 0.2)
[2023-02-20 17:51] LABS: Bacteria Many HPF (Negative); C & S Indicated? Yes; Crystals Negative HPF (Negative); Epithelial Cells Few HPF (Negative); Mucus Negative (Negative); RBC 0-2 HPF (0-2)
[2023-02-20] MEDS: Acetaminophen 325 MG TAB 650 MG PO (18:57)
[2023-02-20] MEDS: Calcium 600mg/Vit D 200U TAB 1 TAB PO (20:22)
[2023-02-20] MEDS: Atorvastatin 10 MG TAB PO (21:16)
[2023-02-20] MEDS: Melatonin 3 MG TAB 6 MG PO (21:16)
[2023-02-21] VITALS (8 sets, daily range): BP systolic 112–136; BP diastolic 52–75; PULSE 55–74; RESP 15–20; TEMP 36–37.5; O2SAT 94–98; BMI 35.6
[2023-02-21] MEDS: Acetaminophen 325 MG TAB 650 MG PO ×4 (00:49→17:09)
[2023-02-21] MEDS: oxyCODONE 5 MG TAB PO ×2 (06:16→22:10)
[2023-02-21] MEDS: Dextrose 50%-Water 25 GM/50 ML SYR IVP (06:26)
[2023-02-21 06:55] LABS: Abs Immature Grans 0.09 10^3/uL (0.0-0.06); Absolute Basophil Count 0.09 10^3/uL (0.0-0.2); Absolute Lymphocyte Count 2.53 10^3/uL (1.2-3.4); Basophils % 0.7; Eosinophils % 3.3; HCT 32.9 % (36.0-46.0); HGB 10.6 g/dL (11.2-15.7); Immature Grans % 0.7; Lymphocytes % 20.2; MCH 28.2 pg (27.0-33.0); MCHC 32.2 % (32.0-36.0); MCV 88 fL (80-95); MPV 11.9 fL (8.0-11.0); Monocytes % 8.9; Neutrophils % 66.2; Platelet Count 192 10^3/uL (130-400); RBC 3.76 10^6/uL (3.93-5.22); RDW 14.1 % (11.7-14.6); RDW-SD 45.2 fL; WBC 12.54 10^3/uL (4.4-10.8)
[2023-02-21 06:57] LABS: Absolute Eosinophil Count 0.41 10^3/uL (0.0-0.7); Absolute Monocyte Count 1.12 10^3/uL (0.1-0.8)
--- NOTE | 2023-02-21 07:00 | DI.RAD_ITS ---
Exam(s) XR ANKLE LT 2V EXAM: XR ANKLE LT 2V CLINICAL HISTORY: Closed trimalleolar fracture of left ankle. TECHNIQUE: 2D and realtime digital imaging was performed. COMPARISON: CR,XR XR ANKLE LT COMPLETE from 02/20/2023 FINDINGS: Hard copy images show placement of a screw through the medial malleolus and fixation plate along the lateral malleolus for fracture fixation. The alignment appears anatomic. Please see procedure note for details. Fluoro time: 0.31seconds RADIATION DOSE DELIVERED: siddharth Sawyer=0.65 mGy
[2023-02-21 07:06] LABS: Anion Gap 6.7 mmol/L (3-11); BUN 32 mg/dL (7-18); CO2 22.3 mmol/L (21.0-32.0); CREATININE 1.6 mg/dL (0.55-1.02); Calcium 9.8 mg/dL (8.5-10.1); Chloride 107 mmol/L (98-107); Estimated GFR 33.63 (mL/min/1.73m2); Glucose 183 mg/dL (74-106); Potassium 4.7 mmol/L (3.5-5.1); Sodium 136 mmol/L (136-145)
--- NOTE | 2023-02-21 07:31 | ANES.PREOP_ITS ---
General Info Date of Service Date Performed: 02/21/23 Height: 5 ft 2 in Weight: 88.451 kg Body Mass Index (BMI): 35.6 Surgical Procedure: Operation Date: 02/21/23 06:40 Proposed Procedure Side Surgeon p Ankle ORIF Left Rey Curtis MD Actual Procedure Side Surgeon p Ankle ORIF Left Rey Curtis MD Pre-Op Diagnosis Post-Op Diagnosis Closed trimalleolar fracture of left ankle Meds Allergies and Home Medications Allergies Allergy/AdvReac Type Severity Reaction Status Date / Time NSAIDS (Non-Steroidal AdvReac Verified 02/20/23 11:48 Anti-Inflamma Home Medication Medication Instructions Recorded calcium carbonate 500 mg-vitamin 1 ea PO BID 08/22/12 D3 5 mcg (200 unit) tablet (Os-Dennis 500 + D3) loratadine 10 mg tablet (Claritin) 1 tab PO HS 08/22/12 albuterol sulfate 90 mcg/actuation 2 puff inhalation Q6H PRN ##3 06/15/19 aerosol inhaler (ProAir HFA) acetaminophen 500 mg tablet 500 mg PO Q6H PRN pain #60 tabs 04/17/20 Garlique PO DAILY 06/19/21 Prevagen 5 mg PO DAILY 06/19/21 melatonin 5 mg tablet 5 mg PO HS 06/19/21 [id number] See Rx Instructions PO .COMPLEX 08/15/21 alendronate 70 mg tablet 70 mg PO QWEEK #13 tabs 12/22/21 vit C 250 mg-vit E 200 unit-zinc 2 cap PO DAILY 02/09/22 ox 12.5 sm-ieyidr-kiihvg-zeax capsule (ICaps AREDS2) omeprazole 20 mg capsule,delayed 20 mg PO DAILY #90 tab-caps 04/15/22 release amlodipine 10 mg tablet 10 mg PO DAILY #90 tabs 05/25/22 atenolol 50 mg tablet 50 mg PO DAILY #90 tabs 05/25/22 atorvastatin 10 mg tablet (Lipitor) 10 mg PO HS #90 tabs 05/25/22 lisinopril 40 mg tablet 40 mg PO DAILY #90 tab-caps 05/25/22 triamcinolone acetonide 0.1 % 1 applic topical DAILY PRN rash 08/10/22 topical cream #80 grams chlorthalidone 25 mg tablet 25 mg PO DAILY #90 tabs 09/14/22 pen needle, diabetic 31 gauge x #100 ea 09/21/22 5/16 (Advocate Pen Needle) clotrimazole 1 % topical cream 1 applic topical BID #45 grams 12/03/22 levothyroxine 100 mcg tablet 100 mcg PO .[facility] #90 tab-caps 12/07/22 (Synthroid) insulin glargine 100 unit/mL (3 25 unit (0.25 mL) subcut DAILY #8 01/13/23 mL) subcutaneous pen SYRGS blood sugar diagnostic (OneTouch #200 ea 01/19/23 Ultra Test strips) blood-glucose meter (OneTouch #1 ea 01/19/23 Ultra2 Meter) lancets 30 gauge (OneTouch #200 ea 01/19/23 UltraSoft 2 Lancet) fluoxetine 20 mg capsule (Prozac) 20 mg PO DAILY #90 tab-caps 02/08/23 ketoconazole 2 % topical cream 1 applic topical DAILY 3 months 02/10/23 #60 grams Current Visit Medications: Current Medications Generic Name Dose Route Start Last Admin Trade Name Freq PRN Reason Stop Dose Admin Acetaminophen 650 mg 02/20/23 18:00 02/21/23 06:06 Acetaminophen 325 Mg Tab PO 650 mg Q6H MARIO Administration Al Hydrox/Mg Hydrox/Simethicone 30 ml 02/20/23 16:23 Mylanta Suspension 30 Ml Cup PO Q2H PRN PRN Albuterol Sulfate 2.5 mg 02/20/23 16:23 Albuterol 2.5 Mg/3 Ml Inh Soln Vial UPD Q2H PRN PRN Amlodipine Besylate 10 mg 02/21/23 08:30 Amlodipine 10 Mg Tab PO DAILY MARIO Atenolol 50 mg 02/21/23 08:30 Atenolol 50 Mg Tab PO DAILY MARIO Atorvastatin Calcium 10 mg 02/20/23 22:00 02/20/23 21:16 Atorvastatin 10 Mg Tab PO 10 mg HS MARIO Administration Calcium/Vitamin D 1 tab 02/20/23 20:00 02/20/23 20:22 Calcium 600mg/Vit D 200u Tab PO 1 tab BID MARIO Administration Chlorthalidone 25 mg 02/21/23 08:30 Chlorthalidone 25 Mg Tab PO DAILY [facility] Dextrose 0 gm 02/20/23 17:04 Glucose Oral Gel 15 Gm/37.5 Gm Tube PO DIRECTED PRN Dextrose/Water 0 gm 02/20/23 17:04 02/21/23 06:26 Dextrose 50%-Water 25 Gm/50 Ml Syr IVP 12.5 gm DIRECTED PRN Administration Fluoxetine HCl 20 mg 02/21/23 08:30 Fluoxetine 20 Mg Cap PO DAILY [facility] Insulin Aspart 0 units 02/21/23 08:00 Insulin Aspart 300 Units/3 Ml Pen SC 0800,1200,1700 [facility] Protocol Levothyroxine Sodium 100 mcg 02/22/23 06:00 Levothyroxine 100 Mcg Tab PO [id number]@0600 [facility] Lisinopril 40 mg 02/21/23 08:30 Lisinopril 20 Mg Tab PO DAILY [facility] Melatonin 6 mg 02/20/23 22:00 02/20/23 21:16 Melatonin 3 Mg Tab PO 6 mg HS MARIO Administration Omeprazole 20 mg 02/21/23 07:30 Omeprazole 20 Mg Capcr PO 0730 [facility] Oxycodone HCl 5 mg 02/20/23 16:23 02/21/23 06:16 Oxycodone 5 Mg Tab PO 5 mg Q6H PRN PRN Administration Polyethylene Glycol 17 gm 02/20/23 16:23 Polyethylene Glycol 3350 17 Gm Packet PO DAILY PRN PRN Constipation PFSH Active Problems Active Problems: Problem Status Onset Code Closed trimalleolar fracture of left ankle 02/20/23 S82.852A Contusion of knee, left S80.02XA Fall W19.XXXA Right shoulder strain S46.911A Diabetes mellitus with peripheral angiopathy E11.51 Corns and callosities L84 Localized edema R60.0 Nail dystrophy L60.3 Macular degeneration of both eyes H35.30 CKD (chronic kidney disease) stage 4, GFR 15-29 ml/min N18.4 Trigger finger, right ring finger M65.341 Osteoporosis M81.0 Sigmoid diverticulosis K57.30 Mild intermittent asthma J45.20 Type 2 diabetes mellitus E11.9 Eosinophilic esophagitis K20.0 Obesity E66.9 Hypothyroidism E03.9 Hyperlipidemia E78.5 Essential hypertension I10 Depressive disorder F32.9 Medical History Medical History Diarrhea Tubular adenoma of colon On colonoscopy in 2013, not on repeat in 2014 or 2019 Iron deficiency anemia Tubulovillous adenoma of colon (~10/2013) On colonoscopy in 2014. Not on repeat in 2014 or 2019 Surgical History Surgical History Status post total left knee replacement (04/17/20) Status post right knee replacement (04/25/19) S/P trigger finger release (10/03/19) S/P colonoscopy (10/27/13) Hx of esophagogastroduodenoscopy (10/27/13) S/P cataract surgery (08/01/13) Right - 08/01/13; Left - 08/16/17 S/P removal of ovarian cyst History of bilateral tubal ligation Tobacco Smoking/Tobacco Use Status: Former Tobacco Use Passive smoking exposure: Yes Second hand exposure: Yes Alcohol Alcohol Intake: never Substance Use Substance use: Never Substance use type: does not use Prental History History 2 2 Para 2 Hx # Term Pregnancies Multiple births Hx # Pregnancies Ectopic pregnancies AB induced Hx Number of Living Children 2 AB spontaneous Vital Signs and Lab Results Vital Signs Most Recent Vital Signs in EMR: Most Recent Vital Signs Temp Pulse Resp BP Pulse Ox 36 C L 56 L 15 136/68 97 02/21/23 06:20 02/21/23 06:20 02/21/23 06:20 02/21/23 06:20 02/21/23 06:20 Point of Care Results Point of Care Results: Finger Stick Blood Glucose 127 02/21/23 06:48 Lab Results 02/21/23 06:34 02/21/23 06:34 Blood Type / Crossmatch: 2 No Data to Display Complete Blood Count: 2 White Blood Count 12.54 10^3/uL (4.4-10.8) H 02/21/23 06:34 Red Blood Count 3.76 10^6/uL (3.93-5.22) L 02/21/23 06:34 Hemoglobin 10.6 g/dL (11.2-15.7) L 02/21/23 06:34 Hematocrit 32.9 % (36.0-46.0) L 02/21/23 06:34 Platelet Count 192 10^3/uL (130-400) 02/21/23 06:34 Complete Metabolic Panel: 2 Sodium 136 mmol/L (136-145) 02/21/23 06:34 Potassium 4.7 mmol/L (3.5-5.1) 02/21/23 06:34 Chloride 107 mmol/L (98-107) 02/21/23 06:34 Carbon Dioxide 22.3 mmol/L (21.0-32.0) 02/21/23 06:34 BUN 32 mg/dL (7-18) H 02/21/23 06:34 Creatinine 1.6 mg/dL (0.55-1.02) H 02/21/23 06:34 Est GFR (CKD-EPI 2020) 33.63 (mL/min/1.73m2) 02/21/23 06:34 Calcium 9.8 mg/dL (8.5-10.1) 02/21/23 06:34 Albumin 3.6 g/dL (3.4-5.0) 02/20/23 14:48 Glucose 183 mg/dL (74-106) H 02/21/23 06:34 Liver Function Panel: 2 Alanine Aminotransferase (ALT/SGPT) 18 U/L (14-59) 02/20/23 14: 48 Aspartate Amino Transf (AST/SGOT) 16 U/L (15-37) 02/20/23 14:48 Coagulation Panel: 2 No Data to Display Cardiac Panel: 2 No Data to Display Arterial Blood Gas: 2 No Data to Display Venous Blood Gas: 2 No Data to Display Pancreas Panel: 2 No Data to Display Thyroid Panel: 2 No Data to Display Infectious Disease: 2 Coronavirus (COVID-19)(PCR) Negative (Negative) 02/20/23 14:48 Coronavirus 2019 Source Nasal/Nares 02/20/23 14:48 Blood Cultures: 2 No Data to Display Toxicology Panel: 2 No Data to Display Anesthesia Assessment and Plan Anesthesia History Personal History: No History of Anesthesia Complications Family History: No Family History of Anesthesia Complications Exercise Tolerance Exercise Tolerance: Metabolic Equivalents<4 Pertinent Negatives Pertinent Negatives: No Symptoms of GERD and No Major Cardiovascular Symptoms or Complaints Cardiac & Pulmonary Exam Cardiac Exam: Normal S1/S2 Heart Sounds Pulmonary Exam: Clear Bilateral Breath Sounds Implantable Cardiac Device Does patient have a Pacemaker or an ICD?: No Airway Exam Known Difficult Airway: No Mallampati Class: 1 Mouth Opening: Normal (> 3cm) Thyromental Distance: Greater than 3 cm Neck Range of Motion: Full ROM Neck Circumference: Normal Teeth Condition: Normal Dentition ASA Classification ASA Score: ASA 3 Emergency Case?: No NPO Status NPO Status: NPO Clears >2 hours, Solids >8 hours Anesthesia Plan Resuscitation Status: Full Code Anesthesia Technique: Spinal Anesthesia Airway Planned: Natural Airway Monitors Used: Standard Monitors Preoperative Comments:: Plan for SAB with GA/ETT backup, consented for arterial line as needed. Morning betablocker held per policy. MAR reviewed and patient interview, no anticoagulation.
[2023-02-21] MEDS: Normal Saline 1,000 ML 75 ML IV (07:58)
--- NOTE | 2023-02-21 08:04 | ROE_ITS ---
Date of service: 02/21/23 Time of Service: 08:00 Operative Note Operative Note DATE OF PROCEDURE: 02/21/23 PRE-OP DIAGNOSIS: Left displaced trimalleolar ankle fracture POST-OP DIAGNOSIS: same PROCEDURE: Left trimalleolar ankle fracture ORIF, medial and lateral malleoli, CPT #42493 SURGEON: Rey Curtis CLEARANCE COORDINATOR: John Ramon ANESTHESIA TYPE: Local By Surgeon and Spinal Refer to Anesthesia Record ESTIMATED BLOOD LOSS: 15 TOURNIQUET TIME: 0 COMPLICATIONS: None Patient was transported to: PACU Patient's condition: stable Implants: Synthes 6 hole one third tubular plate laterally with five 3.5 mm locking screws and one 3.5 mm cortex screw most proximally. Single 40 mm 4.0 mm cancellous partially-threaded screw medially. Indications: Please see complete medical record for details. Findings: Significantly comminuted distal fibular fracture with poor/soft bone quality. Negative syndesmotic stress testing. Procedure Description: In the operating room, spinal anesthesia was induced. The patient was positioned supine on the operating room table. All bony prominences were well- padded. Preoperative antibiotics were administered. The left ankle was prepped and draped in the usual sterile fashion. The correct patient, procedure, and side of the procedure were all verified prior to incision. The planned lateral approach to the distal fibula was preinjected with 0.25% bupivacaine containing epinephrine. Sharp dissection was carried through the skin subcutaneous tissue exposing the lateral margin of the fibula about the fracture site and extended proximally and distally as needed. There was a crossing nerve from posterior to anterior distal that was preserved through the remainder of the case. The fracture site and distal fibula was significantly comminuted and bone was quite poor, not amenable to screw fixation. Suture tape cerclage was then is done distally to incorporate multiple bone fragments with the needle passing relatively easily through the bone pieces and additional suture tape cerclage more centrally at the fracture to reduce and fixate a longitudinal anterior to posterior splint. The ankle joint was checked fluoroscopically with the small posterior malleolus fracture fragment well reduced and the medial malleolus well reduced as well. A lateral one third tubular locking plate was applied to the distal fibula and position and reduction again confirmed fluoroscopically. It was initially compressed to bone proximally with a cortex screw and a cortex through most proximally divergent increasing the working construct. The distal plate was maintained against the bone while locking screws were placed. The original cortex screw was switched to a locking screw given poor bone purchase. All screws were checked to be optimal length while not penetrating into the ankle or tib-fib joints. The fibula plate compressed the suture tape knots and maintained the reduction in the other planes while importantly preventing any lateral malalignment. The medial malleolus was then exposed with a small longitudinal medial incision. It was well reduced and held in position bluntly while the 2.5 mm drill was placed appropriately on the distal aspect of the malleolus and directed fluoroscopically into the distal tibia centrally. The drill was removed and replaced with a 40 mm 4.0 mm cancellous partially-threaded screw. The medial malleolus was small and poor bone quality concerned about splitting the intact segment and not amenable to additional screw fixation. Reduction was checked and appropriate AP lateral mortise views. External rotation stress radiographs showed stable ankle mortise and syndesmosis. Both wounds were copiously irrigated with normal saline. Subcutaneous tissue was closed in 2-0 Monocryl. Skin was closed and 3-0 nylon horizontal interrupted mattress. Xeroform applied over the incisions followed by 4 x 4 gauze, ABD laterally, and sterile soft roll. The ankle was then placed into a short leg well-padded plaster AO splint maintaining the ankle in neutral position with slight varus maintenance of reduction pressure. The patient tolerated spinal anesthesia without complication and was transferred to the recovery room in a stable condition.
--- NOTE | 2023-02-21 08:05 | W.PM.PROGNOT ---
Date of Service Date of service: 02/21/23 Time of Service: :15 Assessment and Plan Assessment and plan (1) Closed trimalleolar fracture of left ankle: Status: Acute Assessment and plan: 72-year-old female postop day #0 status post left ankle ORIF Doing well, comfortable, tolerated spinal anesthesia for procedure well without issues. Complete 24 hours postoperative antibiotics- ordered Physical therapy: Protected weightbearing, less than 50%, with assist device. May rest foot/splint on ground for stance and balance- ordered Strict elevation left ankle for the next few days while in bed or chair- ordered Remainder per primary medical team including multimodal pain control, start chemical DVT prophylaxis within 24 hours (typically aspirin 81mg BID for 30 days is appropriate for ankle fractures, but patient may not be able to tolerate due to GI issues so may have to consider renally dosed Lovenox or other options), and monitoring of blood glucose and renal function Please call me with any questions or concerns about this patient Discharge when medically appropriate My office will arrange follow-up with me in 10-14 days We will discuss with Dr. Pablo Qualifiers: Encounter type: initial encounter Qualified Code(s): S82.852A - Displaced trimalleolar fracture of left lower leg, initial encounter for closed fracture (2) Contusion of knee, left: Status: Acute (3) Right shoulder strain: Status: Acute Objective Last Vital Signs Temp 98.2 F 02/21/23 07:39 Pulse 55 L 02/21/23 07:39 Resp 20 02/21/23 07:39 BP 119/69 02/21/23 07:39 Pulse Ox 98 02/21/23 07:39 Laboratory Results - last 24 hr 02/20/23 02/20/23 02/21/23 14:48 17:40 06:34 WBC 21.54 H 12.54 H RBC 4.24 3.76 L Hgb 11.9 10.6 L Hct 36.6 32.9 L MCV 86 88 MCH 28.1 28.2 MCHC 32.5 32.2 RDW 14.1 14.1 Plt Count 286 192 MPV 11.8 H 11.9 H Immature Gran % 0.7 0.7 Neutrophils % 77.2 66.2 Lymphocytes % 14.1 20.2 Monocytes % 5.8 8.9 Eosinophils % 1.5 3.3 Basophils % 0.7 0.7 Nucleated RBC % 0.0 0.0 Absolute Neutrophils 16.63 H 8.30 H Absolute Lymphocytes 3.04 2.53 Absolute Monocytes 1.25 H 1.12 H Absolute Eosinophils 0.32 0.41 Absolute Basophils 0.15 0.09 Sodium 139 136 Potassium 4.9 4.7 Chloride 107 107 Carbon Dioxide 21.0 22.3 Anion Gap 11.0 6.7 BUN 32 H 32 H Creatinine 1.7 H 1.6 H Est GFR (CKD-EPI 2020) 31.27 33.63 Glucose 107 H 183 H Calcium 10.2 H 9.8 Total Bilirubin 0.4 AST 16 ALT 18 Alkaline Phosphatase 62 Total Protein 7.1 Albumin 3.6 Urine Color Yellow Urine Clarity Clear Urine pH 6.0 Ur Specific [place] 1.015 Urine Protein Negative Urine Ketones Negative Urine Blood Negative Urine Nitrite Negative Urine Bilirubin Negative Urine Urobilinogen 0.2 Ur Leukocyte Esterase Trace H Urine RBC 0-2 Urine WBC 10-20 H Ur Epithelial Cells Few Urine Crystals Negative Urine Bacteria Many Urine Mucus Negative Ur Culture Indicated? Yes Urine Glucose Negative COVID-19 Source Nasal/Nares SARS-CoV-2 (PCR) Negative Time Spent with Patient Time Spent with Patient: <25 minutes Time was spent: preparing to see the patient(eg.review tests), obtaining and/or reviewing separately otained hiistory, ordering medications,tests, procedures, referring, communicating with other health healthcare administration intern, counseling the patient and care coordination
[2023-02-21] MEDS: EPINEPHrine 10 MG/10 ML ML (08:36)
[2023-02-21] MEDS: Bupivacaine 0.25% Pres-Free 30 ML VIAL (08:36)
[2023-02-21] MEDS: ceFAZolin 2 GM/50 ML BAG 100 GM (08:38)
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
--- NOTE | 2023-02-21 10:45 | PT.INIE ---
PT Notes Visit Reasons: Trimalleolar fracture Inpatient Physical Therapy Evaluation Date: February 21, 2023 Referring Doctor: Rey Curtis PT Orders: PT CONSULT: Status post Ortho surgery Precautions: Partial weightbearing (less than 50%) left ankle Patient Profile/Admitting Diagnosis: This is a 72 yo female with a PMH of DM2 on insulin, macular degeneration, CKD, osteoporosis, mild intermittent asthma, HTN, depression. She presented to the ED after following a fall down 8 stairs after a misstep/losing her balance. No syncope, cp/palpitations. She did somersault backwards but denied striking her head. She initially thought her left knee was injured but then when she was helped up off the ground, she couldn't bear wt on the left ankle. Underwent ORIF left ankle this morning February 21, 2023. Review of Systems All systems reviewed & are unremarkable except as noted in HPI and below PFSH All Active Problems Closed trimalleolar fracture of left ankle (Acute 02/20/23) Contusion of knee, left (Acute) Fall (Acute) Right shoulder strain (Acute) Diabetes mellitus with peripheral angiopathy (Acute) Corns and callosities (Acute) Localized edema (Acute) Nail dystrophy (Acute) Macular degeneration of both eyes (Chronic) CKD (chronic kidney disease) stage 4, GFR 15-29 ml/min (Chronic) Trigger finger, right ring finger (Chronic) Osteoporosis (Chronic) Dexa 2019. Fosamax initiated 11/2019Sigmoid diverticulosis (Chronic) Mild intermittent asthma (Chronic) Type 2 diabetes mellitus (Chronic) Eosinophilic esophagitis (Chronic) EGD 10/21 Obesity (Chronic) Hypothyroidism (Chronic) Hyperlipidemia (Chronic) Essential hypertension (Chronic) Depressive disorder (Chronic) Medical History Diarrhea Tubular adenoma of colon On colonoscopy in 2013, not on repeat in 2014 or 2019Iron deficiency anemia Tubulovillous adenoma of colon (~10/2013) On colonoscopy in 2014. Not on repeat in 2014 or 2019 Surgical History Status post total left knee replacement (04/17/20) Status post right knee replacement (04/25/19) S/P trigger finger release (10/03/19) S/P colonoscopy (10/27/13) Hx of esophagogastroduodenoscopy (10/27/13) S/P cataract surgery (08/01/13) Right - 08/01/13; Left - 08/16/17/P removal of ovarian cyst History of bilateral tubal ligation Social History/Home Situation: Lives alone single level dwelling with ramp upon entry. Was ambulating without assistive device prior to injury Current Functional Limitations: Bed mobility, transfers, ambulation Equipment Owned/DME: Rollator walker, ramp, grab bars Subjective: States her left lower extremity feels more numb than pain. Was complaining of some right shoulder discomfort related to the fall. Admits this feels better today than it did yesterday. Patient states she is worried about going home as she lives alone. Her son is with her today who lives in [facility]. She has a cat at home. Objective: General Observation: Very pleasant. No acute distress. Mildly obese. Immobilization in place with Morris wrap around foot and ankle left lower extremity Mental Status: Alert and oriented x3. Pain: 3/10 right shoulder, 1/10 left foot/ankle ROM: Right Upper Extremity: Glenohumeral joint flexion 110 degrees, abduction 85 degrees, elbow flexion and extension within normal limits. Patient complains of mild aching sensation with elevation of right shoulder. Left Upper Extremity: Within functional limits pain-free shoulder, elbow, wrist and hand Right Lower Extremity: Hip knee and ankle within functional limits pain-free. Left Lower Extremity: Hip flexion 100 degrees, knee flexion and extension within functional limits. Left ankle not assessed secondary to immobilization Strength: Right Upper Extremity: Glenohumeral joint flexion and abduction 4 -/5, internal and external rotation 4/5 pain-free, bicep tricep 4/5 pain-free. 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 Good primary school teacher librarian Right Lower Extremity: Perform straight leg raise with 0 degree lag. Hip flexion 4/5, knee flexion and extension 4 -/5, ankle inversion and eversion 4-/5, dorsiflexion plantarflexion 4/5 Left Lower Extremity: Straight leg raise with 5 degree lag. Hip flexion 4 -/5, knee flexion and extension s 4 -/5, ankle strength not tested. Sensation: Patient admits she has decreased sensation to toes but is able to wiggle toes 1 through 5 left foot. Bed Mobility/Transfers: Bed mobility: Independent Sit?stand: to Front wheeled walker mod assist x1 Stand?sit: From front wheel walker min assist x1 Gait: Ambulates 15 feet x 2 with front wheel walker and contact-guard. Frequent reminders for weightbearing status. Patient had difficult time with this as she could not really sense her lower extremity due to the nerve block. Balance: Static Sitting: Good Dynamic Sitting: Good Static Standing: Fair Dynamic Standing: Fair Special Tests: Mobility Limitations Standardized Measure [facility] 6 clicks Basic Mobility Inpatient Short Form: Raw Score: 16 Standardized Score: 54.16% Informed Consent/Education: Patient instructed in purpose of PT consult and plan of care. Assessment: Patient is a 72year old female referred to physical therapy services with the diagnosis of status post ORIF left ankle. Patient presents with clinical signs and symptoms consistent with above diagnosis, as demonstrated by the following impairment level findings: Joint mobility, motor function, muscle performance and range of motion associated with bony surgery. Impairments are contributing to the following functional limitations: AMPAC score. Functional limitations including transfers, bed mobility, ambulation. At this point given home situation do not feel patient is appropriate for return to home at this point. Patient is assessed as a [] Low 45054 X Moderate 83747 [] High 39110 complexity based on the following: History: See above Examination: See above Presentation: Evolving Decision Making: -[facility] Goals: Goals X1 week 1. Supine-Sit : Independent 2. Sit-Supine: Independent 3. Sit-Stand: Standby assist front wheel walker 4. Stand-Sit standby assist front wheel walker: 5. Bed-Chair: Standby assist with front wheel walker 6. Chair-Bed: Standby assist with front wheel walker 7. Gait: 200 feet with front wheel walker standby assist Plan of Care/Treatment Plan: 1-2x/day, 7 days/week x 1 week. Plan of care has been reviewed with the LAUNDRY ASSISTANT providing the service under Physical Therapy direction. Initiate Physical Therapy intervention for strengthening, bed mobility, transfers, gait, stairs, balance training, use of assistive device. DISCHARGE RECOMMENDATIONS: [] Home with no services [] [] Home with services [specify] [] Home with outpatient PT [] X SNF for continued rehabilitation [] Penitentiary Care [] [] SNF versus LTC based on ability to participate and progress [] TREATMENT CODE/[place]: [place] [address]: 25 minutes direct one-on-one care [id number] Thank you for this referral. Michele Matthews PT, DPT Disclaimer: This note was created using [employer] voice recognition software. It was reviewed for major content. However, there may be multiple small discrepancies and errors due to the voice recognition aspects of the software.
[2023-02-21] MEDS: ceFAZolin 1 GM/50 ML BAG IVPB ×2 (12:11→21:26)
--- NOTE | 2023-02-21 15:02 | W.ANESPOSTOP ---
Postoperative Evaluation Date, Time and Location Date Performed: 02/21/23 Time Performed: 15:02 Patient Location: Med/Surg Vital Signs Most Recent Imported Vital Signs: Most Recent Vital Signs Temp Pulse Resp BP Pulse Ox 36.4 C L 64 18 114/66 97 02/21/23 12:40 02/21/23 12:40 02/21/23 12:40 02/21/23 12:40 02/21/23 12:40 Pain Score Most Recent Pain Score: Most Recent Pain Score Pain Level [Left Ankle] 4 02/20/23 11:40 Pain Level 4 02/21/23 06:20 Assessment Mental Status: Awake (Alert & Oriented to Patient Baseline) Airway and Respiratory Function: Patent airway with normal (patient baseline) respiratory exam Cardiovascular Function: Hemodynamically Stable Hydration Status: Adequately Hydrated Nausea & Vomiting: No Nausea or Vomiting Pain: Pain is tolerable per patient Peripheral Nerve Block: Patient did not receive a nerve block
--- NOTE | 2023-02-21 16:42 | W.PM.PROGNOT ---
Date of Service Date of service: 02/21/23 Time of Service: 16:42 Assessment and Plan Assessment and plan (1) Closed trimalleolar fracture of left ankle: Status: Acute Assessment and plan: Surgical repair occurred this AM w/o complications. Ankle in splint and elevated on pillows. Pain control. PT Qualifiers: Encounter type: initial encounter Qualified Code(s): S82.852A - Displaced trimalleolar fracture of left lower leg, initial encounter for closed fracture (2) Contusion of knee, left: Status: Acute Assessment and plan: Has artifical joint. Pain management. (3) Diabetes mellitus with peripheral angiopathy: Status: Acute Assessment and plan: Hold glargine insulin today and restart tomorrow. Monitor glucose QACHS SS correction insulin; sensitive scale. (4) CKD (chronic kidney disease) stage 4, GFR 15-29 ml/min: Status: Chronic Assessment and plan: Creatinine of 1.7 on admission and now 1.6; appears to be in her baseline. Monitor. (5) Essential hypertension: Status: Chronic Assessment and plan: Cont amlodipine, atenolol, chlothalidone, lisinopril Monitor. (6) Mild intermittent asthma: Status: Chronic Assessment and plan: No acute symptoms PRN albuterol. IS Subjective Subjective Patient reports: feels better and afebrile; denies nausea, vomiting or shortness of breath Interval history since last seen: Ankle pain is controlled. Exam Narrative Exam Narrative: Gen: Pleasant and cooperative female lying in bed. NAD Neck: FROM. Lungs: clear. Nonlabored breathing. CV: RRR, S1, S2. Abd: soft, NT Exts: No edema. Left ankle with plaster AO splint in place. Moves toes of left foot. Psych: Normal appearance, speech and cognition. Affect is appropriate. Objective Last Vital Signs Temp 36.8 C 02/21/23 15:56 Pulse 69 02/21/23 15:56 Resp 18 02/21/23 15:56 BP 125/53 L 02/21/23 15:56 Pulse Ox 98 02/21/23 15:56 Laboratory Results - last 24 hr 02/20/23 02/21/23 17:40 06:34 WBC 12.54 H RBC 3.76 L Hgb 10.6 L Hct 32.9 L MCV 88 MCH 28.2 MCHC 32.2 RDW 14.1 Plt Count 192 MPV 11.9 H Immature Gran % 0.7 Neutrophils % 66.2 Lymphocytes % 20.2 Monocytes % 8.9 Eosinophils % 3.3 Basophils % 0.7 Nucleated RBC % 0.0 Absolute Neutrophils 8.30 H Absolute Lymphocytes 2.53 Absolute Monocytes 1.12 H Absolute Eosinophils 0.41 Absolute Basophils 0.09 Sodium 136 Potassium 4.7 Chloride 107 Carbon Dioxide 22.3 Anion Gap 6.7 BUN 32 H Creatinine 1.6 H Est GFR (CKD-EPI 2020) 33.63 Glucose 183 H Calcium 9.8 Urine Color Yellow Urine Clarity Clear Urine pH 6.0 Ur Specific [place] 1.015 Urine Protein Negative Urine Ketones Negative Urine Blood Negative Urine Nitrite Negative Urine Bilirubin Negative Urine Urobilinogen 0.2 Ur Leukocyte Esterase Trace H Urine RBC 0-2 Urine WBC 10-20 H Ur Epithelial Cells Few Urine Crystals Negative Urine Bacteria Many Urine Mucus Negative Ur Culture Indicated? Yes Urine Glucose Negative Time Spent with Patient Time Spent with Patient: 25-34 minutes Time was spent: preparing to see the patient(eg.review tests), obtaining and/or reviewing separately otained hiistory, ordering medications,tests, procedures, referring, communicating with other health floor care technician, indepentently interpreting results, counseling the patient and care coordination
[2023-02-21] MEDS: Atorvastatin 10 MG TAB PO (21:25)
[2023-02-21] MEDS: Calcium 600mg/Vit D 200U TAB 1 TAB PO (21:25)
[2023-02-21] MEDS: Melatonin 3 MG TAB 6 MG PO (21:25)
[2023-02-21] MEDS: Heparin 5,000 UNITS/ML VIAL 5000 UNITS SC (21:26)
[2023-02-22] MEDS: Acetaminophen 325 MG TAB 650 MG PO ×4 (05:06→23:43)
[2023-02-22] MEDS: ceFAZolin 1 GM/50 ML BAG IVPB (05:07)
[2023-02-22] MEDS: Heparin 5,000 UNITS/ML VIAL 5000 UNITS SC ×3 (05:07→19:59)
[2023-02-22] MEDS: Levothyroxine 100 MCG TAB PO (06:42)
[2023-02-22 07:01] LABS: Abs Immature Grans 0.08 10^3/uL (0.0-0.06); Absolute Eosinophil Count 0.22 10^3/uL (0.0-0.7); Absolute Lymphocyte Count 1.88 10^3/uL (1.2-3.4); Absolute Monocyte Count 1.14 10^3/uL (0.1-0.8); Basophils % 0.4; Eosinophils % 1.6; HCT 30.6 % (36.0-46.0); HGB 10.2 g/dL (11.2-15.7); Immature Grans % 0.6; MCH 28.7 pg (27.0-33.0); MCHC 33.3 % (32.0-36.0); MCV 86 fL (80-95); MPV 12.6 fL (8.0-11.0); Monocytes % 8.5; Neutrophils % 74.9; Platelet Count 207 10^3/uL (130-400); RBC 3.55 10^6/uL (3.93-5.22); RDW-SD 44.2 fL; WBC 13.44 10^3/uL (4.4-10.8)
[2023-02-22 07:11] LABS: Absolute Basophil Count 0.05 10^3/uL (0.0-0.2); Absolute Neutrophil Count 10.07 10^3/uL (1.2-6.7)
[2023-02-22 07:19] VITALS: BP 116/69; PULSE 68; RESP 20; TEMP 37; O2SAT 95
[2023-02-22 07:24] LABS: Anion Gap 11.3 mmol/L (3-11); BUN 29 mg/dL (7-18); CO2 20.7 mmol/L (21.0-32.0); CREATININE 1.7 mg/dL (0.55-1.02); Calcium 9.5 mg/dL (8.5-10.1); Chloride 105 mmol/L (98-107); Estimated GFR 31.27 (mL/min/1.73m2); Glucose 125 mg/dL (74-106); Magnesium 1.4 mg/dL (1.8-2.4); Sodium 137 mmol/L (136-145)
[2023-02-22] MEDS: Lisinopril 20 MG TAB 40 MG PO (08:47)
[2023-02-22] MEDS: Chlorthalidone 25 MG TAB PO (08:47)
[2023-02-22] MEDS: FLUoxetine 20 MG CAP PO (08:48)
[2023-02-22] MEDS: Atenolol 50 MG TAB PO (08:48)
[2023-02-22] MEDS: amLODIPine 10 MG TAB PO (08:48)
[2023-02-22] MEDS: Calcium 600mg/Vit D 200U TAB 1 TAB PO ×2 (08:48→19:58)
[2023-02-22] MEDS: Omeprazole 20 MG CAPCR PO (08:48)
[2023-02-22] MEDS: Insulin Glargine 300 UNITS/3 ML PEN 25 UNITS SC (08:50)
[2023-02-22] MEDS: Mylanta Suspension 30 ML CUP PO (09:01)
[2023-02-22] MEDS: oxyCODONE 5 MG TAB PO ×3 (09:01→23:43)
--- NOTE | 2023-02-22 09:42 | CMPROGNOTE_ITS ---
Date of service: 02/22/23 Time of Service: 09:43 Care Management Progress Note Progress Note Text Progress Note Text: S/O:Nadya was sitting up in bed when CM met with her. She did not ambulate very well with PT this morning, secondary to increased pain. When she fell, Nadya injured her right shoulder/upper arm in addition to fracturing her ankle. She has been told it is just bruised, however it interferes with her ability to use her walker. She is only 50% weight bearing on her right foot, so needs to be able use her arms to offload some weight from her foot. She will likely remain one more night for pain control and to continue to work with PT. PT was able to get her a pediatric walker as she is too short to use an adult walker. Nadya stated that she did better this afternoon with the new walker and was also pre- medicated before working with PT. A:Nadya is a 72 year old woman admitted on 02/20/23 with a fractured ankle p:Anticipate Nadya will be discharged home with new home health services for PT. She will follow up with her orthopedic surgeon, PCP and plan of care and transport with family. CM will follow and support discharge planning needs.
[2023-02-22] MEDS: Lidocaine 5% Patch 1 PATCH TP (10:31)
--- NOTE | 2023-02-22 12:54 | PT.INTREAT ---
Date of service: 02/22/23 Time of Service: 08:40 PT Notes Visit Reasons: Trimalleolar fracture Inpatient Physical Therapy Treatment Note [facility] Date: 02/22/23 PRECAUTIONS: Fall, standard, activity as tolerated. Partial (<50%) weight bearing LLE SUBJECTIVE: Patient reports her shoulder is hurting, she is unsure how much she will be able to do but is willing to try. OBJECTIVE: Supine in bed, agreeable to therapy. Splint on LLE.? PAIN: yes, right shoulder and left ankle. VITALS: monitored by nursing staff. ? BED MOBILITY/TRANSFERS? Rolling L/R: independent Supine-sit: min assist? Sit-supine: not assessed ? Sit-stand: CGA ? Stand-sit: CGA ? Bed-Chair: CGA ? Chair-bed: CGA Provided skilled cues and instruction on performance and technique throughout. Gait Training ([id number]): Direct one-on-one instruction and skilled instruction in: [] employing an assistive device [x] modified weight-bearing status [] movement sequencing [] turning and movement with proper form [x] Provided verbal cues for equipment management and technique [x] Provided instruction in gait pattern [x] Patient education regarding pacing and breathing techniques to maximize activity tolerance? GAIT? Assistive Device: FWW? Weight bearing: partial (<50%) LLE Assist: CGA, wheelchair follow, verbal cues ? Distance:? 30 feet, seated rest, 30 feet ? Deviation: Patient not always able to maintain weightbearing status due to pain in shoulder. Patient's walker, although it is on the lowest setting, is at least 3 inches too tall, which is putting undue strain on her shoulders also. ? ASSESSMENT:? Patient tolerates therapy well, in spite of her discomfort. Returns to rest in bed. PLAN: Locate a shorter walker to see if that helps patient be compliant with her weightbearing status. Continue global strengthening per plan of care until patient is medically cleared for discharge and has a safe discharge plan. TREATMENT CODE/TIME: 20 minutes beginning at 8:40
--- NOTE | 2023-02-22 13:11 | W.PM.PROGNOT ---
Date of Service Date of service: 02/22/23 Time of Service: 13:11 Assessment and Plan Assessment and plan (1) Closed trimalleolar fracture of left ankle: Status: Acute Assessment and plan: 72-year-old female postop day #1 status post left ankle ORIF Doing well, comfortable, tolerated spinal anesthesia for procedure well without issues. Currently rates her pain a 4 out of 10. She appears comfortable, watching television and eating lunch without difficulty. She states that she had a physical therapy assessment yesterday and earlier today. She is able to manage walking with the walker but given her right shoulder strain is having some difficulty managing. She has received a Lidoderm patch for her right shoulder which has helped her overall discomfort. Patient is concerned about going home where she lives alone given her relative difficulty with ambulating using a walker, questions and short-term rehab may be appropriate. Left ankle elevated and resting a pillow, splinted appropriately. Patient reports that splint is comfortable. There was mild posterior-superior itching from the splint which has resolved completely. Distally she is able to wiggle all of her digits and has sensation to light touch in each. Capillary refill is brisk. Complete 24 hours postoperative antibiotics- ordered Physical therapy: Protected weightbearing, less than 50%, with assist device. May rest foot/splint on ground for stance and balance- ordered Strict elevation left ankle for the next few days while in bed or chair- ordered Remainder per primary medical team including multimodal pain control, start chemical DVT prophylaxis within 24 hours (typically aspirin 81mg BID for 30 days is appropriate for ankle fractures, but patient may not be able to tolerate due to GI issues so may have to consider renally dosed Lovenox or other options like SQH), and monitoring of blood glucose and renal function Please call me with any questions or concerns about this patient Discharge when medically appropriate My office will arrange follow-up with me in 10-14 days I was able to speak with both Dr. Pablo and care management. Patient will likely remain in the hospital again overnight for observation and pain control. Continue physical therapy. If patient feels better tomorrow about going home then discharge will be arranged. Otherwise will investigate short-term rehab facility. Qualifiers: Encounter type: initial encounter Qualified Code(s): S82.852A - Displaced trimalleolar fracture of left lower leg, initial encounter for closed fracture (2) Contusion of knee, left: Status: Acute (3) Right shoulder strain: Status: Acute Objective Last Vital Signs Temp 37.0 C 02/22/23 07:19 Pulse 68 02/22/23 07:19 Resp 20 02/22/23 07:19 BP 116/69 02/22/23 07:19 Pulse Ox 95 02/22/23 07:19 Laboratory Results - last 24 hr 02/22/23 06:19 WBC 13.44 H RBC 3.55 L Hgb 10.2 L Hct 30.6 L MCV 86 MCH 28.7 MCHC 33.3 RDW 14.0 Plt Count 207 MPV 12.6 H Immature Gran % 0.6 Neutrophils % 74.9 Lymphocytes % 14.0 Monocytes % 8.5 Eosinophils % 1.6 Basophils % 0.4 Nucleated RBC % 0.0 Absolute Neutrophils 10.07 H Absolute Lymphocytes 1.88 Absolute Monocytes 1.14 H Absolute Eosinophils 0.22 Absolute Basophils 0.05 Sodium 137 Potassium 5.0 Chloride 105 Carbon Dioxide 20.7 L Anion Gap 11.3 H BUN 29 H Creatinine 1.7 H Est GFR (CKD-EPI 2020) 31.27 Glucose 125 H Calcium 9.5 Magnesium 1.4 L Time Spent with Patient Time Spent with Patient: <25 minutes Time was spent: preparing to see the patient(eg.review tests), obtaining and/or reviewing separately otained hiistory, referring, communicating with other health health care attorney, counseling the patient and care coordination
--- NOTE | 2023-02-22 14:05 | PGE_ITS ---
Date of Service Date of service: 02/22/23 Time of Service: 14:05 Assessment and Plan Assessment and plan (1) Closed trimalleolar fracture of left ankle: Status: Acute Assessment and plan: POD #1 left ankle ORIF Ankle in splint and elevated on pillows. Pain control. PT Protected wt bearing on LLE / < 50%. Decreased interval of oxycodone prn dosing from 6H to 4H Lidoderm patch to right shoulder. Qualifiers: Encounter type: initial encounter Qualified Code(s): S82.852A - Displaced trimalleolar fracture of left lower leg, initial encounter for closed fracture (2) Contusion of knee, left: Status: Acute Assessment and plan: Has artifical joint. Improving and not impairing mobility. Pain management. (3) Diabetes mellitus with peripheral angiopathy: Status: Acute Assessment and plan: Restarted glargine. Monitor glucose QACHS SS correction insulin; sensitive scale. (4) CKD (chronic kidney disease) stage 4, GFR 15-29 ml/min: Status: Chronic Assessment and plan: Creatinine of 1.7 on admission and now 1.7; appears to be in her baseline. Monitor. (5) Essential hypertension: Status: Chronic Assessment and plan: Cont amlodipine, atenolol, chlothalidone, lisinopril Monitor. (6) Mild intermittent asthma: Status: Chronic Assessment and plan: No acute symptoms PRN albuterol. IS (7) Discharge planning issues: Status: Acute Assessment and plan: Pt is in OBS status but planning on keeping her tonight. Subjective Subjective Patient reports: no new complaints, tolerating a regular diet and afebrile; promise es nausea, vomiting or shortness of breath Interval history since last seen: Pain in right shoulder hindered her ability to ambulate with walker with protected wt bearing on the left ankle / less than 50% Exam Narrative Exam Narrative: Gen: Pleasant and cooperative female lying in bed. NAD Neck: FROM. Lungs: clear. Nonlabored breathing. CV: RRR, S1, S2. Abd: soft, NT Exts: No edema. Left ankle with plaster AO splint in place. Moves toes of left foot. Right shoulder with pain on flexion above 90 degrees Psych: Normal appearance, speech and cognition. Affect is appropriate. Objective Last Vital Signs Temp 37.0 C 02/22/23 07:19 Pulse 68 10/16/23 07:19 Resp 20 02/22/23 07:19 BP 116/69 02/22/23 07:19 Pulse Ox 95 02/22/23 07:19 Laboratory Results - last 24 hr 02/22/23 06:19 WBC 13.44 H RBC 3.55 L Hgb 10.2 L Hct 30.6 L MCV 86 MCH 28.7 MCHC 33.3 RDW 14.0 Plt Count 207 MPV 12.6 H Immature Gran % 0.6 Neutrophils % 74.9 Lymphocytes % 14.0 Monocytes % 8.5 Eosinophils % 1.6 Basophils % 0.4 Nucleated RBC % 0.0 Absolute Neutrophils 10.07 H Absolute Lymphocytes 1.88 Absolute Monocytes 1.14 H Absolute Eosinophils 0.22 Absolute Basophils 0.05 Sodium 137 Potassium 5.0 Chloride 105 Carbon Dioxide 20.7 L Anion Gap 11.3 H BUN 29 H Creatinine 1.7 H Est GFR (CKD-EPI 2020) 31.27 Glucose 125 H Calcium 9.5 Magnesium 1.4 L Time Spent with Patient Time Spent with Patient: 25-34 minutes Time was spent: preparing to see the patient(eg.review tests), obtaining and/or reviewing separately otained hiistory, ordering medications,tests, procedures, referring, communicating with other health animal daycare provider, indepentently interpreting results, counseling the patient and care coordination
--- NOTE | 2023-02-22 14:50 | PT.INTREAT ---
PT Notes Visit Reasons: Trimalleolar fracture Inpatient Physical Therapy Treatment Note Date: 02/22/23 PM session PRECAUTIONS: Fall.?Standard.?50% WB with AD left LE SUBJECTIVE: Nadya reports left ankle pain of 4/10. She has pneumatic compression on right LE and resting upright in bed. Agreeable to PT and was recently medicated for pain. OBJECTIVE:? Therapeutic Activities (17557): Direct one-on-one instruction in dynamic activities to improve functional performance: 34 minutes Provided skilled cues and instruction on performance and technique throughout. ? ? ? BED MOBILITY/TRANSFERS? Rolling L/R: Use of rails Supine-sit: 1 person MOD A Sit-supine: 1 person min A Sit-stand: Min A Stand-sit: Supervision ? GAIT? Assistive Device: Pediatric/reggie FWW ? Weight bearin% WB left LE Assist: CGA Distance:? 15 ft in room Assist with change of clothing and bed pad secondary to urine loss. ASSESSMENT:?Patient has difficulty getting out of bed. Able to do a lot on her own, but increased time and energy required. She did have urine loss prior to my arrival. Assisted patient with changing gown, brief, and chux pad. Difficulty with dressing left lower extremity on own. She was able to ambulate to curtain in room with FWW and step to gait. Use of smaller walker and better pain management of right shoulder helped. Better ability to get back into bed. PLAN: Continue bed mobility and transfers for safety and independence D/C PLAN: SNF for short term stay to promote independence for return home vs Home with someone on site to assist regularly TREATMENT CODE/TIME: 14:10-14:44 (34 minutes) [id number] Marichuy Roldan, PT, DPT, OCS [facility] [place], [place]
[2023-02-22 14:54] VITALS: BP 112/57; PULSE 68; RESP 20; TEMP 37.2; O2SAT 95
[2023-02-22] MEDS: Magnesium Oxide 400 MG TAB 800 MG PO ×2 (15:39→19:59)
[2023-02-22] MEDS: Fosfomycin Tromethamine 3 GM PACKET PO (15:39)
--- NOTE | 2023-02-22 16:35 | W.INDIABCONS ---
Date of service: 02/22/23 Time of Service: 16:36 Diabetes Inpatient Consult Reason for Visit: routine consult - diabetes education DESCRIPTION/ASSESSMENT: 72yo female admitted with left ankle fracture. Hx of diabetes controlled well with most current A1c of 6.8% on 07/31/22 and has not been higher than 7.2% in the history of her labs. Takes inulin Glargine 25units daily at home. Good po intake - 100% of lunch today. INTERVENTION: Glucose has been on track. no agressive nutrition intervention planned at this time. Continue on consistent CHO diet PLAN: unable to meet [id number] with pt today. will follow up tomorrow to offer my contact information and offer diabetes education outpt services if interested. Will continue to monitor chart for nutrition concerns. Time Spent in Nutritional Counseling and Treatment: 0
[2023-02-22] MEDS: Atorvastatin 10 MG TAB PO (19:59)
[2023-02-22] MEDS: Melatonin 3 MG TAB 6 MG PO (19:59)
[2023-02-22] MEDS: Lidocaine Patch Removal 1 EACH TP (20:00)
[2023-02-22 20:15] VITALS: BP 129/75; PULSE 71; RESP 16; TEMP 36.9; O2SAT 93
[2023-02-22 22:31] VITALS: BP 161/63; PULSE 57; RESP 16; TEMP 35.3; O2SAT 93
--- NOTE | 2023-02-23 01:15 | W.PC.ACHO ---
Registration Status: ADM CECE Primary Language: Preferred Language: Upper Sorbian ED Information & Data Chief Complaint Orthopedic 02/20/23 15:20 Medical / Surgical History (Last Reviewed 02/21/23 @ 08:04 by Rey Curtis MD) Diarrhea Tubular adenoma of colon Iron deficiency anemia Tubulovillous adenoma of colon (~10/2013) (Last Reviewed 02/21/23 @ 08:04 by Rey Curtis MD) Status post total left knee replacement (04/17/20) Status post right knee replacement (04/25/19) S/P trigger finger release (10/03/19) S/P colonoscopy (10/27/13) Hx of esophagogastroduodenoscopy (10/27/13) S/P cataract surgery (08/01/13) S/P removal of ovarian cyst History of bilateral tubal ligation Most Recent Vital Signs Temperature 35.3 C L 02/22/23 22:31 Temperature Source Tympanic 02/22/23 22:31 Pulse 57 L 02/22/23 22:31 Pulse Rhythm Regular 02/23/23 01:01 Respiratory Rate 16 02/22/23 22:31 Respiratory Effort Normal, Non-Labored 02/23/23 01:01 Respiratory Depth Normal 02/23/23 01:01 Respiratory Pattern Normal 02/23/23 01:01 Blood Pressure 161/63 H 02/22/23 22:31 Blood Pressure Mean 96 02/20/23 16:01 Blood Pressure Position Supine 02/20/23 11:35 Pulse Oximetry 93 02/22/23 22:31 Oxygen Delivery Method Nasal Cannula 02/22/23 22:31 Oxygen Flow Rate 2 02/22/23 22:31 Pain Level 5 02/22/23 23:43 Allergies NSAIDS (Non-Steroidal Anti-Inflamma Adverse Reaction (Verified 02/20/23 11:48) Kidney disease Precautions Isolation Standard precaution 02/20/23 11:40 Active Medications Generic Name Dose Route Start Last Admin Trade Name Freq PRN Reason Stop Dose Admin Acetaminophen 650 mg 02/20/23 18:00 02/22/23 23:43 Acetaminophen 325 Mg Tab PO 650 mg Q6H MARIO Administration Al Hydrox/Mg Hydrox/Simethicone 30 ml 02/20/23 16:23 02/22/23 09:01 Mylanta Suspension 30 Ml Cup PO 30 ml Q2H PRN PRN Administration Amlodipine Besylate 10 mg 02/21/23 08:30 02/22/23 08:48 Amlodipine 10 Mg Tab PO 10 mg DAILY MARIO Administration Atenolol 50 mg 02/21/23 08:30 02/22/23 08:48 Atenolol 50 Mg Tab PO 50 mg DAILY MARIO Administration Atorvastatin Calcium 10 mg 02/20/23 22:00 02/22/23 19:59 Atorvastatin 10 Mg Tab PO 10 mg HS MARIO Administration Calcium/Vitamin D 1 tab 02/20/23 20:00 02/22/23 19:58 Calcium 600mg/Vit D 200u Tab PO 1 tab BID MARIO Administration Chlorthalidone 25 mg 02/21/23 08:30 02/22/23 08:47 Chlorthalidone 25 Mg Tab PO 25 mg DAILY MARIO Administration Fluoxetine HCl 20 mg 02/21/23 08:30 02/22/23 08:48 Fluoxetine 20 Mg Cap PO 20 mg DAILY MARIO Administration Heparin Sodium (Porcine) 5,000 units 02/21/23 22:00 02/22/23 19:59 Heparin 5,000 Units/Ml Vial SC 5,000 units Q8H MARIO Administration Insulin Aspart 0 units 02/21/23 08:00 02/22/23 17:17 Insulin Aspart 300 Units/3 Ml Pen SC Not Given 0800,1200,1700 [facility] Protocol Insulin Glargine 25 units 02/22/23 08:30 02/22/23 08:50 Insulin Glargine 300 Units/3 Ml Pen SC 25 unit DAILY MARIO Administration Lactobacillus Acidophilus/Casei 1 cap 02/21/23 12:30 02/22/23 08:48 L. Acidophilus, Casei, Rhamnosus Cap PO 1 cap DAILY MARIO Administration Levothyroxine Sodium 100 mcg 02/22/23 06:00 02/22/23 06:42 Levothyroxine 100 Mcg Tab PO 100 mcg [id number]@0600 MARIO Administration Lidocaine 1 patch 02/22/23 10:00 02/22/23 10:31 Lidocaine 5% Patch TP 1 patch DAILY MARIO Administration Lisinopril 40 mg 02/21/23 08:30 02/22/23 08:47 Lisinopril 20 Mg Tab PO 40 mg DAILY MARIO Administration Magnesium Oxide 800 mg 02/22/23 14:20 02/22/23 19:59 Magnesium Oxide 400 Mg Tab PO 800 mg BID MARIO Administration Melatonin 6 mg 02/20/23 22:00 02/22/23 19:59 Melatonin 3 Mg Tab PO 6 mg HS MARIO Administration Miscellaneous 1 each 02/22/23 20:00 02/22/23 20:00 Lidocaine Patch Removal TP 1 each QPM MARIO Administration Omeprazole 20 mg 02/21/23 07:30 02/22/23 08:48 Omeprazole 20 Mg Capcr PO 20 mg 0730 MARIO Administration Oxycodone HCl 5 mg 02/22/23 09:11 02/22/23 23:43 Oxycodone 5 Mg Tab PO 5 mg Q4H PRN PRN Administration IV IV Catheter Type [Left Peripheral IV Antecubital] IV Catheter Gauge [Left 20 Antecubital] Diagnostics 02/23/23 02/22/23 Range/Units 05:35 06:19 WBC Pending 13.44 H (4.4-10.8) 10^3/uL RBC Pending 3.55 L (3.93-5.22) 10^6/uL Hgb Pending 10.2 L (11.2-15.7) g/dL Hct Pending 30.6 L (36.0-46.0) % MCV Pending 86 (80-95) fL MCH Pending 28.7 (27.0-33.0) pg MCHC Pending 33.3 (32.0-36.0) % RDW Pending 14.0 (11.7-14.6) % Plt Count Pending 207 (130-400) 10^3/uL MPV Pending 12.6 H (8.0-11.0) fL Immature Gran % Pending 0.6 Neutrophils % Pending 74.9 Lymphocytes % Pending 14.0 Monocytes % Pending 8.5 Eosinophils % Pending 1.6 Basophils % Pending 0.4 Nucleated RBC % 0.0 (0.0-0.3) % Absolute Neutrophils Pending 10.07 H (1.2-6.7) 10^3/uL Absolute Lymphocytes Pending 1.88 (1.2-3.4) 10^3/uL Absolute Monocytes Pending 1.14 H (0.1-0.8) 10^3/uL Absolute Eosinophils Pending 0.22 (0.0-0.7) 10^3/uL Absolute Basophils Pending 0.05 (0.0-0.2) 10^3/uL Sodium Pending 137 (136-145) mmol/L Potassium Pending 5.0 (3.5-5.1) mmol/L Chloride Pending 105 (98-107) mmol/L Carbon Dioxide Pending 20.7 L (21.0-32.0) mmol/L Anion Gap Pending 11.3 H (3-11) mmol/L BUN Pending 29 H (7-18) mg/dL Creatinine Pending 1.7 H (0.55-1.02) mg/dL Est GFR (CKD-EPI 2020) Pending 31.27 (mL/min/1.73m2) Glucose Pending 125 H (74-106) mg/dL Calcium Pending 9.5 (8.5-10.1) mg/dL Magnesium Pending 1.4 L (1.8-2.4) mg/dL 02/20/23 17:40 Urine Culture - Final Urine - Reflex from Ua Escherichia coli Gram Positive Ricarda,Mixed [id number] Documentation Fingerstick Glucose Start: 02/20/23 17:04 Freq: .ACHS Status: Active Protocol: Activity Type Activity Date Activity User E-sign Co-sign Detail Recorded Client Recorded Date Recorded By Document 02/22/23 20:15 ALEJO CASH(3) [id number] 02/22/23 20:16 ALEJO DALIAMON(4) Intake and Output - 24 Hour Total 02/20/23 11:24 thru 02/23/23 01:01 Intake Total 1690 Output Total 1350 Balance 340 Weight 88.451 kg Intake: IV 1210 Oral 480 Output: Urine 1350 Other: Urine Color Pale Urine Appearance Clear Urine Odor Normal Comment very little output - couldn't measure. Voiding Methods Diaper Incontinent Falls Risk Assessment History of Falls Admit Due to Fall 02/20/23 16:40 Contributing Factors Impairments 02/20/23 16:40 Ambulatory Aids Independent 02/20/23 16:40 Tubes/Lines None 02/20/23 16:40 Gait Evaluation W/no contributing factors 02/20/23 16:40 Cognition No cognitive impairment 02/20/23 16:40 Fall Total Score 38 02/20/23 16:40 Level of Risk Moderate Risk 02/20/23 16:40 Problems (Last Reviewed 02/21/23 @ 08:04 by Rey Curtis MD) Discharge planning issues (Acute) Closed trimalleolar fracture of left ankle (Acute 02/20/23) Contusion of knee, left (Acute) Fall (Acute) Right shoulder strain (Acute) Diabetes mellitus with peripheral angiopathy (Acute) CKD (chronic kidney disease) stage 4, GFR 15-29 ml/min (Chronic) Mild intermittent asthma (Chronic) Essential hypertension (Chronic) v v v v v v v v v Sending and/or Receiving Nurses: Please use comment section below to note any information pertinent to the patient hand-off not included above. Information / Comments: Report received from .
[2023-02-23] MEDS: Levothyroxine 100 MCG TAB PO (06:27)
[2023-02-23] MEDS: Acetaminophen 325 MG TAB 650 MG PO ×3 (06:27→18:25)
[2023-02-23] MEDS: Heparin 5,000 UNITS/ML VIAL 5000 UNITS SC ×3 (06:27→20:16)
[2023-02-23 07:09] LABS: Abs Immature Grans 0.09 10^3/uL (0.0-0.06); Absolute Basophil Count 0.09 10^3/uL (0.0-0.2); Absolute Eosinophil Count 0.54 10^3/uL (0.0-0.7); Absolute Lymphocyte Count 3.14 10^3/uL (1.2-3.4); Basophils % 0.8; Eosinophils % 4.6; HCT 30.3 % (36.0-46.0); Immature Grans % 0.8; Lymphocytes % 26.8; MCH 28.5 pg (27.0-33.0); MCV 86 fL (80-95); MPV 12.4 fL (8.0-11.0); Monocytes % 11.5; Neutrophils % 55.5; Platelet Count 182 10^3/uL (130-400); RBC 3.51 10^6/uL (3.93-5.22); RDW 13.9 % (11.7-14.6); RDW-SD 43.3 fL
[2023-02-23 07:25] LABS: Anion Gap 8.2 mmol/L (3-11); BUN 31 mg/dL (7-18); CO2 23.8 mmol/L (21.0-32.0); CREATININE 1.7 mg/dL (0.55-1.02); Calcium 9.7 mg/dL (8.5-10.1); Chloride 105 mmol/L (98-107); Estimated GFR 31.27 (mL/min/1.73m2); Glucose 94 mg/dL (74-106); Magnesium 1.8 mg/dL (1.8-2.4); Potassium 4.7 mmol/L (3.5-5.1); Sodium 137 mmol/L (136-145)
[2023-02-23 07:26] LABS: Absolute Monocyte Count 1.35 10^3/uL (0.1-0.8); Absolute Neutrophil Count 6.49 10^3/uL (1.2-6.7)
[2023-02-23 07:35] VITALS: BP 129/77; PULSE 58; RESP 20; TEMP 36.6; O2SAT 95
[2023-02-23] MEDS: Lidocaine 5% Patch 1 PATCH TP (07:48)
[2023-02-23] MEDS: Chlorthalidone 25 MG TAB PO (07:49)
[2023-02-23] MEDS: Calcium 600mg/Vit D 200U TAB 1 TAB PO ×2 (07:49→20:17)
[2023-02-23] MEDS: Magnesium Oxide 400 MG TAB 800 MG PO ×2 (07:49→20:17)
[2023-02-23] MEDS: FLUoxetine 20 MG CAP PO (07:49)
[2023-02-23] MEDS: Atenolol 50 MG TAB PO (07:49)
[2023-02-23] MEDS: Lisinopril 20 MG TAB 40 MG PO (07:50)
[2023-02-23] MEDS: amLODIPine 10 MG TAB PO (07:50)
[2023-02-23] MEDS: Omeprazole 20 MG CAPCR PO (07:50)
[2023-02-23] MEDS: Insulin Glargine 300 UNITS/3 ML PEN 25 UNITS SC (07:50)
[2023-02-23] MEDS: oxyCODONE 5 MG TAB PO ×3 (09:24→20:16)
--- NOTE | 2023-02-23 11:08 | PTTR_ITS ---
Date of service: 02/23/23 Time of Service: 10:44 PT Notes Visit Reasons: Trimalleolar fracture Inpatient Physical Therapy Treatment Note [facility] Date: 02/23/23 PRECAUTIONS: Fall, standard, activity as tolerated. SUBJECTIVE: Patient reports feeling ok, although a little stiff and sore especially in the shoulder. AFTERNOON: Patient reports significantly increased pain, aching in the ankle and zingers going from foot up through knee. OBJECTIVE: Patient supine in bed, agreeable to therapy. ? PAIN: Yes, in shoulder and ankle, tolerable. AFTERNOON: Patient declines ambulation due to increased pain in leg. VITALS: monitored by nursing staff. Therapeutic Activities ([id number]): Direct one-on-one instruction in dynamic activities to improve functional performance. ? BED MOBILITY/TRANSFERS? Rolling L/R: SBA to independent after coaching. Patient reports she is used to sleeping on her side, has not slept well in the hospital due to sleeping on her back. Educated patient on rolling and then placing pillows between knees and under left lower leg / ankle for support. Supine-sit: modified independent with bilateral side rails. Patient does not have side rails at home. Min assist to SBA with cueing and coaching. ?Sit-supine: Min assist to SBA after coaching on technique. ? Sit-stand: SBA ? Stand-sit: SBA with verbal cues for hand placement, safety. ? Bed-Chair: CGA? Chair-bed: CGA Provided skilled cues and instruction on performance and technique throughout. ? Therapeutic Exercises ([id number]): Direct one-on-one instruction in therapeutic exercises to develop strength, endurance, range of motion and flexibility. Exercises: * LAQ's 2x10 * SLR's 2x10 * ankle pumps right foot only x20 * hip ab/adduction taps 2x10 Ambulation ? Assistive Device: FWW ? Weight bearing: full Assist: CGA ? Distance:? 25 feet? Deviation: very slow jorge, extreme short stride length - patient demonstrates a step-to pattern wherein she only advances 4-6 inches at a time. C/o shoulder pain and pain in foot. ? Provided skilled instruction in proper exercise performance Provided skilled manual cues to facilitate proper muscle recruitment and/or form. ASSESSMENT:? Patient refuses ambulation in the afternoon due to pain. This worries me for her ability to function at home, as she lives alone. Patient and special needs caregiver are aware of my concerns. PLAN: Continue global strengthening per plan of care until patient is medically cleared and has a safe discharge plan. TREATMENT CODE/TIME: 19 minutes beginning at 10:44, 24 minutes beginning at 14:40 for a total of 43 minutes for today.
--- NOTE | 2023-02-23 14:09 | W.PM.PROGNOT ---
Date of Service Date of service: 02/23/23 Time of Service: 14:09 Assessment and Plan Assessment and plan (1) Closed trimalleolar fracture of left ankle: Status: Acute Assessment and plan: POD #2 left ankle ORIF Sero-sanguineous drainage noted today Ankle in splint and elevated on pillows. Pain control. PT Protected wt bearing on LLE / < 50%. Decreased interval of oxycodone prn dosing from 6H to 4H Lidoderm patch to right shoulder. Qualifiers: Encounter type: initial encounter Qualified Code(s): S82.852A - Displaced trimalleolar fracture of left lower leg, initial encounter for closed fracture (2) Contusion of knee, left: Status: Acute Assessment and plan: Has artifical joint. Improving and not impairing mobility. Pain management. (3) Diabetes mellitus with peripheral angiopathy: Status: Acute Assessment and plan: Restarted glargine. Monitor glucose QACHS SS correction insulin; sensitive scale. Controlled. (4) CKD (chronic kidney disease) stage 4, GFR 15-29 ml/min: Status: Chronic Assessment and plan: Creatinine consistently 1.7; in her baseline range. Monitor. (5) Essential hypertension: Status: Chronic Assessment and plan: Cont amlodipine, atenolol, chlothalidone, lisinopril Monitor. (6) Mild intermittent asthma: Status: Chronic Assessment and plan: No acute symptoms PRN albuterol. IS (7) Discharge planning issues: Status: Acute Assessment and plan: Pt is in OBS status but not yet safe to d/c. Subjective Subjective Patient reports: no new complaints, still having pain (Right shoulder pain somewhat improved but exacerbated pain with PT) and afebrile; denies nausea, vomiting or shortness of breath Exam Narrative Exam Narrative: Gen: Pleasant and cooperative female lying in bed. NAD. Appears tired. Neck: FROM. Lungs: clear. Nonlabored breathing. CV: RRR, S1, S2. Abd: soft, NT Exts: No edema. Left ankle with plaster AO splint in place. Moves toes of left foot. Right shoulder with pain on flexion above 90 degrees Psych: Normal appearance, speech and cognition. Affect is appropriate. Objective Last Vital Signs Temp 36.6 C 02/23/23 07:35 Pulse 58 L 02/23/23 07:35 Resp 20 02/23/23 07:35 BP 129/77 02/23/23 07:35 Pulse Ox 95 02/23/23 07:35 Laboratory Results - last 24 hr 02/23/23 06:25 WBC 11.70 H RBC 3.51 L Hgb 10.0 L Hct 30.3 L MCV 86 MCH 28.5 MCHC 33.0 RDW 13.9 Plt Count 182 MPV 12.4 H Immature Gran % 0.8 Neutrophils % 55.5 Lymphocytes % 26.8 Monocytes % 11.5 Eosinophils % 4.6 Basophils % 0.8 Nucleated RBC % 0.0 Absolute Neutrophils 6.49 Absolute Lymphocytes 3.14 Absolute Monocytes 1.35 H Absolute Eosinophils 0.54 Absolute Basophils 0.09 Sodium 137 Potassium 4.7 Chloride 105 Carbon Dioxide 23.8 Anion Gap 8.2 BUN 31 H Creatinine 1.7 H Est GFR (CKD-EPI 2020) 31.27 Glucose 94 Calcium 9.7 Magnesium 1.8 Time Spent with Patient Time Spent with Patient: 25-34 minutes Time was spent: preparing to see the patient(eg.review tests), obtaining and/or reviewing separately otained hiistory, ordering medications,tests, procedures, referring, communicating with other health health care facility administrator, indepentently interpreting results, counseling the patient and care coordination
[2023-02-23 15:23] VITALS: BP 139/77; PULSE 60; RESP 19; TEMP 36.9; O2SAT 98
--- NOTE | 2023-02-23 16:24 | CHAPLAIN ---
Nadya requested a leather carver visit. We've met before when she has her knees replaced a few years ago. Since then her . She is supported by her son, who lives in [place], but visits often. Ruth's daughter lives in [facility], and visits less Nadya less often. She seems to really rely on just her son. She fell while attending a and had to have surgery on her leg. Her shoulder is also injured. She will like go to a rehab when she is discharged. She is concerned about her injury and surgery, and also has diverticulitis and a UTI, she told me. Nadya is not longer connected to a shinto, but attended [employer] and [employer] at one time. She was very involved in her kids lives and supported them by organizing their involvement in [employer], [employer] and [employer]. She continues to lead a faithful life although she doesn't attend shinto any more. I offered a prayer with Nadya before I left. She was then going to call her son.
--- NOTE | 2023-02-23 16:27 | CMPROGNOTE_ITS ---
Date of service: 02/23/23 Time of Service: 16:27 Care Management Progress Note Progress Note Text Progress Note Text: S/O: Nadya was lying in bed when CM met with her. She is awake and easily engages in conversation. She is planning on reaching out to [facility] for additional home support after discharge (Tiffany has helped her around the house after discharge in the past.) Nadya experienced a lot of pain this afternoon when she walked with PT and they are recommending SNF for STR. Her ability to ambulate and use a walker is limited since she injured both her ankle and her arm when she fell. Per provider, Sero-sanguineous drainage was noted on her d ressing and foot pillow and Dr. Curtis was notified. She will likely need to transition to SWB1 status since if she doesn't have a 3 night qualifying stay for a SNF. CM will follow. A:Nadya is a 72 year old woman admitted on 02/20/23 with a fractured ankle p: Anticipate Nadya will be discharged to SNF for STR vs. transition to SWB1 for continued rehab prior to discharging home. She will follow up with her orthopedic surgeon, PCP and plan of care. Transportation will be dependent on her disposition. CM will follow and support discharge planning needs.
[2023-02-23] MEDS: Polyethylene Glycol 3350 17 GM PACKET PO (20:16)
[2023-02-23] MEDS: Melatonin 3 MG TAB 6 MG PO (20:16)
[2023-02-23] MEDS: Atorvastatin 10 MG TAB PO (20:17)
[2023-02-23] MEDS: Lidocaine Patch Removal 1 EACH TP (20:18)
--- NOTE | 2023-02-24 | DI.RAD_ITS ---
Exam(s) XR ANKLE LT COMPLETE EXAM: XR ANKLE LT COMPLETE CLINICAL HISTORY: f/u fx ORIF. TECHNIQUE: 2D digital imaging was performed. COMPARISON: CR,XR XR ANKLE LT COMPLETE from 02/20/2023 FINDINGS: There has been interval surgery with placement lateral fixation plate across the distal fibular fract ure site and single screw across the medial malleolus fracture site. Alignment is satisfactory. The re is no widening of the ankle mortise. Talar dome appears unremarkable. IMPRESSION: Satisfactory postop appearance DATA REPOSITORY: RADIATION DOSE DELIVERED:
[2023-02-24 00:03] VITALS: BP 124/75; PULSE 58; RESP 16; TEMP 37.7
[2023-02-24] MEDS: Acetaminophen 325 MG TAB 650 MG PO ×5 (00:59→23:20)
[2023-02-24] MEDS: Heparin 5,000 UNITS/ML VIAL 5000 UNITS SC ×3 (06:01→21:37)
[2023-02-24] MEDS: Levothyroxine 100 MCG TAB PO (06:01)
[2023-02-24 07:00] LABS: Absolute Basophil Count 0.11 10^3/uL (0.0-0.2); Absolute Lymphocyte Count 3.64 10^3/uL (1.2-3.4); Absolute Monocyte Count 1.22 10^3/uL (0.1-0.8); Absolute Neutrophil Count 7.66 10^3/uL (1.2-6.7); Basophils % 0.8; Eosinophils % 6.1; HCT 32.9 % (36.0-46.0); HGB 10.6 g/dL (11.2-15.7); Immature Grans % 0.7; Lymphocytes % 26.9; MCH 27.9 pg (27.0-33.0); MCHC 32.2 % (32.0-36.0); MCV 87 fL (80-95); MPV 12.6 fL (8.0-11.0); Neutrophils % 56.5; Platelet Count 254 10^3/uL (130-400); RDW 13.9 % (11.7-14.6); RDW-SD 43.9 fL; WBC 13.55 10^3/uL (4.4-10.8)
[2023-02-24 07:06] LABS: Absolute Eosinophil Count 0.83 10^3/uL (0.0-0.7)
[2023-02-24 07:11] VITALS: BP 139/75; PULSE 64; RESP 18; TEMP 36.4; O2SAT 96
[2023-02-24] MEDS: amLODIPine 10 MG TAB PO (07:37)
[2023-02-24] MEDS: FLUoxetine 20 MG CAP PO (07:37)
[2023-02-24] MEDS: Atenolol 50 MG TAB PO (07:37)
[2023-02-24] MEDS: Calcium 600mg/Vit D 200U TAB 1 TAB PO ×2 (07:37→20:04)
[2023-02-24] MEDS: Chlorthalidone 25 MG TAB PO (07:37)
[2023-02-24] MEDS: Magnesium Oxide 400 MG TAB 800 MG PO ×2 (07:37→20:04)
[2023-02-24] MEDS: Lidocaine 5% Patch 1 PATCH TP (07:38)
[2023-02-24] MEDS: Lisinopril 20 MG TAB 40 MG PO (07:38)
[2023-02-24] MEDS: Omeprazole 20 MG CAPCR PO (07:38)
[2023-02-24] MEDS: Insulin Glargine 300 UNITS/3 ML PEN 25 UNITS SC (07:38)
--- NOTE | 2023-02-24 08:40 | PDOC.CMPRO ---
Date of service: 02/24/23 Time of Service: 08:40 Care Management Progress Note Progress Note Text Progress Note Text: S/O: Nadya was sitting up in bed when CM met with her. She informed CM that she is finally doing better. She was able to walk into the hallway with assist of one. She shared that her pain is under better control and that she feels she is progressing. Nadya still does not feel she is ready to go home alone. CM asked Nadya if she would consider going into SB-1 status for a few days until she is more confident in her ability to ambulate safely independently. Nadya stated that she felt that would be a good plan if after PT this afternoon and tomorrow she still felt unsure. A:Nadya is a 72 year old woman admitted on 02/20/23 with a fractured ankle p: Anticipate Nadya will be discharged to SNF for STR vs. transition to SWB1 for continued rehab prior to discharging home. She will follow up with her orthopedic surgeon, PCP and plan of care. Transportation will be dependent on her disposition. CM will follow and support discharge planning needs. cc: Dictated by: Odalys Reeder RN
[2023-02-24] MEDS: oxyCODONE 5 MG TAB PO (09:22)
[2023-02-24 09:23] LABS: Procalcitonin 0.2 ng/mL
--- NOTE | 2023-02-24 13:09 | PTTR_ITS ---
Date of service: 02/24/23 Time of Service: 10:38 PT Notes Visit Reasons: Trimalleolar fracture Inpatient Physical Therapy Treatment Note [facility] Date: 02/24/23 PRECAUTIONS: Fall, standard, activity as tolerated, PWB LLE (<50%). SUBJECTIVE: Patient reports some nausea in the am, which she thinks may be from her hydrocodone, which she took on an empty stomach. Afternoon reports feeling fine. OBJECTIVE: Patient supine in bed, agreeable to therapy x2 ? PAIN: morning: patient reports shoulder is sore, but no worse than yesterday. AFTERNOON patient reports pain is well controlled. VITALS: monitored by nursing staff. ? ? ? BED MOBILITY/TRANSFERS? Rolling L/R: independent Supine-sit: modified independent with HOB maximally raised and bilateral side rails. Patient does not have a hospital bed nor a bed with side rails at home. ? Sit-supine: modified independent with bilateral side rails. ? Sit-stand: independent? Stand-sit: independent? Bed-Chair: SBA ? Chair-bed: SBA Gait Training ([id number]): Direct one-on-one instruction and skilled instruction in: [] employing an assistive device [x] modified weight-bearing status [x] movement sequencing [] turning and movement with proper form [x] Provided verbal cues for equipment management and technique [] Provided instruction in gait pattern [x] Patient education regarding pacing and breathing techniques to maximize activity tolerance? GAIT? Assistive Device: FWW ? Weight bearing: PWB <50% LLE Assist: SBA, verbal cues ? Distance:? 45 feet ? Deviation: extremely short stride length and step to gait pattern with left leg leading. Tendency to look at her feet, which increases shoulder pain. Corrected with min verbal cues. ? Therapeutic Exercises ([id number]): Direct one-on-one instruction in therapeutic exercises to develop strength, endurance, range of motion and flexibility. ? Exercises * Serratus punches with yellow theraband 2x8 * lat press downs with yellow theraband 2x5 Continuous assessment to ensure that strengthening the shoulder isn't going to further aggravate the shoulder. Ambulation ? Assistive Device: FWW? Weight bearing: PWB <50% LLE Assist: SBA? Distance:? 65 feet ? Deviation: Patient demonstrated excellent carry over of corrections from this morning. ? Provided skilled instruction in proper exercise performance Provided skilled manual cues to facilitate proper muscle recruitment and/or form. ASSESSMENT:? Patient tolerates therapy well, reports no increase in pain during or after either session. PLAN: Continue global strengthening per plan of care until patient is medically cleared for discharge and safe and capable to care for herself at home. TREATMENT CODE/TIME: 16 minutes beginning at 10:38 and 27 minutes beginning at 13:50 for a total of 43 minutes today.
--- NOTE | 2023-02-24 14:39 | CHAPLAIN ---
Nadya found out that she's going to stay here on swingbed and she's very happy about that. She said today she's feeling less pain, and more confident although she does worry about falling again. Her daughter, who works at [employer] visited. Nadya said she feels like she is making some good progress with PT and today walked farther than yesterday. She believes she'll be here through the week and maybe into the weekend. She's feeling comfortable here and has had good experiences with the nurses.
[2023-02-24 14:59] VITALS: BP 131/72; PULSE 64; RESP 20; TEMP 37.1; O2SAT 95
--- NOTE | 2023-02-24 17:27 | PGE_ITS ---
Date of Service Date of service: 02/24/23 Time of Service: 17:27 Assessment and Plan Assessment and plan (1) Closed trimalleolar fracture of left ankle: Status: Acute Assessment and plan: POD #3 left ankle ORIF No drainage since re-dressing. Pain control is adequate. Continue working w/ PT: protected weight bearing on LLE < 50%. Qualifiers: Encounter type: initial encounter Qualified Code(s): S82.852A - Displaced trimalleolar fracture of left lower leg, initial encounter for closed fracture (2) Leucocytosis: Status: Acute Assessment and plan: Check UA (and ensure no urinary retention) as well as C.Diff. (3) Contusion of knee, left: Status: Acute Assessment and plan: Has artifical joint. Pain is controlled today. (4) Diabetes mellitus with peripheral angiopathy: Status: Acute Assessment and plan: Continue SSI. (5) CKD (chronic kidney disease) stage 4, GFR 15-29 ml/min: Status: Chronic Assessment and plan: Recheck Cr in am. (6) Essential hypertension: Status: Chronic Assessment and plan: Continue amlodipine, atenolol, chlothalidone, lisinopril Monitor. (7) Mild intermittent asthma: Status: Chronic Assessment and plan: Not in acute exacerbation. Continue PRN albuterol. Encourage IS (8) Discharge planning issues: Status: Acute Assessment and plan: Full code. Anticipate discharge to swing bed status tomorrow (9) DVT prophylaxis: Status: Acute Assessment and plan: SC heparin Subjective Subjective Interval history since last seen: Ms Mckeon hasn't been able to urinate today. Nursing will be checking bladder scans. She also had diarrhea. Otherwise, feeling better. States after she took oxycodone she had some dizziness and nausea at first, but it got better after she ate something. Denies SP, SOB, abdominal pain. L ankle pain is better. She was able to walk outside her room today. Exam Narrative Exam Narrative: General: Pleasant elderly female who appears to be comfortable in bed, A&Ox3, NAD HEENT: EOMI, MMM Heart: RRR, no m/r/g Lungs: CTAB anteriorly Abdomen: soft, nontender, nondistended Extremities: Distal LLE is dressed - c/d/i Objective Last Vital Signs Temp 37.1 C 02/24/23 14:59 Pulse 64 02/24/23 14:59 Resp 20 02/24/23 14:59 BP 131/72 02/24/23 14:59 Pulse Ox 95 02/24/23 14:59 Laboratory Results - last 24 hr 02/24/23 02/24/23 06:14 08:00 WBC 13.55 H Cancelled RBC 3.80 L Cancelled Hgb 10.6 L Cancelled Hct 32.9 L Cancelled MCV 87 Cancelled MCH 27.9 Cancelled MCHC 32.2 Cancelled RDW 13.9 Cancelled Plt Count 254 Cancelled MPV 12.6 H Cancelled Immature Gran % 0.7 Cancelled Neutrophils % 56.5 Cancelled Band Neutrophils % Cancelled Lymphocytes % 26.9 Cancelled Atypical Lymphs % Cancelled Monocytes % 9.0 Cancelled Eosinophils % 6.1 Cancelled Basophils % 0.8 Cancelled Metamyelocytes % Cancelled Myelocytes % Cancelled Promyelocytes % Cancelled Other Cells % Cancelled Nucleated RBC % 0.0 Cancelled Absolute Neutrophils 7.66 H Cancelled Absolute Lymphocytes 3.64 H Cancelled Absolute Monocytes 1.22 H Cancelled Absolute Eosinophils 0.83 H Cancelled Absolute Basophils 0.11 Cancelled RBC Morphology Cancelled Polychromasia Cancelled Hypochromasia Cancelled Poikilocytosis Cancelled Basophilic Stippling Cancelled Anisocytosis Cancelled Microcytosis Cancelled Macrocytosis Cancelled Spherocytes Cancelled Tear Drop Cells Cancelled Ovalocytes Cancelled Stomatocytes Cancelled Razo[place] Bodies Cancelled Christiano Cells/Echinocytes Cancelled Acanthocytes (Spur) Cancelled Schistocytes Cancelled Sodium Cancelled Potassium Cancelled Chloride Cancelled Carbon Dioxide Cancelled Anion Gap Cancelled BUN Cancelled Creatinine Cancelled Est GFR (CKD-EPI 2020) Cancelled Glucose Cancelled Calcium Cancelled Magnesium Cancelled Procalcitonin 0.2 Time Spent with Patient Time Spent with Patient: 25-34 minutes Time was spent: preparing to see the patient(eg.review tests), obtaining and/or reviewing separately otained hiistory, ordering medications,tests, procedures, referring, communicating with other health infant caregiver, indepentently interpreting results, counseling the patient and care coordination
[2023-02-24 18:39] LABS: Bilirubin Negative (Negative); Blood Negative (Negative); Clarity Clear (Clear); Glucose Negative (Negative); Ketones Negative (Negative); Leukocyte Esterase Negative (Negative); Nitrite Negative (Negative); Urobilinogen 0.2 mg/dL (Up to 0.2); pH 5.5 (5-8)
[2023-02-24 19:58] VITALS: BP 135/60; PULSE 65; RESP 16; TEMP 37
[2023-02-24] MEDS: Lidocaine Patch Removal 1 EACH TP (20:50)
[2023-02-24] MEDS: Melatonin 3 MG TAB 6 MG PO (21:36)
[2023-02-24] MEDS: Atorvastatin 10 MG TAB PO (21:36)
[2023-02-24 23:15] VITALS: BP 122/68; PULSE 60; RESP 16; TEMP 36; O2SAT 95
[2023-02-25] MEDS: Acetaminophen 325 MG TAB 650 MG PO ×2 (05:36→12:11)
[2023-02-25] MEDS: Levothyroxine 100 MCG TAB PO (05:36)
[2023-02-25] MEDS: Heparin 5,000 UNITS/ML VIAL 5000 UNITS SC ×2 (05:37→13:51)
[2023-02-25 06:54] LABS: Abs Immature Grans 0.09 10^3/uL (0.0-0.06); Absolute Basophil Count 0.09 10^3/uL (0.0-0.2); Absolute Eosinophil Count 0.69 10^3/uL (0.0-0.7); Basophils % 0.7; Eosinophils % 5.1; HGB 10.7 g/dL (11.2-15.7); Immature Grans % 0.7; Lymphocytes % 20.5; MCH 27.6 pg (27.0-33.0); MCHC 32.4 % (32.0-36.0); MCV 85 fL (80-95); MPV 12.1 fL (8.0-11.0); Monocytes % 8.2; Neutrophils % 64.8; Platelet Count 267 10^3/uL (130-400); RBC 3.87 10^6/uL (3.93-5.22); RDW 13.6 % (11.7-14.6); RDW-SD 42.2 fL; WBC 13.49 10^3/uL (4.4-10.8)
[2023-02-25 07:02] LABS: Absolute Lymphocyte Count 2.77 10^3/uL (1.2-3.4); Absolute Monocyte Count 1.11 10^3/uL (0.1-0.8); Absolute Neutrophil Count 8.74 10^3/uL (1.2-6.7)
[2023-02-25 07:08] LABS: Anion Gap 10.2 mmol/L (3-11); BUN 37 mg/dL (7-18); C-Reactive Protein 10.81 mg/dL (0.0-0.3); CO2 23.8 mmol/L (21.0-32.0); CREATININE 1.7 mg/dL (0.55-1.02); Calcium 9.3 mg/dL (8.5-10.1); Chloride 98 mmol/L (98-107); Estimated GFR 31.27 (mL/min/1.73m2); Glucose 109 mg/dL (74-106); Magnesium 2.2 mg/dL (1.8-2.4); Potassium 4.6 mmol/L (3.5-5.1); Sodium 132 mmol/L (136-145)
[2023-02-25 07:37] VITALS: BP 125/63; PULSE 59; RESP 16; TEMP 36.9; O2SAT 98
[2023-02-25] MEDS: Insulin Glargine 300 UNITS/3 ML PEN 25 UNITS SC (07:41)
[2023-02-25] MEDS: Magnesium Oxide 400 MG TAB 800 MG PO (07:42)
[2023-02-25] MEDS: Calcium 600mg/Vit D 200U TAB 1 TAB PO (07:42)
[2023-02-25] MEDS: amLODIPine 10 MG TAB PO (07:42)
[2023-02-25] MEDS: Atenolol 50 MG TAB PO (07:42)
[2023-02-25] MEDS: FLUoxetine 20 MG CAP PO (07:42)
[2023-02-25] MEDS: Lisinopril 20 MG TAB 40 MG PO (07:42)
[2023-02-25] MEDS: Omeprazole 20 MG CAPCR PO (07:42)
[2023-02-25] MEDS: Chlorthalidone 25 MG TAB PO (07:42)
[2023-02-25] MEDS: Lidocaine 5% Patch 1 PATCH TP (07:43)
--- NOTE | 2023-02-25 08:07 | W.PM.PROGNOT ---
Date of Service Date of service: 02/25/23 Time of Service: 08:07 Assessment and Plan Assessment and plan (1) Closed trimalleolar fracture of left ankle: Status: Acute Assessment and plan: Continue protected weightbearing, less than 50%, with assist device. May rest foot/splint on ground for stance and balance. Scheduled for outpatient ortho follow up on 03/02/23 Qualifiers: Encounter type: initial encounter Qualified Code(s): S82.852A - Displaced trimalleolar fracture of left lower leg, initial encounter for closed fracture Subjective Subjective Interval history since last seen: 72 year old female POD #4 status post left ankle trimalleolar ORIF on 02/21/23. Patient reports that she gets intermittent throbbing ankle discomfort. She reports that she has been using ice pack which helps. She reports that she has been getting up and walking with PT twice a day which was painful at first but has gotten less uncomfortable. Denies any numbness or tingling. Nurse also in the room states that she changed the GARTH wrap yesterday due to drainage but the GARTH wrap is clean today. Exam Narrative Exam Narrative: Patient resting comfortably in bed with left lower leg resting comfortably on pillows. Splint is clean and intact. Wiggles toes. Sensation intact to light touch. Demonstrates active knee flexion and extension. Objective Last Vital Signs Temp 98.4 F 02/25/23 07:37 Pulse 59 L 02/25/23 07:37 Resp 16 02/25/23 07:37 BP 125/63 02/25/23 07:37 Pulse Ox 98 02/25/23 07:37 Laboratory Results - last 24 hr 02/24/23 02/24/23 02/24/23 06:14 08:00 18:20 WBC Cancelled RBC Cancelled Hgb Cancelled Hct Cancelled MCV Cancelled MCH Cancelled MCHC Cancelled RDW Cancelled Plt Count Cancelled MPV Cancelled Immature Gran % Cancelled Neutrophils % Cancelled Band Neutrophils % Cancelled Lymphocytes % Cancelled Atypical Lymphs % Cancelled Monocytes % Cancelled Eosinophils % Cancelled Basophils % Cancelled Metamyelocytes % Cancelled Myelocytes % Cancelled Promyelocytes % Cancelled Other Cells % Cancelled Nucleated RBC % Cancelled Absolute Neutrophils Cancelled Absolute Lymphocytes Cancelled Absolute Monocytes Cancelled Absolute Eosinophils Cancelled Absolute Basophils Cancelled RBC Morphology Cancelled Polychromasia Cancelled Hypochromasia Cancelled Poikilocytosis Cancelled Basophilic Stippling Cancelled Anisocytosis Cancelled Microcytosis Cancelled Macrocytosis Cancelled Spherocytes Cancelled Tear Drop Cells Cancelled Ovalocytes Cancelled Stomatocytes Cancelled Razo-[place] Bodies Cancelled Christiano Cells/Echinocytes Cancelled Acanthocytes (Spur) Cancelled Schistocytes Cancelled Sodium Cancelled Potassium Cancelled Chloride Cancelled Carbon Dioxide Cancelled Anion Gap Cancelled BUN Cancelled Creatinine Cancelled Est GFR (CKD-EPI 2020) Cancelled Glucose Cancelled Calcium Cancelled Magnesium Cancelled C-Reactive Protein Procalcitonin 0.2 Urine Color Yellow Urine Clarity Clear Urine pH 5.5 Ur Specific Holder 1.010 Urine Protein Negative Urine Ketones Negative Urine Blood Negative Urine Nitrite Negative Urine Bilirubin Negative Urine Urobilinogen 0.2 Ur Leukocyte Esterase Negative Urine Glucose Negative 02/25/23 02/25/23 06:15 07:45 WBC 13.49 H Cancelled RBC 3.87 L Cancelled Hgb 10.7 L Cancelled Hct 33.0 L Cancelled MCV 85 Cancelled MCH 27.6 Cancelled MCHC 32.4 Cancelled RDW 13.6 Cancelled Plt Count 267 Cancelled MPV 12.1 H Cancelled Immature Gran % 0.7 Cancelled Neutrophils % 64.8 Cancelled Band Neutrophils % Cancelled Lymphocytes % 20.5 Cancelled Atypical Lymphs % Cancelled Monocytes % 8.2 Cancelled Eosinophils % 5.1 Cancelled Basophils % 0.7 Cancelled Metamyelocytes % Cancelled Myelocytes % Cancelled Promyelocytes % Cancelled Other Cells % Cancelled Nucleated RBC % 0.0 Cancelled Absolute Neutrophils 8.74 H Cancelled Absolute Lymphocytes 2.77 Cancelled Absolute Monocytes 1.11 H Cancelled Absolute Eosinophils 0.69 Cancelled Absolute Basophils 0.09 Cancelled RBC Morphology Cancelled Polychromasia Cancelled Hypochromasia Cancelled Poikilocytosis Cancelled Basophilic Stippling Cancelled Anisocytosis Cancelled Microcytosis Cancelled Macrocytosis Cancelled Spherocytes Cancelled Tear Drop Cells Cancelled Ovalocytes Cancelled Stomatocytes Cancelled Razo-[place] Bodies Cancelled [place] Cells/Echinocytes Cancelled Acanthocytes (Spur) Cancelled Schistocytes Cancelled Sodium 132 L Potassium 4.6 Chloride 98 Carbon Dioxide 23.8 Anion Gap 10.2 BUN 37 H Creatinine 1.7 H Est GFR (CKD-EPI 2020) 31.27 Glucose 109 H Calcium 9.3 Magnesium 2.2 Cancelled C-Reactive Protein 10.81 H Procalcitonin Urine Color Urine Clarity Urine pH Ur Specific Holder Urine Protein Urine Ketones Urine Blood Urine Nitrite Urine Bilirubin Urine Urobilinogen Ur Leukocyte Esterase Urine Glucose Time Spent with Patient Time Spent with Patient: <25 minutes Time was spent: preparing to see the patient(eg.review tests), obtaining and/or reviewing separately [facility], ordering medications,tests, procedures, referring, communicating with other health rn managed care and indepentently interpreting results
[2023-02-25 08:17] LABS: C Diff PCR Negative (Negative)
[2023-02-25 08:50] LABS: Lab Add On Test DONE
--- NOTE | 2023-02-25 08:54 | CMPROGNOTE_ITS ---
Date of service: 02/25/23 Time of Service: 08:54 Care Management Progress Note Progress Note Text Progress Note Text: S/O: Nadya was sitting up in bed when CM met with her. She is progressing well with PT and has been able to ambulate longer distances with less assistance. Nadya still feels nervous aboput dischargeing home at this point however as she lives alone. She will transition to [facility] today for continues rehab with a goal to discharge on Wednesday. A:Nadya is a 72 year old woman admitted on 02/20/23 with a fractured ankle p: Nadya will be discharged to [facility] for continued rehab prior to discharging home. She will follow up with her orthopedic surgeon, PCP and plan of care. Transportation will be dependent on her disposition. CM will follow and support discharge planning needs.
[2023-02-25 09:28] LABS: Procalcitonin 0.2 ng/mL
--- NOTE | 2023-02-25 09:39 | PTTR_ITS ---
Date of service: 02/25/23 Time of Service: 09:08 PT Notes Visit Reasons: Trimalleolar fracture Inpatient Physical Therapy Treatment Note [facility] Date: 02/25/23 PRECAUTIONS: Fall, standard, activity as tolerated. PARTIAL WEIGHTBEARING < 50% LLE. SUBJECTIVE: Patient reports having had a rough night due to an episode of urinary retention requiring catheterization, as well as an episode of fecal incontinence which required much assistance cleaning up. States that she is feeling better now. Also reports that while rolling to the right to get cleaned up, believes she pulled a muscle or something, indicating pain just inferior to lateral ribcage on right side, right upper quadrant of abdomen. This bothers patient any time she tries to move her torso. AFTERNOON: Patient reports significant increase in Right shoulder pain. OBJECTIVE: Supine in bed with LLE elevated on 2 pillows. Patient requires assistance to get blankets off her foot. Agreeable to therapy. ? PAIN: Shoulder is bothering patient again today. Also, pulled muscle in right upper quadrant of abdomen. VITALS: monitored by nursing staff.? Therapeutic Activities ([id number]): Direct one-on-one instruction in dynamic activities to improve functional performance. ? BED MOBILITY/TRANSFERS? Rolling L/R: Patient reports pain, requests to use bilateral side rails as this makes rolling easier. Patient does not have side rails at home. Supine-sit: modified independent with HOB maximally elevated and use of bilateral side rails. From flat bed with no side rails, patient requires min assist today due to pain from pulled muscle.? Sit-supine: Independent in flat bed with no side rails. Patient requires min assist to position 2 pillows under leg, is dependent for positioning ice packs on sides of ankle, min assist to cover with blankets (patient unable to toss blanket over LLE) ? Sit-stand: SBA? Stand-sit: SBA ? Bed-Chair: SBA ? Chair-bed: SBA Provided skilled cues and instruction on performance and technique throughout. Gait Training ([id number]): Direct one-on-one instruction and skilled instruction in: [] employing an assistive device [x] modified weight-bearing status - patient reports that she is likely putting too much weight through her foot as her shoulder and abdomen are bothering her today more than her foot is. Risks reviewed with patient, as well as giving verbal and tactile cues to facilitate comfortable weightbearing through arms. Patient reports improved compliance after this. [] movement sequencing [] turning and movement with proper form [x] Provided verbal cues for equipment management and technique - including verbal and tactile cues for appropriate muscle recruitment and weight shift into arms with ambulation [] Provided instruction in gait pattern [] Patient education regarding pacing and breathing techniques to maximize activity tolerance? GAIT? Assistive Device: FWW? Weight bearing: PWB < 50% LLE Assist: SBA ? Distance:? 95 feet ? Deviation: Extreme short stride length, avg 4-6, antalgic step-to pattern with LLE leading. Reduced stance time LLE. Reduced jorge. ? Therapeutic Exercises ([id number]): Direct one-on-one instruction in therapeutic exercises to develop strength, endurance, range of motion and flexibility. ? Exercises * Seated marching 2x10. Tactile cues to keep the torso still to facilitate appropriate muscle recruitment. * LAQ's 2x10 * heel toe raises RLE only * toe scrunches BLE * triceps extensions BUE, 2x10 with yellow theraband * Shoulder external rotation isometrics 5 second hold, 5 second rest for 1x10 against pillow * serratus punches vs yellow theraband 1x10. Tactile cues to facilitate appropriate muscle activation, movement isolation. ASSESSMENT:? Patient tolerates therapy well, returning to rest comfortably in bed at end of treatment session, call vasquez within easy reach. PLAN: Continue global strengthening per plan of care until patient is safe to discharge home where she lives alone. TREATMENT CODE/TIME: 29 minutes beginning at 9:08 and 33 minutes beginning at 14:38 for a total of 62 minutes today.
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
[2023-02-25 15:25] VITALS: BP 131/67; PULSE 63; RESP 16; TEMP 37.6; O2SAT 97
[2023-02-25] MEDS: Insulin Aspart 300 UNITS/3 ML PEN SC (16:49)
[2023-02-26 00:05] LABS: Campylobacter PCR Negative (Negative); Salmonella PCR Negative (Negative); Shiga Toxin PCR Negative (Negative); Shigella/Enteroinvasive Ecoli Negative (Negative)
== END 2023-02-25 17:34 | disposition swing bed (61) ==
LOC: ER 15:22 → MS 16:27
PROVIDERS: Internal Medicine; Student in an Organized Health Care Education/Training Program; Admitting Provider Family Medicine; Emergency Provider Physician Assistant; PCP Nurse Practitioner Family; Visit Provider Family Medicine
PROC: (CPT 27822; principal; 2023-02-21 06:40)
DX: S82.852A Displaced trimalleolar fracture of left lower leg, initial encounter for closed fracture (principal); S80.02XA Contusion of left knee, initial encounter; S46.911A Strain of unspecified muscle, fascia and tendon at shoulder and upper arm level, right arm, initial encounter; N18.4 Chronic kidney disease, stage 4 (severe); E11.51 Type 2 diabetes mellitus with diabetic peripheral angiopathy without gangrene; W10.8XXA Fall (on) (from) other stairs and steps, initial encounter; E11.22 Type 2 diabetes mellitus with diabetic chronic kidney disease; I12.9 Hypertensive chronic kidney disease with stage 1 through stage 4 chronic kidney disease, or unspecified chronic kidney disease; J45.20 Mild intermittent asthma, uncomplicated; D72.829 Elevated white blood cell count, unspecified; E03.9 Hypothyroidism, unspecified; E87.1 Hypo-osmolality and hyponatremia; Z79.4 Long term (current) use of insulin; Z79.899 Other long term (current) drug therapy; K57.30 Diverticulosis of large intestine without perforation or abscess without bleeding; R60.0 Localized edema; E66.9 Obesity, unspecified; E78.5 Hyperlipidemia, unspecified; M81.0 Age-related osteoporosis without current pathological fracture; H35.30 Unspecified macular degeneration; Z68.35 Body mass index [BMI] 35.0-35.9, adult
CPT/HCPCS: 27822; 00123; 29515; 36415; 73562; 76000; 80048; 80053; 84145; 87077; 87493; 87505; 87635; 96361; 96365; 96366; 96372; 96374; 97110; 97116; 97162; 97530; 99223; 99285; 70450; 72125; 73030; 73600; 73610; 81003; 81015; 83735; 85025; 86140; 87086; 87186; 99232; 99239; J0690; J1644; J2001; J2371; J2405; J3010; J3490

== ENCOUNTER 2023-02-25 15:31 | Inpatient (IN) | payer MEDICARE, BC, SELFPAY ==
--- NOTE | 2023-02-25 13:22 | CM.SBPSYCH ---
Date of service: 02/25/23 Time of Service: 13:22 SB Psychosocial/Act. Assmt Hospital Admission Admission Date: 02/20/23 Admission From:: ED Diagnosis:: Fractured ankle Swing Bed Admission Swing Bed Admit Date:: 02/25/23 Swing Bed Level of Care: Level 1/SNF Social Supports PREVIOUS FUNCTIONAL STATUS/SOCIAL/FAMILY SUPPORTS:: Nadya lives alone in a double wide mobile home in [place]. She is , her in 2020 from complications from diabetes. Nadya has 2 children; her daughter Tamara lives in [facility] and her son Clemente lives in [place], [place]. Nadya stated that both children are supportive but that Clemente is particularly helpful with the lawn and shopping and any odd jobs she needs done. Nadya is independent at baseline and does not receive any services at this time. Prior to Admission Living Arrangements/Environment Prior to Admission:: Darling lives alone in a mobile home in [place]. She has a cat named Titus for companionship. Education Highest Grade Completed:: 12 Where did you attend School:: [employer] Special Education/Training:: computer courses/training Work History Employment Status:: Nadya worked at [employer], [employer] and [employer], all with computers [place]: No [place]'s Spouse: Yes Benefits Financial: Social Security, Other Pension and Medicare Catholic Active Pentecostal Member:: No Pentecostal Affliation: [facility] and later [place]. 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 Advance Directives for Healthcare Advance Directives for Healthcare: Advance Directives Advance Directive Agent: Son Clemente is DPOA. Nadya has ADs but they need updating as her is listed as [facility]. Community Community Supports/Involvement: Has had home health services and meals on Wheels in past but not currently. Interests Hobbies:: loves cats and kittens Crafts:: embroidery and once made a quilt Table Games:: Enjoyed playing games as a child and with her children such as Uncle Wiggly, Monopoly, Sorry, etc. Sports:: loved ice skating when younger and enjoys watching it now Music:: Jet Moya TV/Movies:: Dirty dancing, favorite book [employer] Gardening:: planed tulips, daffodils and hyacinths Reading:: Loves Teresa Ly and owns all of her books Present Functional Status Physical Abilities:: limited by current ankle fracture Cognitive:: intact Communication:: good communication skills Sensory Systems: wears glasses Medical History PAST MEDICAL HISTORY/PAST SURGICAL HISTORY:: Medical/Surgical History: Type 2 diabetes mellitus, chronic kidney disease, essential hypertension, hyperlipidemia, hypothyroidism, eosinophilic esophagitis, mild intermittent asthma, depressive disorder, obesity, and sigmoid diverticulosis. General Health:: fairly good, given comorbidities Admission Data Reason for Swing Bed Admission:: continued rehab prior to returning home Discharge Plan:: Nadya will be discharged home with new home health services for PT and nursing. She will follow up with her community providers and plan of care and transport with family or friends. Assessment: Nadya is a very pleasant 72 year old woman admitted to [facility] with a trimalleolar fracture of her left ankle Instrument Checker: Shantel Martinez Date Assessment was completed:: 02/25/23
--- NOTE | 2023-02-25 13:23 | CMSCP_ITS ---
Date of service: 02/25/23 Time of Service: 13:23 Swingbed Plan of Care Activites/Discharge Plan of care: SWING BED PROGRAM ACTIVITIES/DISCHARGE PLAN OF CARE ACTIVITIES PLAN Date:02/25/23 Identified Need:activity plan Intervention/Plan:Nadya enjoys reading and watching tv. She is very social and also enjoys visiting with her son and the [facility] staff. She declined offres from the activity cart but would enjoy pet therapy and music therapy when offered. [place] [facility] Date:02/25/23 Identified Need:safe discharge plan Intervention/Plan:Nadya will be discharged home with new home health orders for PT. She will follow up with her community providers and plan of care and transport with family. [place] [facility]
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
[2023-02-25] MEDS: Calcium 600mg/Vit D 200U TAB 1 TAB PO (19:35)
[2023-02-25] MEDS: Acetaminophen 325 MG TAB 650 MG PO (19:36)
[2023-02-25] MEDS: Lidocaine Patch Removal 1 EACH TP (19:37)
[2023-02-25 20:48] VITALS: BP 116/72; PULSE 64; RESP 16; TEMP 37.3; O2SAT 97
[2023-02-25] MEDS: Patient's Own Medication 1 EACH MISC PO (21:11)
[2023-02-25] MEDS: Melatonin 3 MG TAB 6 MG PO (21:11)
[2023-02-25] MEDS: Atorvastatin 10 MG TAB PO (21:11)
[2023-02-25] MEDS: Heparin 5,000 UNITS/ML VIAL 5000 UNITS SC (21:12)
[2023-02-26] MEDS: Acetaminophen 325 MG TAB 650 MG PO ×5 (00:47→23:10)
[2023-02-26 02:59] VITALS: BP 118/67; PULSE 57; RESP 16; TEMP 36.4; O2SAT 99
[2023-02-26] MEDS: Levothyroxine 100 MCG TAB PO (06:08)
[2023-02-26] MEDS: Heparin 5,000 UNITS/ML VIAL 5000 UNITS SC ×3 (06:09→20:24)
[2023-02-26 07:21] VITALS: BP 115/65; PULSE 58; RESP 16; TEMP 36.7; O2SAT 95
[2023-02-26] MEDS: Calcium 600mg/Vit D 200U TAB 1 TAB PO ×2 (07:44→20:24)
[2023-02-26] MEDS: Lisinopril 20 MG TAB 40 MG PO (07:45)
[2023-02-26] MEDS: Omeprazole 20 MG CAPCR PO (07:46)
[2023-02-26] MEDS: Magnesium Oxide 400 MG TAB PO (07:47)
[2023-02-26] MEDS: FLUoxetine 20 MG CAP PO (07:48)
[2023-02-26] MEDS: Chlorthalidone 25 MG TAB PO (07:48)
[2023-02-26] MEDS: amLODIPine 10 MG TAB PO (07:48)
[2023-02-26] MEDS: Lidocaine 5% Patch 1 PATCH TP (07:50)
[2023-02-26] MEDS: Patient's Own Medication 1 EACH MISC PO (07:56)
[2023-02-26] MEDS: Insulin Glargine 300 UNITS/3 ML PEN 25 UNITS SC (07:58)
--- NOTE | 2023-02-26 09:24 | PTTR_ITS ---
Date of service: 02/26/23 PT Notes Visit Reasons: Closed Trimalleolar Fracture of L Ankle Inpatient Physical Therapy Treatment Note [facility] Date: 02/26/23 PRECAUTIONS: Fall, standard, activity as tolerated. PARTIAL WEIGHTBEARING (< 50%) LLE. SUBJECTIVE: Patient reports feeling pretty good. States that DPT Patricia Toussaint instructed her on AAROM shoulder flexion and it hurt initially but the more she has done, the pain has calmed down considerably. OBJECTIVE: supine in bed, agreeable to therapy.? PAIN: none reported. VITALS: monitored by nursing staff. ? BED MOBILITY/TRANSFERS? Rolling L/R: independent Supine-sit: independent ? Sit-supine: independent ? Sit-stand: independent ? Stand-sit: independent ? Bed-Chair: SBA ? Chair-bed: SBA ? Therapeutic Exercises ([id number]): Direct one-on-one instruction in therapeutic exercises to develop strength, endurance, range of motion and flexibility. ? Exercises: Created and reviewed HEP with patient as follows: ? Access Code: [email or web address] URL: [email or web address]/ Date: 02/26/2023 Prepared by: Paula Conner Exercises - Standing Isometric Shoulder Internal Rotation at Doorway - 1 x daily - 7 x weekly - 3 sets - 10 reps - Isometric Shoulder External Rotation at Wall - 1 x daily - 7 x weekly - 3 sets - 10 reps - Seated Serratus Punch with Resistance - 1 x daily - 7 x weekly - 3 sets - 10 reps - Seated AAROM Shoulder Flexion - 1 x daily - 7 x weekly - 3 sets - 10 reps Advised patient that internal and external shoulder rotation can be done vs other hand, cueing for hand placement, cueing for isometric contraction only to pain-free degree of contraction. Ambulation ? Assistive Device: FWW? Weight bearing: PWB < 50% LLE Assist: CGA to manage gown, brief ? Distance:? 200 feet with 1 seated rest at approximately 75 feet? Deviation: antalgic step to gait pattern with left leg leading, slightly longer stride length today closer to 12. ? Provided skilled instruction in proper exercise performance Provided skilled manual cues to facilitate proper muscle recruitment and/or form. ASSESSMENT:? Patient tolerates therapy well, no SOB, no LOB, no c/o increased pain after therapy. PLAN: continue global strengthening per plan of care until patient is cleared and safe to go home and live independently. TREATMENT CODE/TIME: 28 minutes beginning at 13:20
--- NOTE | 2023-02-26 09:25 | PT.INIE ---
PT Notes Visit Reasons: Closed Trimalleolar Fracture of L Ankle Inpatient Physical Therapy Swing Bed Evaluation Date: February 26, 2023 Referring Doctor: Dr. Camacho PT Orders: PT CONSULT: Limited ability to ambulate Status post Ortho surgery Precautions: Partial weightbearing (less than 50%) left ankle Patient Profile/Admitting Diagnosis: This is a 72 yo female with a PMH of DM2 on insulin, macular degeneration, CKD, osteoporosis, mild intermittent asthma, HTN, depression. She presented to the ED after following a fall down a flight of stairs after a misstep/losing her balance. She suffered trimalleolar fracture and nderwent ORIF left ankle February 21, 2023. She participated in PT 1-2x/day during her acute care stay from 02/21/23 - 02/25/23, then transitioned to Swing Bed level of care. New referral received today for rehabilitation on Swing Bed status. Review of Systems All systems reviewed & are unremarkable except as noted in HPI and below PFSH All Active Problems Closed trimalleolar fracture of left ankle (Acute 02/20/23) Contusion of knee, left (Acute) Fall (Acute) Right shoulder strain (Acute) Diabetes mellitus with peripheral angiopathy (Acute) Corns and callosities (Acute) Localized edema (Acute) Nail dystrophy (Acute) Macular degeneration of both eyes (Chronic) CKD (chronic kidney disease) stage 4, GFR 15-29 ml/min (Chronic) Trigger finger, right ring finger (Chronic) Osteoporosis (Chronic) Dexa 2019. Fosamax initiated 11/2019Sigmoid diverticulosis (Chronic) Mild intermittent asthma (Chronic) Type 2 diabetes mellitus (Chronic) Eosinophilic esophagitis (Chronic) EGD 10/21 Obesity (Chronic) Hypothyroidism (Chronic) Hyperlipidemia (Chronic) Essential hypertension (Chronic) Depressive disorder (Chronic) Medical History Diarrhea Tubular adenoma of colon On colonoscopy in 2013, not on repeat in 2014 or 2019Iron deficiency anemia Tubulovillous adenoma of colon (~10/2013) On colonoscopy in 2014. Not on repeat in 2014 or 2019 Surgical History Status post total left knee replacement (04/17/20) Status post right knee replacement (04/25/19) S/P trigger finger release (10/03/19) S/P colonoscopy (10/27/13) Hx of esophagogastroduodenoscopy (10/27/13) S/P cataract surgery (08/01/13) Right - 08/01/13; Left - 08/16//P removal of ovarian cyst History of bilateral tubal ligation Social History/Home Situation: Lives alone single level dwelling with ramp upon entry. Was ambulating without assistive device prior to injury Current Functional Limitations: Bed mobility, transfers, ambulation Equipment Owned/DME: Rollator walker, ramp, grab bars Subjective: Shari states that her mobility is coming along. She struggles with getting in/out of bed on her own, and with walking more than short distances. She has continued right shoulder pain with bed mobility and walker use. Objective: General Observation: Resting in bed with no lines. Mental Status: Alert and oriented x3. Pain: 4/10 right shoulder, 1/10 left foot/ankle ROM: Right Upper Extremity:Shoulder flexion allows 120* actively, 165 AAROM. ER to 45*, IR allows hand to abdomen. Left Upper Extremity: Within functional limits pain-free shoulder, elbow, wrist and hand Right Lower Extremity: Hip knee and ankle within functional limits pain-free. Left Lower Extremity: Hip flexion 100 degrees, knee flexion and extension within functional limits. Left ankle not assessed secondary to immobilization Strength: Right Upper Extremity: Glenohumeral joint flexion and abduction 3-/5, internal and external rotation 4/5 pain-free, bicep tricep 4/5 pain-free. Good shelf filler Left Upper Extremity: Glenohumeral joint flexion and abduction 4/5, internal and external rotation 4/5, bicep and tricep 4/5 pain-free. Good shelf filler Right Lower Extremity: Perform straight leg raise with 0 degree lag. Hip flexion 4/5, knee flexion and extension 4 -/5, ankle inversion and eversion 4-/5, dorsiflexion plantarflexion 4/5 Left Lower Extremity: Straight leg raise without lag. Hip flexion 4 -/5, knee flexion and extension s 4 /5. Able to wiggle toes. Bed Mobility/Transfers: Supine-sit: ? ? Independent with HOB flat. Requires increased time to perform. ? Sit-supine: Independent with HOB flat. Requires increased time to perform. ? Sit-stand: independent? Stand-sit: independent? Gait: Ambulates 50' with front wheel walker and contact-guard. Maintains weightbearing status without need for cues. Balance: Static Sitting: Good Dynamic Sitting: Good Static Standing: Fair Dynamic Standing: Fair Special Tests: Mobility Limitations Standardized Measure [facility]-PAC 6 clicks Basic Mobility Inpatient Short Form: Raw Score: 21 Standardized Score: 29% Informed Consent/Education: Patient instructed in purpose of PT consult and plan of care. Treatment: Today's session consisted of evaluation, followed by instruction in seated AAROM for shoulder flexion, 3 reps. Assessment: Patient is a 72year old female referred to physical therapy services with the diagnosis of status post ORIF left ankle. Patient presents with clinical signs and symptoms consistent with above diagnosis, complicated by right shoulder tendinopathy making weightbearing to walker challenging. She is tolerating progressive ambulation, and requires continued skilled PT intervention to maximize mobility and allow for safe return home. She currently demonstrates the following impairment level findings: 1. Immobilized left ankle 2. PWB status left lower extremity 3. Decreased activity tolerance 4. decreased balance Impairments are contributing to the following functional limitations: 1. Unable to independently ambulate household distances 2. Increased time to perform bed mobility 3. decreased activity tolerance 4. Right shoulder pain With ambulation Patient is assessed as Low 54094 complexity based on the following: History: See above Examination: See above Presentation: Evolving Decision Making: AM-PAC Goals: Goals X1 week 1. Supine-Sit : Independent (MET) 2. Sit-Supine: Independent(MET) 3. Sit-Stand: Standby assist front wheel walker(MET) 4. Stand-Sit standby assist front wheel walker: (MET) 5. Bed-Chair: Standby assist with front wheel walker(MET) 6. Chair-Bed: Standby assist with front wheel walker (MET) 7. Gait: 200 feet with front wheel walker standby assist (Progressing Toward) Plan of Care/Treatment Plan: 1-2x/day, 7 days/week x 1 week. Plan of care has been reviewed with the HEAT SET OPERATOR providing the service under Physical Therapy direction. Initiate Physical Therapy intervention for strengthening, bed mobility, transfers, gait, stairs, balance training, use of assistive device. DISCHARGE RECOMMENDATIONS: Home with PT TREATMENT CODE/TIME: [id number] ([id number]) Thank you for this referral. Patricia Toussaint PT, DPT [place] [facility]
[2023-02-26] MEDS: Insulin Aspart 300 UNITS/3 ML PEN SC ×2 (11:48→16:58)
[2023-02-26 14:54] VITALS: BP 130/56; PULSE 63; RESP 18; TEMP 36.9; O2SAT 96
[2023-02-26] MEDS: Atorvastatin 10 MG TAB PO (20:24)
[2023-02-26] MEDS: Melatonin 3 MG TAB 6 MG PO (20:24)
[2023-02-26] MEDS: Lidocaine Patch Removal 1 EACH TP (21:25)
[2023-02-26 23:05] VITALS: BP 136/58; PULSE 61; RESP 16; TEMP 37.1; O2SAT 97
[2023-02-27] MEDS: Heparin 5,000 UNITS/ML VIAL 5000 UNITS SC ×3 (05:36→22:59)
[2023-02-27] MEDS: Levothyroxine 100 MCG TAB PO (05:36)
[2023-02-27] MEDS: Acetaminophen 325 MG TAB 650 MG PO ×3 (05:36→18:02)
[2023-02-27 07:59] VITALS: BP 139/68; PULSE 60; RESP 16; TEMP 36.5; O2SAT 95
[2023-02-27] MEDS: Lisinopril 20 MG TAB 40 MG PO (08:28)
[2023-02-27] MEDS: FLUoxetine 20 MG CAP PO (08:29)
[2023-02-27] MEDS: amLODIPine 10 MG TAB PO (08:29)
[2023-02-27] MEDS: Omeprazole 20 MG CAPCR PO (08:29)
[2023-02-27] MEDS: Atenolol 50 MG TAB PO (08:29)
[2023-02-27] MEDS: Chlorthalidone 25 MG TAB PO (08:29)
[2023-02-27] MEDS: Magnesium Oxide 400 MG TAB PO (08:29)
[2023-02-27] MEDS: Insulin Glargine 300 UNITS/3 ML PEN 25 UNITS SC (08:29)
[2023-02-27] MEDS: Calcium 600mg/Vit D 200U TAB 1 TAB PO ×2 (08:29→19:39)
[2023-02-27] MEDS: Lidocaine 5% Patch 1 PATCH TP (08:31)
[2023-02-27] MEDS: Insulin Aspart 300 UNITS/3 ML PEN SC (12:02)
--- NOTE | 2023-02-27 12:02 | PT.INTREAT ---
PT Notes Visit Reasons: Closed Trimalleolar Fracture of L Ankle Date: 02/27/23 PRECAUTIONS: Fall, standard, activity as tolerated. PARTIAL WEIGHTBEARING (< 50%) LLE. SUBJECTIVE: Pt in recliner when approached for therapy this morning. pt agreed to participating with therapy OBJECTIVE: ? PAIN: 07/17 left ankle VITALS: monitored by nursing staff. ? BED MOBILITY/TRANSFERS? Rolling L/R: independent Supine-sit: independent ? Sit-supine: independent ? Sit-stand: independent ? Stand-sit: independent ? Bed-Chair: independent ? Chair-bed: independent Ambulation ? Assistive Device: FWW? Weight bearing: PWB < 50% LLE Assist: SBA WC follow for feeling of security ? Distance:? 250' continuos? Deviation: Increased BUE loading, antalgic step on the left LE, step to gait pattern. ? Provided skilled instruction in proper exercise performance Provided skilled manual cues to facilitate proper muscle recruitment and/or form. ASSESSMENT:? Pt very proud of increased distance and endurance while walking, noticed less shoulder discomfort post session, cryo for thje left ankle and ;left knee post session. recliner repositioning for comfort, safety and proper body alignment. call vasquez setup, and side table prior to leaving pt room. PLAN: continue global strengthening per plan of care until patient is cleared and safe to go home and live independently. TREATMENT CODE/TIME: [id number] 30mins 10:30-11:00am
[2023-02-27 17:48] VITALS: BP 122/60; PULSE 61; RESP 18; TEMP 36.7; O2SAT 99
[2023-02-27] MEDS: Atorvastatin 10 MG TAB PO (19:39)
[2023-02-27] MEDS: oxyCODONE 5 MG TAB PO (19:39)
[2023-02-27] MEDS: Melatonin 3 MG TAB 6 MG PO (19:39)
[2023-02-27] MEDS: Lidocaine Patch Removal 1 EACH TP (19:40)
[2023-02-27 20:29] VITALS: BP 124/51; PULSE 57; RESP 18; TEMP 36.6; O2SAT 96
[2023-02-27 22:48] LABS: Abs Immature Grans 0.25 10^3/uL (0.0-0.06); Absolute Eosinophil Count 0.59 10^3/uL (0.0-0.7); Absolute Lymphocyte Count 3.34 10^3/uL (1.2-3.4); Absolute Monocyte Count 1.23 10^3/uL (0.1-0.8); Absolute Neutrophil Count 8.14 10^3/uL (1.2-6.7); Basophils % 0.7; Eosinophils % 4.3; HCT 29.7 % (36.0-46.0); HGB 9.9 g/dL (11.2-15.7); Immature Grans % 1.8; Lymphocytes % 24.5; MCHC 33.3 % (32.0-36.0); MCV 84 fL (80-95); Neutrophils % 59.7; Platelet Count 307 10^3/uL (130-400); RBC 3.54 10^6/uL (3.93-5.22); RDW 13.2 % (11.7-14.6); RDW-SD 40.8 fL; WBC 13.64 10^3/uL (4.4-10.8)
[2023-02-28] MEDS: Acetaminophen 325 MG TAB 650 MG PO ×4 (02:00→23:37)
[2023-02-28 07:41] VITALS: BP 113/69; PULSE 57; RESP 18; TEMP 36.7; O2SAT 96
[2023-02-28] MEDS: Insulin Glargine 300 UNITS/3 ML PEN 25 UNITS SC (07:53)
[2023-02-28] MEDS: amLODIPine 10 MG TAB PO (07:54)
[2023-02-28] MEDS: Calcium 600mg/Vit D 200U TAB 1 TAB PO ×2 (07:54→22:25)
[2023-02-28] MEDS: Lisinopril 20 MG TAB 40 MG PO (07:54)
[2023-02-28] MEDS: Magnesium Oxide 400 MG TAB PO (07:54)
[2023-02-28] MEDS: Lidocaine 5% Patch 1 PATCH TP (07:55)
[2023-02-28] MEDS: Chlorthalidone 25 MG TAB PO (07:55)
[2023-02-28] MEDS: Omeprazole 20 MG CAPCR PO (07:55)
[2023-02-28] MEDS: FLUoxetine 20 MG CAP PO (07:55)
[2023-02-28] MEDS: Heparin 5,000 UNITS/ML VIAL 5000 UNITS SC ×3 (07:57→22:25)
[2023-02-28] MEDS: Insulin Aspart 300 UNITS/3 ML PEN SC ×2 (12:07→17:03)
--- NOTE | 2023-02-28 13:23 | PT.INTREAT ---
PT Notes Visit Reasons: Closed Trimalleolar Fracture of L Ankle Date: 02/28/23 PRECAUTIONS: Fall, standard, activity as tolerated. PARTIAL WEIGHTBEARING (< 50%) LLE. SUBJECTIVE: Pt in recliner when approached for therapy this morning. pt reports sleeping well last night, pt agreed to participating with therapy OBJECTIVE: ? PAIN: 06/19 left ankle VITALS: monitored by nursing staff. ? BED MOBILITY/TRANSFERS? Rolling L/R: independent Supine-sit: independent ? Sit-supine: independent ? Sit-stand: independent ? Stand-sit: independent ? Bed-Chair: independent ? Chair-bed: independent Ambulation ? Assistive Device: FWW? Weight bearing: PWB < 50% LLE Assist: SBA WC follow for feeling of security ? Distance:? 250', 200' seated rest break in between distance? Deviation: Increased BUE loading, antalgic step on the left LE, step to gait pattern. ? Provided skilled instruction in proper exercise performance Provided skilled manual cues to facilitate proper muscle recruitment and/or form. ASSESSMENT:? pt very motivated and is working hard on getting better so she could go back to her cat, improved almost a hundred percent compared to previous distance with pt also doing faster pace and increased stability. PLAN: continue global strengthening per plan of care until patient is cleared and safe to go home and live independently. TREATMENT CODE/TIME: [id number] 40mins 9:42-10:22am
[2023-02-28 15:27] VITALS: BP 133/60; PULSE 60; RESP 18; TEMP 36.3; O2SAT 97
[2023-02-28] MEDS: Melatonin 3 MG TAB 6 MG PO (22:25)
[2023-02-28] MEDS: Atorvastatin 10 MG TAB PO (22:25)
[2023-02-28] MEDS: Lidocaine Patch Removal 1 EACH TP (22:26)
[2023-02-28] MEDS: oxyCODONE 5 MG TAB PO (22:33)
[2023-02-28 22:34] VITALS: BP 133/76; PULSE 57; RESP 16; TEMP 36.5; O2SAT 98
[2023-03-01] MEDS: Acetaminophen 325 MG TAB 650 MG PO ×2 (06:28→13:47)
[2023-03-01] MEDS: Heparin 5,000 UNITS/ML VIAL 5000 UNITS SC (06:28)
[2023-03-01] MEDS: Levothyroxine 100 MCG TAB PO (06:28)
[2023-03-01 06:59] LABS: HCT 30.7 % (36.0-46.0); HGB 10.1 g/dL (11.2-15.7); MCH 27.5 pg (27.0-33.0); MCHC 32.9 % (32.0-36.0); MCV 84 fL (80-95); MPV 11.1 fL (8.0-11.0); Platelet Count 346 10^3/uL (130-400); RBC 3.67 10^6/uL (3.93-5.22); RDW 13.3 % (11.7-14.6); RDW-SD 40.7 fL; WBC 15.67 10^3/uL (4.4-10.8)
[2023-03-01 07:38] VITALS: BP 151/78; PULSE 74; RESP 17; TEMP 36; O2SAT 97
[2023-03-01] MEDS: Lidocaine 5% Patch 1 PATCH TP (08:03)
[2023-03-01] MEDS: FLUoxetine 20 MG CAP PO (08:04)
[2023-03-01] MEDS: Chlorthalidone 25 MG TAB PO (08:04)
[2023-03-01] MEDS: Lisinopril 20 MG TAB 40 MG PO (08:04)
[2023-03-01] MEDS: Atenolol 50 MG TAB PO (08:04)
[2023-03-01] MEDS: Magnesium Oxide 400 MG TAB PO (08:04)
[2023-03-01] MEDS: amLODIPine 10 MG TAB PO (08:05)
[2023-03-01] MEDS: Omeprazole 20 MG CAPCR PO (08:05)
[2023-03-01] MEDS: Calcium 600mg/Vit D 200U TAB 1 TAB PO (08:05)
[2023-03-01] MEDS: Insulin Glargine 300 UNITS/3 ML PEN 25 UNITS SC (08:11)
--- NOTE | 2023-03-01 10:06 | PDOC.CMDIS ---
Date of service: 03/01/23 Time of Service: 10:07 LACE Index Scoring Tool Questions: Length of Stay (in days): 7 - 13 Was the patient admitted via the E.D.?: Yes Comorbidities: Diabetes w/o Complication and Liver or Renal Disease E.D. Visits: 1 Answers: Total Score: 14 Risk of Readmission: High Risk Care Management Discharge Plan Reason for Hospitalization: fractured ankle Discharge Plan: Nadya will be discharged home with new home health orders for PT. She will follow up with her community providers and plan of care and transport with family. Patient/Family Education Needs: Review of discharge instructions, limitations, follow up plan, discuss Ask Me Three Services Needed at Discharge: Home Health Care Services
--- NOTE | 2023-03-01 10:14 | PT.INTREAT ---
Date of service: 03/01/23 Time of Service: 09:54 PT Notes Visit Reasons: Closed Trimalleolar Fracture of L Ankle Inpatient Physical Therapy Treatment Note [facility] Date: 03/01/23 PRECAUTIONS: Fall, standard, activity as tolerated. PWB < 50% LLE. SUBJECTIVE: Patient reports she is excited to get home. Feels very confident in her ability to care for herself at home. OBJECTIVE: Patient sitting up in recliner, pillow under left leg, ice pack on medial side of ankle splint. ? PAIN: Patient reports decreased pain in foot as well as shoulder. VITALS: monitored by nursing staff. ? BED MOBILITY/TRANSFERS? Rolling L/R: independent Supine-sit: independent ? Sit-supine: independent ? Sit-stand: independent ? Stand-sit: independent ? Bed-Chair: independent ? Chair-bed: independent ? Therapeutic Exercises ([id number]): Direct one-on-one instruction in therapeutic exercises to develop strength, endurance, range of motion and flexibility. ? Exercises ? Reviewed HEP. Advised patient on independently positioning theraband. Ambulation ? Assistive Device: FWW ? Weight bearing: full Assist: SBA ? Distance:? 250 feet ? Deviation: Lidia still reduced compared to patient's baseline, however patient ambulates much more briskly today than she was able to on Wednesday. Antalgic, step to gait pattern with left leg leading. Patient much more comfortable and confident in putting weight through arms, keeping LLE < 50% weightbearing. ? Provided skilled instruction in proper exercise performance Provided skilled manual cues to facilitate proper muscle recruitment and/or form. ASSESSMENT:? Patient tolerates therapy well, is ready and eager to go home. Set up in recliner with pillow under LLE and ice packs on either side of her ankle, table and walker within easy reach. PLAN: Continue global strengthening per plan of care until patient discharges home. TREATMENT CODE/TIME: 16 minutes beginning at 9:54
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
--- NOTE | 2023-03-01 12:57 | PDOC.HHF2F_ITS ---
Home Health Referral Home Health Orders Clinical synopsis of why skilled professionals are needed: Physical therapy: To continue global strengthening as the patient was able to ambulate with assist devices and less of fifty percent weight bearing to her left lower extremity Occupational Therapy: To provide assistance with ADL's such as bathing Physical Therapist: Check all that apply Increase strength & endurance for safe mobility at home: Ordered To design/establish home maintenance program: Ordered Fall reduction therapy program for patient with history of frequent falls: Ordered Home safety evaluation and teaching/gait training including stair management (if applicable): Ordered Occupational Therapist: Evaluate and treat for patient unable to perform ADL/IADL/self-care: Ordered Home Bound Status Requires the aid of supportive device (check all that apply): Walker Encounter Date and Reason: I certify that a FTF encounter for this patient was performed on March 01, 2023 and that such encounter was related to the primary reason the patient requires home health services. The encounter was conducted in the following manner: * By me as the certifying physician, GLAZIER STAINED GLASS, PA or * By an inpatient physician, GLAZIER STAINED GLASS or PA during an inpatient stay who communicated findings to me, Certification And Authentication I certify that I composed the above information based on my clinical judgment relating to this patient's medical condition and, if applicable, clinical findings communicated to me by the NPP or inpatient physician who performed the FTF encounter. Name of Provider that will be monitoring home health services: primary care provider
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
--- NOTE | 2023-03-04 14:54 | PT.INDS ---
PT Notes Visit Reasons: Closed Trimalleolar Fracture of L Ankle Inpatient Physical Therapy Discharge Summary Dates of Service: 02/21/23 - 03/01/23 Referring Doctor: Dr. Camacho PT Orders: PT CONSULT: Limited ability to ambulate Status post Ortho surgery Precautions: Partial weightbearing (less than 50%) left ankle This document serves as a summary of care. No PT services were provided on this date. Patient Profile/Admitting Diagnosis: This is a 72 yo female with a PMH of DM2 on insulin, macular degeneration, CKD, osteoporosis, mild intermittent asthma, HTN, depression. She presented to the ED after following a fall down a flight of stairs after a misstep/losing her balance. She suffered trimalleolar fracture and nderwent ORIF left ankle February 21, 2023. She participated in PT 1-2x/day during her acute care stay from 02/21/23 - 02/25/23, then transitioned to Swing Bed level of care from 02/26/23 - 03/01/23 for a total of 14 sessions over the full length of her stay. She demonstrated improvements in mobility sufficient to allow for safe return home with HH PT. Review of Systems All systems reviewed & are unremarkable except as noted in HPI and below PFSH All Active Problems Closed trimalleolar fracture of left ankle (Acute 02/20/23) Contusion of knee, left (Acute) Fall (Acute) Right shoulder strain (Acute) Diabetes mellitus with peripheral angiopathy (Acute) Corns and callosities (Acute) Localized edema (Acute) Nail dystrophy (Acute) Macular degeneration of both eyes (Chronic) CKD (chronic kidney disease) stage 4, GFR 15-29 ml/min (Chronic) Trigger finger, right ring finger (Chronic) Osteoporosis (Chronic) Dexa 2019. Fosamax initiated 11/2019Sigmoid diverticulosis (Chronic) Mild intermittent asthma (Chronic) Type 2 diabetes mellitus (Chronic) Eosinophilic esophagitis (Chronic) EGD 10/21 Obesity (Chronic) Hypothyroidism (Chronic) Hyperlipidemia (Chronic) Essential hypertension (Chronic) Depressive disorder (Chronic) Medical History Diarrhea Tubular adenoma of colon On colonoscopy in 2013, not on repeat in 2014 or 2019Iron deficiency anemia Tubulovillous adenoma of colon (~10/2013) On colonoscopy in 2014. Not on repeat in 2014 or 2019 Surgical History Status post total left knee replacement (04/17/20) Status post right knee replacement (04/25/19) S/P trigger finger release (10/03/19) S/P colonoscopy (10/27/13) Hx of esophagogastroduodenoscopy (10/27/13) S/P cataract surgery (08/01/13) Right - 08/01/13; Left - 08/16/17/P removal of ovarian cyst History of bilateral tubal ligation Social History/Home Situation: Lives alone single level dwelling with ramp upon entry. Was ambulating without assistive device prior to injury Current Functional Limitations: Bed mobility, transfers, ambulation Equipment Owned/DME: Rollator walker, ramp, grab bars Subjective: none obtained Objective: ROM: Right Upper Extremity:Shoulder flexion allows 120* actively, 165 AAROM. ER to 45*, IR allows hand to abdomen. Left Upper Extremity: Within functional limits pain-free shoulder, elbow, wrist and hand Right Lower Extremity: Hip knee and ankle within functional limits pain-free. Left Lower Extremity: Hip flexion 100 degrees, knee flexion and extension within functional limits. Left ankle not assessed secondary to immobilization Strength: Right Upper Extremity: Glenohumeral joint flexion and abduction 3-/5, internal and external rotation 4/5 pain-free, bicep tricep 4/5 pain-free. Good jewelry mechanic Left Upper Extremity: Glenohumeral joint flexion and abduction 4/5, internal and external rotation 4/5, bicep and tricep 4/5 pain-free. Good jewelry mechanic Right Lower Extremity: Perform straight leg raise with 0 degree lag. Hip flexion 4/5, knee flexion and extension 4 -/5, ankle inversion and eversion 4-/5, dorsiflexion plantarflexion 4/5 Left Lower Extremity: Straight leg raise without lag. Hip flexion 4 -/5, knee flexion and extension s 4 /5. Able to wiggle toes. BED MOBILITY/TRANSFERS? Rolling L/R: independent Supine-sit: independent ? Sit-supine: independent ? Sit-stand: independent ? Stand-sit: independent ? Bed-Chair: independent ? Chair-bed: independent Ambulation ? Assistive Device: FWW? Weight bearing: PWB < 50% LLE Assist: SBA WC follow for feeling of security ? Distance:? 250', 200' seated rest break in between distance? Balance: Static Sitting: Good Dynamic Sitting: Good Static Standing: Fair Dynamic Standing: Fair Assessment: Patient is a 72year old female referred to physical therapy following trimalleolar fracture s/p ORIF left ankle February 21, 2023. She participated in PT 1-2x/day during her acute care stay from 02/21/23 - 02/25/23, then transitioned to Swing Bed level of care from 02/26/23 - 03/01/23 for a total of 14 sessions over the full length of her stay. She demonstrated improvements in mobility sufficient to allow for safe return home with HH PT. Goals: Goals X1 week 1. Supine-Sit : Independent (MET) 2. Sit-Supine: Independent(MET) 3. Sit-Stand: Standby assist front wheel walker(MET) 4. Stand-Sit standby assist front wheel walker: (MET) 5. Bed-Chair: Standby assist with front wheel walker(MET) 6. Chair-Bed: Standby assist with front wheel walker (MET) 7. Gait: 200 feet with front wheel walker standby assist (MET) Plan of Care/Treatment Plan: D/C from PT services in acute care setting DISCHARGE RECOMMENDATIONS: Home with HH PT TREATMENT CODE/TIME: Thank you for this referral. Patricia Toussaint PT, DPT [facility]
== END 2023-03-01 13:59 | disposition home health service (06) | DRG 560 ==
PROVIDERS: Student in an Organized Health Care Education/Training Program; Admitting Provider Internal Medicine; PCP Nurse Practitioner Family; Visit Provider Internal Medicine
DX: S82.852D Displaced trimalleolar fracture of left lower leg, subsequent encounter for closed fracture with routine healing (principal); E87.1 Hypo-osmolality and hyponatremia; N18.4 Chronic kidney disease, stage 4 (severe); S80.02XD Contusion of left knee, subsequent encounter; D72.829 Elevated white blood cell count, unspecified; E11.51 Type 2 diabetes mellitus with diabetic peripheral angiopathy without gangrene; E11.22 Type 2 diabetes mellitus with diabetic chronic kidney disease; I12.9 Hypertensive chronic kidney disease with stage 1 through stage 4 chronic kidney disease, or unspecified chronic kidney disease; J45.20 Mild intermittent asthma, uncomplicated; Z96.652 Presence of left artificial knee joint; W19.XXXD Unspecified fall, subsequent encounter; K52.9 Noninfective gastroenteritis and colitis, unspecified; S46.912D Strain of unspecified muscle, fascia and tendon at shoulder and upper arm level, left arm, subsequent encounter; L60.3 Nail dystrophy; H35.30 Unspecified macular degeneration; R60.0 Localized edema; M81.0 Age-related osteoporosis without current pathological fracture; K57.30 Diverticulosis of large intestine without perforation or abscess without bleeding; K20.0 Eosinophilic esophagitis; E03.9 Hypothyroidism, unspecified; E78.5 Hyperlipidemia, unspecified; F32.A Depression, unspecified; D50.9 Iron deficiency anemia, unspecified; Z68.36 Body mass index [BMI] 36.0-36.9, adult; E66.9 Obesity, unspecified
CPT/HCPCS: 00123; 36415; 85027; 97110; 97116; 97161; 97530; 99306; 99316; 85025; J1644; J3490

== ENCOUNTER 2023-03-02 15:22 | Outpatient (CLI) | payer MEDICARE, BC, SELFPAY ==
--- NOTE | 2023-03-02 11:29 | DI.RAD_ITS ---
Exam(s) XR ANKLE LT COMPLETE EXAM: XR ANKLE LT COMPLETE CLINICAL HISTORY: F/U FRACTURE TECHNIQUE: 2D digital imaging was performed. Three views. COMPARISON: CR XR ANKLE LT COMPLETE from 02/24/2023 FINDINGS: There has been no change in the alignment of the hardware in the malleoli. The fractures show contin ued healing. Ankle mortise is not widened. No new findings. DATA REPOSITORY: RADIATION DOSE DELIVERED:
== END 2023-03-02 15:23 | disposition home or self-care (01) ==
LOC: DIORS 15:23
PROVIDERS: PCP Nurse Practitioner Family; Referring Provider Nurse Practitioner Family; Visit Provider Student in an Organized Health Care Education/Training Program
DX: S82.852A Displaced trimalleolar fracture of left lower leg, initial encounter for closed fracture (principal); S82.852D Displaced trimalleolar fracture of left lower leg, subsequent encounter for closed fracture with routine healing; X58.XXXD Exposure to other specified factors, subsequent encounter
CPT/HCPCS: 73610

== ENCOUNTER 2023-03-15 14:17 | Outpatient (CLI) | payer MEDICARE, BC, SELFPAY ==
--- NOTE | 2023-03-15 08:15 | DI.RAD_ITS ---
Exam(s) XR ANKLE LT 2V EXAM: XR ANKLE LT 2V CLINICAL HISTORY: F/U FRACTURE TECHNIQUE: 2D digital imaging was performed of the left ankle. Two images were obtained. AP, later al and oblique views were obtained. COMPARISON: CR XR ANKLE LT COMPLETE from 03/02/2023 FINDINGS: BONES: There again seen postsurgical changes of ORIF of the distal fibular and medial malleolar fract ures. Tiny fracture fragments are seen posteriorly consistent with a posterior malleolar fracture. There has been no change in alignment of the orthopedic hardware fracture components. No bony destru ctive lesion is seen. JOINTS:The ankle mortise is normally aligned. SOFT TISSUE: Soft tissue swelling is seen about the ankle particularly laterally. IMPRESSION: Stable fractures and postsurgical changes in the left ankle. DATA REPOSITORY: RADIATION DOSE DELIVERED:
== END 2023-03-15 14:18 | disposition home or self-care (01) ==
LOC: DIORS 14:17
PROVIDERS: PCP Nurse Practitioner Family; Referring Provider Nurse Practitioner Family
DX: S82.852D Displaced trimalleolar fracture of left lower leg, subsequent encounter for closed fracture with routine healing (principal); X58.XXXD Exposure to other specified factors, subsequent encounter
CPT/HCPCS: 73600

== ENCOUNTER 2023-03-24 16:03 | Outpatient (CLI) | payer MEDICARE, BC, SELFPAY ==
--- NOTE | 2023-03-24 14:30 | DI.RAD_ITS ---
Exam(s) XR ANKLE LT COMPLETE EXAM: XR ANKLE LT COMPLETE CLINICAL HISTORY: redness, drainage TECHNIQUE: 2D digital imaging was performed. Three views. COMPARISON: CR XR ANKLE LT 2V from 03/15/2023 FINDINGS: There has been no change in fracture or hardware alignment. No new abnormalities are seen. DATA REPOSITORY: RADIATION DOSE DELIVERED:
== END 2023-03-24 16:04 | disposition home or self-care (01) ==
LOC: DIORS 16:03
PROVIDERS: PCP Nurse Practitioner Family; Referring Provider Nurse Practitioner Family; Visit Provider Student in an Organized Health Care Education/Training Program
DX: S82.852A Displaced trimalleolar fracture of left lower leg, initial encounter for closed fracture (principal); S82.852D Displaced trimalleolar fracture of left lower leg, subsequent encounter for closed fracture with routine healing; X58.XXXD Exposure to other specified factors, subsequent encounter
CPT/HCPCS: 73610

== ENCOUNTER 2023-04-06 03:14 | Outpatient (CLI) | payer MEDICARE, BC, SELFPAY ==
[2023-04-06 11:43] LABS: Anion Gap 11.8 mmol/L (3-11); BUN 28 mg/dL (7-18); CO2 22.2 mmol/L (21.0-32.0); CREATININE 1.7 mg/dL (0.55-1.02); Calcium 9.9 mg/dL (8.5-10.1); Chloride 106 mmol/L (98-107); Estimated GFR 31.27 (mL/min/1.73m2); Glucose 164 mg/dL (74-106); Potassium 5.4 mmol/L (3.5-5.1); Sodium 140 mmol/L (136-145); TSH (W/Ref FT4) 0.49 uIU/mL (0.36-3.74)
[2023-04-07 11:49] LABS: Hepatitis C Ab w Rflx HCV PCR Negative (Negative)
== END 2023-04-06 03:15 | disposition home or self-care (01) ==
LOC: LBO 03:15
PROVIDERS: PCP Nurse Practitioner Family; Visit Provider Nurse Practitioner Family
DX: E03.9 Hypothyroidism, unspecified; S82.852D Displaced trimalleolar fracture of left lower leg, subsequent encounter for closed fracture with routine healing; X58.XXXD Exposure to other specified factors, subsequent encounter
CPT/HCPCS: 36415; 80048; 86803; 84443

== ENCOUNTER 2023-04-06 10:49 | Outpatient (CLI) | payer MEDICARE, BC, SELFPAY ==
--- NOTE | 2023-04-06 10:15 | DI.RAD_ITS ---
Exam(s) XR ANKLE LT COMPLETE EXAM: XR ANKLE LT COMPLETE CLINICAL HISTORY: left ankle f/u. TECHNIQUE: 2D digital imaging was performed. COMPARISON: CR,XR XR ANKLE LT COMPLETE from 02/20/2023 CR XR ANKLE LT COMPLETE from 03/24/2023 FINDINGS: 3 views Stable appearance of the ORIF hardware and further healing of the fracture sites in the medial latera l malleoli. Posteriorly there is a small osteophytic density-cortical irregularity at the posterior malleolus level which probably was also fractured. No evidence of hardware loosening. No osteomyelitis. No obvious degenerative changes in the tibiota lar joint. IMPRESSION: Satisfactory appearance DATA REPOSITORY: RADIATION DOSE DELIVERED:
== END 2023-04-06 10:50 | disposition home or self-care (01) ==
LOC: DIORS 10:50
PROVIDERS: PCP Nurse Practitioner Family; Visit Provider Student in an Organized Health Care Education/Training Program
DX: S82.852D Displaced trimalleolar fracture of left lower leg, subsequent encounter for closed fracture with routine healing (principal); X58.XXXD Exposure to other specified factors, subsequent encounter
CPT/HCPCS: 36415; 80048; 86803; 73610; 84443

== ENCOUNTER → 2023-04-14 00:56 | Outpatient (CLI) | payer MEDICARE, BC, SELFPAY | PROVIDERS: PCP Nurse Practitioner Family; Visit Provider Nurse Practitioner Family | DX: Z12.31 Encounter for screening mammogram for malignant neoplasm of breast (principal) | CPT/HCPCS: 77063; 77067 ==

== ENCOUNTER 2023-04-14 02:44 | Outpatient (CLI) | payer MEDICARE, BC, SELFPAY ==
[2023-04-14 14:13] LABS: Potassium 4.9 mmol/L (3.5-5.1)
== END 2023-04-14 02:45 | disposition home or self-care (01) ==
LOC: LBO 02:44
PROVIDERS: PCP Nurse Practitioner Family; Visit Provider Nurse Practitioner Family
DX: E87.5 Hyperkalemia (principal)
CPT/HCPCS: 36415; 84132

== ENCOUNTER → 2023-04-21 13:19 | Outpatient (BNVA) | payer MEDICARE, BC, SELFPAY | PROVIDERS: PCP Nurse Practitioner Family; Referring Provider Nurse Practitioner Family; Visit Provider Podiatrist | DX: E11.51 Type 2 diabetes mellitus with diabetic peripheral angiopathy without gangrene (principal); N18.4 Chronic kidney disease, stage 4 (severe); L60.3 Nail dystrophy; R60.0 Localized edema | CPT/HCPCS: 11721 ==

== ENCOUNTER → 2023-05-18 13:35 | Outpatient (BNVA) | payer MEDICARE, BC, SELFPAY | PROVIDERS: PCP Nurse Practitioner Family; Visit Provider Student in an Organized Health Care Education/Training Program | DX: S82.852D Displaced trimalleolar fracture of left lower leg, subsequent encounter for closed fracture with routine healing (principal); X58.XXXD Exposure to other specified factors, subsequent encounter ==

== ENCOUNTER → 2023-05-24 12:52 | Outpatient (BNVA) | payer MEDICARE, BC, SELFPAY | PROVIDERS: PCP Nurse Practitioner Family; Referring Provider Nurse Practitioner Family; Visit Provider Physical Therapy Assistant | DX: E11.59 Type 2 diabetes mellitus with other circulatory complications (principal) | CPT/HCPCS: 93922 ==

== ENCOUNTER → 2023-06-30 13:42 | Outpatient (BNVA) | payer MEDICARE, BC, SELFPAY | PROVIDERS: PCP Nurse Practitioner Family; Referring Provider Nurse Practitioner Family; Visit Provider Podiatrist | DX: L60.3 Nail dystrophy (principal); E11.22 Type 2 diabetes mellitus with diabetic chronic kidney disease; N18.30 Chronic kidney disease, stage 3 unspecified; Z79.4 Long term (current) use of insulin; R60.0 Localized edema; L84 Corns and callosities; E11.51 Type 2 diabetes mellitus with diabetic peripheral angiopathy without gangrene | CPT/HCPCS: 11721 ==

== ENCOUNTER 2023-07-23 20:24 | Emergency (ER) | payer MEDICARE, BC, SELFPAY ==
[2023-07-23] VITALS (29 sets, daily range): BP systolic 122–198; BP diastolic 38–73; PULSE 63–84; RESP 16–27; TEMP 36.5–36.6; O2SAT 93–96
--- NOTE | 2023-07-23 20:15 | RT.EKG_ITS ---
APPROVED REPORT Exam: Resting ECG Reason for Exam: darrick chaudhary Patient Location: E HR:73 bpm ECG Measurements Heart Rate 73 AXIS WI 276 P 18 QRSd 141 QRS -38 QT 404 T 126 QTc 446 Conclusion Sinus rhythm...normal P axis, V-rate 60- 99 Prolonged WI interval...WI >220, V-rate 50- 90 Left bundle branch block...QRSd>120, broad/notched R sinus rhythm, left bundle branch block
--- NOTE | 2023-07-23 20:30 | DI.RAD_ITS ---
Exam(s) XR CHEST 2V PA LATERAL EXAM: XR CHEST 2V PA LATERAL CLINICAL HISTORY: chest pain. TECHNIQUE: 2D digital imaging was performed. COMPARISON: No exams were available for comparison FINDINGS: 2 views: Heart size is upper normal. The mediastinum is not widened. Lungs are clear. No infiltrates nor pleural effusions. There is some infiltrate in the right lung base. Also small right pleural effusion and Poncho B line s are also noted in the lateral right lung base. IMPRESSION: Mild cardiomegaly. Early interstitial pulmonary edema. Small right pleural effusion. Small infiltr ate also noted in the right lower lobe posterior basal segment. DATA REPOSITORY: RADIATION DOSE DELIVERED:
[2023-07-23 20:50] LABS: Absolute Basophil Count 0.07 10^3/uL (0.0-0.2); Absolute Eosinophil Count 0.35 10^3/uL (0.0-0.7); Absolute Lymphocyte Count 2.61 10^3/uL (1.2-3.4); Absolute Monocyte Count 1.49 10^3/uL (0.1-0.8); Basophils % 0.4; Eosinophils % 2.1; HCT 34.5 % (36.0-46.0); HGB 10.8 g/dL (11.2-15.7); Immature Grans % 0.6; Lymphocytes % 15.6; MCH 27.3 pg (27.0-33.0); MCHC 31.3 % (32.0-36.0); MCV 87 fL (80-95); MPV 12.2 fL (8.0-11.0); Monocytes % 8.9; Neutrophils % 72.4; Platelet Count 314 10^3/uL (130-400); RBC 3.95 10^6/uL (3.93-5.22); RDW 13.8 % (11.7-14.6)
[2023-07-23 20:51] LABS: Absolute Neutrophil Count 12.09 10^3/uL (1.2-6.7)
[2023-07-23 21:03] LABS: INR 1.1 (0.9-1.1); Prothrombin Time 10.6 sec (9.1-11.1)
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
[2023-07-23 21:13] LABS: Troponin I 278 ng/L (< or =60)
[2023-07-23 21:14] LABS: ALT 20 U/L (14-59); AST 12 U/L (15-37); Albumin 3.3 g/dL (3.4-5.0); Alkaline Phosphatase 74 U/L (46-116); BUN 35 mg/dL (7-18); Bilirubin, Total 0.5 mg/dL (0.2-1.0); CREATININE 1.9 mg/dL (0.55-1.02); Calcium 9.6 mg/dL (8.5-10.1); Chloride 105 mmol/L (98-107); Estimated GFR 27.37 (mL/min/1.73m2); Glucose 162 mg/dL (74-106); NT-proBNP 10606 pg/mL (<300); Potassium 4.2 mmol/L (3.5-5.1); Sodium 142 mmol/L (136-145)
[2023-07-23] MEDS: Albuterol/Ipratropium 3 ML UPD VIAL UPD (21:19)
[2023-07-23] MEDS: Amoxicillin 875/Clav. 125 TAB PO (21:19)
[2023-07-23] MEDS: Azithromycin 250 MG TAB 500 MG PO (21:19)
[2023-07-23] MEDS: Aspirin 81 MG CHEW 324 MG CH (21:19)
[2023-07-23] MEDS: Dexamethasone 10 MG/ML VIAL IVP (21:19)
--- NOTE | 2023-07-23 21:23 | DI.VRAD_ITS ---
PROCEDURE INFORMATION: Exam: XR Chest Exam date and time: 07/23/2023 8:57 PM Age: 72 years old Clinical indication: Pain; Chest pressure; Additional info: Chest pain TECHNIQUE: Imaging protocol: Radiologic exam of the chest. Views: 2 views. COMPARISON: CR XR SHOULDER RT COMPLETE 2+V 02/20/2023 12:35 PM FINDINGS: Lungs: Mild diffuse pulmonary vascular prominence. Mild right lower lobe infiltrate. Left lung appears clear. Pleural spaces: Small bilateral pleural effusions. No pneumothorax. Heart/Mediastinum: Cardiac silhouette is top-normal in size. Bones/joints: Moderate degenerative changes of the spine and shoulders. IMPRESSION: Mild congestive changes and right lower lobe infiltrate. Small bilateral pleural effusions. Dictated and Authenticated by: Jin Rader MD. Ordering:ILDA Rowland MD
[2023-07-23 23:21] LABS: Troponin I 257 ng/L (< or =60)
--- NOTE | 2023-07-23 23:28 | NUR.NOTE ---
Pt placed on care management referral list for Concern for new CHF
== END 2023-07-23 23:39 | disposition home or self-care (01) ==
PROVIDERS: Emergency Provider Emergency Medicine; PCP Nurse Practitioner Family
DX: J18.9 Pneumonia, unspecified organism (principal); I44.7 Left bundle-branch block, unspecified; R79.89 Other specified abnormal findings of blood chemistry; E11.51 Type 2 diabetes mellitus with diabetic peripheral angiopathy without gangrene; I12.9 Hypertensive chronic kidney disease with stage 1 through stage 4 chronic kidney disease, or unspecified chronic kidney disease; E11.22 Type 2 diabetes mellitus with diabetic chronic kidney disease; N18.4 Chronic kidney disease, stage 4 (severe); Z79.4 Long term (current) use of insulin; Z79.899 Other long term (current) drug therapy
CPT/HCPCS: 36415; 80053; 93005; 94640; 96374; 99285; 71046; 83880; 84443; 84484; 85025; 85610; 85730; 93010; 99284; J1100; J7620

== ENCOUNTER → 2023-07-27 01:38 | Outpatient (CLI) | payer MEDICARE, BC, SELFPAY ==
--- NOTE | 2023-07-27 13:30 | DI.US_ITS ---
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 Wall thickness is normal. Ejection fraction is mildly decreased, 45% -50%. Septal motion is consistent with LBBB. [place] is hypokinetic Normal right ventricular size and function Both atria are normal in size There are no structural valvular abnormalities There is moderate to severe mitral regurgitation Estimated right ventricular systolic pressure is 27 mmHg Wall motion Left Ventricle Left ventricle is mildly dilated. Left ventricular systolic function is mildly decreased. There is no rmal left ventricular wall thickness. Regional wall motion abnormalities are noted. Paradoxical septa l motion consistent with conduction abnormality. There is no ventricular septal defect visualized. LV EF is 45- 50%. Right Ventricle The right ventricle is normal size. The right ventricular systolic function is normal. Atria The left atrium size is normal. The right atrium size is normal. The interatrial septum is intact wit h no evidence for an atrial septal defect. Aortic Valve The aortic valve is normal in structure. Aortic valve is trileaflet. There is no aortic valvular sten osis. No aortic regurgitation is present. Mitral Valve The mitral valve is normal in structure. No evidence of mitral valve stenosis. Moderate to severe [place] ral regurgitation. Tricuspid Valve The tricuspid valve is normal in structure. There is no tricuspid valve stenosis. Mild tricuspid regu rgitation. The RVSP is 26.7 mmHg. Pulmonic Valve The pulmonary valve is normal in structure. There is no pulmonic valvular stenosis. There is no pulmo arabella valvular regurgitation. Great Vessels The aortic root is normal in size. The ascending aorta is normal IVC is normal in size and collapses >50% with inspiration. Pericardium There is no pericardial effusion. 2D Dimensions IVSD d PLAX 0.86 cm F: 0.6-1.0 Ao Root d 3.12 cm F: 2.7 - 3.3 LVPW d PLAX 0.94 cm F: 0.6 - 1.0 Ao Asc Diam d 3.32 cm F: 2.3 - 3.1 LVID d PLAX 5.39 cm F: 3.8 - 5.2 LVDs 4.12 cm F: 2.2 - 3.5 LV EF Teichholz 46.6 % FS 23.57 % LV EDV (Teich) 140.5 mL LV ESV (Teich) 75.0 mL M-Mode TAPSE 1.52 cm (M/F) >1.7 Auto EF LV EDV A4C 98.7 mL LV EDV A2C 113.0 mL LV EDV BP 108.6 mL LV ESV A4C 54.8 mL LV ESV A2C 57.9 mL LV ESV BP 57.3 mL LVEF(%) A4C 44.5 % LVEF(%) A2C 48.7 % LVEF(%) BP 47.3 % LV SV A4C 43.9 ml LV SV A2C 55.1 ml LV SV BP 51.3 ml LV CO A4C 2.7 L/min LV CO A2C 3.3 L/min LV CO BP 3.0 L/min HR A4C 60.92 BPM HR A2C 60.21 BPM LV EDV Index (BP) LV Strain Long Pk Overal Avg (s) 13.77 RV Strain Global Peak Long. Strain A4C 10.10 Global Peak Long. Strain A4C FW 12.05 LA Volume LA Length A4C 6.1 cm LA Length A2C 5.5 cm LA Area A4C s 22.92 cm2 LA Area A2C s 16.53 cm2 LA Vol A4C A-L 72.98 mL LA Vol A2C A-L 42.24 mL LA Vol Biplane A-L 58.6 mL LA Vol/BSA A4C A-L LA Vol/BSA A2C A-L LA Vol/BSA BP A-L 30.5 mL/m2 LA Vol A4C MOD 67.9 mL LA Vol A2C MOD 40.5 mL LA Vol BP MOD 55.0 mL RA Volume RA Area A4C 14.8 cm2 RA ESV A4C (A-L) 32.2mL RA Vol/BSA A4C A-L RA Length A4C 5.7 cm RA ESV A4C (MOD) 29.8mL LV Diastology MV E' medial 0.061 (>0.07 m/s) MV E Vmax 1.09 (0.4-1.3 m/s) MV E/E' MED 17.80 (<14) MV A Vmax 1.10 (0.4-1.3 m/s) MV E' lateral 0.107 (>0.1 m/s) E/A Ratio 1.0 MV E/E' LAT 10.17 (<14) MV E' Average 0.084 m/s MV E/E'(average) 12.94 Aortic Valve AoV Vmax 1.40 m/s LVOT Vmax 0.97 m/s AoV Peak Grad 7.9 mmHg LVOT Peak Grad 3.8 mmHg AoV Area (Vmax) 2.09 cm2 LVOT VTI 0.231 m AoV VTI 0.344 m LVOT Mean Grad 2.3 mmHg AoV Mean Gibson. 1.03 m/s LVOT SV 69.23 mL AoV Mean Grad 4.8 mmHg LVOT Diam s 1.95 cm AoV Area (VTI) 2.01 cm2 Velocity Ratio 0.69 Mitral Valve MV DT 164 (160-240 msec) MR Vmax 5.21 m/s MV Vmax TIPS 1.13 m/s MR VTI 2.022 m MV Mean Grad 2.1 (<2mmHg) MR Peak Grad 108.5 mmHg MV VTI 0.396 m MR Mean Grad 74.6 mmHg Pulmonary Valve PV Vmax 0.94 (0.5-1.5 m/s) RVOT Vmax 0.64 m/s PV Peak Grad 3.6 mmHg RVOT Peak Gr. 1.6 mmHg PV Mean Gibson 0.62 m/s RVOT VTI 0.143 m PV Mean Grad 1.8 mmHg RVOT Mean Gr. 0.9 mmHg Tricuspid Valve RA Pressure 3.00 mmHg TR Vmax 2.43 m/s TV S' 0.10 m/s TR Peak Grad 23.6 mmHg RVSP (TR) 26.7 mmHg
== END ==
PROVIDERS: PCP Nurse Practitioner Family; Visit Provider Nurse Practitioner Family
DX: R07.9 Chest pain, unspecified (principal); R06.02 Shortness of breath
CPT/HCPCS: 93306

== ENCOUNTER → 2023-07-29 01:01 | Outpatient (CLI) | payer MEDICARE, BC, SELFPAY ==
--- NOTE | 2023-07-29 07:00 | DI.NM_ITS ---
APPROVED REPORT Exam: Pharmacologic Patient Location: Out-Patient Room/Bed: Stress Nurse: Nga Britton RN Ordering Provider:EUGENE CORDOVA, Contact Number: [phone] BMI: 34.71 Baseline Rhythm: Sinus Rhythm Comment: 1st degree AV block, baseline ST changes Indications: Central chest pain Medical History Medical History: Obesity, DMT2, HLD, CKD, Hypothyroidism, major depressive disorder, hyponatremia, pn eumonia, HTN, asthma Cardiac Medications: Albuterol sulfate, alendronate, amlodipine, atenolol, atorvastatin, calcium carb ofe w/ vitmain D3, clothalidone, fluoxetine, lantus, levothyroxine, lisinopril, nitro, furosemide, prevagen Allergies: NSAIDs Cardiac Risk Factors: Family hx, HTN, HLD, Diabetes, asthma Previous Cardiac Procedures: Family Hx, HTN, HLD, diabetes, asthma, former smoker, obesity Pretest Chest Pain Characteristics: None Exercise History: Sedentary Physical Disabilities: Generalized weakness Lung Sounds: Clear to auscultation Heart Sounds: Regular Stress Test Details Test: Pharmacologic stress testing performed using 0.4 mg of regadenoson per 5 mL given IV over 10 s econds. Reason for pharmacologic stress test: Hx. of LBBB, physical limitation. Nuclear Acquisition: Rest Tc-99m/Stress Tc-99m 1 day Rest Isotope: Tc-99m Sestamibi. Dose: 10.0 Date: 07/29/2023 Injection Time: 0930 Stress Isotope: Tc-99m Sestamibi. Dose: 30.0 Date: 07/29/2023 Injection Time: 1115 HR Resting HR Supine: 60 bpm Max Heart Rate (APMHR): 146.969634 bpm Target HR (85% APMHR): 124.244140 bpm Max HR Achieved: 73 bpm % of APMHR: 50.00 Recovery HR: 68 bpm BP Resting BP Supine: 98/60 mmHg Max BP: 124/64 mmHg Recovery BP: 108/50 mmHg ECG Resting ECG: Sinus Rhythm, nonspecific ST-T abnormalities Ectopy: Occasional PVC's Stress ECG: Sinus Rhythm ST Change: Nondiagnostic low heart rate, Nondiagnostic resting ST abnormalities Arrhythmia: Occasional PAC's Recovery ECG: Sinus Rhythm, nonspecific ST-T abnormalities Recovery ST Change: Nondiagnostic low heart rate, Nondiagnostic resting ST abnormalities Recovery Arrhythmia: None Clinical Angina Score: None Rate Pressure Product: 9052 Stress ECG Conclusion 1. Electrocardiogram showed a left bundle branch block 2. Patient underwent testing using pharmacologic stress with regadenoson 3. Peak heart rate achieved was 50% of maximal for age 4. Electrocardiographic portion of the test was nondiagnostic 5. See MPI report Stress Test Summary STAGE HR BP SpO2 Symptoms NOTES Supine 60 98/60 98 1 min post Lexiscan injection 63 124/64 99 3 min post Lexiscan injection 68 120/56 6 min post Lexiscan injection 68 108/50 MPI Conclusion Myocardial perfusion is abnormal. There are areas of infarction, of the inferior wall, apex and septu m. There is no ischemia EF is 40% with wall motion abnormalities of inferior wall and apex. Septal motion is paradoxic Radiologist Interpretation Radiologist agrees with Pot Press Operator's Interpretation. Radiologist Interpretation by: Eda Taylor MD Interpretation Date/Time: 08/02/2023 16:26:47
[2023-07-29] MEDS: Regadenoson 0.4 MG/5 ML SYR IVP (12:05)
== END ==
PROVIDERS: PCP Nurse Practitioner Family; Visit Provider Nurse Practitioner Family
DX: R07.9 Chest pain, unspecified (principal); R06.02 Shortness of breath
CPT/HCPCS: 78452; 93016; 93018; 93017; J2785

== ENCOUNTER 2023-07-30 12:47 | Outpatient (CLI) | payer MEDICARE, BC, SELFPAY ==
--- NOTE | 2023-07-30 12:45 | RT.EKG_ITS ---
APPROVED REPORT Exam: Resting ECG Reason for Exam: baseline Patient Location: O HR:64 bpm ECG Measurements Heart Rate 64 AXIS NM 259 P -74 QRSd 142 QRS -56 QT 432 T 21 QTc 446 Conclusion Sinus or ectopic atrial rhythm...P axis (-45,135) Prolonged NM interval...NM >220, V-rate 50- 90 Left bundle branch block...QRSd>120, broad/notched R
== END 2023-07-30 12:48 | disposition home or self-care (01) ==
LOC: DI.CARD 12:48
PROVIDERS: PCP Nurse Practitioner Family; Referring Provider Nurse Practitioner Family; Visit Provider Internal Medicine Cardiovascular Disease
DX: R06.02 Shortness of breath (principal); R07.9 Chest pain, unspecified
CPT/HCPCS: 93010

== ENCOUNTER → 2023-07-30 12:47 | Outpatient (BNVA) | payer MEDICARE, BC, SELFPAY | PROVIDERS: PCP Nurse Practitioner Family; Referring Provider Nurse Practitioner Family; Visit Provider Internal Medicine Cardiovascular Disease | DX: I44.7 Left bundle-branch block, unspecified (principal); R06.02 Shortness of breath; I25.119 Atherosclerotic heart disease of native coronary artery with unspecified angina pectoris; I50.43 Acute on chronic combined systolic (congestive) and diastolic (congestive) heart failure | CPT/HCPCS: 93005; 99215 ==

== ENCOUNTER 2023-08-30 12:54 | Outpatient (RCR) | payer MEDICARE, BC, SELFPAY | END 2023-09-07 23:59 | disposition home or self-care (01) | LOC: CR 12:54 | PROVIDERS: PCP Nurse Practitioner Family; Visit Provider Internal Medicine Cardiovascular Disease ==

== ENCOUNTER 2023-09-01 17:31 | Emergency (ER) | payer MEDICARE, BC, SELFPAY ==
[2023-09-01 17:35] VITALS: BP 156/56; PULSE 95; RESP 18; TEMP 36.6; O2SAT 100
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
[2023-09-01] MEDS: predniSONE 20 MG TAB 60 MG PO (18:10)
[2023-09-01 18:48] LABS: Absolute Basophil Count 0.07 10^3/uL (0.0-0.2); Absolute Lymphocyte Count 2.77 10^3/uL (1.2-3.4); Basophils % 0.3; Eosinophils % 7.6; HCT 36.1 % (36.0-46.0); HGB 11.4 g/dL (11.2-15.7); Immature Grans % 1.8; Lymphocytes % 12.7; MCHC 31.6 % (32.0-36.0); MCV 85 fL (80-95); Monocytes % 6.2; Neutrophils % 71.4; Platelet Count 308 10^3/uL (130-400); RBC 4.23 10^6/uL (3.93-5.22); RDW 15.2 % (11.7-14.6); RDW-SD 46.8 fL; WBC 21.79 10^3/uL (4.4-10.8)
[2023-09-01 18:49] LABS: Absolute Eosinophil Count 1.66 10^3/uL (0.0-0.7); Absolute Monocyte Count 1.35 10^3/uL (0.1-0.8); Absolute Neutrophil Count 15.56 10^3/uL (1.2-6.7)
[2023-09-01 19:03] LABS: ALT 44 U/L (14-59); AST 26 U/L (15-37); Albumin 3.5 g/dL (3.4-5.0); Alkaline Phosphatase 102 U/L (46-116); Anion Gap 9.8 mmol/L (3-11); BUN 35 mg/dL (7-18); Bilirubin, Total 0.7 mg/dL (0.2-1.0); CO2 29.2 mmol/L (21.0-32.0); CREATININE 2.2 mg/dL (0.55-1.02); Calcium 9.5 mg/dL (8.5-10.1); Chloride 100 mmol/L (98-107); Estimated GFR 22.81 (mL/min/1.73m2); Glucose 94 mg/dL (74-106); Potassium 4.2 mmol/L (3.5-5.1); Sodium 139 mmol/L (136-145); Total Protein 6.8 g/dL (6.4-8.2)
== END 2023-09-01 21:02 | disposition home or self-care (01) ==
PROVIDERS: Emergency Provider Emergency Medicine; PCP Nurse Practitioner Family
DX: R21 Rash and other nonspecific skin eruption (principal); I10 Essential (primary) hypertension; N18.4 Chronic kidney disease, stage 4 (severe); Z95.5 Presence of coronary angioplasty implant and graft; Z91.013 Allergy to seafood
CPT/HCPCS: 80053; 99283; 85025; J7512

== ENCOUNTER 2023-09-08 13:44 | Outpatient (CLI) | payer MEDICARE, BC, SELFPAY ==
--- NOTE | 2023-09-08 14:00 | RT.EKG_ITS ---
APPROVED REPORT Exam: Resting ECG Reason for Exam: elevated pulse Patient Location: O HR:80 bpm ECG Measurements Heart Rate 80 AXIS MD 235 P -22 QRSd 141 QRS -45 QT 420 T -28 QTc 485 Conclusion Sinus rhythm...normal P axis, V-rate 50- 99 Prolonged MD interval...MD >220, V-rate 50- 90 Left bundle branch block...QRSd>120, broad/notched R
[2023-09-08 21:59] LABS: Bilirubin Negative (Negative); Blood Negative (Negative); Clarity Clear (Clear); Glucose Negative (Negative); Ketones Negative (Negative); Leukocyte Esterase Small (Negative); Nitrite Negative (Negative); Specific Gravity 1.015 (1.005-1.025); Urobilinogen 0.2 mg/dL (Up to 0.2)
[2023-09-08 22:18] LABS: Bacteria Rare HPF (Negative); C & S Indicated? No; Casts Negative LPF (Negative); Crystals Negative HPF (Negative); Epithelial Cells Rare HPF (Negative); Mucus Negative (Negative); Other Cells Rare Renal (Negative); RBC Negative HPF (0-2)
[2023-09-08 22:19] LABS: COMMENT (LAB VIEW ONLY) 56.61 mg/dL
== END 2023-09-08 13:45 | disposition home or self-care (01) ==
PROVIDERS: PCP Nurse Practitioner Family; Visit Provider Nurse Practitioner Family
DX: I25.119 Atherosclerotic heart disease of native coronary artery with unspecified angina pectoris (principal); N18.4 Chronic kidney disease, stage 4 (severe)
CPT/HCPCS: 93010; 81003; 81015; 82043; 82570

== ENCOUNTER 2023-09-15 05:11 | Outpatient (CLI) | payer MEDICARE, BC, SELFPAY ==
[2023-09-15 12:27] LABS: Abs Immature Grans 0.06 10^3/uL (0.0-0.06); Absolute Basophil Count 0.12 10^3/uL (0.0-0.2); Absolute Eosinophil Count 0.99 10^3/uL (0.0-0.7); Absolute Lymphocyte Count 1.18 10^3/uL (1.2-3.4); Eosinophils % 8.4 %; HCT 36.5 % (36.0-46.0); Immature Grans % 0.5 %; MCH 27.8 pg (27.0-33.0); MCHC 32.9 % (32.0-36.0); MCV 85 fL (80-95); MPV 12.2 fL (8.0-11.0); Monocytes % 7.6 %; Neutrophils % 72.5 %; Platelet Count 266 10^3/uL (130-400); RBC 4.31 10^6/uL (3.93-5.22); RDW 15.9 % (11.7-14.6); RDW-SD 49.4 fL; WBC 11.77 10^3/uL (4.4-10.8)
[2023-09-15 12:28] LABS: Absolute Monocyte Count 0.89 10^3/uL (0.1-0.8); Absolute Neutrophil Count 8.53 10^3/uL (1.2-6.7)
[2023-09-15 13:13] LABS: ALT 144 U/L (14-59); AST 69 U/L (15-37); Albumin 3.4 g/dL (3.4-5.0); Alkaline Phosphatase 306 U/L (46-116); Anion Gap 11.3 mmol/L (3-11); BUN 32 mg/dL (7-18); Bilirubin, Total 0.9 mg/dL (0.2-1.0); CO2 26.7 mmol/L (21.0-32.0); Calcium 9.7 mg/dL (8.5-10.1); Chloride 105 mmol/L (98-107); Estimated GFR 25.57 (mL/min/1.73m2); Ferritin 197 ng/mL (8-252); Glucose 198 mg/dL (74-106); Potassium 4.1 mmol/L (3.5-5.1); Sodium 143 mmol/L (136-145); Total Protein 6.7 g/dL (6.4-8.2)
== END 2023-09-15 05:12 | disposition home or self-care (01) ==
LOC: LBO 05:11
PROVIDERS: PCP Nurse Practitioner Family; Visit Provider Nurse Practitioner Family
DX: I25.119 Atherosclerotic heart disease of native coronary artery with unspecified angina pectoris (principal); D64.9 Anemia, unspecified; R79.89 Other specified abnormal findings of blood chemistry
CPT/HCPCS: 36415; 80053; 82728; 85025

== ENCOUNTER 2023-09-16 10:34 | Outpatient (CLI) | payer MEDICARE, BC, SELFPAY ==
--- NOTE | 2023-09-16 10:30 | RT.EKG_ITS ---
APPROVED REPORT Exam: Resting ECG Reason for Exam: CAD Patient Location: O HR:79 bpm ECG Measurements Heart Rate 79 AXIS DE 235 P -75 QRSd 135 QRS -61 QT 389 T -18 QTc 447 Conclusion Sinus or ectopic atrial rhythm...P axis (-45,135) Prolonged DE interval...DE >220, V-rate 50- 90 Left bundle branch block...QRSd>120, broad/notched R
== END 2023-09-16 10:35 | disposition home or self-care (01) ==
LOC: DI.CARD 10:35
PROVIDERS: PCP Nurse Practitioner Family; Visit Provider Internal Medicine Cardiovascular Disease
DX: I25.119 Atherosclerotic heart disease of native coronary artery with unspecified angina pectoris (principal); I48.91 Unspecified atrial fibrillation
CPT/HCPCS: 93010

== ENCOUNTER → 2023-09-16 13:09 | Outpatient (BNVA) | payer MEDICARE, BC, SELFPAY | PROVIDERS: PCP Nurse Practitioner Family; Referring Provider Nurse Practitioner Family; Visit Provider Internal Medicine Cardiovascular Disease | DX: I50.20 Unspecified systolic (congestive) heart failure (principal); I25.119 Atherosclerotic heart disease of native coronary artery with unspecified angina pectoris; I48.91 Unspecified atrial fibrillation | CPT/HCPCS: 93005; 99213 ==

== ENCOUNTER 2023-09-21 05:12 | Outpatient (CLI) | payer MEDICARE, BC, SELFPAY ==
[2023-09-21 12:50] LABS: ALT 93 U/L (14-59); AST 40 U/L (15-37); Albumin 3.2 g/dL (3.4-5.0); Alkaline Phosphatase 375 U/L (46-116); BUN 28 mg/dL (7-18); Bilirubin, Total 0.6 mg/dL (0.2-1.0); CREATININE 1.9 mg/dL (0.55-1.02); Calcium 9.3 mg/dL (8.5-10.1); Chloride 105 mmol/L (98-107); Glucose 277 mg/dL (74-106); Potassium 3.7 mmol/L (3.5-5.1); Sodium 144 mmol/L (136-145); Total Protein 6.4 g/dL (6.4-8.2)
[2023-09-21 20:25] LABS: Hepatitis A Antibody IgM Negative (Negative); Hepatitis B Core Antibody Negative (Negative); Hepatitis B surface Ag Negative (Negative); Hepatitis C Ab w Rflx HCV PCR Negative (Negative)
== END 2023-09-21 05:13 | disposition home or self-care (01) ==
LOC: LOS 05:12
PROVIDERS: PCP Nurse Practitioner Family; Visit Provider Nurse Practitioner Family
DX: R79.89 Other specified abnormal findings of blood chemistry (principal); Z11.59 Encounter for screening for other viral diseases; Z01.84 Encounter for antibody response examination
CPT/HCPCS: 36415; 80053; 86704; 86709; 86803; 87340

== ENCOUNTER 2023-09-24 11:25 | Outpatient (CLI) | payer MEDICARE, BC, SELFPAY | END 2023-09-24 11:26 | disposition home or self-care (01) | LOC: CARDOPNVT 11:25 | PROVIDERS: PCP Nurse Practitioner Family; Visit Provider Nurse Practitioner Family | DX: I48.91 Unspecified atrial fibrillation (principal) | CPT/HCPCS: 93246 ==

== ENCOUNTER 2023-10-08 13:19 | Outpatient (RCR) | payer MEDICARE, BC, SELFPAY | END 2023-10-08 23:59 | disposition home or self-care (01) | LOC: CR 13:19 | PROVIDERS: PCP Nurse Practitioner Family; Visit Provider Internal Medicine Cardiovascular Disease | DX: I25.119 Atherosclerotic heart disease of native coronary artery with unspecified angina pectoris (principal); Z95.5 Presence of coronary angioplasty implant and graft | CPT/HCPCS: S9472 ==

== ENCOUNTER 2023-10-18 07:09 | Outpatient (CLI) | payer MEDICARE, BC, SELFPAY ==
--- NOTE | 2023-10-18 08:51 | CER_ITS ---
Date of service: 10/18/23 Time of Service: 08:51 Cardiac Event Recorder Referring Provider:: Ana Rosa Fontenot Indications:: Cardiac dysrhythmia Cardiac Event Note: This is a 14-day phototypesetting equipment monitor. Patient was monitored for 12 days and 21 hours Predominant rhythm was sinus with first-degree AV block. Average heart rate was 78. Minimum was 47, maximum 158 there were rare ventricular ectopic beats There were moderately frequent atrial premature beats There was no atrial fibrillation, no high-grade AV block no pauses greater than 3 seconds Supraventricular tachycardia was noted which overall appears to be sinus tachycardia Patient's symptoms correlated to sinus tachycardia
== END 2023-10-18 07:10 | disposition home or self-care (01) ==
LOC: CARDOPNVT 07:09
PROVIDERS: PCP Nurse Practitioner Family; Visit Provider Internal Medicine Cardiovascular Disease
DX: I48.91 Unspecified atrial fibrillation (principal); I44.0 Atrioventricular block, first degree
CPT/HCPCS: 93248

== ENCOUNTER → 2023-10-27 11:20 | Outpatient (BNVA) | payer MEDICARE, BC, SELFPAY | PROVIDERS: PCP Nurse Practitioner Family; Referring Provider Nurse Practitioner Family; Visit Provider Podiatrist | DX: N18.4 Chronic kidney disease, stage 4 (severe) (principal); E11.22 Type 2 diabetes mellitus with diabetic chronic kidney disease; Z79.4 Long term (current) use of insulin; L60.3 Nail dystrophy; R60.0 Localized edema; L84 Corns and callosities; E11.51 Type 2 diabetes mellitus with diabetic peripheral angiopathy without gangrene; R09.89 Other specified symptoms and signs involving the circulatory and respiratory systems; L65.9 Nonscarring hair loss, unspecified; R20.8 Other disturbances of skin sensation | CPT/HCPCS: 11721 ==

== ENCOUNTER 2023-11-05 15:22 | Outpatient (RCR) | payer MEDICARE, BC, SELFPAY | END 2023-11-07 23:59 | disposition home or self-care (01) | LOC: CR 15:22 | PROVIDERS: PCP Nurse Practitioner Family; Visit Provider Internal Medicine Cardiovascular Disease | DX: I25.10 Atherosclerotic heart disease of native coronary artery without angina pectoris (principal) | CPT/HCPCS: S9472 ==

== ENCOUNTER 2023-11-15 03:16 | Outpatient (CLI) | payer MEDICARE, BC, SELFPAY ==
[2023-11-15 13:04] LABS: ALT 28 U/L (14-59); AST 18 U/L (15-37); Albumin 3.3 g/dL (3.4-5.0); Alkaline Phosphatase 107 U/L (46-116); Bilirubin, Direct 0.2 mg/dL (0.0-0.2); Bilirubin, Total 0.49 mg/dL (0.2-1.0); Total Protein 6.5 g/dL (6.4-8.2)
== END 2023-11-15 03:17 | disposition home or self-care (01) ==
LOC: LOS 03:16
PROVIDERS: PCP Nurse Practitioner Family; Referring Provider Nurse Practitioner Family; Visit Provider Nurse Practitioner Family
DX: R79.89 Other specified abnormal findings of blood chemistry (principal)
CPT/HCPCS: 36415; 80076

== ENCOUNTER 2023-11-15 14:12 | Outpatient (RCR) | payer MEDICARE, BC, SELFPAY | END 2023-12-08 23:59 | disposition home or self-care (01) | LOC: CR 14:12 | PROVIDERS: PCP Nurse Practitioner Family; Visit Provider Internal Medicine Cardiovascular Disease | DX: I25.10 Atherosclerotic heart disease of native coronary artery without angina pectoris (principal) | CPT/HCPCS: S9472 ==

== ENCOUNTER → 2023-11-26 09:55 | Outpatient (CLI) | payer MEDICARE, BC, SELFPAY ==
--- NOTE | 2023-11-26 10:30 | DI.US_ITS ---
APPROVED REPORT EXAM: Comprehensive 2D, Doppler, and color-flow Echocardiogram Patient Location: Out-Patient Accelerator Operator: Cassidy Liu RDCS (AE) Indications: Recheck LV function, Heart failure with reduced EF Other Information Study Quality: Adequate Conclusion Normal left ventricular wall thickness and chamber size. Ejection fraction is 45 to 50%. Septal mot ion is consistent with an interventricular conduction delay. There is an inferoapical wall motion ab normality Normal right ventricular size and function Left atrium is mildly dilated. Right atrial size is normal Aortic valve is mildly sclerotic and trileaflet without stenosis or regurgitation Mild mitral regurgitation Wall motion Left Ventricle The left ventricle is normal size. Left ventricular systolic function is mildly decreased. There is n ormal left ventricular wall thickness. Regional wall motion abnormalities are noted. septal motion co nsistent with conduction abnormality. There is no ventricular septal defect visualized. LVEF is 45-50 %. Right Ventricle The right ventricle is normal size. The right ventricular systolic function is normal. Atria The left atrium size is mildly dilated The right atrium size is normal. The interatrial septum is int act with no evidence for an atrial septal defect. Aortic Valve The aortic valve is mildly sclerotic Aortic valve is trileaflet. There is no aortic valvular stenosis . No aortic regurgitation is present. Mitral Valve Mild mitral annular calcification. No evidence of mitral valve stenosis. Mild mitral regurgitation. Tricuspid Valve The tricuspid valve is normal in structure. There is no tricuspid valve stenosis. Trace tricuspid reg urgitation. Unable to assess PA pressure. Pulmonic Valve The pulmonary valve is normal in structure. There is no pulmonic valvular stenosis. Trace pulmonic re gurgitation. Great Vessels The aortic root is normal in size. Ascending aorta is normal in caliber.. Aortic arch is not well vis ualized. IVC is normal in size and collapses >50% with inspiration. Pericardium There is no pericardial effusion. 2D Dimensions IVSD d PLAX 0.81 cm F: 0.6-1.0 Ao Root d 2.98 cm F: 2.7 - 3.3 LVPW d PLAX 0.83 cm F: 0.6 - 1.0 Ao Asc Diam d 3.27 cm F: 2.3 - 3.1 LVID d PLAX 5.50 cm F: 3.8 - 5.2 LVDs 4.28 cm F: 2.2 - 3.5 LV EF Teichholz 44.1 % FS 22.08 % LV EDV (Teich) 147.4 mL LV ESV (Teich) 82.4 mL M-Mode TAPSE 2.04 cm (M/F) >1.7 Auto EF LV EDV A4C 129.7 mL LV EDV A2C 120.0 mL LV EDV BP 126.7 mL LV ESV A4C 67.2 mL LV ESV A2C 60.4 mL LV ESV BP 63.2 mL LVEF(%) A4C 48.2 % LVEF(%) A2C 49.7 % LVEF(%) BP 50.1 % LV SV A4C 62.5 ml LV SV A2C 59.6 ml LV SV BP 63.5 ml LV CO A4C 3.1 L/min LV CO A2C 3.6 L/min LV CO BP 3.4 L/min HR A4C 50.21 BPM HR A2C 60.51 BPM LV EDV Index (BP) LA Volume LA Length A4C 5.1 cm LA Length A2C 5.2 cm LA Area A4C s 18.68 cm2 LA Area A2C s 17.61 cm2 LA Vol A4C A-L 57.57 mL LA Vol A2C A-L 50.46 mL LA Vol Biplane A-L 54.3 mL LA Vol/BSA A4C A-L LA Vol/BSA A2C A-L LA Vol/BSA BP A-L 29.3 mL/m2 LA Vol A4C MOD 53.7 mL LA Vol A2C MOD 47.2 mL LA Vol BP MOD 50.6 mL RA Volume RA Area A4C 12.1 cm2 RA ESV A4C (A-L) 26.4mL RA Vol/BSA A4C A-L RA Length A4C 4.7 cm RA ESV A4C (MOD) 25.0mL LV Diastology MV E' medial 0.066 (>0.07 m/s) MV E Vmax 0.89 (0.4-1.3 m/s) MV E/E' MED 13.58 (<14) MV A Vmax 1.40 (0.4-1.3 m/s) MV E' lateral 0.071 (>0.1 m/s) E/A Ratio 0.6 MV E/E' LAT 12.50 (<14) MV E' Average 0.069 m/s MV E/E'(average) 13.02 Aortic Valve AoV Vmax 1.43 m/s LVOT Vmax 1.08 m/s AoV Peak Grad 8.2 mmHg LVOT Peak Grad 4.7 mmHg AoV Area (Vmax) 2.20 cm2 LVOT VTI 0.250 m AoV VTI 0.362 m LVOT Mean Grad 2.7 mmHg AoV Mean Gibson. 1.06 m/s LVOT SV 73.16 mL AoV Mean Grad 5.0 mmHg LVOT Diam s 1.90 cm AoV Area (VTI) 2.02 cm2 Velocity Ratio 0.76 Mitral Valve MV DT 143 (160-240 msec) MV Vmax TIPS 1.41 m/s MV Mean Grad 3.0 (<2mmHg) MV VTI 0.344 m Pulmonary Valve PV Vmax 0.94 (0.5-1.5 m/s) RVOT Vmax 0.71 m/s PV Peak Grad 3.5 mmHg RVOT Peak Gr. 2.0 mmHg PV Mean Gibson 0.64 m/s RVOT VTI 0.149 m PV Mean Grad 1.8 mmHg RVOT Mean Gr. 1.1 mmHg Tricuspid Valve RA Pressure 3.00 mmHg TV S' 0.12 m/s
== END ==
PROVIDERS: PCP Nurse Practitioner Family; Visit Provider Internal Medicine Cardiovascular Disease
DX: I50.20 Unspecified systolic (congestive) heart failure (principal)
CPT/HCPCS: 93306

== ENCOUNTER → 2023-12-16 13:12 | Outpatient (BNVA) | payer MEDICARE, BC, SELFPAY | PROVIDERS: PCP Nurse Practitioner Family; Visit Provider Internal Medicine Cardiovascular Disease | DX: I50.20 Unspecified systolic (congestive) heart failure (principal); I25.119 Atherosclerotic heart disease of native coronary artery with unspecified angina pectoris | CPT/HCPCS: 99213 ==

== ENCOUNTER → 2024-02-10 14:47 | Outpatient (BNVA) | payer MEDICARE, BC, SELFPAY | PROVIDERS: PCP Nurse Practitioner Family; Referring Provider Nurse Practitioner Family; Visit Provider Nurse Practitioner Adult Health | DX: G56.01 Carpal tunnel syndrome, right upper limb (principal) | CPT/HCPCS: 95909; 99214 ==

== ENCOUNTER → 2024-03-01 10:44 | Outpatient (BNVA) | payer MEDICARE, BC, SELFPAY | PROVIDERS: PCP Nurse Practitioner Family; Referring Provider Nurse Practitioner Family; Visit Provider Podiatrist | DX: L60.3 Nail dystrophy (principal); N18.4 Chronic kidney disease, stage 4 (severe); L84 Corns and callosities; M20.41 Other hammer toe(s) (acquired), right foot; M79.672 Pain in left foot | CPT/HCPCS: 11055; 11721 ==

== ENCOUNTER 2024-03-02 03:29 | Outpatient (CLI) | payer MEDICARE, BC, SELFPAY ==
[2024-03-02 13:46] LABS: ALT 23 U/L (14-59); AST 18 U/L (15-37); Albumin 3.6 g/dL (3.4-5.0); Alkaline Phosphatase 62 U/L (46-116); Anion Gap 12.7 mmol/L (3-11); BUN 24 mg/dL (7-18); Bilirubin, Total 0.77 mg/dL (0.2-1.0); CO2 25.3 mmol/L (21.0-32.0); CREATININE 1.8 mg/dL (0.55-1.02); Calcium 10.4 mg/dL (8.5-10.1); Chloride 108 mmol/L (98-107); Estimated GFR 29.02 (mL/min/1.73m2); Glucose 93 mg/dL (74-106); Hemoglobin A1C 5.4 % (<5.7); Potassium 3.6 mmol/L (3.5-5.1); Sodium 146 mmol/L (136-145); Total Protein 6.6 g/dL (6.4-8.2)
== END 2024-03-02 03:30 | disposition home or self-care (01) ==
LOC: LOS 03:29
PROVIDERS: PCP Nurse Practitioner Family; Visit Provider Nurse Practitioner Family
DX: N18.4 Chronic kidney disease, stage 4 (severe) (principal); E11.51 Type 2 diabetes mellitus with diabetic peripheral angiopathy without gangrene; L84 Corns and callosities; L60.3 Nail dystrophy; S99.921A Unspecified injury of right foot, initial encounter
CPT/HCPCS: 36415; 80053; 83036

== ENCOUNTER 2024-03-23 01:52 | Outpatient (CLI) | payer MEDICARE, BC, SELFPAY ==
[2024-03-23 12:50] LABS: Abs Immature Grans 0.09 10^3/uL (0.0-0.06); Absolute Basophil Count 0.12 10^3/uL (0.0-0.2); Absolute Eosinophil Count 0.45 10^3/uL (0.0-0.7); Absolute Monocyte Count 1.01 10^3/uL (0.1-0.8); Basophils % 0.8 %; Eosinophils % 3.1 %; HCT 40.8 % (36.0-46.0); HGB 12.8 g/dL (11.2-15.7); Immature Grans % 0.6 %; Lymphocytes % 16.1 %; MCH 28.1 pg (27.0-33.0); MCHC 31.4 % (32.0-36.0); MCV 90 fL (80-95); Neutrophils % 72.4 %; Platelet Count 302 10^3/uL (130-400); RBC 4.56 10^6/uL (3.93-5.22); RDW 14.1 % (11.7-14.6); WBC 14.39 10^3/uL (4.4-10.8)
[2024-03-23 12:52] LABS: Absolute Lymphocyte Count 2.32 10^3/uL (1.2-3.4); Absolute Neutrophil Count 10.42 10^3/uL (1.2-6.7)
[2024-03-23 13:34] LABS: ALT 19 U/L (14-59); AST 18 U/L (15-37); Albumin 3.3 g/dL (3.4-5.0); Alkaline Phosphatase 64 U/L (46-116); Anion Gap 9.2 mmol/L (3-11); BUN 29 mg/dL (7-18); Bilirubin, Total 0.58 mg/dL (0.2-1.0); CO2 28.8 mmol/L (21.0-32.0); CREATININE 1.7 mg/dL (0.55-1.02); Calcium 9.9 mg/dL (8.5-10.1); Chloride 105 mmol/L (98-107); Estimated GFR 31.08 (mL/min/1.73m2); Glucose 104 mg/dL (74-106); PHOSPHORUS 3.5 mg/dL (2.6-4.7); Potassium 3.8 mmol/L (3.5-5.1); Sodium 143 mmol/L (136-145); Total Protein 6.7 g/dL (6.4-8.2)
[2024-03-23 14:54] LABS: Calculated LDL 48 mg/dL (<100); Cholesterol 123 mg/dL (<200); HDL Cholesterol 58 mg/dL (40-60); Triglyceride 88 mg/dL (<150); Vitamin B12 721 pg/mL (193-986); Vitamin D 25 Total 48.9 ng/mL (30-100)
[2024-03-23 22:29] LABS: Parathyroid Hormone,Intact 240 pg/mL (19-88)
[2024-03-23 23:08] LABS: HIV-1/2 Ag & Ab Screen Negative (Negative)
[2024-03-28 21:54] LABS: Lab Add On Test DONE
== END 2024-03-23 01:53 | disposition home or self-care (01) ==
LOC: LOS 01:53
PROVIDERS: PCP Nurse Practitioner Family; Visit Provider Nurse Practitioner Family
DX: N18.4 Chronic kidney disease, stage 4 (severe) (principal); Z11.4 Encounter for screening for human immunodeficiency virus [HIV]; E03.9 Hypothyroidism, unspecified; K20.0 Eosinophilic esophagitis
CPT/HCPCS: 36415; 80053; 80061; 82306; 87389; 82607; 83735; 83970; 84080; 84100; 84443; 85025

== ENCOUNTER 2024-03-29 14:59 | Outpatient (CLI) | payer MEDICARE, BC, SELFPAY ==
[2024-03-29 13:53] LABS: Abs Immature Grans 0.15 10^3/uL (0.0-0.06); Absolute Basophil Count 0.12 10^3/uL (0.0-0.2); Basophils % 0.6 %; Eosinophils % 0.6 %; HCT 39.5 % (36.0-46.0); HGB 12.8 g/dL (11.2-15.7); Immature Grans % 0.8 %; Lymphocytes % 9.6 %; MCH 28.1 pg (27.0-33.0); MCHC 32.4 % (32.0-36.0); MCV 87 fL (80-95); MPV 11.4 fL (8.0-11.0); Monocytes % 6.5 %; Neutrophils % 81.9 %; Platelet Count 315 10^3/uL (130-400); RBC 4.55 10^6/uL (3.93-5.22); RDW-SD 44.6 fL; WBC 19.95 10^3/uL (4.4-10.8)
[2024-03-29 13:54] LABS: Absolute Eosinophil Count 0.12 10^3/uL (0.0-0.7); Absolute Lymphocyte Count 1.92 10^3/uL (1.2-3.4); Absolute Neutrophil Count 16.34 10^3/uL (1.2-6.7)
[2024-03-29 14:25] LABS: Uric Acid 9.8 mg/dL (2.6-6.0)
== END 2024-03-29 15:00 | disposition home or self-care (01) ==
LOC: LBO 15:00
PROVIDERS: PCP Nurse Practitioner Family; Visit Provider Podiatrist
DX: M10.9 Gout, unspecified (principal)
CPT/HCPCS: 36415; 84550; 85025

== ENCOUNTER 2024-03-29 15:00 | Outpatient (CLI) | payer MEDICARE, BC, SELFPAY ==
--- NOTE | 2024-03-29 14:58 | DI.RAD_ITS ---
Exam(s) XR FOOT LT COMPLETE EXAM: XR FOOT LT COMPLETE CLINICAL HISTORY: L03.116 First MPJ pain, Cellulitis of left lower limb. TECHNIQUE: 2D digital imaging was performed. COMPARISON: No exams were available for comparison FINDINGS: 3 views Hardware in the ankle noted including screw across the medial malleolus healed fracture and lateral f ixation plate in the distal fibula across healed fracture at this level. There is mild soft tissue swelling in the dorsal aspect of foot at the metatarsal levels. No evidenc e of fracture or diastasis of the Lisfranc joint. Mild hallux valgus noted. No pes planus. Tiny in ferior calcaneal spur evident. Bone density is age-appropriate. No osseous lesions and no erosions. IMPRESSION: No acute osseous findings in the foot. DATA REPOSITORY: RADIATION DOSE DELIVERED:
== END 2024-03-29 15:20 ==
LOC: DI 15:01
PROVIDERS: PCP Nurse Practitioner Family; Visit Provider Podiatrist
DX: L03.116 Cellulitis of left lower limb (principal)
CPT/HCPCS: 36415; 73630; 84550; 85025

== ENCOUNTER → 2024-04-03 13:07 | Outpatient (BNVA) | payer MEDICARE, BC, SELFPAY | PROVIDERS: PCP Nurse Practitioner Family; Referring Provider Nurse Practitioner Family; Visit Provider Podiatrist | DX: L03.116 Cellulitis of left lower limb (principal) | CPT/HCPCS: 99213 ==

== ENCOUNTER 2024-04-27 01:08 | Outpatient (CLI) | payer MEDICARE, BC, SELFPAY ==
--- NOTE | 2024-04-27 07:30 | DI.DEXA_ITS ---
Exam(s) XR DEXA BONE DENSITY W/WO VIVIANA EXAM: XR DEXA BONE DENSITY W/WO VIVIANA CLINICAL HISTORY: SCREENING FOR osteoporosis IN POSTMENOPAUSAL STATUS,re-evaluation,Z78.0 TECHNIQUE: COMPARISON: CR XR DEXA BONE DENSITY W/WO VIVIANA from 04/07/2022 FINDINGS: Lateral Spine Image: Unremarkable. No compression deformities identified. Left hip: Total T-Score: -1.9. This compares to -2.3 on the prior examination. Total Z-Score: -0.1 T- and Z-scores: Overall, the T-score is consistent with osteopenia. However, there is osteoporosis in the femoral neck with a T-score of -3.3. Lumbar Spine: Total T-Score: 0.5. This compares to 0.4 on the prior examination. Total Z-Score: 2.9 T- and Z-scores: Within normal limits. IMPRESSION: There is evidence of osteoporosis in the left femoral neck.
--- NOTE | 2024-04-27 12:44 | DI.MAMMO_ITS ---
Exam(s) MAMMO SCREENING EXAM: MAMMO SCREENING CLINICAL HISTORY: screening,Z12.39 TECHNIQUE: Bilateral full field digital CC and MLO mammographic images were obtained with 3D tomosyn thesis and utilizing computer aided detection (CAD). COMPARISON: Available for comparison. FINDINGS: Masses/Architectural Distortion: None seen. Microcalcifications: No suspicious pleomorphic-type are seen. Skin Thickening/Nipple Retraction: None. IMPRESSION: 1. No significant interval change with no specific features of malignancy noted. 2. Unless there is more urgent need, screening mammography is recommended, as per [employer] guidelines. BI-RADS Category 1 - Negative Breast Density - Category B - Scattered areas of fibroglandular density Breast density category C or D implies that the patient has dense breast tissue. Dense breast tissue is very common and is not abnormal but dense breast tissue can make it harder to find cancer on a ma mmogram. Also, dense breast tissue may increase their breast cancer risk. This information about the result of the mammogram report was provided to the patient to raise their awareness. Use this report when you speak with the patient about their risks for breast cancer, which includes their family hist ory. At that time, you may recommend for more screening tests (Ultrasound or MRI) as they might be us eful based on their risk. A negative radiographic report should not delay biopsy if a dominant or clinically suspicious mass is present. Up to ten percent of cancers are not identified on mammography. A negative report may reinforce clinical impression. Adenosis and dense breasts may obscure an underlying neoplasm. False positive reports average 6 to 10%. Patient will receive a letter notifying them of these results.
== END 2024-04-27 01:28 ==
LOC: DI 01:08
PROVIDERS: PCP Nurse Practitioner Family; Visit Provider Nurse Practitioner Family
DX: Z12.31 Encounter for screening mammogram for malignant neoplasm of breast (principal); Z78.0 Asymptomatic menopausal state; Z13.820 Encounter for screening for osteoporosis; M85.89 Other specified disorders of bone density and structure, multiple sites
CPT/HCPCS: 77063; 77067; 77080

== ENCOUNTER 2024-05-01 16:39 | Outpatient (REF) | payer MEDICARE, BC, SELFPAY ==
[2024-05-01 21:02] LABS: Abs Immature Grans 0.09 10^3/uL (0.0-0.06); Absolute Monocyte Count 1.44 10^3/uL (0.1-0.8); Basophils % 0.7 %; Eosinophils % 0.6 %; HCT 41.9 % (36.0-46.0); HGB 13.8 g/dL (11.2-15.7); Immature Grans % 0.4 %; Lymphocytes % 11.3 %; MCH 28.3 pg (27.0-33.0); MCHC 32.9 % (32.0-36.0); MCV 86 fL (80-95); MPV 11.7 fL (8.0-11.0); Platelet Count 321 10^3/uL (130-400); RBC 4.88 10^6/uL (3.93-5.22); RDW 13.9 % (11.7-14.6); RDW-SD 43.3 fL; WBC 20.52 10^3/uL (4.4-10.8)
[2024-05-01 21:03] LABS: Absolute Basophil Count 0.14 10^3/uL (0.0-0.2); Absolute Eosinophil Count 0.12 10^3/uL (0.0-0.7); Absolute Lymphocyte Count 2.32 10^3/uL (1.2-3.4); Absolute Neutrophil Count 16.42 10^3/uL (1.2-6.7)
[2024-05-01 21:10] LABS: Uric Acid 11.7 mg/dL (2.6-6.0)
[2024-05-01 21:15] LABS: Bilirubin Negative (Negative); Blood Negative (Negative); Clarity Clear (Clear); Glucose Negative (Negative); Ketones Negative (Negative); Leukocyte Esterase Small (Negative); Nitrite Negative (Negative); Specific Gravity 1.015 (1.005-1.025); Urobilinogen 0.2 mg/dL (Up to 0.2)
[2024-05-01 21:24] LABS: Bacteria Rare HPF (Negative); C & S Indicated? No; Casts Negative LPF (Negative); Crystals Negative HPF (Negative); Epithelial Cells Rare HPF (Negative); Mucus Negative (Negative); RBC 0-2 HPF (0-2)
== END 2024-05-01 16:40 | disposition home or self-care (01) ==
LOC: LBN 16:39
PROVIDERS: PCP Nurse Practitioner Family; Visit Provider Nurse Practitioner Family
DX: R39.9 Unspecified symptoms and signs involving the genitourinary system (principal); M10.9 Gout, unspecified; N39.0 Urinary tract infection, site not specified; B99.9 Unspecified infectious disease
CPT/HCPCS: 81003; 81015; 84550; 85025

== ENCOUNTER 2024-05-22 02:03 | Outpatient (CLI) | payer MEDICARE, BC, SELFPAY ==
--- NOTE | 2024-05-22 10:05 | DI.RAD_ITS ---
Exam(s) XR FOOT RT COMPLETE EXAM: XR FOOT RT COMPLETE CLINICAL HISTORY: evaluate PIP joint, h/o injury 2020,corn of toe,traumatic injury,l84,. TECHNIQUE: 2D digital imaging was performed of the right foot. Three images were obtained. AP, obl ique and lateral views were obtained. COMPARISON: There are no priors for comparison. FINDINGS: BONES: No acute fracture is present. No bony destructive lesion is seen. There is a hallux valgus def ormity. There is some irregularity of the lateral aspect of the head of the 1st metatarsal bone whic h appears chronic. The surfaces are well corticated. JOINTS: No dislocation present. The joint spaces are otherwise well maintained. SOFT TISSUE: Vascular calcifications are present. IMPRESSION: No acute fracture or dislocation. DATA REPOSITORY: RADIATION DOSE DELIVERED:
== END 2024-05-22 02:23 ==
LOC: DI 02:03
PROVIDERS: PCP Nurse Practitioner Family; Visit Provider Podiatrist
DX: S99.921D Unspecified injury of right foot, subsequent encounter; X58.XXXD Exposure to other specified factors, subsequent encounter; L84 Corns and callosities; L60.3 Nail dystrophy; B35.1 Tinea unguium; M79.672 Pain in left foot; E11.51 Type 2 diabetes mellitus with diabetic peripheral angiopathy without gangrene; N18.9 Chronic kidney disease, unspecified; R60.0 Localized edema
CPT/HCPCS: 11721; 73630

== ENCOUNTER 2024-06-21 04:11 | Outpatient (CLI) | payer MEDICARE, BC, SELFPAY ==
[2024-06-21 12:41] LABS: Hemoglobin A1C 6.7 % (<5.7)
[2024-06-21 12:56] LABS: Uric Acid 9.8 mg/dL (2.6-6.0)
== END 2024-06-21 04:12 | disposition home or self-care (01) ==
LOC: LBO 04:11
PROVIDERS: PCP Nurse Practitioner Family; Visit Provider Nurse Practitioner Family
DX: E11.51 Type 2 diabetes mellitus with diabetic peripheral angiopathy without gangrene (principal); M10.9 Gout, unspecified; Z51.81 Encounter for therapeutic drug level monitoring
CPT/HCPCS: 36415; 83036; 84550

== ENCOUNTER 2024-08-09 03:00 | Outpatient (CLI) | payer MEDICARE, BC, SELFPAY ==
[2024-08-09 13:54] LABS: Anion Gap 10.5 mmol/L (3-11); BUN 25 mg/dL (7-18); CO2 29.5 mmol/L (21.0-32.0); CREATININE 1.7 mg/dL (0.55-1.02); Calcium 10.7 mg/dL (8.5-10.1); Chloride 102 mmol/L (98-107); Estimated GFR 30.89 (mL/min/1.73m2); Glucose 149 mg/dL (74-106); Potassium 3.6 mmol/L (3.5-5.1); Sodium 142 mmol/L (136-145); Uric Acid 9.5 mg/dL (2.6-6.0)
== END 2024-08-09 03:01 | disposition home or self-care (01) ==
LOC: LBO 03:00
PROVIDERS: PCP Nurse Practitioner Family; Visit Provider Nurse Practitioner Family
DX: M10.9 Gout, unspecified (principal); Z51.81 Encounter for therapeutic drug level monitoring; N18.4 Chronic kidney disease, stage 4 (severe)
CPT/HCPCS: 36415; 80048; 84550

== ENCOUNTER → 2024-09-04 12:53 | Outpatient (BNVA) | payer MEDICARE, BC, SELFPAY | PROVIDERS: PCP Nurse Practitioner Family; Referring Provider Nurse Practitioner Family; Visit Provider Podiatrist | DX: L60.3 Nail dystrophy (principal); N18.4 Chronic kidney disease, stage 4 (severe); L84 Corns and callosities; M79.672 Pain in left foot; E11.9 Type 2 diabetes mellitus without complications; R60.0 Localized edema; L60.2 Onychogryphosis; R09.89 Other specified symptoms and signs involving the circulatory and respiratory systems; L65.9 Nonscarring hair loss, unspecified; R20.8 Other disturbances of skin sensation; B35.1 Tinea unguium; L60.8 Other nail disorders; M79.674 Pain in right toe(s); M79.675 Pain in left toe(s); R23.8 Other skin changes | CPT/HCPCS: 11721 ==

== ENCOUNTER → 2024-12-04 13:42 | Outpatient (BNVA) | payer MEDICARE, BC, SELFPAY | PROVIDERS: PCP Nurse Practitioner Family; Referring Provider Nurse Practitioner Family; Visit Provider Podiatrist | DX: L60.3 Nail dystrophy (principal); M79.674 Pain in right toe(s); M79.672 Pain in left foot; N18.4 Chronic kidney disease, stage 4 (severe); L84 Corns and callosities; R09.89 Other specified symptoms and signs involving the circulatory and respiratory systems; L65.9 Nonscarring hair loss, unspecified; R20.8 Other disturbances of skin sensation; R23.4 Changes in skin texture; L60.2 Onychogryphosis; L60.8 Other nail disorders; R23.8 Other skin changes; L85.8 Other specified epidermal thickening; R60.0 Localized edema | CPT/HCPCS: 11719; 11720 ==

== ENCOUNTER → 2024-12-20 15:19 | Outpatient (BNVA) | payer MEDICARE, BC, SELFPAY | PROVIDERS: PCP Nurse Practitioner Family; Referring Provider Nurse Practitioner Family; Visit Provider Registered Nurse | DX: I25.119 Atherosclerotic heart disease of native coronary artery with unspecified angina pectoris (principal); I50.20 Unspecified systolic (congestive) heart failure; Z79.02 Long term (current) use of antithrombotics/antiplatelets | CPT/HCPCS: 99214 ==

== ENCOUNTER 2025-01-26 13:52 | Outpatient (CLI) | payer MEDICARE, BC, SELFPAY ==
[2025-01-26 14:44] LABS: Lab Add On Test DONE
[2025-01-26 15:47] LABS: Abs Immature Grans 0.12 10^3/uL (0.0-0.06); HCT 35.9 % (36.0-46.0); HGB 12.2 g/dL (11.2-15.7); Immature Grans % 0.9 %; MCH 28.6 pg (27.0-33.0); MCHC 34.0 % (32.0-36.0); MCV 84 fL (80-95); MPV 12.2 fL (8.0-11.0); Platelet Count 333 10^3/uL (130-400); RBC 4.27 10^6/uL (3.93-5.22); RDW 14.3 % (11.7-14.6); RDW-SD 43.8 fL; WBC 13.49 10^3/uL (4.4-10.8)
[2025-01-26 16:07] LABS: ALT 16 U/L (14-59); AST 20 U/L (15-37); Albumin 3.1 g/dL (3.4-5.0); Alkaline Phosphatase 82 U/L (46-116); Anion Gap 13.0 mmol/L (3-11); BUN 16 mg/dL (7-18); Bilirubin, Total 0.8 mg/dL (0.2-1.0); CO2 25.0 mmol/L (21.0-32.0); Calcium 9.8 mg/dL (8.5-10.1); Chloride 99 mmol/L (98-107); Estimated GFR 33.22 (mL/min/1.73m2); Glucose 161 mg/dL (74-106); Potassium 3.1 mmol/L (3.5-5.1); Sodium 137 mmol/L (136-145); TSH (W/Ref FT4) 0.51 uIU/mL (0.36-3.74); Total Protein 6.8 g/dL (6.4-8.2); Uric Acid 7.9 mg/dL (2.6-6.0)
[2025-01-26 16:52] LABS: Ferritin 179 ng/mL (8-252); Vitamin B12 1522 pg/mL (193-986)
[2025-01-26 16:53] LABS: Folate > 20.0 ng/mL (8.6-20.0)
[2025-01-26 17:23] LABS: NT-proBNP 5422 pg/mL (<300)
== END 2025-01-26 13:53 | disposition home or self-care (01) ==
LOC: LOS 13:53
PROVIDERS: PCP Nurse Practitioner Family; Referring Provider Nurse Practitioner Family; Visit Provider Nurse Practitioner Family
DX: R11.2 Nausea with vomiting, unspecified (principal); N18.4 Chronic kidney disease, stage 4 (severe); E03.9 Hypothyroidism, unspecified; M10.9 Gout, unspecified; I50.20 Unspecified systolic (congestive) heart failure
CPT/HCPCS: 36415; 80053; 82607; 82728; 82746; 83880; 84443; 84550; 85025

== ENCOUNTER 2025-01-26 13:54 | Outpatient (CLI) | payer MEDICARE, BC, SELFPAY ==
--- NOTE | 2025-01-26 13:45 | RT.EKG_ITS ---
APPROVED REPORT Exam: Resting ECG Reason for Exam: Irregular pulse rate Patient Location: O HR:111 bpm ECG Measurements Heart Rate 111 AXIS MA [id number] P [id number] QRSd 148 QRS -42 QT 371 T 57 QTc 504 Conclusion Atrial flutter with predominant 2:1 AV block...A-rate 214, multiple Ps Ventricular premature complex...V complex w/ short R-R interval Left bundle branch block...QRSd>120, broad/notched R
== END 2025-01-26 13:55 | disposition home or self-care (01) ==
PROVIDERS: PCP Nurse Practitioner Family; Visit Provider Nurse Practitioner Family
DX: R09.89 Other specified symptoms and signs involving the circulatory and respiratory systems (principal); R11.2 Nausea with vomiting, unspecified; I49.3 Ventricular premature depolarization; I44.7 Left bundle-branch block, unspecified
CPT/HCPCS: 93010

== ENCOUNTER 2025-02-07 12:53 | Outpatient (CLI) | payer MEDICARE, BC, SELFPAY | END 2025-02-07 12:54 | disposition home or self-care (01) | PROVIDERS: PCP Nurse Practitioner Family; Visit Provider Nurse Practitioner Family | DX: I48.92 Unspecified atrial flutter (principal) | CPT/HCPCS: 93246 ==

== ENCOUNTER 2025-02-09 04:35 | Outpatient (CLI) | payer MEDICARE, BC, SELFPAY ==
--- NOTE | 2025-02-09 06:45 | DI.CT_ITS ---
Exam(s) CT CHEST WO EXAM: CT CHEST WO CLINICAL HISTORY: STOKES, cough,HEART FAILURE WITH REDUCED EF,I50.20,R06.09. TECHNIQUE: Multi planar reconstructions were performed. CONTRAST MATERIAL: None COMPARISON: No exams were available for comparison FINDINGS: CHEST: LUNGS: There are no confluent infiltrates nor pleural effusions. There is a tiny 2 mm benign calcified granuloma in the posterior aspect of the right lower lobe. No other 2-3 mm nodules noted in the lateral segment of the right middle lobe. There is a 1-2 mm nodule in left lower lobe. There are bilateral peripheral subpleural increased markings which probably indicating element of pulmonary fibrosis. There is no honeycombing. No true bronchiectasis. No pleural effusions. No ominous lung masses. No findings in trachea and mainstem bronchi. MEDIASTINUM: There is no obvious hilar nor mediastinal adenopathy. Slightly prominent subcarinal lymph nodes.No incidental axillary nor supraclavicular adenopathy. THYROID: Abnormally enlarged and multinodular, including a peripherally calcified nodule in the medial aspect of the left lobe at junction with the isthmus. The left thyroid lobe is significantly larger than the right thyroid lobe. Both contain nodular densities. Please note the entire thyroid lobe is not included in the field of view. CARDIAC: Cardiomegaly. No significant pericardial effusion. Prominent coronary artery calcification noted in the left coronary artery. Possible vascular stent at this level. The diameter of the ascending thoracic aorta is 3.3 cm which is within normal limits. The diameter of the aortic arch and descending thoracic aorta are also within normal limits. VISUALIZED UPPER ABDOMEN:Multiple tiny gallstones and sludge are noted in the gallbladder lumen. Gallbladder is not completely included in the field of view of this chest study but does not appear edematous and there is no pericholecystic fluid. The right adrenal gland is unremarkable. There is nodular thickening of the genu of the left adrenal gland which measures 1.2 x 1.0 cm. This is possibly a small incidental adenoma. OSSEOUS: Multilevel disc space narrowing throughout the thoracic and lumbar spines. No osseous lesions. No compression fractures evident. No rib fractures or rib lesions nor sternal findings.. IMPRESSION: 1. Tiny benign-appearing lung nodules which do not require further workup 2. Bilateral subpleural increased markings which probably represent an element of interstitial fibrosis. 3. No intrathoracic adenopathy and no pleural effusions. 4. Cardiomegaly. Heavy calcification of the left coronary artery with possible stent at this level. Normal diameter ascending thoracic aorta. No pericardial effusion. 5. Asymmetrically enlarged thyroid gland with left lobe larger than right and both lobes containing nodules, 1 of these nodules exhibiting circumferential calcification. There is no narrowing nor shift of the trachea related to these thyroid findings. If clinically indicated nonemergent thyroid ultrasound examination can be performed. RADIATION DOSE DELIVERED: 155.05mGy.cm Total DLP DATA REPOSITORY: All CT scans at this facility are submitted to the National Radiology Data Registry (NRDR) Dose Index Registry (DIR) with the [employer] (ACR). RADIATION OPTIMIZATION: All CT scans at this facility use at least one of these dose optimization techniques: automated exposure control; mA and/or kV adjustment per patient size (includes targeted exams where dose is matched to clinical indication); or iterative reconstruction.
== END 2025-02-09 04:55 ==
LOC: DI 04:35
PROVIDERS: PCP Nurse Practitioner Family; Visit Provider Nurse Practitioner Family
DX: R06.09 Other forms of dyspnea (principal); I50.20 Unspecified systolic (congestive) heart failure; R91.8 Other nonspecific abnormal finding of lung field
CPT/HCPCS: 71250

== ENCOUNTER 2025-02-21 00:16 | Outpatient (CLI) | payer MEDICARE, BC, SELFPAY ==
--- NOTE | 2025-02-21 06:45 | DI.US_ITS ---
Exam(s) US THYROID EXAM: US THYROID CLINICAL HISTORY: multinodular thyroid on CT scan,e04.2. TECHNIQUE: Ultrasound thyroid performed using standard protocol. COMPARISON: No exams were available for comparison FINDINGS: ISTHMUS: 3 mm RIGHT LOBE: Size: 5.3 x 2.3 x 2.1 cm Echogenicity: Normal. Vascularity: Normal. Nodules: There is a multinodular right lobe. The largest measures 2.2 x 1.3 x 1.7 cm. It is solid and isoechoic. It is consistent with a TI rads level 3 nodule. Due to its size, follow-up is recommended. LEFT LOBE: Size: 6.4 x 3.2 x 3.3 cm Echogenicity: Normal. Vascularity: Normal. Nodules: The left lobe is heterogeneous with multiple nodules present. There is a 2.7 x 1.5 x 2.9 cm nodule in the mid left thyroid lobe. It is solid and isoechoic. It is ill-defined and contains a macrocalcification. This is consistent with a TI rads level 4 nodule. Due to its size, FNA is recommended. There is a 1.3 x 1.3 x 1.3 cm nodule in the inferior pole. It is solid and hypoechoic. It has peripheral calcification. It is consistent with a TI rads level 4 nodule. Due to its size, follow-up is recommended. There is a 1.3 x 1.0 x 1.0 cm nodule in the superior pole. It is isoechoic and solid. Punctate echogenic foci are present. It is consistent with a TI rads 4 level nodule. Due to its size, follow-up is recommended. OTHER FINDINGS: None. IMPRESSION: Multinodular thyroid gland. There is a 2.7 x 1.5 x 2.9 cm nodule in the left thyroid lobe consistent with a TI rads level 4 nodule. Due to its size, FNA is recommended. DATA REPOSITORY:
--- NOTE | 2025-02-21 06:45 | DI.US_ITS ---
Exam(s) US ABDOMEN LIMITED EXAM: US ABDOMEN LIMITED CLINICAL HISTORY: gallstones,cholelithiasis,k80.20 TECHNIQUE: Ultrasound abdomen performed using standard protocol. COMPARISON: No exams were available for comparison FINDINGS: ABDOMINAL AORTA AND IVC: Visualized portions normal caliber. PANCREAS: Normal where visualized. LIVER: Normal. Hepatopetal flow in the Portal Vein. No evidence of a hepatic mass. The liver measures 13.4cm long. GALLBLADDER:There are echogenic foci seen within the gallbladder consistent with small stones. No evidence of wall thickening. No pericholecystic fluid identified. There is gallbladder sludge present. There are a few echogenic nodules along the wall of the gallbladder consistent with polyps. BILIARY SYSTEM: Common bile duct measures < 7 mm. No intrahepatic biliary ductal dilation. ROCHA'S SIGN: Negative. KIDNEYS: Kidneys are symmetric in size. No evidence of renal calculi. No evidence of hydronephrosis. There is a 1.6 cm simple renal cyst. No follow-up is recommended. SPLEEN: Not enlarged. ASCITES: None seen. IMPRESSION: There is cholelithiasis and gallbladder sludge. No sonographic findings to suggest acute cholecystitis. DATA REPOSITORY:
== END 2025-02-21 00:36 ==
LOC: DI 00:16
PROVIDERS: PCP Nurse Practitioner Family; Visit Provider Nurse Practitioner Family
DX: K80.20 Calculus of gallbladder without cholecystitis without obstruction (principal); E04.2 Nontoxic multinodular goiter
CPT/HCPCS: 76536; 76705

== ENCOUNTER 2025-02-26 02:23 | Outpatient (CLI) | payer MEDICARE, BC, SELFPAY ==
--- NOTE | 2025-02-26 07:00 | DI.NM_ITS ---
APPROVED REPORT Exam: Exercise Treadmill Patient Location: Out-Patient Room/Bed: Stress Nurse: Nga Britton RN Ordering Provider:EUGENE ARVIZUDiamond, Contact Number: [phone] BMI: 31.97 Baseline Rhythm: Sinus Tachycardia, LBBB Indications: STOKES, CAD Medical History Cardiac Medications: Ozempic, albuterol sulfate, amlodipine, aspirin, atorvastatin, furosemide, synthroid, metoprolol succinate, nitro, ticagrelor, allopurinol, omeprazole Allergies: Clopidogrel, NSAIDs Cardiac Risk Factors: Family hx, HTN, HLD, diabetes, asthma, former smoker, obesity Previous Cardiac Procedures: SHANTAL x3 Pretest Chest Pain Characteristics: None Exercise History: Sedentary Physical Disabilities: STOKES Lung Sounds: Clear to auscultation Heart Sounds: Regular Stress Test Details Test: Pharmacologic stress testing performed using 0.4 mg of regadenoson per 5 mL given IV over 10 seconds. Reason for pharmacologic stress test: physical limitation. Nuclear Acquisition: Rest Tc-99m/Stress Tc-99m 1 day Rest Isotope: Tc-99m Sestamibi. Dose: 10.0 Date: 02/26/2025 Injection Time: 1115 Stress Isotope: Tc-99m Sestamibi. Dose: 30.0 Date: 02/26/2025 Injection Time: 1302 HR Resting HR Supine: 102 bpm Max Heart Rate (APMHR): 144 bpm Target HR (85% APMHR): 122 bpm Max HR Achieved: 112 bpm % of APMHR: 78 Recovery HR: 109 bpm BP Resting BP Supine: 138/88 mmHg Max BP: 138/88 mmHg Recovery BP: 128/74 mmHg ECG Resting ECG: Sinus Tachycardia, LBBB Stress ECG: Sinus Tachycardia, LBBB ST Change: Nondiagnostic low heart rate Arrhythmia: Occasional PVC's, rare PAC Recovery ECG: Sinus Tachycardia, LBBB Recovery ST Change: Nondiagnostic low heart rate Clinical Stress Symptoms: None Angina Score: None Rate Pressure Product: 10251 Stress ECG Conclusion 1. Resting electrocardiogram showed a left bundle branch block 2. Patient underwent testing using pharmacologic stress with regadenoson 3. Electrocardiographic portion of the test was nondiagnostic 4. See MPI report Stress Test Summary STAGE HR BP SpO2 Symptoms NOTES Supine 102 138/88 98% 1 min post Lexiscan injection 100 138/78 98% 3 min post Lexiscan injection 110 118/76 98% 6 min post Lexiscan injection 109 128/64 98% Patient unable to use treadmill r/t STOKES per her report. Denied any symptoms during test. Patient proceeded to imaging ambulatory in no apparent distress. MPI Conclusion Myocardial perfusion is abnormal. There is an area of anteroapical infarction. There is no ischemia Calculated EF is 25%. The apex is akinetic. The remainder of the ventricle is hypocontractile
[2025-02-26] MEDS: Regadenoson 0.4 MG/5 ML SYR IVP (13:11)
== END 2025-02-26 02:43 ==
LOC: DI 02:24
PROVIDERS: PCP Nurse Practitioner Family; Visit Provider Nurse Practitioner Family
DX: I25.119 Atherosclerotic heart disease of native coronary artery with unspecified angina pectoris (principal); R06.09 Other forms of dyspnea
CPT/HCPCS: 78452; 93016; 93018; 93017; J2785

== ENCOUNTER 2025-03-02 07:36 | Outpatient (CLI) | payer MEDICARE, BC, SELFPAY ==
--- NOTE | 2025-03-02 08:28 | W.CARDEVENT ---
Date of service: 03/02/25 Time of Service: 08:28 Cardiac Event Recorder Referring Provider:: Ana Rosa Calderon Indications:: Atrial flutter Cardiac Event Note: This is a cardiac event monitor. Patient was monitored for 13 days and 22 hours Predominant rhythm was sinus with an average heart rate of 91. Minimum or, maximum 128 There were rare ventricular ectopic beats. There were several brief runs of nonsustained ventricular tachycardia There were frequent atrial premature beats. There were multiple runs of premature atrial contractions/atrial tachycardia. Some of these were symptomatic There was no high-grade AV block, no pauses greater than 3 seconds The majority of symptoms correlated to sinus tachycardia, occasionally to atrial premature beats and atrial runs
== END 2025-03-02 07:37 | disposition home or self-care (01) ==
LOC: CARDOPNVT 07:36
PROVIDERS: PCP Nurse Practitioner Family; Visit Provider Internal Medicine Cardiovascular Disease
DX: I48.92 Unspecified atrial flutter (principal); I49.1 Atrial premature depolarization
CPT/HCPCS: 93248

== ENCOUNTER 2025-04-04 02:15 | Outpatient (CLI) | payer MEDICARE, BC, SELFPAY ==
[2025-04-04 13:57] LABS: Potassium 3.7 mmol/L (3.5-5.1)
== END 2025-04-04 02:16 | disposition home or self-care (01) ==
LOC: LBO 02:15
PROVIDERS: PCP Nurse Practitioner Family; Visit Provider Nurse Practitioner Family
DX: E87.5 Hyperkalemia (principal)
CPT/HCPCS: 36415; 84132

== ENCOUNTER → 2025-04-12 11:21 | Outpatient (BNVA) | payer MEDICARE, BC, SELFPAY | PROVIDERS: PCP Nurse Practitioner Family; Referring Provider Nurse Practitioner Family; Visit Provider Podiatrist | DX: L60.3 Nail dystrophy (principal); M79.674 Pain in right toe(s); E11.22 Type 2 diabetes mellitus with diabetic chronic kidney disease; N18.4 Chronic kidney disease, stage 4 (severe); Z79.4 Long term (current) use of insulin; R09.89 Other specified symptoms and signs involving the circulatory and respiratory systems; L65.9 Nonscarring hair loss, unspecified; R20.8 Other disturbances of skin sensation; R23.4 Changes in skin texture; L60.8 Other nail disorders; R23.8 Other skin changes; R60.0 Localized edema; L60.2 Onychogryphosis; L85.8 Other specified epidermal thickening | CPT/HCPCS: 11719; 11720 ==